=== PATIENT | male | born 1965 | race Two or more races ===

== ENCOUNTER 2016-07-14 00:57 | Inpatient (IN) | payer OTHER ==
[2016-07-14] VITALS (8 sets, daily range): BP systolic 119–149; BP diastolic 74–101
[~2016-07-14] VITALS: Ht 180.3 cm; Wt 51.7 kg
[~2016-07-14 00:57] MED LIST: AMITRIPTYLINE25 MG ORAL; ASPIRIN EC81 MG ORAL; CATAPRES0.1 MG ORAL; FUROSEMIDE20 M1 ORAL; FUROSEMIDE40 MG ORAL; LANTUS; LANTUS SOL100 UNIT/1 SUBQ; LISINOPRIL40 MG ORAL; METFORMIN HCL1000 M1 ORAL; METFORMIN HCL500 M1 ORAL; METOPROLOL TART25 MG ORAL; NEURONTIN300 MG ORAL; NKM; NOVOLIN R; NOVOLIN R100 UNIT/1 SUBQ; NOVOLOG100 UNIT/3 SUBQ; PREDNISOLO15 MG/5 M1 ORAL; TRAMADOL HCL50 MG ORAL
[2016-07-14] MEDS ORDERED: HYDROmorphone 1mg/ml Carpuject IVP ONE (01:00)
[2016-07-14] MEDS ORDERED: HUMALOG 75/255 UNIT1 SUBQ (01:01)
[2016-07-14] MEDS ORDERED: LANTUS SOL100 UNIT/1 SUBQ (01:01)
--- NOTE | 2016-07-14 01:03 | Emergency Room Report ---
History of Present Illness General Chief Complaint: Pain Source: Patient, EMS Present Illness HPI Is a 50-year-old male with a history of drug use, diabetes. He presents with chief complaint of bilateral leg pain. This is a chronic issue for him. He has diabetic neuropathy with previous infection and trans-metatarsal agitation the right foot. He presents with severe pain to the right leg. 10 out of 10. No fever or chills. No trauma. Nothing made it better. Pain medication not helping. No other complaint. Allergies: Coded Allergies: ACETAMINOPHEN (Unverified Allergy, Unknown, 07/14/16) HYDROCODONE (Unverified Allergy, Unknown, 07/14/16) Patient History Past Medical History: see triage record, old chart reviewed, DM Past Surgical History: other Pertinent Family History: none Social History: Reports: drug use - History, smoking Immunizations: UTD Reviewed Nursing Documentation: PMH: Agreed, PSxH: Agreed Nursing Documentation-PMH Past Medical History: No History, Except For Hx Cardiac Problems: Yes - CHF, HEP C Hx Hypertension: Yes Hx COPD: Yes Hx Diabetes: Yes Hx Cancer: Yes Hx Gastrointestinal Problems: No Hx Dialysis: No Hx Neurological Problems: No Hx Seizures: Yes Hx Tremors: Yes Hx Weakness: Yes Review of Systems Eye: Denies: blurred vision, eye pain ENT: Denies: ear pain, nose congestion, throat swelling Respiratory: Denies: cough, shortness of breath Cardiovascular: Denies: chest pain, palpitations Gastrointestinal: Denies: abdominal pain, diarrhea, nausea, vomiting Musculoskeletal: Reports: muscle pain, Denies: back pain, joint pain Skin: Denies: rash Neurological: Denies: headache, numbness Endocrine: Denies: increased thirst, increased urine Hematologic/Lymphatic: Denies: easy bruising All Other Systems: negative except mentioned in HPI Physical Exam Vital Signs Date Time Temp Pulse Resp B/P Pulse Ox O2 Delivery O2 Flow Rate FiO2 07/14/16 00:54 97.9 111 18 126/87 98 Room Air Vitals with tachycardia [id number] EP Interpretation: reviewed, normal General Appearance: no apparent distress, alert, cachetic, Chronically Ill Head: normocephalic, atraumatic Eyes: bilateral eye EOMI, bilateral eye other - Legally blind ENT: hearing grossly normal, normal pharynx Neck: full range of motion, supple, no meningismus Respiratory: chest non-tender, lungs clear, normal breath sounds Cardiovascular #1: regular rate, rhythm, no murmur Gastrointestinal: normal bowel sounds, non tender, no mass, no organomegaly, no bruit, non-distended Musculoskeletal: back normal, normal range of motion, other - Right elbow: Slow healing ulcer. No infection. Full range of motion. Neurologic: alert, oriented x3 Psychiatric: mood/affect normal Skin: warm/dry Medical Decision Making Diagnostic Impression: Primary Impression: Diabetic peripheral neuropathy Additional Impressions: Failure to thrive in adult Hyperglycemia due to type 1 diabetes mellitus Amphetamine abuse Diabetic knee ulcer Chronic diarrhea Proteinuria ER Course Patient presents with generalize pain secondary to diabetic neuropathy and drug abuse. He has chronic diarrhea. Unable to for care for himself. He is also blind now. Her thigh on this 80 year-old mom who comes by to take care of him. He will need usp care. Lab Results Impression labs with elevated glucose Rhythm Strip Diag. Results EP Interpretation: yes Rate: 88 Rhythm: NSR, no PVC's, no ectopy Last Vital Signs Date Time Temp Pulse Resp B/P Pulse Ox O2 Delivery O2 Flow Rate FiO2 07/14/16 00:54 97.9 111 18 126/87 98 Room Air Status: improved Disposition: ADMITTED INPATIENT Condition: Serious JILL FOSTER M.D. Jul 14, 2016 01:03
[2016-07-14] MEDS ORDERED: CATAPRES0.1 MG ORAL (01:11)
[2016-07-14] MEDS ORDERED: ASPIR 8181 MG ORAL (01:11)
[2016-07-14 01:45] LABS: BASOPHILS % (AUTO) 1.2 % (0.0-2.0); EOSINOPHILS % (AUTO) 3.5 % (0.0-3.0); LYMPHOCYTES % (AUTO) 26.8 % (20.0-45.0); MEAN CORPUSCULAR HEMOGLOBIN 29.7 PG (27.0-31.0); MEAN CORPUSCULAR VOLUME 93 FL (80-99); MEAN PLATELET VOLUME 4.8 FL (6.5-10.1); MONOCYTES % (AUTO) 4.4 % (1.0-10.0); NEUTROPHILS % (AUTO) 64.1 % (45.0-75.0); PLATELET COUNT 433 K/UL (150-450); RED BLOOD COUNT 4.35 M/UL (4.70-6.10); RED CELL DISTRIBUTION WIDTH 17.8 % (11.6-14.8); WHITE BLOOD COUNT 11.5 K/UL (4.8-10.8)
[2016-07-14 02:04] LABS: CALCIUM 9.1 mg/dL (8.6-10.2); CHLORIDE 97 mEQ/L (98-107); CREATININE 1.2 mg/dL (0.7-1.2); GLOMERULAR FILTRATION RATE > 60 mL/min (>60); POTASSIUM 4.5 mEQ/L (3.4-4.9); SODIUM 129 mEQ/L (135-145)
[2016-07-14 02:17] LABS: APPEARANCE,URINE CLEAR; KETONES,URINE NEGATIVE (NEGATIVE); LEUKOCYTE ESTERASE ,URINE 1+ (NEGATIVE); NITRITE,URINE NEGATIVE (NEGATIVE); PH,URINE 5 (4.5-8.0); PROTEIN,URINE 2+ (NEGATIVE); UROBILINOGEN,URINE NORMAL MG/DL (0.0-1.0)
[2016-07-14 02:28] LABS: BACTERIA,URINE FEW /HPF; RBC,URINE 0-2 /HPF (0 - 0); SQUAMOUS EPITHELIAL CELL,UR FEW /LPF (NONE/OCC); WBC,URINE 0-2 /HPF (0 - 0)
[2016-07-14 02:31] LABS: ANION GAP 13 (5-15); CARBON DIOXIDE 19 mEQ/L (20-30)
[2016-07-14] MEDS ORDERED: Nitroglycerin Subl 0.4mg tab (Bottle Of 25) SL PRN (06:00)
[2016-07-14] MEDS ORDERED: Miralax 17gm pkt ORAL PRN (06:00)
[2016-07-14] MEDS ORDERED: Mylanta II UD 30ml ORAL PRN (06:00)
[2016-07-14] MEDS ORDERED: DuoNeb 0.5-3(2.5)mg/3ml neb HHN PRN (06:00)
[2016-07-14] MEDS: NovoLOG Insulin Flexpen SUBQ SCH ×4 (06:30→21:50)
[2016-07-14] MEDS: HYDROmorphone 2 MG in NS 50 ML IVPB PRN ×4 (06:44→18:55)
[2016-07-14] MEDS: Aspirin EC 81mg tab ORAL SCH (08:57)
[2016-07-14] MEDS: Heparin 5000 units/ml inj SUBQ SCH ×2 (09:01→21:49)
[2016-07-14] MEDS ORDERED: Pneumococcal Vaccine 25mcg/0.5ml IM ONE (10:00)
[2016-07-14] MEDS: Ketorolac 30mg Inj IV PRN (10:18)
--- NOTE | 2016-07-14 14:39 | History and Physical ---
History of Present Illness General Date patient seen: Jul 14, 2016 Time patient seen: 12:00 Reason for Hospitalization: Pain Present Illness HPI 50-year-old male with a history of drug use, diabetes presented with chief complaint of bilateral leg pain and recurrent falls. Leg pain chronic, due to hx of diabetic neuropathy. History of trans-metatarsal amputation the right foot. He presented with severe pain to the right leg. 10 out of 10. Denies fever or chills. Denies trauma. patient lives with old mother, he is legally blind, not checking his blood sugar patient verbalizes he needs assistance with placement Allergies: Coded Allergies: ACETAMINOPHEN (Unverified Allergy, Unknown, 07/14/16) HYDROCODONE (Unverified Allergy, Unknown, 07/14/16) Medication History Scheduled Amitriptyline HCl (Elavil*), 25 MG ORAL BEDTIME, (Reported) Aspirin* (Aspir 81*), 81 MG ORAL DAILY, (Reported) Clonidine Hcl* (Catapres*), 0.1 MG ORAL BID, (Reported) Furosemide* (Lasix*), 20 MG ORAL DAILY, (Reported) Gabapentin (Neurontin), 300 MG ORAL BEDTIME, (Reported) Insulin Glargine (Lantus), 0 SUBQ BEDTIME, (Reported) Scheduled PRN Tramadol Hcl* (Ultram*), 50 MG ORAL Q6H PRN for For Pain, (Reported) Miscellaneous Medications Insulin Human Lispro (Humalog), 0 SUBQ, (Reported) Prednisolone* (Prelone*), 15 MG ORAL, (Reported) Patient History History Provided By: Patient Healthcare decision maker Resuscitation status Full Code Advanced Directive on File Past Medical/Surgical History Past Medical/Surgical History: (1) Amphetamine abuse (2) Smoker (3) S/P transmetatarsal amputation of foot (4) Recurrent falls (5) HTN (hypertension) (6) COPD (chronic obstructive pulmonary disease) (7) Blindness of both eyes (8) Hepatitis C (9) Anemia (10) DM (diabetes mellitus) (11) Diabetic peripheral neuropathy (12) Foot ulcer Review of Systems Constitutional: Reports: other - recurrent falls Eye: Reports: other - bilateral blindness ENT: Reports: no symptoms Respiratory: Reports: other - hx of COPD Cardiovascular: Reports: other - hx of HTN Gastrointestinal: Reports: no symptoms Genitourinary: Reports: no symptoms Musculoskeletal: Reports: other - s/p transmetatarsal amputation R foot Skin: Reports: see HPI Psychiatric: Reports: no symptoms Neurological: Reports: other - diabetic neuropathy , seizure Endocrine: Reports: other - diabetes Physical Exam General Appearance: no apparent distress, alert, cachetic Lines, tubes and drains: peripheral HEENT: normocephalic, atraumatic, anicteric, mucous membranes moist, supple, no JVD, other - bilateral blindness Neck: non-tender, supple Respiratory/Chest: lungs clear - with moderate air entry Cardiovascular/Chest: normal peripheral pulses, normal rate, regular rhythm, no JVD Abdomen: normal bowel sounds, non tender, soft Extremities: non-tender, no calf tenderness, normal capillary refill Skin Exam: warm/dry, other - R foot transmetatarsal amputation Neurologic: abnormal gait, alert, responsive, normal mood/affect Last 24 Hour Vital Signs Date Time Temp Pulse Resp B/P Pulse Ox O2 Delivery O2 Flow Rate FiO2 07/14/16 12:19 98.2 95 20 138/94 100 Room Air 07/14/16 11:43 97.0 07/14/16 10:48 97.0 07/14/16 08:57 139/101 07/14/16 08:36 97.0 91 20 139/101 100 Room Air 07/14/16 07:30 Room Air 21 07/14/16 07:30 98 Room Air 21 07/14/16 06:30 97.2 87 20 149/92 100 Room Air 07/14/16 05:07 97.8 78 16 128/82 100 Room Air 07/14/16 03:30 97.8 80 14 132/87 100 Room Air 07/14/16 02:28 98.4 75 16 128/85 99 Room Air 07/14/16 02:03 98.2 07/14/16 01:28 98.1 72 18 130/82 99 Room Air 07/14/16 00:54 97.9 111 18 126/87 98 Room Air Intake and Output 07/13/16 07/14/16 19:00 07:00 Intake Total 1240 ml Output Total 350 ml Balance 890 ml Intake Oral 240 ml IV Total 1000 ml Output Urine Total 350 ml # Voids 1 # Bowel Movements 1 Laboratory Tests Test 07/14/16 01:35 07/14/16 01:55 White Blood Count 11.5 K/UL (4.8-10.8) H Red Blood Count 4.35 M/UL (4.70-6.10) L Hemoglobin 12.9 G/DL (14.2-18.0) L Hematocrit 40.3 % (42.0-52.0) L Mean Corpuscular Volume 93 FL (80-99) Mean Corpuscular Hemoglobin 29.7 PG (27.0-31.0) Mean Corpuscular Hemoglobin Concent 32.0 G/DL (32.0-36.0) Red Cell Distribution Width 17.8 % (11.6-14.8) H Platelet Count 433 K/UL (150-450) Mean Platelet Volume 4.8 FL (6.5-10.1) L Neutrophils (%) (Auto) 64.1 % (45.0-75.0) Lymphocytes (%) (Auto) 26.8 % (20.0-45.0) Monocytes (%) (Auto) 4.4 % (1.0-10.0) Eosinophils (%) (Auto) 3.5 % (0.0-3.0) H Basophils (%) (Auto) 1.2 % (0.0-2.0) Sodium Level 129 mEQ/L (135-145) L Potassium Level 4.5 mEQ/L (3.4-4.9) Chloride Level 97 mEQ/L (98-107) L Carbon Dioxide Level 19 mEQ/L (20-30) L Anion Gap 13 (5-15) Blood Urea Nitrogen 24 mg/dL (7-23) H Creatinine 1.2 mg/dL (0.7-1.2) Estimat Glomerular Filtration Rate > 60 mL/min (>60) Glucose Level 293 mg/dL (74-106) H Calcium Level 9.1 mg/dL (8.6-10.2) Urine Color Pale yellow Urine Appearance Clear Urine pH 5 (4.5-8.0) Urine Specific [place] 1.015 (1.005-1.035) Urine Protein 2+ (NEGATIVE) H Urine Glucose (UA) 2+ (NEGATIVE) H Urine Ketones Negative (NEGATIVE) Urine Occult Blood Negative (NEGATIVE) Urine Nitrite Negative (NEGATIVE) Urine Bilirubin Negative (NEGATIVE) Urine Urobilinogen Normal MG/DL (0.0-1.0) Urine Leukocyte Esterase 1+ (NEGATIVE) H Urine RBC 0-2 /HPF (0 - 0) H Urine WBC 0-2 /HPF (0 - 0) Urine Squamous Epithelial Cells Few /LPF (NONE/OCC) Urine Bacteria Few /HPF (NONE) Urine Opiates Screen Negative (NEGATIVE) Urine Barbiturates Screen Negative (NEGATIVE) Phencyclidine (PCP) Screen Negative (NEGATIVE) Urine Amphetamines Screen Positive (NEGATIVE) H Urine Benzodiazepines Screen Negative (NEGATIVE) Urine Cocaine Screen Negative (NEGATIVE) Urine Marijuana (THC) Screen Negative (NEGATIVE) Height (Feet): 5 Height (Inches): 11.00 Weight (Pounds): 114 Medications Current Medications Medications (Trade) Dose Ordered Sig/Romelia Route PRN Reason Start Time Stop Time Status Last Admin Dose Admin Acetaminophen (Tylenol) 650 mg Q4H PRN ORAL fever 07/14/16 06:00 08/13/16 05:59 Al Hydroxide/Mg Hydroxide (Mylanta II) 30 ml Q6H PRN ORAL dyspepsia 07/14/16 06:00 08/13/16 05:59 Albuterol/ Ipratropium (DuoNeb 0.5-3(2.5)mg/3ml) 3 ml EVERY 4 HOURS PRN HHN Shortness of Breath 07/14/16 06:00 07/19/16 05:59 Amitriptyline HCl (Elavil) 25 mg BEDTIME ORAL 07/14/16 21:00 08/13/16 20:59 Aspirin (Ecotrin) 81 mg DAILY ORAL 07/14/16 09:00 08/13/16 08:59 07/14/16 08:57 Clonidine HCl (Catapres) 0.1 mg BID ORAL 07/14/16 09:00 08/13/16 08:59 07/14/16 08:57 Clonidine HCl 0.1 mg 0.1 mg EVERY 4 HOURS PRN ORAL sbp more than 160 07/14/16 06:00 08/13/16 05:59 Dextrose (Dextrose 50%) STAT PRN IV Hypoglycemia 07/14/16 06:00 08/13/16 05:59 Gabapentin (Neurontin) 300 mg BEDTIME ORAL 07/14/16 21:00 08/13/16 20:59 Heparin Sodium (Porcine) (Heparin 5000 units/ml) 5,000 units EVERY 12 HOURS SUBQ 07/14/16 09:00 08/13/16 08:59 07/14/16 09:01 Hydromorphone HCl/ Sodium Chloride (Dilaudid/Sodium Chloride 50ml bag) 51 ml @ 200 mls/hr EVERY 3 HOURS PRN IVPB severe pain 07/14/16 06:00 07/21/16 05:59 07/14/16 14:11 Insulin Aspart (NovoLOG) BEFORE MEALS AND HS SUBQ 07/14/16 06:30 08/13/16 06:29 07/14/16 11:54 Ketorolac Tromethamine (Toradol 30mg) 30 mg EVERY 6 HOURS PRN IV moderate pain 4-6 07/14/16 06:00 07/19/16 05:59 07/14/16 10:18 Nitroglycerin (Ntg) 0.4 mg Q5M X 3 DOSES PRN SL Prn Chest Pain 07/14/16 06:00 08/13/16 05:59 Ondansetron HCl (Zofran) 4 mg Q6H PRN IVP Nausea & Vomiting 07/14/16 06:00 08/13/16 05:59 Polyethylene Glycol (Miralax) 17 gm HSPRN PRN ORAL Constipation 07/14/16 06:00 08/13/16 05:59 Sodium Chloride (Sodium Chloride 1000ml bag) 1,000 ml @ 100 mls/hr Q10H IVLG 07/14/16 18:23 08/13/16 18:22 Temazepam (Restoril) 15 mg HSPRN PRN ORAL Insomnia 07/14/16 06:00 07/21/16 05:59 Tramadol HCl 50 mg 50 mg Q6H PRN ORAL For Pain 07/14/16 06:00 07/21/16 05:59 Assessment/Plan Assessment/Plan ASSESSMENT frequent recurrent falls DM diabetic neuropathy legally blind bilateral leg pain transmetatarsal amputation R foot smoker amphetamine use unable to care for himself PLAN OF CARE MS floor IVF BS management with SS of insulin check HgA1c endo eval Venous and Arterial Duplex BLE repeat X ray R foot ( previously question of possible osteo) podiatry eval fall precautions PT/OT O2 HHN prn seizure precaution continue ASA resume home meds SW consult for placement pain manageetmn bowel regimen DVT, GI prophylaxis urine tox screen + Amphetamines marriage and family counselor on abstinence form street drug , marriage and family counselor to stop smoking case discussed and evaluated by supervising physician Regis ([facility]),Lorena HOWELL Jul 14, 2016 14:39
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
[2016-07-14] MEDS ORDERED: Vitamin A&D Oint 2oz Tube TOPIC SCH (16:00)
[2016-07-14] MEDS ORDERED: Tubing IV Secondary IV ONE (17:26)
[2016-07-14] MEDS: traMADol 50mg tab ORAL PRN (20:13)
[2016-07-15] VITALS: BP 135/84
[2016-07-15] MEDS: HYDROmorphone 2 MG in NS 50 ML IVPB PRN ×4 (00:43→21:46)
[2016-07-15 04:00] VITALS: BP 157/100
[2016-07-15] MEDS: NovoLOG Insulin Flexpen SUBQ SCH ×4 (06:38→21:48)
[2016-07-15 07:56] LABS: MEAN CORPUSCULAR HEMOGLOBIN 29.3 PG (27.0-31.0); MEAN CORPUSCULAR HGB CONC 30.8 G/DL (32.0-36.0); MEAN CORPUSCULAR VOLUME 95 FL (80-99); MEAN PLATELET VOLUME 4.8 FL (6.5-10.1); PLATELET COUNT 342 K/UL (150-450); RED BLOOD COUNT 3.41 M/UL (4.70-6.10); RED CELL DISTRIBUTION WIDTH 18.1 % (11.6-14.8); WHITE BLOOD COUNT 20.4 K/UL (4.8-10.8)
[2016-07-15 08:00] VITALS: BP 118/88
[2016-07-15 08:24] LABS: ALANINE AMINOTRANSFERASE 36 U/L (3-41); ALBUMIN/GLOBULIN RATIO 0.7 (1.0-2.7); ANION GAP 12 (5-15); ASPARTATE AMINO TRANSFERASE 52 U/L (5-40); CALCIUM 8.8 mg/dL (8.6-10.2); CARBON DIOXIDE 21 mEQ/L (20-30); CHLORIDE 103 mEQ/L (98-107); CHOLESTEROL 95 mg/dL (< 200); CHOLESTEROL/HDL RATIO 2.2 (3.3-4.4); GLOMERULAR FILTRATION RATE > 60 mL/min (>60); HEMOLYSIS 3; LDL CHOLESTEROL (CALC.) 36 mg/dL (60-99); POTASSIUM 4.6 mEQ/L (3.4-4.9); SODIUM 136 mEQ/L (135-145); TOTAL PROTEIN 6.9 g/dL (6.6-8.7)
[2016-07-15 08:52] LABS: HEMOGLOBIN A1C 7.4 % (< 6.0)
[2016-07-15] MEDS: Aspirin EC 81mg tab ORAL SCH (09:39)
[2016-07-15] MEDS: Heparin 5000 units/ml inj SUBQ SCH ×2 (09:42→21:48)
[2016-07-15 10:13] LABS: BAND NEUTROPHILS % (MANUAL) 5 % (0-8); EOSINOPHILS % (MANUAL) 1 % (0-3); LYMPHOCYTES % (MANUAL) 16 % (20-45); NEUTROPHILS % (MANUAL) 75 % (45-75); TOTAL CELLS COUNTED 100
[2016-07-15 10:14] LABS: ANISOCYTOSIS 1+; BASOPHILS % (MANUAL) 0 % (0-2); HYPOCHROMASIA 1+; PLATELET ESTIMATE ADEQUATE; PLATELET MORPHOLOGY NORMAL
[2016-07-15 12:00] VITALS: BP 109/85
--- NOTE | 2016-07-15 13:53 | Pulmonology Progress Note ---
Assessment/Plan Assessment/Plan ASSESSMENT leukocytosis possible sepsis frequent recurrent falls DM diabetic neuropathy hyponatremia -resolved legally blind bilateral leg pain transmetatarsal amputation R foot smoker amphetamine use unable to care for himself PLAN OF CARE MS floor culture blood, urine, sputum stool C dif negative empiric abx ID consult IVF, Na up to normal likely depletional BS management with SS of insulin HgA1c -7.4 endo eval Venous and Arterial Duplex BLE repeat X ray R foot ( previously question of possible osteo) podiatry eval fall precautions PT/OT O2 HHN prn seizure precaution continue ASA resume home meds SW consult for placement pain manageetmn bowel regimen DVT, GI prophylaxis urine tox screen + Amphetamines skilled nursing facility counselor on abstinence form street drug , skilled nursing facility counselor to stop smoking case discussed and evaluated by supervising physician Subjective Allergies: Coded Allergies: ACETAMINOPHEN (Unverified Allergy, Unknown, 07/14/16) HYDROCODONE (Unverified Allergy, Unknown, 07/14/16) Subjective today with leukocytosis, afebrile no signs of respiratory distress seen and evaluated by wound care nurse ( multiple decub ulcers POA) Objective Last 24 Hour Vital Signs Date Time Temp Pulse Resp B/P Pulse Ox O2 Delivery O2 Flow Rate FiO2 07/15/16 09:39 118/88 07/15/16 08:00 97.0 105 20 118/88 100 Room Air 07/15/16 07:58 98 Room Air 21 07/15/16 07:58 Room Air 21 07/15/16 04:00 97.7 93 22 157/100 95 Room Air 07/15/16 00:00 97.7 91 18 135/84 95 Room Air 07/14/16 22:17 Room Air 07/14/16 22:17 98 Room Air 07/14/16 21:12 97.1 07/14/16 20:14 97.1 95 22 119/81 100 Room Air 07/14/16 19:25 97.3 07/14/16 18:54 129/74 07/14/16 16:00 97.3 100 22 129/74 100 Room Air Intake and Output 07/14/16 07/15/16 19:00 07:00 Intake Total 850 ml 1141 ml Output Total 400 ml 800 ml Balance 450 ml 341 ml Intake Oral 650 ml 1090 ml IV Total 200 ml 51 ml Output Urine Total 400 ml 800 ml # Voids 5 # Bowel Movements 3 Objective General Appearance: no apparent distress, alert, cachetic Lines, tubes and drains: peripheral HEENT: normocephalic, atraumatic, anicteric, mucous membranes moist, supple, no JVD, other - bilateral blindness Neck: non-tender, supple Respiratory/Chest: lungs clear - with moderate air entry Cardiovascular/Chest: normal peripheral pulses, normal rate, regular rhythm, no JVD Abdomen: normal bowel sounds, non tender, soft Extremities: non-tender, no calf tenderness, normal capillary refill Skin Exam: warm/dry, other - R foot transmetatarsal amputation, R and L elbow, R foot, st 4, multiple other skin breakdown ( see pictures and wound nurse eval) Neurologic: abnormal gait, alert, responsive, normal mood/affect Microbiology Date/Time Source Procedure Growth Status 07/14/16 10:30 Stool Clostridium difficile Toxin Assay - Final Complete Laboratory Tests 07/15/16 05:15: White Blood Count 20.4#H, Red Blood Count 3.41L, Hemoglobin 10.0L, Hematocrit 32.4L, Mean Corpuscular Volume 95, Mean Corpuscular Hemoglobin 29.3, Mean Corpuscular Hemoglobin Concent 30.8L, Red Cell Distribution Width 18.1H, Platelet Count 342, Mean Platelet Volume 4.8L, Neutrophils (%) (Auto) , Lymphocytes (%) (Auto) , Monocytes (%) (Auto) , Eosinophils (%) (Auto) , Basophils (%) (Auto) , Differential Total Cells Counted 100, Neutrophils % ( Manual) 75, Lymphocytes % (Manual) 16L, Monocytes % (Manual) 3, Eosinophils % ( Manual) 1, Basophils % (Manual) 0, Band Neutrophils 5, Platelet Estimate Adequate, Platelet Morphology Normal, Hypochromasia 1+, Anisocytosis 1+, Sodium Level 136, Potassium Level 4.6, Chloride Level 103, Carbon Dioxide Level 21, Anion Gap 12, Blood Urea Nitrogen 23, Creatinine 1.0, Estimat Glomerular Filtration Rate > 60, Glucose Level 224H, Hemoglobin A1c 7.4H, Calcium Level 8.8 , Total Bilirubin 0.2, Aspartate Amino Transf (AST/SGOT) 52H, Alanine Aminotransferase (ALT/SGPT) 36, Alkaline Phosphatase 243H, Total Protein 6.9, Albumin 2.9L, Globulin 4.0, Albumin/Globulin Ratio 0.7L, Triglycerides Level 75 , Cholesterol Level 95, LDL Cholesterol 36L, HDL Cholesterol 44, Cholesterol/ HDL Ratio 2.2L, Thyroid Stimulating Hormone (TSH) 3.660 Current Medications Medications (Trade) Dose Ordered Sig/Romelia Route PRN Reason Start Time Stop Time Status Last Admin Dose Admin Acetaminophen (Tylenol) 650 mg Q4H PRN ORAL fever 07/14/16 06:00 08/13/16 05:59 Al Hydroxide/Mg Hydroxide (Mylanta II) 30 ml Q6H PRN ORAL dyspepsia 07/14/16 06:00 08/13/16 05:59 Albuterol/ Ipratropium (DuoNeb 0.5-3(2.5)mg/3ml) 3 ml EVERY 4 HOURS PRN HHN Shortness of Breath 07/14/16 06:00 07/19/16 05:59 Amitriptyline HCl (Elavil) 25 mg BEDTIME ORAL 07/14/16 21:00 08/13/16 20:59 07/14/16 21:47 Aspirin (Ecotrin) 81 mg DAILY ORAL 07/14/16 09:00 08/13/16 08:59 07/15/16 09:39 Clonidine HCl (Catapres) 0.1 mg BID ORAL 07/14/16 09:00 08/13/16 08:59 07/15/16 09:39 Clonidine HCl 0.1 mg 0.1 mg EVERY 4 HOURS PRN ORAL sbp more than 160 07/14/16 06:00 08/13/16 05:59 Dextrose (Dextrose 50%) STAT PRN IV Hypoglycemia 07/14/16 06:00 08/13/16 05:59 Gabapentin (Neurontin) 300 mg BEDTIME ORAL 07/14/16 21:00 08/13/16 20:59 07/14/16 21:48 Haloperidol Lactate (Haldol) 5 mg Q3H PRN IM Agitation 07/14/16 18:30 08/13/16 18:29 Heparin Sodium (Porcine) (Heparin 5000 units/ml) 5,000 units EVERY 12 HOURS SUBQ 07/14/16 09:00 08/13/16 08:59 07/15/16 09:42 Hydromorphone HCl/ Sodium Chloride (Dilaudid/Sodium Chloride 50ml bag) 51 ml @ 200 mls/hr EVERY 3 HOURS PRN IVPB severe pain 07/14/16 06:00 07/21/16 05:59 07/15/16 11:42 Insulin Aspart (NovoLOG) BEFORE MEALS AND HS SUBQ 07/14/16 06:30 08/13/16 06:29 07/15/16 13:30 Ketorolac Tromethamine (Toradol 30mg) 30 mg EVERY 6 HOURS PRN IV moderate pain 4-6 07/14/16 06:00 07/19/16 05:59 07/14/16 10:18 Lorazepam (Ativan 2mg/ml 1ml) 1 mg Q4H PRN IV For Anxiety 07/14/16 18:30 07/21/16 18:29 Nitroglycerin (Ntg) 0.4 mg Q5M X 3 DOSES PRN SL Prn Chest Pain 07/14/16 06:00 08/13/16 05:59 Ondansetron HCl (Zofran) 4 mg Q6H PRN IVP Nausea & Vomiting 07/14/16 06:00 08/13/16 05:59 Polyethylene Glycol (Miralax) 17 gm HSPRN PRN ORAL Constipation 07/14/16 06:00 08/13/16 05:59 Ranitidine HCl (Zantac) 150 mg BEDTIME ORAL 07/14/16 21:00 08/13/16 20:59 07/14/16 21:48 Sodium Chloride (Sodium Chloride 1000ml bag) 1,000 ml @ 100 mls/hr Q10H IVLG 07/14/16 18:23 08/13/16 18:22 Temazepam (Restoril) 15 mg HSPRN PRN ORAL Insomnia 07/14/16 06:00 07/21/16 05:59 Tramadol HCl 50 mg 50 mg Q6H PRN ORAL For Pain 07/14/16 06:00 07/21/16 05:59 07/14/16 20:13 Vitamin A/Vitamin D (A & D Oint) 1 applic BIDPRN TOPIC 07/14/16 16:00 08/13/16 15:59 [facility]Lorena NP Jul 15, 2016 13:53
[2016-07-15 16:00] VITALS: BP 121/78
[2016-07-15] MEDS: Vancomycin 750mg/D5W 250ml IVPB SCH ×2 (17:29)
[2016-07-15 20:00] VITALS: BP 148/92
--- NOTE | 2016-07-15 21:25 | Consultation ---
Consult Note Assessment/Plan A: Leukocytosis ? sepsis Multiple decubitus ( not infected grossly ) Hx of Hep C , SP Rx in 1999 HIV neg ( as per pt ) Ch Diarrhea ? due to mal-absorption C diff High Alk Phos ro Biliary Dx Wt loss 140 lb in 12 mo, due to Ch diarrhea , also may need to Ro malignancy ( liver Cancer ) DM Diabetic neuropathy Legally blind SP transmetatarsal amputation R foot smoker amphetamine use PLAN : Cont on IV Vanco, Cefepime, add Flagyl Monitor CBC Monitor CMP Monitor Cultures ( Stool , Bl ) Stool WBC, Crytpos, Fat Hep C PCR HIV Ab US of liver AFP JAYNE FRAZIER M.D. Jul 15, 2016 21:25
[2016-07-15] MEDS: LORazepam Inj 2mg/ml 1ml IV PRN (22:09)
[2016-07-16] VITALS: BP 126/81
[2016-07-16] MEDS: Ketorolac 30mg Inj IV PRN ×3 (02:00→17:24)
--- NOTE | 2016-07-16 02:38 | Consultation ---
DATE OF CONSULTATION: INFECTIOUS DISEASE CONSULTATION CONSULTING PHYSICIAN: Saman Muir M.D. REQUESTING PHYSICIAN: [facility] REASON FOR CONSULTATION: Evaluation of the patient for chronic diarrhea, leukocytosis, and antibiotic management. HISTORY OF PRESENT ILLNESS: The patient is a 50-year-old male with multiple medical problems, who was brought to this medical center because of generalized body ache. Also, the patient has failure to thrive. According to him, he has lost over 140 pounds in one year. The patient has multiple decubitus. The patient was found to have increase of leukocytosis and Infectious Diseases consultation has been requested for further evaluation of the patient and antibiotic management. PAST MEDICAL HISTORY: 1. History of IV drug abuse in the past. 2. History of tobacco abuse. 3. Status post transmetatarsal amputation of the foot. 4. History of hypertension. 5. Chronic obstructive pulmonary disease. 6. History of blindness. 7. Hepatitis C, status post treatment in 1999. 8. History of anemia. 9. Multiple decubitus. MEDICATIONS: IV cefepime and vancomycin. ALLERGIES: Acetaminophen and hydrocodone. FAMILY HISTORY: Not contributing. REVIEW OF SYSTEMS: HEENT: As mentioned above. Pulmonary: No cough or shortness of breath. Cardiovascular: No pain or palpitations. Gastrointestinal/Abdomen: As mentioned above. Genitourinary: No dysuria. Musculoskeletal: As mentioned above. PHYSICAL EXAMINATION: VITAL SIGNS: Temperature 97.9 degrees, blood pressure 121/78, pulse 86, respiratory rate 18, and blood pressure 110/78. HEENT: Mild pale conjunctivae. NECK: No lymphadenopathy. CHEST: Coarse breathing sounds. HEART: S1 and S2. ABDOMEN: Soft and nontender. EXTREMITIES: The patient has multiple decubitus on the lower extremities. None of them is grossly infected. Also, the patient has multiple decubitus on the upper extremity and elbows. NEUROLOGIC: Awake and alert. LABORATORY DATA: White blood cell at the time of admission 11, today it is 20.4, hemoglobin 10, and platelet 342,000. UA unremarkable. BUN 23 and creatinine 1. ALT and AST are unremarkable. Alkaline phosphatase 243. Stool for C. difficile is negative. ASSESSMENT: The patient is a 50-year-old male with multiple medical problems, who was admitted to this medical center. His failure to thrive appears to be due to chronic diarrhea. The patient states his human immunodeficiency virus test has been negative in the past. The cause of the patient's chronic diarrhea is not clear, less likely to be an infectious process, however, need to rule out bacterial and also Cryptosporidium as a contributing factor. The patient may benefit from a gastrointestinal evaluation. The patient's source of leukocytosis is not clear, it is important to rule out possibility of bacteremia. The patient has multiple wounds that are predisposed to the patient to Staph bacteremia. PLAN: 1. We will continue the patient on vancomycin and cefepime. Add Flagyl. 2. White blood cells cultures and Cryptosporidium. 3. Ultrasound of the abdomen for evaluation of high alkaline phosphatase and biliary obstruction. 4. Monitor CBC and BMP. COMMENTS: GI evaluation for the patient's chronic diarrhea. Also, total protein, hepatitis C, PCR, and also HIV. Thank you, Lorena Stacy, nurse practitioner, for allowing me to participate in the care of this patient. I will follow the patient with you during this hospitalization. Saman Muir M.D. DR: DIRK JOB#: [id number] CC:
[2016-07-16] MEDS: Vancomycin 750mg/D5W 250ml IVPB SCH ×4 (03:59→17:14)
[2016-07-16 04:00] VITALS: BP 135/88
[2016-07-16 06:28] LABS: BASOPHILS % (AUTO) 0.9 % (0.0-2.0); EOSINOPHILS % (AUTO) 3.2 % (0.0-3.0); LYMPHOCYTES % (AUTO) 19.5 % (20.0-45.0); MEAN CORPUSCULAR HEMOGLOBIN 29.4 PG (27.0-31.0); MEAN CORPUSCULAR HGB CONC 30.7 G/DL (32.0-36.0); MEAN CORPUSCULAR VOLUME 96 FL (80-99); MEAN PLATELET VOLUME 5.9 FL (6.5-10.1); MONOCYTES % (AUTO) 4.5 % (1.0-10.0); NEUTROPHILS % (AUTO) 71.9 % (45.0-75.0); PLATELET COUNT 273 K/UL (150-450); RED BLOOD COUNT 3.21 M/UL (4.70-6.10); RED CELL DISTRIBUTION WIDTH 18.3 % (11.6-14.8)
[2016-07-16] MEDS: NovoLOG Insulin Flexpen SUBQ SCH ×4 (07:15→21:49)
[2016-07-16 08:00] VITALS: BP 157/93
[2016-07-16] MEDS: metFORMIN 500mg tab ORAL SCH ×2 (09:00→19:07)
[2016-07-16] MEDS: Aspirin EC 81mg tab ORAL SCH (09:00)
[2016-07-16] MEDS: Heparin 5000 units/ml inj SUBQ SCH ×2 (09:02→21:50)
--- NOTE | 2016-07-16 11:11 | Consultation ---
Consult Note Assessment/Plan A/ 1) Nonpressure ulcer right foot to subq 2) Nonpressure ulcer left foot 1st and 2nd toes - UTD 3) S/P TMA right foot P/ 1) X-rays pending 2) Will order wound care 3) Cont decub precautions 4) Will follow Thank you Lorena/Philip Roa DPM Jul 16, 2016 11:11
[2016-07-16] MEDS: GlipiZIDE 5mg tab ORAL SCH ×2 (11:30→17:24)
--- NOTE | 2016-07-16 11:42 | Diagnostic Imaging Report ---
Indication: Dyspnea Comparison: 01/23/16 A single view chest radiograph was obtained. Findings: No definite infiltrate or pulmonary vascular congestion identified. The heart is normal in size. The aorta is mildly enlarged consistent with atherosclerotic vascular disease. The bones are osteopenic. Impression: No acute disease
[2016-07-16 11:57] LABS: ANION GAP 14 (5-15); CARBON DIOXIDE 20 mEQ/L (20-30); CHLORIDE 100 mEQ/L (98-107); CREATININE 0.9 mg/dL (0.7-1.2); GLOMERULAR FILTRATION RATE > 60 mL/min (>60); HEMOLYSIS 3; POTASSIUM 4.5 mEQ/L (3.4-4.9); SODIUM 134 mEQ/L (135-145)
[2016-07-16 12:00] VITALS: BP 168/96
[2016-07-16 16:00] VITALS: BP 161/98
[2016-07-16] MEDS ORDERED: Tubing IV Secondary IV ONE (16:35)
--- NOTE | 2016-07-16 17:59 | Infectious Diseases Prog Note ---
Assessment/Plan Assessment/Plan ASSESSMENT: 50 y/o male with: Leukocytosis - improved, afebrile Multiple decubitus ( not infected grossly ) - WCx S.aureus Hx of Hep C SP Rx in 1999 - LFTs WNL Negative HIV Chronic Diarrhea ?malabsorption - negative C diff High Alk Phos ro Biliary Dx Wt loss 140 lb in 12 mo, due to Ch diarrhea , also may need to Ro malignancy ( liver Cancer ) - AFP pending DM - HbA1c 7.6% Diabetic neuropathy Legally blind SP transmetatarsal amputation R foot smoker amphetamine use MRSA, VRE colonized No ABX allergies Full Code PLAN : Cont on IV Vanco, Cefepime, Flagyl d# 2 f/u cultures, stool studies Monitor CBC, temperatures Monitor CMP Hep C PCR US of liver AFP Subjective Allergies: Coded Allergies: ACETAMINOPHEN (Unverified Allergy, Unknown, 07/14/16) HYDROCODONE (Unverified Allergy, Unknown, 07/14/16) Subjective afebrile. Objective Vital Signs Last 24 Hour Vital Signs Date Time Temp Pulse Resp B/P Pulse Ox O2 Delivery O2 Flow Rate FiO2 07/16/16 16:00 98.2 70 22 161/98 100 Room Air 07/16/16 14:01 168/96 07/16/16 12:00 95.5 70 18 168/96 99 Nasal Cannula 2.0 07/16/16 09:01 157/93 07/16/16 08:45 Room Air 21 07/16/16 08:45 98 Room Air 07/16/16 08:40 78 18 Room Air 07/16/16 08:00 96.8 75 18 157/93 100 Room Air 07/16/16 04:00 97.9 90 18 135/88 97 Room Air 07/16/16 00:00 98.2 94 16 126/81 98 Room Air 07/15/16 22:16 98.4 07/15/16 20:08 92 18 Room Air 21 07/15/16 20:07 97 Room Air 21 07/15/16 20:07 Room Air 21 07/15/16 20:00 98.4 97 18 148/92 100 Room Air Height (Feet): 5 Height (Inches): 11.00 Weight (Pounds): 114 General Appearance: no acute distress Respiratory/Chest: no respiratory distress Cardiovascular: normal rate, regular rhythm Abdomen: normal bowel sounds, soft, non tender, non distended Microbiology Date/Time Source Procedure Growth Status 07/14/16 06:00 Nasal Nares MRSA Culture - Final Staphylococcus Aureus - Mrsa Complete 07/14/16 10:30 Stool Clostridium difficile Toxin Assay - Final Complete 07/15/16 16:59 Arm Right Gram Stain Pending Resulted 07/15/16 16:59 Wound Culture - Preliminary Staphylococcus Aureus Resulted 07/14/16 06:00 Rectum VRE Culture - Final Enterococcus Faecium - Vre Complete Laboratory Tests Test 07/16/16 05:00 07/16/16 05:05 07/16/16 15:45 Stool Fat Screen Pending White Blood Count 12.0 K/UL (4.8-10.8) H Red Blood Count 3.21 M/UL (4.70-6.10) L Hemoglobin 9.4 G/DL (14.2-18.0) L Hematocrit 30.8 % (42.0-52.0) L Mean Corpuscular Volume 96 FL (80-99) Mean Corpuscular Hemoglobin 29.4 PG (27.0-31.0) Mean Corpuscular Hemoglobin Concent 30.7 G/DL (32.0-36.0) L Red Cell Distribution Width 18.3 % (11.6-14.8) H Platelet Count 273 K/UL (150-450) Mean Platelet Volume 5.9 FL (6.5-10.1) L Neutrophils (%) (Auto) 71.9 % (45.0-75.0) Lymphocytes (%) (Auto) 19.5 % (20.0-45.0) L Monocytes (%) (Auto) 4.5 % (1.0-10.0) Eosinophils (%) (Auto) 3.2 % (0.0-3.0) H Basophils (%) (Auto) 0.9 % (0.0-2.0) Sodium Level 134 mEQ/L (135-145) L Potassium Level 4.5 mEQ/L (3.4-4.9) Chloride Level 100 mEQ/L (98-107) Carbon Dioxide Level 20 mEQ/L (20-30) Anion Gap 14 (5-15) Blood Urea Nitrogen 19 mg/dL (7-23) Creatinine 0.9 mg/dL (0.7-1.2) Estimat Glomerular Filtration Rate > 60 mL/min (>60) Glucose Level 138 mg/dL (74-106) H Hemoglobin A1c 7.6 % (< 6.0) H Calcium Level 9.0 mg/dL (8.6-10.2) Alpha Fetoprotein Pending Hepatitis C Antibody Pending Hepatitis C RNA (PCR) IUs/ml Pending Hepatitis C RNA (PCR) log IUs/ml Pending HIV (1&2) Antibody Rapid Negative (NEGATIVE) Vancomycin Level Trough 6.3 ug/mL (5.0-12.0) Current Medications Medications (Trade) Dose Ordered Sig/Romelia Route PRN Reason Start Time Stop Time Status Last Admin Dose Admin Acetaminophen (Tylenol) 650 mg Q4H PRN ORAL fever 07/14/16 06:00 08/13/16 05:59 Al Hydroxide/Mg Hydroxide (Mylanta II) 30 ml Q6H PRN ORAL dyspepsia 07/14/16 06:00 08/13/16 05:59 Albuterol/ Ipratropium (DuoNeb 0.5-3(2.5)mg/3ml) 3 ml EVERY 4 HOURS PRN HHN Shortness of Breath 07/14/16 06:00 07/19/16 05:59 Amitriptyline HCl (Elavil) 25 mg BEDTIME ORAL 07/14/16 21:00 08/13/16 20:59 07/15/16 21:44 Aspirin (Ecotrin) 81 mg DAILY ORAL 07/14/16 09:00 08/13/16 08:59 07/16/16 09:00 Cefepime HCl 1 gm/ Dextrose 50 ml @ 100 mls/hr EVERY 12 HOURS IVPB 07/15/16 21:00 07/22/16 20:59 07/16/16 09:00 Clonidine HCl (Catapres) 0.1 mg BID ORAL 07/14/16 09:00 08/13/16 08:59 07/16/16 09:01 Clonidine HCl 0.1 mg 0.1 mg EVERY 4 HOURS PRN ORAL sbp more than 160 07/14/16 06:00 08/13/16 05:59 07/16/16 14:01 Dextrose (Dextrose 50%) STAT PRN IV Hypoglycemia 07/14/16 06:00 08/13/16 05:59 Gabapentin (Neurontin) 300 mg BEDTIME ORAL 07/14/16 21:00 08/13/16 20:59 07/15/16 21:44 Glipizide (Glucotrol) 5 mg BIAC ORAL 07/16/16 11:30 08/15/16 11:29 07/16/16 17:24 Haloperidol Lactate 5 mg 5 mg Q3H PRN IM Agitation 07/14/16 18:30 08/13/16 18:29 Heparin Sodium (Porcine) (Heparin 5000 units/ml) 5,000 units EVERY 12 HOURS SUBQ 07/14/16 09:00 08/13/16 08:59 07/16/16 09:02 Hydromorphone HCl/ Sodium Chloride (Dilaudid/Sodium Chloride 50ml bag) 51 ml @ 200 mls/hr EVERY 3 HOURS PRN IVPB severe pain 07/14/16 06:00 07/21/16 05:59 07/15/16 21:46 Insulin Aspart (NovoLOG) BEFORE MEALS AND HS SUBQ 07/14/16 06:30 08/13/16 06:29 07/16/16 17:18 Ketorolac Tromethamine (Toradol 30mg) 30 mg EVERY 6 HOURS PRN IV moderate pain 4-6 07/14/16 06:00 07/19/16 05:59 07/16/16 17:24 Lorazepam (Ativan 2mg/ml 1ml) 1 mg Q4H PRN IV For Anxiety 07/14/16 18:30 07/21/16 18:29 07/15/16 22:09 Metformin HCl (Glucophage) 500 mg BID ORAL 07/16/16 09:00 08/15/16 08:59 Nitroglycerin (Ntg) 0.4 mg Q5M X 3 DOSES PRN SL Prn Chest Pain 07/14/16 06:00 08/13/16 05:59 Ondansetron HCl (Zofran) 4 mg Q6H PRN IVP Nausea & Vomiting 07/14/16 06:00 08/13/16 05:59 Polyethylene Glycol (Miralax) 17 gm HSPRN PRN ORAL Constipation 07/14/16 06:00 08/13/16 05:59 Ranitidine HCl (Zantac) 150 mg BEDTIME ORAL 07/14/16 21:00 08/13/16 20:59 07/15/16 21:45 Sodium Chloride (Sodium Chloride 1000ml bag) 1,000 ml @ 75 mls/hr [id number] IVLG 07/15/16 15:00 08/14/16 14:59 07/16/16 17:23 Temazepam (Restoril) 15 mg HSPRN PRN ORAL Insomnia 07/14/16 06:00 07/21/16 05:59 Tramadol HCl (Ultram) 50 mg Q6H PRN ORAL For Pain 07/14/16 06:00 07/21/16 05:59 07/14/16 20:13 Vancomycin HCl 1 ea 1 ea DAILY PRN MISC Per rx protocol 07/15/16 14:00 08/14/16 13:59 Vancomycin HCl/ Dextrose (Vancomycin/D5W 250ml) 250 ml @ 167 mls/hr Q12H IVPB 07/15/16 16:00 07/20/16 15:59 07/16/16 17:14 Vitamin A/Vitamin D (A & D Oint) 1 applic BIDPRN TOPIC 07/14/16 16:00 08/13/16 15:59 ADA TURNER Jul 16, 2016 17:59
[2016-07-16 20:00] VITALS: BP 163/88
[2016-07-16] MEDS: traMADol 50mg tab ORAL PRN (23:24)
[2016-07-17] VITALS: BP 152/87
[2016-07-17] MEDS: HYDROmorphone 2 MG in NS 50 ML IVPB PRN ×3 (00:11→22:46)
[2016-07-17] MEDS: Ketorolac 30mg Inj IV PRN ×2 (03:59→16:26)
[2016-07-17 04:00] VITALS: BP 177/96
[2016-07-17] MEDS: NovoLOG Insulin Flexpen SUBQ SCH ×4 (06:08→22:31)
[2016-07-17] MEDS: GlipiZIDE 5mg tab ORAL SCH ×2 (06:40→16:41)
[2016-07-17 07:43] LABS: BASOPHILS % (AUTO) 1.2 % (0.0-2.0); EOSINOPHILS % (AUTO) 3.1 % (0.0-3.0); LYMPHOCYTES % (AUTO) 27.8 % (20.0-45.0); MEAN CORPUSCULAR HEMOGLOBIN 29.2 PG (27.0-31.0); MEAN CORPUSCULAR HGB CONC 30.5 G/DL (32.0-36.0); MEAN CORPUSCULAR VOLUME 96 FL (80-99); MEAN PLATELET VOLUME 4.9 FL (6.5-10.1); MONOCYTES % (AUTO) 4.6 % (1.0-10.0); NEUTROPHILS % (AUTO) 63.3 % (45.0-75.0); PLATELET COUNT 258 K/UL (150-450); RED CELL DISTRIBUTION WIDTH 17.8 % (11.6-14.8); WHITE BLOOD COUNT 8.7 K/UL (4.8-10.8)
[2016-07-17 07:54] LABS: ALANINE AMINOTRANSFERASE 53 U/L (3-41); ALBUMIN/GLOBULIN RATIO 0.6 (1.0-2.7); ANION GAP 11 (5-15); ASPARTATE AMINO TRANSFERASE 105 U/L (5-40); CALCIUM 8.7 mg/dL (8.6-10.2); CARBON DIOXIDE 24 mEQ/L (20-30); CHLORIDE 102 mEQ/L (98-107); CREATININE 0.9 mg/dL (0.7-1.2); CRP QUANT < 0.3 mg/dL (< 0.5); GLOMERULAR FILTRATION RATE > 60 mL/min (>60); HEMOLYSIS 2; MAGNESIUM 1.8 mg/dL (1.7-2.5); PHOSPHORUS 3.4 mg/dL (2.5-4.8); POTASSIUM 4.8 mEQ/L (3.4-4.9); SODIUM 137 mEQ/L (135-145); TOTAL PROTEIN 6.6 g/dL (6.6-8.7)
[2016-07-17 08:00] VITALS: BP 130/80
[2016-07-17] MEDS: metFORMIN 500mg tab ORAL SCH ×2 (08:12→18:28)
[2016-07-17] MEDS: Aspirin EC 81mg tab ORAL SCH (08:13)
[2016-07-17] MEDS: Heparin 5000 units/ml inj SUBQ SCH ×2 (08:14→22:31)
[2016-07-17 09:19] LABS: ERYTHROCYTE SEDIMENTATION RATE 84 MM/HR (0-15)
[2016-07-17 12:00] VITALS: BP 126/74
--- NOTE | 2016-07-17 14:56 | GI Initial Consult Note ---
History of Present Illness General Date patient seen: Jul 17, 2016 Time patient seen: 13:00 Reason for Hospitalization: Pain Referring physician: DORENE BATES Reason for Consultation: CHRONIC DIARRHEA Present Illness HPI Is a 50-year-old male with a history of drug use, diabetes. He presents with chief complaint of bilateral leg pain. This is a chronic issue for him. He has diabetic neuropathy with previous infection and trans-metatarsal agitation the right foot. He presents with severe pain to the right leg. 10 out of 10. No fever or chills. No trauma. Nothing made it better. Pain medication not helping. No other complaint. GI NOTE: HPI as noted above. Pt seen on floor, awake A&Ox4 NAD c/o of chronic diarrhea every time the patient has any PO intake. According to the patient, he his has a history of chronic pancreatitis and Hepatitis C. He also states he has had 140lbs + weight loss over the past year and half. He presents today with anemia, abnormal LFTs, hypoalbuminemia and chronic diarrhea. Pertinent results; cdiff negative, urine tox amphetamines positive, CXR negative, abdominal U/S pending. Unknown history of endoscopic procedures. Home Meds Reported Medications Aspirin* (ASPIR 81*) 81 Mg Tablet.dr, 81 MG ORAL DAILY, TAB 07/14/16 Clonidine Hcl* (CATAPRES*) 0.1 Mg Tablet, 0.1 MG ORAL BID, TAB 07/14/16 Insulin Glargine (LANTUS) 100 Unit/1 Ml Insuln.pen, 0 SUBQ BEDTIME, #1 EA 0 Refills 07/14/16 Insulin Human Lispro (Humalog) 100 Unit/1 Ml Vial, 0 SUBQ, #1 UNIT 0 Refills 07/14/16 Prednisolone* (PRELONE*) 15 Mg/5 Ml Solution, 15 MG ORAL, ML 05/29/16 Gabapentin (Neurontin) 300 Mg Capsule, 300 MG ORAL BEDTIME, #7 CAP 0 Refills 05/29/16 Amitriptyline HCl (ELAVIL*) 25 Mg Tablet, 25 MG ORAL BEDTIME, TAB 05/29/16 Tramadol Hcl* (ULTRAM*) 50 Mg Tablet, 50 MG ORAL Q6H Y for For Pain, #30 TAB 0 Refills 05/29/16 Furosemide* (LASIX*) 20 Mg Tablet, 20 MG ORAL DAILY, TAB 05/29/16 Med list reviewed/reconciled: Yes Allergies: Coded Allergies: ACETAMINOPHEN (Unverified Allergy, Unknown, 07/14/16) HYDROCODONE (Unverified Allergy, Unknown, 07/14/16) Patient History PMH Narrative Past Medical History: see triage record, old chart reviewed, DM Past Surgical History: other Pertinent Family History: none Social History: Reports: drug use - History, smoking Immunizations: UTD Reviewed Nursing Documentation: PMH: Agreed, PSxH: Agreed Nursing Documentation-PMH Past Medical History: No History, Except For Hx Cardiac Problems: Yes - CHF, HEP C Hx Hypertension: Yes Hx COPD: Yes Hx Diabetes: Yes Hx Cancer: Yes Hx Gastrointestinal Problems: No Hx Dialysis: No Hx Neurological Problems: No Hx Seizures: Yes Hx Tremors: Yes Hx Weakness: Yes Social History: Reports: drug use, smoking Review of Systems All Other Systems: negative except mentioned in HPI Physical Exam Vital Signs Date Time Temp Pulse Resp B/P Pulse Ox O2 Delivery O2 Flow Rate FiO2 07/14/16 00:54 97.9 111 18 126/87 98 Room Air 07/14/16 07:30 21 07/16/16 12:00 2.0 Sp02 EP Interpretation: reviewed Labs Laboratory Tests Test 07/16/16 15:45 07/17/16 05:45 Vancomycin Level Trough 6.3 ug/mL (5.0-12.0) White Blood Count 8.7 K/UL (4.8-10.8) Red Blood Count 3.20 M/UL (4.70-6.10) L Hemoglobin 9.4 G/DL (14.2-18.0) L Hematocrit 30.6 % (42.0-52.0) L Mean Corpuscular Volume 96 FL (80-99) Mean Corpuscular Hemoglobin 29.2 PG (27.0-31.0) Mean Corpuscular Hemoglobin Concent 30.5 G/DL (32.0-36.0) L Red Cell Distribution Width 17.8 % (11.6-14.8) H Platelet Count 258 K/UL (150-450) Mean Platelet Volume 4.9 FL (6.5-10.1) L Neutrophils (%) (Auto) 63.3 % (45.0-75.0) Lymphocytes (%) (Auto) 27.8 % (20.0-45.0) Monocytes (%) (Auto) 4.6 % (1.0-10.0) Eosinophils (%) (Auto) 3.1 % (0.0-3.0) H Basophils (%) (Auto) 1.2 % (0.0-2.0) Erythrocyte Sedimentation Rate 84 MM/HR (0-15) H Sodium Level 137 mEQ/L (135-145) Potassium Level 4.8 mEQ/L (3.4-4.9) Chloride Level 102 mEQ/L (98-107) Carbon Dioxide Level 24 mEQ/L (20-30) Anion Gap 11 (5-15) Blood Urea Nitrogen 21 mg/dL (7-23) Creatinine 0.9 mg/dL (0.7-1.2) Estimat Glomerular Filtration Rate > 60 mL/min (>60) Glucose Level 105 mg/dL (74-106) Calcium Level 8.7 mg/dL (8.6-10.2) Phosphorus Level 3.4 mg/dL (2.5-4.8) Magnesium Level 1.8 mg/dL (1.7-2.5) Total Bilirubin 0.2 mg/dL (0.0-1.2) Aspartate Amino Transf (AST/SGOT) 105 U/L (5-40) H Alanine Aminotransferase (ALT/SGPT) 53 U/L (3-41) H Alkaline Phosphatase 297 U/L (40-129) H C-Reactive Protein, Quantitative < 0.3 mg/dL (< 0.5) Total Protein 6.6 g/dL (6.6-8.7) Albumin 2.6 g/dL (3.5-5.2) L Globulin 4.0 g/dL Albumin/Globulin Ratio 0.6 (1.0-2.7) L General Appearance: well appearing, no apparent distress, alert, thin Head: normocephalic EENT: normal ENT inspection Neck: supple Respiratory: no respiratory distress Cardiovascular: normal rate, tachycardia Gastrointestinal: non tender, soft, abnormal bowel sounds Rectal: deferred Neurologic: normal inspection, alert, oriented x3, responsive Psychiatric: normal inspection, judgement/insight normal, memory normal Skin: normal inspection, normal color, no rash Lymphatic: normal inspection, no adenopathy Current Medications Current Medications Medications (Trade) Dose Ordered Sig/Romelia Route PRN Reason Start Time Stop Time Status Last Admin Dose Admin Al Hydroxide/Mg Hydroxide (Mylanta II) 30 ml Q6H PRN ORAL dyspepsia 07/14/16 06:00 08/13/16 05:59 Albuterol/ Ipratropium (DuoNeb 0.5-3(2.5)mg/3ml) 3 ml EVERY 4 HOURS PRN HHN Shortness of Breath 07/14/16 06:00 07/19/16 05:59 Amitriptyline HCl (Elavil) 25 mg BEDTIME ORAL 07/14/16 21:00 08/13/16 20:59 07/16/16 21:47 Aspirin (Ecotrin) 81 mg DAILY ORAL 07/14/16 09:00 08/13/16 08:59 07/17/16 08:13 Cefepime HCl/ Dextrose (Maxipime/D5W 50ml) 50 ml @ 100 mls/hr EVERY 12 HOURS IVPB 07/15/16 21:00 07/22/16 20:59 07/17/16 08:12 Clonidine HCl (Catapres) 0.1 mg BID ORAL 07/14/16 09:00 08/13/16 08:59 07/17/16 08:13 Clonidine HCl 0.1 mg 0.1 mg EVERY 4 HOURS PRN ORAL sbp more than 160 07/14/16 06:00 08/13/16 05:59 07/16/16 14:01 Dextrose (Dextrose 50%) STAT PRN IV Hypoglycemia 07/14/16 06:00 08/13/16 05:59 Gabapentin (Neurontin) 300 mg BEDTIME ORAL 07/14/16 21:00 08/13/16 20:59 07/16/16 21:47 Glipizide 5 mg 5 mg BIAC ORAL 07/16/16 11:30 08/15/16 11:29 07/17/16 06:40 Haloperidol Lactate 5 mg 5 mg Q3H PRN IM Agitation 07/14/16 18:30 08/13/16 18:29 Heparin Sodium (Porcine) (Heparin 5000 units/ml) 5,000 units EVERY 12 HOURS SUBQ 07/14/16 09:00 08/13/16 08:59 07/17/16 08:14 Hydromorphone HCl/ Sodium Chloride (Dilaudid/Sodium Chloride 50ml bag) 51 ml @ 200 mls/hr EVERY 3 HOURS PRN IVPB severe pain 07/14/16 06:00 07/21/16 05:59 07/17/16 04:59 Insulin Aspart (NovoLOG) BEFORE MEALS AND HS SUBQ 07/14/16 06:30 08/13/16 06:29 07/17/16 12:02 Ketorolac Tromethamine (Toradol 30mg) 30 mg EVERY 6 HOURS PRN IV moderate pain 4-6 07/14/16 06:00 07/19/16 05:59 07/17/16 03:59 Lorazepam (Ativan 2mg/ml 1ml) 1 mg Q4H PRN IV For Anxiety 07/14/16 18:30 07/21/16 18:29 07/15/16 22:09 Metformin HCl (Glucophage) 500 mg BID ORAL 07/16/16 09:00 08/15/16 08:59 07/17/16 08:12 Nitroglycerin (Ntg) 0.4 mg Q5M X 3 DOSES PRN SL Prn Chest Pain 07/14/16 06:00 08/13/16 05:59 Ondansetron HCl (Zofran) 4 mg Q6H PRN IVP Nausea & Vomiting 07/14/16 06:00 08/13/16 05:59 Polyethylene Glycol (Miralax) 17 gm HSPRN PRN ORAL Constipation 07/14/16 06:00 08/13/16 05:59 Ranitidine HCl (Zantac) 150 mg BEDTIME ORAL 07/14/16 21:00 08/13/16 20:59 07/16/16 21:47 Sodium Chloride (Sodium Chloride 1000ml bag) 1,000 ml @ 75 mls/hr [id number] IVLG 07/15/16 15:00 08/14/16 14:59 07/16/16 17:23 Temazepam (Restoril) 15 mg HSPRN PRN ORAL Insomnia 07/14/16 06:00 07/21/16 05:59 07/17/16 00:10 Tramadol HCl (Ultram) 50 mg Q6H PRN ORAL For Pain 07/14/16 06:00 07/21/16 05:59 07/14/16 20:13 Vancomycin HCl 1 ea 1 ea DAILY PRN MISC Per rx protocol 07/15/16 14:00 08/14/16 13:59 Vancomycin HCl/ Dextrose (Vancomycin/D5W 250ml) 250 ml @ 167 mls/hr Q12HR@0000,1200 IVPB 07/17/16 00:00 07/22/16 00:00 07/17/16 11:58 Vitamin A/Vitamin D (A & D Oint) 1 applic BIDPRN TOPIC 07/14/16 16:00 08/13/16 15:59 GI: Plan Problems: (1) Smoker (2) Hepatitis C (3) Amphetamine abuse (4) Anemia (5) Chronic diarrhea (6) C. difficile colitis (7) Diarrhea (8) Abdominal pain (9) Episode of generalized weakness Plan ordered stool studies; cx, O&P, fecal fat ordered hepatitis panel ordered pancrease fu abdominal U/S anemia work ujp OB stool uncollected cdiff negative Imodium prn low residual diet H2 fu labs Discussed with Dr. Leonardo. Thank you for referring this patient, we will follow. Bernadette Iverson N.P. Jul 17, 2016 14:56
[2016-07-17 16:00] VITALS: BP 168/102
[2016-07-17] MEDS: Pancrease Cap ORAL SCH (16:40)
--- NOTE | 2016-07-17 17:56 | Infectious Diseases Prog Note ---
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 Hx of Hep C SP Rx in 1999 - elevated LFTs, HCV PCR pending Negative HIV Chronic Diarrhea ?malabsorption - negative C diff High Alk Phos ro Biliary Dx - US pending Wt loss 140 lb in 12 mo, due to Ch diarrhea , also may need to Ro malignancy ( liver Cancer ) - AFP WNL DM - HbA1c 7.6% Diabetic neuropathy Legally blind SP transmetatarsal amputation R foot smoker amphetamine use MRSA, VRE colonized No ABX allergies Full Code PLAN : Cont on IV Vanco, Cefepime, Flagyl d# 3 / 5-7 f/u cultures, stool studies Monitor CBC, temperatures Monitor CMP Hep C PCR US of liver Subjective Allergies: Coded Allergies: ACETAMINOPHEN (Unverified Allergy, Unknown, 07/14/16) HYDROCODONE (Unverified Allergy, Unknown, 07/14/16) Subjective afebrile. leukocytosis resolved Objective Vital Signs Last 24 Hour Vital Signs Date Time Temp Pulse Resp B/P Pulse Ox O2 Delivery O2 Flow Rate FiO2 07/17/16 16:56 98.1 07/17/16 16:26 168/102 07/17/16 16:00 98.1 95 20 168/102 100 Room Air 07/17/16 12:00 97.7 78 18 126/74 96 Nasal Cannula 07/17/16 08:13 130/86 07/17/16 08:00 97.5 84 18 130/80 96 Room Air 07/17/16 07:58 85 18 Room Air 07/17/16 07:51 Room Air 07/17/16 07:50 98 Room Air 07/17/16 04:00 97.3 61 20 177/96 100 Room Air 07/17/16 00:00 98.1 67 20 152/87 100 Room Air 07/16/16 20:00 98.1 74 20 163/88 100 Room Air 07/16/16 19:30 70 20 Room Air 07/16/16 19:30 Room Air 21 07/16/16 19:30 98 Room Air 21 07/16/16 19:07 161/98 Height (Feet): 5 Height (Inches): 11.00 Weight (Pounds): 114 General Appearance: no acute distress Respiratory/Chest: no respiratory distress Cardiovascular: normal rate, regular rhythm Abdomen: normal bowel sounds, soft, non tender, non distended Microbiology Date/Time Source Procedure Growth Status 07/15/16 16:20 Blood Blood Culture - Preliminary NO GROWTH AFTER 24 HOURS Resulted 07/15/16 16:10 Blood Blood Culture - Preliminary NO GROWTH AFTER 24 HOURS Resulted 07/16/16 05:00 Stool WBC Smear - Final Complete 07/15/16 16:59 Arm Right Gram Stain - Final Resulted 07/15/16 16:59 Wound Culture - Preliminary Staphylococcus Aureus - Mrsa Diphtheroids Resulted Laboratory Tests Test 07/17/16 05:45 White Blood Count 8.7 K/UL (4.8-10.8) Red Blood Count 3.20 M/UL (4.70-6.10) L Hemoglobin 9.4 G/DL (14.2-18.0) L Hematocrit 30.6 % (42.0-52.0) L Mean Corpuscular Volume 96 FL (80-99) Mean Corpuscular Hemoglobin 29.2 PG (27.0-31.0) Mean Corpuscular Hemoglobin Concent 30.5 G/DL (32.0-36.0) L Red Cell Distribution Width 17.8 % (11.6-14.8) H Platelet Count 258 K/UL (150-450) Mean Platelet Volume 4.9 FL (6.5-10.1) L Neutrophils (%) (Auto) 63.3 % (45.0-75.0) Lymphocytes (%) (Auto) 27.8 % (20.0-45.0) Monocytes (%) (Auto) 4.6 % (1.0-10.0) Eosinophils (%) (Auto) 3.1 % (0.0-3.0) H Basophils (%) (Auto) 1.2 % (0.0-2.0) Erythrocyte Sedimentation Rate 84 MM/HR (0-15) H Sodium Level 137 mEQ/L (135-145) Potassium Level 4.8 mEQ/L (3.4-4.9) Chloride Level 102 mEQ/L (98-107) Carbon Dioxide Level 24 mEQ/L (20-30) Anion Gap 11 (5-15) Blood Urea Nitrogen 21 mg/dL (7-23) Creatinine 0.9 mg/dL (0.7-1.2) Estimat Glomerular Filtration Rate > 60 mL/min (>60) Glucose Level 105 mg/dL (74-106) Calcium Level 8.7 mg/dL (8.6-10.2) Phosphorus Level 3.4 mg/dL (2.5-4.8) Magnesium Level 1.8 mg/dL (1.7-2.5) Total Bilirubin 0.2 mg/dL (0.0-1.2) Aspartate Amino Transf (AST/SGOT) 105 U/L (5-40) H Alanine Aminotransferase (ALT/SGPT) 53 U/L (3-41) H Alkaline Phosphatase 297 U/L (40-129) H C-Reactive Protein, Quantitative < 0.3 mg/dL (< 0.5) Total Protein 6.6 g/dL (6.6-8.7) Albumin 2.6 g/dL (3.5-5.2) L Globulin 4.0 g/dL Albumin/Globulin Ratio 0.6 (1.0-2.7) L Current Medications Medications (Trade) Dose Ordered Sig/Romelia Route PRN Reason Start Time Stop Time Status Last Admin Dose Admin Al Hydroxide/Mg Hydroxide (Mylanta II) 30 ml Q6H PRN ORAL dyspepsia 07/14/16 06:00 08/13/16 05:59 Albuterol/ Ipratropium (DuoNeb 0.5-3(2.5)mg/3ml) 3 ml EVERY 4 HOURS PRN HHN Shortness of Breath 07/14/16 06:00 07/19/16 05:59 Amitriptyline HCl (Elavil) 25 mg BEDTIME ORAL 07/14/16 21:00 08/13/16 20:59 07/16/16 21:47 Amylase/Lipase/ Protease (Pancrease) 2 ea TIAC ORAL 07/17/16 16:30 08/16/16 16:29 07/17/16 16:40 Aspirin (Ecotrin) 81 mg DAILY ORAL 07/14/16 09:00 08/13/16 08:59 07/17/16 08:13 Cefepime HCl/ Dextrose (Maxipime/D5W 50ml) 50 ml @ 100 mls/hr EVERY 12 HOURS IVPB 07/15/16 21:00 07/22/16 20:59 07/17/16 08:12 Clonidine HCl (Catapres) 0.1 mg BID ORAL 07/14/16 09:00 08/13/16 08:59 07/17/16 08:13 Clonidine HCl 0.1 mg 0.1 mg EVERY 4 HOURS PRN ORAL sbp more than 160 07/14/16 06:00 08/13/16 05:59 07/17/16 16:26 Dextrose (Dextrose 50%) STAT PRN IV Hypoglycemia 07/14/16 06:00 08/13/16 05:59 Gabapentin (Neurontin) 300 mg BEDTIME ORAL 07/14/16 21:00 08/13/16 20:59 07/16/16 21:47 Glipizide 5 mg 5 mg BIAC ORAL 07/16/16 11:30 08/15/16 11:29 07/17/16 16:41 Haloperidol Lactate 5 mg 5 mg Q3H PRN IM Agitation 07/14/16 18:30 08/13/16 18:29 Heparin Sodium (Porcine) (Heparin 5000 units/ml) 5,000 units EVERY 12 HOURS SUBQ 07/14/16 09:00 08/13/16 08:59 07/17/16 08:14 Hydromorphone HCl/ Sodium Chloride (Dilaudid/Sodium Chloride 50ml bag) 51 ml @ 200 mls/hr EVERY 3 HOURS PRN IVPB severe pain 07/14/16 06:00 07/21/16 05:59 07/17/16 04:59 Insulin Aspart (NovoLOG) BEFORE MEALS AND HS SUBQ 07/14/16 06:30 08/13/16 06:29 07/17/16 16:52 Ketorolac Tromethamine (Toradol 30mg) 30 mg EVERY 6 HOURS PRN IV moderate pain 4-6 07/14/16 06:00 07/19/16 05:59 07/17/16 16:26 Loperamide HCl (Imodium) 2 mg EVERY 4 HOURS PRN ORAL Diarrhea 07/17/16 15:00 08/16/16 14:59 Lorazepam (Ativan 2mg/ml 1ml) 1 mg Q4H PRN IV For Anxiety 07/14/16 18:30 07/21/16 18:29 07/15/16 22:09 Metformin HCl (Glucophage) 500 mg BID ORAL 07/16/16 09:00 2/8/17 08:59 07/17/16 08:12 Nitroglycerin (Ntg) 0.4 mg Q5M X 3 DOSES PRN SL Prn Chest Pain 07/14/16 06:00 08/13/16 05:59 Ondansetron HCl (Zofran) 4 mg Q6H PRN IVP Nausea & Vomiting 07/14/16 06:00 08/13/16 05:59 Polyethylene Glycol (Miralax) 17 gm HSPRN PRN ORAL Constipation 07/14/16 06:00 08/13/16 05:59 Ranitidine HCl (Zantac) 150 mg BEDTIME ORAL 07/14/16 21:00 08/13/16 20:59 07/16/16 21:47 Sodium Chloride (Sodium Chloride 1000ml bag) 1,000 ml @ 75 mls/hr [id number] IVLG 07/15/16 15:00 08/14/16 14:59 07/16/16 17:23 Temazepam (Restoril) 15 mg HSPRN PRN ORAL Insomnia 07/14/16 06:00 07/21/16 05:59 07/17/16 00:10 Tramadol HCl (Ultram) 50 mg Q6H PRN ORAL For Pain 07/14/16 06:00 07/21/16 05:59 07/14/16 20:13 Vancomycin HCl 1 ea 1 ea DAILY PRN MISC Per rx protocol 07/15/16 14:00 08/14/16 13:59 Vancomycin HCl/ Dextrose (Vancomycin/D5W 250ml) 250 ml @ 167 mls/hr Q12HR@0000,1200 IVPB 07/17/16 00:00 07/22/16 00:00 07/17/16 11:58 Vitamin A/Vitamin D (A & D Oint) 1 applic BIDPRN TOPIC 07/14/16 16:00 08/13/16 15:59 ADA TURNER Jul 17, 2016 17:56
--- NOTE | 2016-07-17 18:28 | Pulmonology Progress Note ---
Assessment/Plan Problems: (1) Sepsis (2) Diarrhea (3) Episode of generalized weakness (4) DM (diabetes mellitus) (5) Hepatitis C (6) Blindness of both eyes (7) HTN (hypertension) (8) COPD (chronic obstructive pulmonary disease) (9) S/P transmetatarsal amputation of foot Assessment/Plan continue abx as per ID check wbc needs placement Subjective ROS Limited/Unobtainable: No Allergies: Coded Allergies: ACETAMINOPHEN (Unverified Allergy, Unknown, 07/14/16) HYDROCODONE (Unverified Allergy, Unknown, 07/14/16) Objective Last 24 Hour Vital Signs Date Time Temp Pulse Resp B/P Pulse Ox O2 Delivery O2 Flow Rate FiO2 07/17/16 16:56 98.1 07/17/16 16:26 168/102 07/17/16 16:00 98.1 95 20 168/102 100 Room Air 07/17/16 12:00 97.7 78 18 126/74 96 Nasal Cannula 07/17/16 08:13 130/86 07/17/16 08:00 97.5 84 18 130/80 96 Room Air 07/17/16 07:58 85 18 Room Air 21 07/17/16 07:51 Room Air 21 07/17/16 07:50 98 Room Air 21 07/17/16 04:00 97.3 61 20 177/96 100 Room Air 07/17/16 00:00 98.1 67 20 152/87 100 Room Air 07/16/16 20:00 98.1 74 20 163/88 100 Room Air 07/16/16 19:30 70 20 Room Air 21 07/16/16 19:30 Room Air 21 07/16/16 19:30 98 Room Air 21 07/16/16 19:07 161/98 Intake and Output 07/16/16 07/17/16 19:00 07:00 Intake Total 765 ml 555 ml Output Total 600 ml 650 ml Balance 165 ml -95 ml Intake Oral 240 ml 480 ml IV Total 525 ml 75 ml Output Urine Total 600 ml 650 ml # Voids 2 # Bowel Movements 3 2 General Appearance: WD/WN HEENT: normocephalic Respiratory/Chest: chest wall non-tender, lungs clear Cardiovascular: normal peripheral pulses, normal rate Abdomen: normal bowel sounds Neurologic/Psychiatric: brush cleaner II-XII grossly normal Microbiology Date/Time Source Procedure Growth Status 07/15/16 16:20 Blood Blood Culture - Preliminary NO GROWTH AFTER 24 HOURS Resulted 07/15/16 16:10 Blood Blood Culture - Preliminary NO GROWTH AFTER 24 HOURS Resulted 07/16/16 05:00 Stool WBC Smear - Final Complete 07/15/16 16:59 Arm Right Gram Stain - Final Resulted 07/15/16 16:59 Wound Culture - Preliminary Staphylococcus Aureus - Mrsa Diphtheroids Resulted Laboratory Tests 07/17/16 05:45: White Blood Count 8.7, Red Blood Count 3.20L, Hemoglobin 9.4L, Hematocrit 30.6L , Mean Corpuscular Volume 96, Mean Corpuscular Hemoglobin 29.2, Mean Corpuscular Hemoglobin Concent 30.5L, Red Cell Distribution Width 17.8H, Platelet Count 258, Mean Platelet Volume 4.9L, Neutrophils (%) (Auto) 63.3, Lymphocytes (%) (Auto) 27.8, Monocytes (%) (Auto) 4.6, Eosinophils (%) (Auto) 3.1H, Basophils (%) (Auto) 1.2, Erythrocyte Sedimentation Rate 84H, Sodium Level 137, Potassium Level 4.8, Chloride Level 102, Carbon Dioxide Level 24, Anion Gap 11, Blood Urea Nitrogen 21, Creatinine 0.9, Estimat Glomerular Filtration Rate > 60, Glucose Level 105, Calcium Level 8.7, Phosphorus Level 3.4 , Magnesium Level 1.8, Total Bilirubin 0.2, Aspartate Amino Transf (AST/SGOT) 105H, Alanine Aminotransferase (ALT/SGPT) 53H, Alkaline Phosphatase 297H, C- Reactive Protein, Quantitative < 0.3, Total Protein 6.6, Albumin 2.6L, Globulin 4.0, Albumin/Globulin Ratio 0.6L Current Medications Medications (Trade) Dose Ordered Sig/Romelia Route PRN Reason Start Time Stop Time Status Last Admin Dose Admin Al Hydroxide/Mg Hydroxide (Mylanta II) 30 ml Q6H PRN ORAL dyspepsia 07/14/16 06:00 08/13/16 05:59 Albuterol/ Ipratropium (DuoNeb 0.5-3(2.5)mg/3ml) 3 ml EVERY 4 HOURS PRN HHN Shortness of Breath 07/14/16 06:00 07/19/16 05:59 Amitriptyline HCl (Elavil) 25 mg BEDTIME ORAL 1/7/17 21:00 08/13/16 20:59 07/16/16 21:47 Amylase/Lipase/ Protease (Pancrease) 2 ea TIAC ORAL 07/17/16 16:30 08/16/16 16:29 07/17/16 16:40 Aspirin (Ecotrin) 81 mg DAILY ORAL 07/14/16 09:00 08/13/16 08:59 07/17/16 08:13 Cefepime HCl/ Dextrose (Maxipime/D5W 50ml) 50 ml @ 100 mls/hr EVERY 12 HOURS IVPB 07/15/16 21:00 07/22/16 20:59 07/17/16 08:12 Clonidine HCl (Catapres) 0.1 mg BID ORAL 07/14/16 09:00 08/13/16 08:59 07/17/16 08:13 Clonidine HCl 0.1 mg 0.1 mg EVERY 4 HOURS PRN ORAL sbp more than 160 07/14/16 06:00 08/13/16 05:59 07/17/16 16:26 Dextrose (Dextrose 50%) STAT PRN IV Hypoglycemia 07/14/16 06:00 08/13/16 05:59 Gabapentin (Neurontin) 300 mg BEDTIME ORAL 07/14/16 21:00 08/13/16 20:59 07/16/16 21:47 Glipizide 5 mg 5 mg BIAC ORAL 07/16/16 11:30 08/15/16 11:29 07/17/16 16:41 Haloperidol Lactate 5 mg 5 mg Q3H PRN IM Agitation 07/14/16 18:30 08/13/16 18:29 Heparin Sodium (Porcine) (Heparin 5000 units/ml) 5,000 units EVERY 12 HOURS SUBQ 07/14/16 09:00 08/13/16 08:59 07/17/16 08:14 Hydromorphone HCl/ Sodium Chloride (Dilaudid/Sodium Chloride 50ml bag) 51 ml @ 200 mls/hr EVERY 3 HOURS PRN IVPB severe pain 07/14/16 06:00 07/21/16 05:59 07/17/16 04:59 Insulin Aspart (NovoLOG) BEFORE MEALS AND HS SUBQ 07/14/16 06:30 08/13/16 06:29 07/17/16 16:52 Ketorolac Tromethamine (Toradol 30mg) 30 mg EVERY 6 HOURS PRN IV moderate pain 4-6 07/14/16 06:00 07/19/16 05:59 07/17/16 16:26 Loperamide HCl (Imodium) 2 mg EVERY 4 HOURS PRN ORAL Diarrhea 07/17/16 15:00 08/16/16 14:59 Lorazepam (Ativan 2mg/ml 1ml) 1 mg Q4H PRN IV For Anxiety 07/14/16 18:30 07/21/16 18:29 07/15/16 22:09 Metformin HCl (Glucophage) 500 mg BID ORAL 07/16/16 09:00 08/15/16 08:59 07/17/16 08:12 Nitroglycerin (Ntg) 0.4 mg Q5M X 3 DOSES PRN SL Prn Chest Pain 07/14/16 06:00 08/13/16 05:59 Ondansetron HCl (Zofran) 4 mg Q6H PRN IVP Nausea & Vomiting 07/14/16 06:00 08/13/16 05:59 Polyethylene Glycol (Miralax) 17 gm HSPRN PRN ORAL Constipation 07/14/16 06:00 08/13/16 05:59 Ranitidine HCl (Zantac) 150 mg BEDTIME ORAL 07/14/16 21:00 08/13/16 20:59 07/16/16 21:47 Sodium Chloride (Sodium Chloride 1000ml bag) 1,000 ml @ 75 mls/hr [id number] IVLG 07/15/16 15:00 08/14/16 14:59 07/16/16 17:23 Temazepam (Restoril) 15 mg HSPRN PRN ORAL Insomnia 07/14/16 06:00 07/21/16 05:59 07/17/16 00:10 Tramadol HCl (Ultram) 50 mg Q6H PRN ORAL For Pain 07/14/16 06:00 07/21/16 05:59 07/14/16 20:13 Vancomycin HCl 1 ea 1 ea DAILY PRN MISC Per rx protocol 07/15/16 14:00 08/14/16 13:59 Vancomycin HCl/ Dextrose (Vancomycin/D5W 250ml) 250 ml @ 167 mls/hr Q12HR@0000,1200 IVPB 07/17/16 00:00 07/22/16 00:00 07/17/16 11:58 Vitamin A/Vitamin D (A & D Oint) 1 applic BIDPRN TOPIC 07/14/16 16:00 08/13/16 15:59 DORENE GRIMM Jul 17, 2016 18:28
[2016-07-17 19:00] VITALS: BP 155/93
--- NOTE | 2016-07-17 20:58 | Consultation ---
DATE OF CONSULTATION: 07/16/2016 CONSULTATION: REQUESTING PHYSICIANS: Naila Ramirez M.D. and Lorena LaddStony Brook Southampton HospitalSlava Higuera CONSULTING PHYSICIAN: Philip Rivers D.P.M. REASON FOR CONSULTATION: Ulceration of the right foot status post transmetatarsal amputation. HISTORY OF PRESENT ILLNESS: The patient is a 50-year-old male was admitted to [facility] on 07/14/2016 for failure to thrive. The patient is lethargic and sleepy and will not respond to general questioning. History was obtained through chart review. PAST MEDICAL HISTORY: Significant for history of IV drug abuse, tobacco abuse, transmetatarsal amputation of right foot, history of hypertension, COPD, history of blindness, and history of hepatitis C. MEDICATIONS: Per MAR and include vancomycin and cefepime. ALLERGIES: He is allergic to acetaminophen and hydrocodone. SOCIAL HISTORY: Noncontributory. FAMILY HISTORY: Noncontributory . REVIEW OF SYSTEMS: Unobtainable. PHYSICAL EXAMINATION: VITAL SIGNS: Temperature is 96.8 degrees, pulse 75, respirations 18, blood pressure 157/93, and saturating 100% on room air. EXTREMITIES: Lower extremity physical exam, vascular, palpable pedal pulses noted bilaterally. Feet are equally warm. No edema or cyanosis noted. DERMATOLOGICAL: There is a full-thickness ulceration noted at the site of the right foot. There is full thickness. No bone or tendon is exposed. No signs of acute bacterial infection are noted. Periwound skin is normal. No fluctuance or malodor is noted. No drainage is noted. Dermatological exam is unremarkable. MUSCULOSKELETAL: The patient is bedbound. Partial amputation of right foot is noted. No other gross deformities were seen. LABORATORY AND DIAGNOSTIC DATA: White blood cell count is 12.0, hemoglobin and hematocrit is 9.4 and 30.8, and platelet count 273,000. Hemoglobin A1c is 5.6. Glucose 138, creatinine 0.9, and BUN 19. Toxicology screen is positive for amphetamine use. Lower extremity arterial study was performed on 07/15/2016 shows no evidence of significant arterial occlusive disease bilaterally. ASSESSMENT: 1. Non-pressure ulcer right foot subcutaneous. 2. Non-pressure ulcer of the left foot first and second toes- . 3. Status post transmetatarsal amputation of the right foot. PLAN: 1. X-rays of the feet are pending. 2. We will order wound care. Right foot, cleanse right foot ulcer with normal saline. Applied Adaptic and dry dressing. The left first and second toes with Betadine and leave open to air. Continue heel protectors. 3. Continue decubitus precautions. 4. We will follow. Thank you for the courtesy of this consultation. Philip Rivers D.P.M. DR: Anne JOB#: [id number] CC:
--- NOTE | 2016-07-17 23:22 | Diagnostic Imaging Report ---
APPROVED REPORT CPT Code: 32379 Present Symptoms Lower Extremity Pain: Bilateral BILATERAL: Imaging reveals a patent deep venous system bilaterally. There is no evidence of thrombus within the femoral, popliteal or tibial segments. The greater saphenous veins are also within normal limits. Doppler indicates normal spontaneous flow within these segments.
[2016-07-18] VITALS: BP 143/89
[2016-07-18] MEDS: HYDROmorphone 2 MG in D5W 50 ML IVPB PRN ×3 (03:04→21:43)
[2016-07-18 04:25] VITALS: BP 156/81
[2016-07-18] MEDS: LORazepam Inj 2mg/ml 1ml IV PRN (05:43)
[2016-07-18] MEDS: NovoLOG Insulin Flexpen SUBQ SCH ×4 (06:16→21:58)
[2016-07-18] MEDS: Pancrease Cap ORAL SCH ×3 (06:17→16:45)
[2016-07-18] MEDS: GlipiZIDE 5mg tab ORAL SCH ×2 (06:17→16:45)
[2016-07-18 08:00] VITALS: BP 146/88
[2016-07-18 09:11] LABS: BASOPHILS % (AUTO) 0.8 % (0.0-2.0); EOSINOPHILS % (AUTO) 3.9 % (0.0-3.0); LYMPHOCYTES % (AUTO) 28.3 % (20.0-45.0); MEAN CORPUSCULAR HEMOGLOBIN 30.3 PG (27.0-31.0); MEAN CORPUSCULAR HGB CONC 32.5 G/DL (32.0-36.0); MEAN CORPUSCULAR VOLUME 93 FL (80-99); MEAN PLATELET VOLUME 5.6 FL (6.5-10.1); MONOCYTES % (AUTO) 6.1 % (1.0-10.0); NEUTROPHILS % (AUTO) 60.8 % (45.0-75.0); PLATELET COUNT 276 K/UL (150-450); RED CELL DISTRIBUTION WIDTH 18.2 % (11.6-14.8); WHITE BLOOD COUNT 9.4 K/UL (4.8-10.8)
[2016-07-18 09:20] LABS: INR 1.1 (0.9-1.1); PROTHROMBIN TIME 10.9 SEC (9.30-11.50)
[2016-07-18 09:23] LABS: ALANINE AMINOTRANSFERASE 58 U/L (3-41); ALBUMIN/GLOBULIN RATIO 0.7 (1.0-2.7); ANION GAP 8 (5-15); ASPARTATE AMINO TRANSFERASE 90 U/L (5-40); CARBON DIOXIDE 24 mEQ/L (20-30); CHLORIDE 103 mEQ/L (98-107); CREATININE 0.7 mg/dL (0.7-1.2); GLOMERULAR FILTRATION RATE > 60 mL/min (>60); MAGNESIUM 1.6 mg/dL (1.7-2.5); PHOSPHORUS 2.3 mg/dL (2.5-4.8); POTASSIUM 4.2 mEQ/L (3.4-4.9); SODIUM 135 mEQ/L (135-145); TOTAL PROTEIN 6.4 g/dL (6.6-8.7)
[2016-07-18 09:35] LABS: FERRITIN 206 ng/mL (10-230)
[2016-07-18] MEDS: metFORMIN 500mg tab ORAL SCH ×2 (09:39→18:37)
[2016-07-18] MEDS: Aspirin EC 81mg tab ORAL SCH (09:41)
[2016-07-18] MEDS: Heparin 5000 units/ml inj SUBQ SCH ×2 (09:44→21:00)
[2016-07-18 10:35] LABS: HEMOLYSIS 6; IRON 84 ug/dL (59-158); TOTAL IRON BINDING CAPACITY 227 ug/dL (250-400)
[2016-07-18 10:39] LABS: RETICULOCYTE COUNT 1.1 % (0.0-2.0)
[2016-07-18 12:00] VITALS: BP 134/86
[2016-07-18] MEDS ORDERED: Sodium Phosphate 30 MM in NS 250 ML IVPB ONE (15:15)
[2016-07-18 16:00] VITALS: BP 102/60
--- NOTE | 2016-07-18 16:10 | GI Progress Note ---
Assessment/Plan Problems: (1) Severe malnutrition ICD Codes: E43 - Unspecified severe protein-calorie malnutrition SNOMED: 76266846 (2) Episode of generalized weakness ICD Codes: R53.1 - Weakness SNOMED: 53624476 (3) C. difficile colitis ICD Codes: A04.7 - Enterocolitis due to Clostridium difficile SNOMED: 562992031 (4) Abdominal pain ICD Codes: R10.9 - Unspecified abdominal pain SNOMED: 99720556 (5) Diarrhea ICD Codes: R19.7 - Diarrhea, unspecified SNOMED: 91304265 (6) DM (diabetes mellitus) ICD Codes: E11.9 - DM (diabetes mellitus) SNOMED: 87400279 (7) Hepatitis C ICD Codes: B19.20 - Unspecified viral hepatitis C without hepatic coma SNOMED: 76740923 (8) Blindness of both eyes ICD Codes: H54.0 - Blindness, both eyes SNOMED: 57458272, 938115522 (9) Amphetamine abuse ICD Codes: F15.10 - Other stimulant abuse, uncomplicated SNOMED: 09297373 Status: unchanged Status Narrative Discussed with Dr. Leonardo. Assessment/Plan fu stool studies; cx, O&P, fecal fat fu hepatitis panel fu abdominal U/S cont Pancrease OB stool uncollected cdiff negative Imodium prn low residual diet H2 fu labs Subjective Gastrointestinal/Abdominal: Reports: diarrhea Objective Last 24 Hour Vital Signs Date Time Temp Pulse Resp B/P Pulse Ox O2 Delivery O2 Flow Rate FiO2 07/18/16 12:00 98.3 79 19 134/86 100 Room Air 07/18/16 09:40 146/88 07/18/16 08:00 97.7 86 18 146/88 100 Room Air 07/18/16 04:25 98.5 82 20 156/81 100 Room Air 07/18/16 00:00 97.9 84 20 143/89 100 Room Air 07/17/16 20:38 80 18 Room Air 21 07/17/16 19:00 97.2 88 20 155/93 99 Room Air 07/17/16 18:28 151/84 07/17/16 16:56 98.1 07/17/16 16:26 168/102 Intake and Output 07/17/16 07/18/16 19:00 07:00 Intake Total 1394 ml 1251 ml Output Total 700 ml 550 ml Balance 694 ml 701 ml Intake Oral 360 ml 240 ml IV Total 1034 ml 1011 ml Output Urine Total 700 ml 550 ml # Voids 2 4 # Bowel Movements 9 8 Laboratory Tests Test 07/18/16 08:45 07/18/16 11:15 White Blood Count 9.4 K/UL (4.8-10.8) Red Blood Count 3.30 M/UL (4.70-6.10) L Hemoglobin 10.0 G/DL (14.2-18.0) L Hematocrit 30.8 % (42.0-52.0) L Mean Corpuscular Volume 93 FL (80-99) Mean Corpuscular Hemoglobin 30.3 PG (27.0-31.0) Mean Corpuscular Hemoglobin Concent 32.5 G/DL (32.0-36.0) Red Cell Distribution Width 18.2 % (11.6-14.8) H Platelet Count 276 K/UL (150-450) Mean Platelet Volume 5.6 FL (6.5-10.1) L Neutrophils (%) (Auto) 60.8 % (45.0-75.0) Lymphocytes (%) (Auto) 28.3 % (20.0-45.0) Monocytes (%) (Auto) 6.1 % (1.0-10.0) Eosinophils (%) (Auto) 3.9 % (0.0-3.0) H Basophils (%) (Auto) 0.8 % (0.0-2.0) Reticulocyte Count 1.1 % (0.0-2.0) Prothrombin Time 10.9 SEC (9.30-11.50) Prothromb Time International Ratio 1.1 (0.9-1.1) Activated Partial Thromboplast Time 33 SEC (23-33) Sodium Level 135 mEQ/L (135-145) Potassium Level 4.2 mEQ/L (3.4-4.9) Chloride Level 103 mEQ/L (98-107) Carbon Dioxide Level 24 mEQ/L (20-30) Anion Gap 8 (5-15) Blood Urea Nitrogen 18 mg/dL (7-23) Creatinine 0.7 mg/dL (0.7-1.2) Estimat Glomerular Filtration Rate > 60 mL/min (>60) Glucose Level 117 mg/dL (74-106) H Calcium Level 9.0 mg/dL (8.6-10.2) Phosphorus Level 2.3 mg/dL (2.5-4.8) L Magnesium Level 1.6 mg/dL (1.7-2.5) L Iron Level 84 ug/dL (59-158) Total Iron Binding Capacity 227 ug/dL (250-400) L Percent Iron Saturation 37 % (15-50) Unsaturated Iron Binding 143 ug/dL (112-346) Ferritin 206 ng/mL (10-230) Total Bilirubin < 0.2 mg/dL (0.0-1.2) Aspartate Amino Transf (AST/SGOT) 90 U/L (5-40) H Alanine Aminotransferase (ALT/SGPT) 58 U/L (3-41) H Alkaline Phosphatase 266 U/L (40-129) H Total Protein 6.4 g/dL (6.6-8.7) L Albumin 2.7 g/dL (3.5-5.2) L Globulin 3.7 g/dL Albumin/Globulin Ratio 0.7 (1.0-2.7) L Carcinoembryonic Antigen 3.8 ng/mL H Vitamin B12 Level 535 pg/mL (211-946) Folate Pending Thyroid Stimulating Hormone (TSH) 6.060 uIU/mL (0.300-4.500) Free Thyroxine 1.06 ng/dL (0.86-1.85) Hepatitis A IgM Antibody Pending Hepatitis B Surface Antigen Pending Hepatitis B Core IgM Antibody Pending Hepatitis C Antibody Pending Vancomycin Level Trough 27.9 ug/mL (5.0-12.0) H Height (Feet): 5 Height (Inches): 11.00 Weight (Pounds): 114 General Appearance: no apparent distress, alert, thin Cardiovascular: normal rate Respiratory/Chest: normal breath sounds, no respiratory distress Abdominal Exam: normal bowel sounds, non tender, soft Bernadette Iverson N.PRichard Jul 18, 2016 16:10
[2016-07-18] MEDS: Loperamide 2mg cap ORAL PRN (16:45)
--- NOTE | 2016-07-18 16:48 | Infectious Diseases Prog Note ---
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 Hx of Hep C SP Rx in 1999 - elevated LFTs, HCV PCR pending Negative HIV Chronic Diarrhea ?malabsorption - negative C diff High Alk Phos ro Biliary Dx - US pending Wt loss 140 lb in 12 mo, due to Ch diarrhea , also may need to Ro malignancy ( liver Cancer ) - AFP WNL DM - HbA1c 7.6% Diabetic neuropathy Legally blind SP transmetatarsal amputation R foot smoker amphetamine use MRSA, VRE colonized No ABX allergies Full Code PLAN : Cont on IV Vanco, Cefepime, Flagyl d# 4 / 5-7 f/u cultures, stool studies Monitor CBC, temperatures Monitor CMP Hep C PCR US of liver Subjective Allergies: Coded Allergies: ACETAMINOPHEN (Unverified Allergy, Unknown, 07/14/16) HYDROCODONE (Unverified Allergy, Unknown, 07/14/16) Subjective afebrile. leukocytosis resolved Objective Vital Signs Last 24 Hour Vital Signs Date Time Temp Pulse Resp B/P Pulse Ox O2 Delivery O2 Flow Rate FiO2 07/18/16 12:00 98.3 79 19 134/86 100 Room Air 07/18/16 09:40 146/88 07/18/16 08:00 97.7 86 18 146/88 100 Room Air 07/18/16 04:25 98.5 82 20 156/81 100 Room Air 07/18/16 00:00 97.9 84 20 143/89 100 Room Air 07/17/16 20:38 80 18 Room Air 21 07/17/16 19:00 97.2 88 20 155/93 99 Room Air 07/17/16 18:28 151/84 07/17/16 16:56 98.1 Height (Feet): 5 Height (Inches): 11.00 Weight (Pounds): 114 General Appearance: no acute distress Respiratory/Chest: no respiratory distress Cardiovascular: normal rate, regular rhythm Abdomen: normal bowel sounds, soft, non tender, non distended Microbiology Date/Time Source Procedure Growth Status 07/16/16 05:00 Stool WBC Smear - Final Complete 07/15/16 16:59 Arm Right Gram Stain - Final Resulted 07/15/16 16:59 Wound Culture - Preliminary Staphylococcus Aureus - Mrsa Diphtheroids Resulted Laboratory Tests Test 1/11/17 08:45 07/18/16 11:15 White Blood Count 9.4 K/UL (4.8-10.8) Red Blood Count 3.30 M/UL (4.70-6.10) L Hemoglobin 10.0 G/DL (14.2-18.0) L Hematocrit 30.8 % (42.0-52.0) L Mean Corpuscular Volume 93 FL (80-99) Mean Corpuscular Hemoglobin 30.3 PG (27.0-31.0) Mean Corpuscular Hemoglobin Concent 32.5 G/DL (32.0-36.0) Red Cell Distribution Width 18.2 % (11.6-14.8) H Platelet Count 276 K/UL (150-450) Mean Platelet Volume 5.6 FL (6.5-10.1) L Neutrophils (%) (Auto) 60.8 % (45.0-75.0) Lymphocytes (%) (Auto) 28.3 % (20.0-45.0) Monocytes (%) (Auto) 6.1 % (1.0-10.0) Eosinophils (%) (Auto) 3.9 % (0.0-3.0) H Basophils (%) (Auto) 0.8 % (0.0-2.0) Reticulocyte Count 1.1 % (0.0-2.0) Prothrombin Time 10.9 SEC (9.30-11.50) Prothromb Time International Ratio 1.1 (0.9-1.1) Activated Partial Thromboplast Time 33 SEC (23-33) Sodium Level 135 mEQ/L (135-145) Potassium Level 4.2 mEQ/L (3.4-4.9) Chloride Level 103 mEQ/L (98-107) Carbon Dioxide Level 24 mEQ/L (20-30) Anion Gap 8 (5-15) Blood Urea Nitrogen 18 mg/dL (7-23) Creatinine 0.7 mg/dL (0.7-1.2) Estimat Glomerular Filtration Rate > 60 mL/min (>60) Glucose Level 117 mg/dL (74-106) H Calcium Level 9.0 mg/dL (8.6-10.2) Phosphorus Level 2.3 mg/dL (2.5-4.8) L Magnesium Level 1.6 mg/dL (1.7-2.5) L Iron Level 84 ug/dL (59-158) Total Iron Binding Capacity 227 ug/dL (250-400) L Percent Iron Saturation 37 % (15-50) Unsaturated Iron Binding 143 ug/dL (112-346) Ferritin 206 ng/mL (10-230) Total Bilirubin < 0.2 mg/dL (0.0-1.2) Aspartate Amino Transf (AST/SGOT) 90 U/L (5-40) H Alanine Aminotransferase (ALT/SGPT) 58 U/L (3-41) H Alkaline Phosphatase 266 U/L (40-129) H Total Protein 6.4 g/dL (6.6-8.7) L Albumin 2.7 g/dL (3.5-5.2) L Globulin 3.7 g/dL Albumin/Globulin Ratio 0.7 (1.0-2.7) L Carcinoembryonic Antigen 3.8 ng/mL H Vitamin B12 Level 535 pg/mL (211-946) Folate Pending Thyroid Stimulating Hormone (TSH) 6.060 uIU/mL (0.300-4.500) Free Thyroxine 1.06 ng/dL (0.86-1.85) Hepatitis A IgM Antibody Pending Hepatitis B Surface Antigen Pending Hepatitis B Core IgM Antibody Pending Hepatitis C Antibody Pending Vancomycin Level Trough 27.9 ug/mL (5.0-12.0) H Current Medications Medications (Trade) Dose Ordered Sig/Romelia Route PRN Reason Start Time Stop Time Status Last Admin Dose Admin Al Hydroxide/Mg Hydroxide (Mylanta II) 30 ml Q6H PRN ORAL dyspepsia 07/14/16 06:00 08/13/16 05:59 Albuterol/ Ipratropium (DuoNeb 0.5-3(2.5)mg/3ml) 3 ml EVERY 4 HOURS PRN HHN Shortness of Breath 07/14/16 06:00 07/19/16 05:59 Amitriptyline HCl (Elavil) 25 mg BEDTIME ORAL 07/14/16 21:00 08/13/16 20:59 07/17/16 22:29 Amylase/Lipase/ Protease 2 ea 2 ea TIAC ORAL 07/17/16 16:30 08/16/16 16:29 07/18/16 16:45 Aspirin (Ecotrin) 81 mg DAILY ORAL 07/14/16 09:00 08/13/16 08:59 07/18/16 09:41 Cefepime HCl/ Dextrose (Maxipime/D5W 50ml) 50 ml @ 100 mls/hr EVERY 12 HOURS IVPB 07/15/16 21:00 07/22/16 20:59 07/18/16 09:00 Clonidine HCl (Catapres) 0.1 mg BID ORAL 07/14/16 09:00 08/13/16 08:59 07/18/16 09:40 Clonidine HCl (Catapres) 0.1 mg EVERY 4 HOURS PRN ORAL sbp more than 160 07/14/16 06:00 08/13/16 05:59 07/17/16 16:26 Dextrose (Dextrose 50%) STAT PRN IV Hypoglycemia 07/14/16 06:00 08/13/16 05:59 Gabapentin (Neurontin) 300 mg BEDTIME ORAL 07/14/16 21:00 08/13/16 20:59 07/17/16 22:29 Glipizide (Glucotrol) 5 mg BIAC ORAL 07/16/16 11:30 08/15/16 11:29 07/18/16 16:45 Haloperidol Lactate 5 mg 5 mg Q3H PRN IM Agitation 07/14/16 18:30 08/13/16 18:29 Heparin Sodium (Porcine) (Heparin 5000 units/ml) 5,000 units EVERY 12 HOURS SUBQ 07/14/16 09:00 08/13/16 08:59 07/18/16 09:44 Hydromorphone HCl 2 mg/Dextrose 51 ml @ 200 mls/hr EVERY 3 HOURS PRN IVPB severe pain 07/17/16 22:45 07/21/16 05:59 07/18/16 03:04 Insulin Aspart (NovoLOG) BEFORE MEALS AND HS SUBQ 07/14/16 06:30 08/13/16 06:29 07/18/16 06:16 Ketorolac Tromethamine (Toradol 30mg) 30 mg EVERY 6 HOURS PRN IV moderate pain 4-6 07/14/16 06:00 07/19/16 05:59 07/17/16 16:26 Loperamide HCl (Imodium) 2 mg EVERY 4 HOURS PRN ORAL Diarrhea 07/17/16 15:00 08/16/16 14:59 07/18/16 16:45 Lorazepam (Ativan 2mg/ml 1ml) 1 mg Q4H PRN IV For Anxiety 07/14/16 18:30 07/21/16 18:29 07/18/16 05:43 Metformin HCl (Glucophage) 500 mg BID ORAL 07/16/16 09:00 08/15/16 08:59 07/18/16 09:39 Nitroglycerin (Ntg) 0.4 mg Q5M X 3 DOSES PRN SL Prn Chest Pain 07/14/16 06:00 08/13/16 05:59 Ondansetron HCl (Zofran) 4 mg Q6H PRN IVP Nausea & Vomiting 07/14/16 06:00 08/13/16 05:59 Polyethylene Glycol (Miralax) 17 gm HSPRN PRN ORAL Constipation 07/14/16 06:00 08/13/16 05:59 Ranitidine HCl (Zantac) 150 mg BEDTIME ORAL 07/14/16 21:00 08/13/16 20:59 07/17/16 22:29 Sodium Chloride (Sodium Chloride 1000ml bag) 1,000 ml @ 75 mls/hr [id number] IVLG 07/15/16 15:00 08/14/16 14:59 07/17/16 18:28 Sodium Phosphate/ Sodium Chloride (NaPO4/Sodium Chloride 275ml bag) 260 ml @ 43 mls/hr ONCE ONCE IVPB 07/18/16 15:15 07/18/16 21:17 07/18/16 16:45 Temazepam (Restoril) 15 mg HSPRN PRN ORAL Insomnia 07/14/16 06:00 07/21/16 05:59 07/17/16 00:10 Tramadol HCl (Ultram) 50 mg Q6H PRN ORAL For Pain 07/14/16 06:00 07/21/16 05:59 07/14/16 20:13 Vancomycin HCl 1 ea 1 ea DAILY PRN MISC Per rx protocol 07/15/16 14:00 08/14/16 13:59 Vitamin A/Vitamin D (A & D Oint) 1 applic BIDPRN TOPIC 07/14/16 16:00 08/13/16 15:59 ADA TURNER Jul 18, 2016 16:48
[2016-07-18] MEDS ORDERED: Tubing IV Secondary IV ONE (18:21)
--- NOTE | 2016-07-18 19:06 | Pulmonology Progress Note ---
Assessment/Plan Problems: (1) Sepsis (2) Diarrhea (3) Episode of generalized weakness (4) DM (diabetes mellitus) (5) Hepatitis C (6) Blindness of both eyes (7) HTN (hypertension) (8) COPD (chronic obstructive pulmonary disease) (9) S/P transmetatarsal amputation of foot Assessment/Plan continue abx as per ID check wbc needs placement Subjective ROS Limited/Unobtainable: No Constitutional: Reports: anorexia, fatigue Respiratory: Reports: dry cough, dyspnea at rest, dyspnea on exertion, shortness of breath Musculoskeletal: Reports: pain, stiffness Allergies: Coded Allergies: ACETAMINOPHEN (Unverified Allergy, Unknown, 07/14/16) HYDROCODONE (Unverified Allergy, Unknown, 07/14/16) Objective Last 24 Hour Vital Signs Date Time Temp Pulse Resp B/P Pulse Ox O2 Delivery O2 Flow Rate FiO2 07/18/16 18:00 102/60 07/18/16 17:40 97.7 07/18/16 16:00 97.7 60 20 102/60 99 Room Air 07/18/16 12:00 98.3 79 19 134/86 100 Room Air 07/18/16 09:40 146/88 07/18/16 08:00 97.7 86 18 146/88 100 Room Air 07/18/16 07:30 72 16 Room Air 21 07/18/16 04:25 98.5 82 20 156/81 100 Room Air 07/18/16 00:00 97.9 84 20 143/89 100 Room Air 07/17/16 20:38 80 18 Room Air 21 Intake and Output 07/17/16 07/18/16 19:00 07:00 Intake Total 1394 ml 1251 ml Output Total 700 ml 550 ml Balance 694 ml 701 ml Intake Oral 360 ml 240 ml IV Total 1034 ml 1011 ml Output Urine Total 700 ml 550 ml # Voids 2 4 # Bowel Movements 9 8 General Appearance: no acute distress HEENT: normocephalic, atraumatic, PERRL Respiratory/Chest: chest wall non-tender, lungs clear, normal breath sounds Cardiovascular: normal peripheral pulses, normal rate, regular rhythm, no JVD Abdomen: normal bowel sounds, soft, non tender, no organomegaly Genitourinary: normal external genitalia Extremities: no cyanosis Skin: no rash, lesions, ulcers Neurologic/Psychiatric: student support counselor II-XII grossly normal, responsive, abnormal CN, motor weakness, sensory deficit, disoriented Microbiology Date/Time Source Procedure Growth Status 07/16/16 05:00 Stool WBC Smear - Final Complete Laboratory Tests 07/18/16 08:45: White Blood Count 9.4, Red Blood Count 3.30L, Hemoglobin 10.0L, Hematocrit 30.8L , Mean Corpuscular Volume 93, Mean Corpuscular Hemoglobin 30.3, Mean Corpuscular Hemoglobin Concent 32.5, Red Cell Distribution Width 18.2H, Platelet Count 276, Mean Platelet Volume 5.6L, Neutrophils (%) (Auto) 60.8, Lymphocytes (%) (Auto) 28.3, Monocytes (%) (Auto) 6.1, Eosinophils (%) (Auto) 3.9H, Basophils (%) (Auto) 0.8, Reticulocyte Count 1.1, Prothrombin Time 10.9, Prothromb Time International Ratio 1.1, Activated Partial Thromboplast Time 33, Sodium Level 135, Potassium Level 4.2, Chloride Level 103, Carbon Dioxide Level 24, Anion Gap 8, Blood Urea Nitrogen 18, Creatinine 0.7, Estimat Glomerular Filtration Rate > 60, Glucose Level 117H, Calcium Level 9.0, Phosphorus Level 2.3L, Magnesium Level 1.6L, Iron Level 84, Total Iron Binding Capacity 227L, Percent Iron Saturation 37, Unsaturated Iron Binding 143, Ferritin 206, Total Bilirubin < 0.2, Aspartate Amino Transf (AST/SGOT) 90H, Alanine Aminotransferase (ALT/SGPT) 58H, Alkaline Phosphatase 266H, Total Protein 6.4L, Albumin 2.7L, Globulin 3.7, Albumin/Globulin Ratio 0.7L, Carcinoembryonic Antigen 3.8H, Vitamin B12 Level 535, Folate [Pending], Thyroid Stimulating Hormone (TSH) 6.060H, Free Thyroxine 1.06, Hepatitis A IgM Antibody [Pending], Hepatitis B Surface Antigen [Pending], Hepatitis B Core IgM Antibody [Pending], Hepatitis C Antibody [Pending] 07/18/16 11:15: Vancomycin Level Trough 27.9H Current Medications Medications (Trade) Dose Ordered Sig/Romelia Route PRN Reason Start Time Stop Time Status Last Admin Dose Admin Al Hydroxide/Mg Hydroxide (Mylanta II) 30 ml Q6H PRN ORAL dyspepsia 07/14/16 06:00 08/13/16 05:59 Albuterol/ Ipratropium (DuoNeb 0.5-3(2.5)mg/3ml) 3 ml EVERY 4 HOURS PRN HHN Shortness of Breath 07/14/16 06:00 07/19/16 05:59 Amitriptyline HCl (Elavil) 25 mg BEDTIME ORAL 07/14/16 21:00 08/13/16 20:59 07/17/16 22:29 Amylase/Lipase/ Protease 2 ea 2 ea TIAC ORAL 07/17/16 16:30 08/16/16 16:29 07/18/16 16:45 Aspirin (Ecotrin) 81 mg DAILY ORAL 07/14/16 09:00 08/13/16 08:59 07/18/16 09:41 Cefepime HCl/ Dextrose (Maxipime/D5W 50ml) 50 ml @ 100 mls/hr EVERY 12 HOURS IVPB 07/15/16 21:00 07/22/16 20:59 07/18/16 09:00 Clonidine HCl (Catapres) 0.1 mg BID ORAL 07/14/16 09:00 08/13/16 08:59 07/18/16 09:40 Clonidine HCl (Catapres) 0.1 mg EVERY 4 HOURS PRN ORAL sbp more than 160 07/14/16 06:00 08/13/16 05:59 07/17/16 16:26 Dextrose (Dextrose 50%) STAT PRN IV Hypoglycemia 07/14/16 06:00 08/13/16 05:59 Gabapentin (Neurontin) 300 mg BEDTIME ORAL 07/14/16 21:00 08/13/16 20:59 07/17/16 22:29 Glipizide (Glucotrol) 5 mg BIAC ORAL 07/16/16 11:30 08/15/16 11:29 07/18/16 16:45 Haloperidol Lactate 5 mg 5 mg Q3H PRN IM Agitation 07/14/16 18:30 08/13/16 18:29 Heparin Sodium (Porcine) (Heparin 5000 units/ml) 5,000 units EVERY 12 HOURS SUBQ 07/14/16 09:00 08/13/16 08:59 07/18/16 09:44 Hydromorphone HCl 2 mg/Dextrose 51 ml @ 200 mls/hr EVERY 3 HOURS PRN IVPB severe pain 07/17/16 22:45 07/21/16 05:59 07/18/16 17:10 Insulin Aspart (NovoLOG) BEFORE MEALS AND HS SUBQ 07/14/16 06:30 08/13/16 06:29 07/18/16 16:53 Ketorolac Tromethamine (Toradol 30mg) 30 mg EVERY 6 HOURS PRN IV moderate pain 4-6 07/14/16 06:00 07/19/16 05:59 07/17/16 16:26 Loperamide HCl (Imodium) 2 mg EVERY 4 HOURS PRN ORAL Diarrhea 07/17/16 15:00 08/16/16 14:59 07/18/16 16:45 Lorazepam (Ativan 2mg/ml 1ml) 1 mg Q4H PRN IV For Anxiety 07/14/16 18:30 07/21/16 18:29 07/18/16 05:43 Metformin HCl (Glucophage) 500 mg BID ORAL 07/16/16 09:00 08/15/16 08:59 07/18/16 18:37 Nitroglycerin (Ntg) 0.4 mg Q5M X 3 DOSES PRN SL Prn Chest Pain 07/14/16 06:00 08/13/16 05:59 Ondansetron HCl (Zofran) 4 mg Q6H PRN IVP Nausea & Vomiting 07/14/16 06:00 08/13/16 05:59 Polyethylene Glycol (Miralax) 17 gm HSPRN PRN ORAL Constipation 07/14/16 06:00 08/13/16 05:59 Ranitidine HCl (Zantac) 150 mg BEDTIME ORAL 07/14/16 21:00 08/13/16 20:59 07/17/16 22:29 Sodium Chloride (Sodium Chloride 1000ml bag) 1,000 ml @ 75 mls/hr [id number] IVLG 07/15/16 15:00 08/14/16 14:59 07/17/16 18:28 Sodium Phosphate/ Sodium Chloride (NaPO4/Sodium Chloride 275ml bag) 260 ml @ 43 mls/hr ONCE ONCE IVPB 07/18/16 15:15 07/18/16 21:17 07/18/16 16:45 Temazepam (Restoril) 15 mg HSPRN PRN ORAL Insomnia 07/14/16 06:00 07/21/16 05:59 07/17/16 00:10 Tramadol HCl (Ultram) 50 mg Q6H PRN ORAL For Pain 07/14/16 06:00 07/21/16 05:59 07/14/16 20:13 Vancomycin HCl 1 ea 1 ea DAILY PRN MISC Per rx protocol 07/15/16 14:00 08/14/16 13:59 Vitamin A/Vitamin D (A & D Oint) 1 applic BIDPRN TOPIC 07/14/16 16:00 08/13/16 15:59 DORENE GRIMM Jul 18, 2016 19:06
[2016-07-18 21:00] VITALS: BP 158/99
[2016-07-19] MEDS: HYDROmorphone 2 MG in D5W 50 ML IVPB PRN ×3 (01:25→21:43)
[2016-07-19] MEDS: LORazepam Inj 2mg/ml 1ml IV PRN ×3 (01:26→11:53)
[2016-07-19 01:30] VITALS: BP 149/92
[2016-07-19 04:00] VITALS: BP 147/70
[2016-07-19] MEDS: Pancrease Cap ORAL SCH ×3 (06:16→16:28)
[2016-07-19] MEDS: GlipiZIDE 5mg tab ORAL SCH ×2 (06:17→16:28)
[2016-07-19] MEDS: NovoLOG Insulin Flexpen SUBQ SCH ×4 (06:22→20:34)
[2016-07-19 07:46] LABS: BASOPHILS % (AUTO) 1.3 % (0.0-2.0); EOSINOPHILS % (AUTO) 4.2 % (0.0-3.0); LYMPHOCYTES % (AUTO) 32.1 % (20.0-45.0); MEAN CORPUSCULAR HGB CONC 32.2 G/DL (32.0-36.0); MEAN CORPUSCULAR VOLUME 93 FL (80-99); MEAN PLATELET VOLUME 5.4 FL (6.5-10.1); MONOCYTES % (AUTO) 4.5 % (1.0-10.0); NEUTROPHILS % (AUTO) 57.8 % (45.0-75.0); PLATELET COUNT 282 K/UL (150-450); RED BLOOD COUNT 3.36 M/UL (4.70-6.10); RED CELL DISTRIBUTION WIDTH 18.1 % (11.6-14.8); WHITE BLOOD COUNT 8.7 K/UL (4.8-10.8)
[2016-07-19 07:51] VITALS: BP 155/88
[2016-07-19 08:00] LABS: ALANINE AMINOTRANSFERASE 69 U/L (3-41); ALBUMIN/GLOBULIN RATIO 0.7 (1.0-2.7); ANION GAP 12 (5-15); ASPARTATE AMINO TRANSFERASE 98 U/L (5-40); CALCIUM 8.9 mg/dL (8.6-10.2); CARBON DIOXIDE 22 mEQ/L (20-30); CHLORIDE 106 mEQ/L (98-107); CREATININE 0.7 mg/dL (0.7-1.2); GLOMERULAR FILTRATION RATE > 60 mL/min (>60); HEMOLYSIS 3; PHOSPHORUS 3.6 mg/dL (2.5-4.8); POTASSIUM 4.5 mEQ/L (3.4-4.9); SODIUM 140 mEQ/L (135-145); TOTAL PROTEIN 6.7 g/dL (6.6-8.7)
[2016-07-19] MEDS: metFORMIN 500mg tab ORAL SCH ×2 (08:04→19:41)
[2016-07-19] MEDS: Aspirin EC 81mg tab ORAL SCH (08:13)
[2016-07-19] MEDS: Loperamide 2mg cap ORAL PRN ×2 (08:15→11:40)
[2016-07-19] MEDS: Heparin 5000 units/ml inj SUBQ SCH ×2 (08:24→20:57)
[2016-07-19 11:28] VITALS: BP 146/88
--- NOTE | 2016-07-19 15:39 | GI Progress Note ---
Assessment/Plan Problems: (1) Severe malnutrition ICD Codes: E43 - Unspecified severe protein-calorie malnutrition SNOMED: 86103571 (2) Episode of generalized weakness ICD Codes: R53.1 - Weakness SNOMED: 62411950 (3) C. difficile colitis ICD Codes: A04.7 - Enterocolitis due to Clostridium difficile SNOMED: 126453517 (4) Abdominal pain ICD Codes: R10.9 - Unspecified abdominal pain SNOMED: 34451084 (5) Diarrhea ICD Codes: R19.7 - Diarrhea, unspecified SNOMED: 41684952 (6) DM (diabetes mellitus) ICD Codes: E11.9 - DM (diabetes mellitus) SNOMED: 63932948 (7) Hepatitis C ICD Codes: B19.20 - Unspecified viral hepatitis C without hepatic coma SNOMED: 48714431 (8) Blindness of both eyes ICD Codes: H54.0 - Blindness, both eyes SNOMED: 37456772, 823045840 (9) Amphetamine abuse ICD Codes: F15.10 - Other stimulant abuse, uncomplicated SNOMED: 59734886 Status: unchanged Status Narrative Discussed with Dr. Leonardo. Assessment/Plan fu stool studies; O&P, fecal fat pending stool culture >> negative hepatitis panel pending cdiff negative ordered Lomotil Imodium prn ordered KUB fu abdominal U/S cont Pancrease OB stool uncollected low residual diet H2 fu labs Subjective Gastrointestinal/Abdominal: Reports: diarrhea Objective Last 24 Hour Vital Signs Date Time Temp Pulse Resp B/P Pulse Ox O2 Delivery O2 Flow Rate FiO2 07/19/16 11:28 98.1 95 20 146/88 100 Room Air 07/19/16 08:14 155/88 07/19/16 07:51 97.9 96 20 155/88 92 Room Air 07/19/16 07:14 72 16 Room Air 07/19/16 04:00 97.2 68 20 147/70 100 Room Air 07/19/16 01:30 96.4 92 18 149/92 99 Room Air 07/18/16 21:38 68 18 Room Air 21 07/18/16 21:00 80 20 158/99 98 Room Air 07/18/16 18:00 102/60 07/18/16 17:40 97.7 07/18/16 16:00 97.7 60 20 102/60 99 Room Air Intake and Output 07/18/16 07/19/16 19:00 07:00 Intake Total 1162 ml 1315 ml Output Total 600 ml Balance 562 ml 1315 ml Intake Oral 500 ml 760 ml IV Total 662 ml 555 ml Stool Total 600 ml # Voids 3 6 # Bowel Movements 4 6 Laboratory Tests Test 07/19/16 06:05 White Blood Count 8.7 K/UL (4.8-10.8) Red Blood Count 3.36 M/UL (4.70-6.10) L Hemoglobin 10.1 G/DL (14.2-18.0) L Hematocrit 31.3 % (42.0-52.0) L Mean Corpuscular Volume 93 FL (80-99) Mean Corpuscular Hemoglobin 30.0 PG (27.0-31.0) Mean Corpuscular Hemoglobin Concent 32.2 G/DL (32.0-36.0) Red Cell Distribution Width 18.1 % (11.6-14.8) H Platelet Count 282 K/UL (150-450) Mean Platelet Volume 5.4 FL (6.5-10.1) L Neutrophils (%) (Auto) 57.8 % (45.0-75.0) Lymphocytes (%) (Auto) 32.1 % (20.0-45.0) Monocytes (%) (Auto) 4.5 % (1.0-10.0) Eosinophils (%) (Auto) 4.2 % (0.0-3.0) H Basophils (%) (Auto) 1.3 % (0.0-2.0) Sodium Level 140 mEQ/L (135-145) Potassium Level 4.5 mEQ/L (3.4-4.9) Chloride Level 106 mEQ/L (98-107) Carbon Dioxide Level 22 mEQ/L (20-30) Anion Gap 12 (5-15) Blood Urea Nitrogen 17 mg/dL (7-23) Creatinine 0.7 mg/dL (0.7-1.2) Estimat Glomerular Filtration Rate > 60 mL/min (>60) Glucose Level 90 mg/dL (74-106) Calcium Level 8.9 mg/dL (8.6-10.2) Phosphorus Level 3.6 mg/dL (2.5-4.8) Magnesium Level 2.0 mg/dL (1.7-2.5) Total Bilirubin < 0.2 mg/dL (0.0-1.2) Aspartate Amino Transf (AST/SGOT) 98 U/L (5-40) H Alanine Aminotransferase (ALT/SGPT) 69 U/L (3-41) H Alkaline Phosphatase 278 U/L (40-129) H Total Protein 6.7 g/dL (6.6-8.7) Albumin 2.8 g/dL (3.5-5.2) L Globulin 3.9 g/dL Albumin/Globulin Ratio 0.7 (1.0-2.7) L Random Vancomycin Level 17.3 ug/mL Height (Feet): 5 Height (Inches): 11.00 Weight (Pounds): 114 General Appearance: alert, thin Cardiovascular: normal rate Respiratory/Chest: normal breath sounds, no respiratory distress Abdominal Exam: non tender, soft, hyperactive bowel sounds Bernadette Iverson N.P. Jul 19, 2016 15:39
[2016-07-19] MEDS ORDERED: LOMOTIL ORAL PRN (15:45)
[2016-07-19 16:00] VITALS: BP 162/98
[2016-07-19 19:00] VITALS: BP 153/90
--- NOTE | 2016-07-19 19:17 | Pulmonology Progress Note ---
Assessment/Plan Problems: (1) Sepsis (2) Diarrhea (3) Episode of generalized weakness (4) DM (diabetes mellitus) (5) Hepatitis C (6) Blindness of both eyes (7) HTN (hypertension) (8) COPD (chronic obstructive pulmonary disease) (9) S/P transmetatarsal amputation of foot Assessment/Plan continue abx as per ID check wbc needs placement Subjective ROS Limited/Unobtainable: No Constitutional: Reports: anorexia, chills, fatigue, fever Respiratory: Reports: dyspnea at rest, dyspnea on exertion, shortness of breath , wheezing Gastrointestinal/Abdominal: Reports: bloating, diarrhea, nausea Allergies: Coded Allergies: ACETAMINOPHEN (Unverified Allergy, Unknown, 07/14/16) HYDROCODONE (Unverified Allergy, Unknown, 07/14/16) Objective Last 24 Hour Vital Signs Date Time Temp Pulse Resp B/P Pulse Ox O2 Delivery O2 Flow Rate FiO2 07/19/16 16:00 96.8 87 20 162/98 100 Room Air 07/19/16 11:28 98.1 95 20 146/88 100 Room Air 07/19/16 08:14 155/88 07/19/16 07:51 97.9 96 20 155/88 92 Room Air 07/19/16 07:14 72 16 Room Air 21 07/19/16 04:00 97.2 68 20 147/70 100 Room Air 07/19/16 01:30 96.4 92 18 149/92 99 Room Air 07/18/16 21:38 68 18 Room Air 21 07/18/16 21:00 80 20 158/99 98 Room Air Intake and Output 07/18/16 07/19/16 19:00 07:00 Intake Total 1162 ml 1315 ml Output Total 600 ml Balance 562 ml 1315 ml Intake Oral 500 ml 760 ml IV Total 662 ml 555 ml Stool Total 600 ml # Voids 3 6 # Bowel Movements 4 6 General Appearance: no acute distress HEENT: normocephalic, atraumatic, PERRL Respiratory/Chest: chest wall non-tender, decreased breath sounds, accessory muscle use Cardiovascular: normal peripheral pulses, normal rate, regular rhythm, no JVD Abdomen: hyperactive bowel sounds, distended, guarding, tender, rebound tenderness Genitourinary: normal external genitalia Extremities: no cyanosis Neurologic/Psychiatric: occupational therapist home based II-XII grossly normal, no motor/sensory deficits Laboratory Tests 07/19/16 06:05: White Blood Count 8.7, Red Blood Count 3.36L, Hemoglobin 10.1L, Hematocrit 31.3L , Mean Corpuscular Volume 93, Mean Corpuscular Hemoglobin 30.0, Mean Corpuscular Hemoglobin Concent 32.2, Red Cell Distribution Width 18.1H, Platelet Count 282, Mean Platelet Volume 5.4L, Neutrophils (%) (Auto) 57.8, Lymphocytes (%) (Auto) 32.1, Monocytes (%) (Auto) 4.5, Eosinophils (%) (Auto) 4.2H, Basophils (%) (Auto) 1.3, Sodium Level 140, Potassium Level 4.5, Chloride Level 106, Carbon Dioxide Level 22, Anion Gap 12, Blood Urea Nitrogen 17, Creatinine 0.7, Estimat Glomerular Filtration Rate > 60, Glucose Level 90, Calcium Level 8.9, Phosphorus Level 3.6, Magnesium Level 2.0, Total Bilirubin < 0.2, Aspartate Amino Transf (AST/SGOT) 98H, Alanine Aminotransferase (ALT/SGPT) 69H, Alkaline Phosphatase 278H, Total Protein 6.7, Albumin 2.8L, Globulin 3.9, Albumin/Globulin Ratio 0.7L, Random Vancomycin Level 17.3 Current Medications Medications (Trade) Dose Ordered Sig/Romelia Route PRN Reason Start Time Stop Time Status Last Admin Dose Admin Al Hydroxide/Mg Hydroxide (Mylanta II) 30 ml Q6H PRN ORAL dyspepsia 07/14/16 06:00 08/13/16 05:59 Amitriptyline HCl (Elavil) 25 mg BEDTIME ORAL 07/14/16 21:00 08/13/16 20:59 07/18/16 21:43 Amylase/Lipase/ Protease 2 ea 2 ea TIAC ORAL 07/17/16 16:30 08/16/16 16:29 07/19/16 16:28 Aspirin (Ecotrin) 81 mg DAILY ORAL 07/14/16 09:00 08/13/16 08:59 07/19/16 08:13 Cefepime HCl/ Dextrose (Maxipime/D5W 50ml) 50 ml @ 100 mls/hr EVERY 12 HOURS IVPB 07/15/16 21:00 07/22/16 20:59 07/19/16 08:04 Clonidine HCl (Catapres) 0.1 mg BID ORAL 07/14/16 09:00 08/13/16 08:59 07/19/16 08:14 Clonidine HCl (Catapres) 0.1 mg EVERY 4 HOURS PRN ORAL sbp more than 160 07/14/16 06:00 08/13/16 05:59 07/17/16 16:26 Dextrose (Dextrose 50%) STAT PRN IV Hypoglycemia 07/14/16 06:00 08/13/16 05:59 Diphenoxylate HCl/ Atropine (Lomotil) 2.5 mg Q4H PRN ORAL Diarrhea 07/19/16 15:45 07/26/16 15:44 Gabapentin (Neurontin) 300 mg BEDTIME ORAL 07/14/16 21:00 08/13/16 20:59 07/17/16 22:29 Glipizide (Glucotrol) 5 mg BIAC ORAL 07/16/16 11:30 08/15/16 11:29 07/19/16 16:28 Haloperidol Lactate 5 mg 5 mg Q3H PRN IM Agitation 07/14/16 18:30 08/13/16 18:29 Heparin Sodium (Porcine) (Heparin 5000 units/ml) 5,000 units EVERY 12 HOURS SUBQ 07/14/16 09:00 08/13/16 08:59 07/19/16 08:24 Hydromorphone HCl 2 mg/Dextrose 51 ml @ 200 mls/hr EVERY 3 HOURS PRN IVPB severe pain 07/17/16 22:45 07/21/16 05:59 07/19/16 14:42 Insulin Aspart (NovoLOG) BEFORE MEALS AND HS SUBQ 07/14/16 06:30 08/13/16 06:29 07/18/16 21:58 Loperamide HCl (Imodium) 2 mg EVERY 4 HOURS PRN ORAL Diarrhea 07/17/16 15:00 08/16/16 14:59 07/19/16 11:40 Lorazepam (Ativan 2mg/ml 1ml) 1 mg Q4H PRN IV For Anxiety 07/14/16 18:30 07/21/16 18:29 07/19/16 11:53 Metformin HCl (Glucophage) 500 mg BID ORAL 07/16/16 09:00 08/15/16 08:59 07/19/16 08:04 Nitroglycerin (Ntg) 0.4 mg Q5M X 3 DOSES PRN SL Prn Chest Pain 07/14/16 06:00 08/13/16 05:59 Ondansetron HCl (Zofran) 4 mg Q6H PRN IVP Nausea & Vomiting 07/14/16 06:00 08/13/16 05:59 Polyethylene Glycol (Miralax) 17 gm HSPRN PRN ORAL Constipation 07/14/16 06:00 08/13/16 05:59 Ranitidine HCl (Zantac) 150 mg BEDTIME ORAL 07/14/16 21:00 08/13/16 20:59 07/18/16 21:43 Sodium Chloride (Sodium Chloride 1000ml bag) 1,000 ml @ 75 mls/hr [id number] IVLG 07/15/16 15:00 08/14/16 14:59 07/19/16 01:39 Temazepam (Restoril) 15 mg HSPRN PRN ORAL Insomnia 07/14/16 06:00 07/21/16 05:59 07/17/16 00:10 Tramadol HCl (Ultram) 50 mg Q6H PRN ORAL For Pain 07/14/16 06:00 07/21/16 05:59 07/14/16 20:13 Vancomycin HCl 1 ea 1 ea DAILY PRN MISC Per rx protocol 07/15/16 14:00 08/14/16 13:59 Vancomycin HCl/ Dextrose (Vancomycin/D5W 250ml) 250 ml @ 167 mls/hr Q24H IVPB 07/19/16 21:00 07/24/16 20:59 Vitamin A/Vitamin D (A & D Oint) 1 applic BIDPRN TOPIC 07/14/16 16:00 08/13/16 15:59 DORENE GRIMM Jul 19, 2016 19:17
[2016-07-19] MEDS ORDERED: Lomotil 2.5mg tab ORAL PRN (21:15)
[2016-07-19] MEDS: Vancomycin 750mg/D5W 250ml IVPB SCH ×2 (22:28)
[2016-07-20] VITALS: BP 163/101
[2016-07-20] MEDS: LORazepam Inj 2mg/ml 1ml IV PRN (01:20)
[2016-07-20 04:00] VITALS: BP 165/103
[2016-07-20] MEDS: HYDROmorphone 2 MG in D5W 50 ML IVPB PRN ×3 (04:40→21:48)
[2016-07-20] MEDS: NovoLOG Insulin Flexpen SUBQ SCH ×4 (06:12→20:59)
[2016-07-20 06:31] LABS: BASOPHILS % (AUTO) 1.2 % (0.0-2.0); EOSINOPHILS % (AUTO) 4.5 % (0.0-3.0); LYMPHOCYTES % (AUTO) 36.1 % (20.0-45.0); MEAN CORPUSCULAR HEMOGLOBIN 29.8 PG (27.0-31.0); MEAN CORPUSCULAR VOLUME 93 FL (80-99); MEAN PLATELET VOLUME 5.6 FL (6.5-10.1); MONOCYTES % (AUTO) 4.9 % (1.0-10.0); NEUTROPHILS % (AUTO) 53.4 % (45.0-75.0); PLATELET COUNT 282 K/UL (150-450); RED BLOOD COUNT 3.43 M/UL (4.70-6.10); RED CELL DISTRIBUTION WIDTH 18.6 % (11.6-14.8)
[2016-07-20] MEDS: Pancrease Cap ORAL SCH ×3 (06:33→17:31)
[2016-07-20] MEDS: GlipiZIDE 5mg tab ORAL SCH ×2 (06:33→17:31)
[2016-07-20 06:47] LABS: ALANINE AMINOTRANSFERASE 67 U/L (3-41); ALBUMIN/GLOBULIN RATIO 0.6 (1.0-2.7); ANION GAP 8 (5-15); ASPARTATE AMINO TRANSFERASE 90 U/L (5-40); CALCIUM 8.9 mg/dL (8.6-10.2); CARBON DIOXIDE 26 mEQ/L (20-30); CHLORIDE 106 mEQ/L (98-107); CREATININE 0.7 mg/dL (0.7-1.2); GLOMERULAR FILTRATION RATE > 60 mL/min (>60); HEMOLYSIS 4; POTASSIUM 4.5 mEQ/L (3.4-4.9); SODIUM 140 mEQ/L (135-145); TOTAL PROTEIN 6.6 g/dL (6.6-8.7)
[2016-07-20 08:00] VITALS: BP 156/97
[2016-07-20 09:45] LABS: HEPATITIS C QUANT 6457580 IU/mL (.)
[2016-07-20 09:50] LABS: FOLIC ACID 13.3 ng/mL (3.1-17.5)
[2016-07-20] MEDS: metFORMIN 500mg tab ORAL SCH ×2 (11:28→17:35)
[2016-07-20] MEDS: Aspirin EC 81mg tab ORAL SCH (11:28)
[2016-07-20] MEDS: Heparin 5000 units/ml inj SUBQ SCH ×2 (11:32→20:29)
[2016-07-20 12:00] VITALS: BP 154/90
--- NOTE | 2016-07-20 13:49 | GI Progress Note ---
Assessment/Plan Problems: (1) Severe malnutrition ICD Codes: E43 - Unspecified severe protein-calorie malnutrition SNOMED: 32181373 (2) Episode of generalized weakness ICD Codes: R53.1 - Weakness SNOMED: 04823575 (3) C. difficile colitis ICD Codes: A04.7 - Enterocolitis due to Clostridium difficile SNOMED: 421002725 (4) Abdominal pain ICD Codes: R10.9 - Unspecified abdominal pain SNOMED: 52445662 (5) Diarrhea ICD Codes: R19.7 - Diarrhea, unspecified SNOMED: 89401128 (6) DM (diabetes mellitus) ICD Codes: E11.9 - DM (diabetes mellitus) SNOMED: 74590862 (7) Hepatitis C ICD Codes: B19.20 - Unspecified viral hepatitis C without hepatic coma SNOMED: 06104019 (8) Blindness of both eyes ICD Codes: H54.0 - Blindness, both eyes SNOMED: 07879171, 395955821 (9) Amphetamine abuse ICD Codes: F15.10 - Other stimulant abuse, uncomplicated SNOMED: 45735112 Status: progressing Status Narrative Discussed with Dr. Leonardo. Assessment/Plan fu stool studies >> negative O&P >> negative fecal fat pending stool culture >> negative hepatitis panel >> Hep C positive cdiff negative utox >> amphetamines positive ordered Lomotil Imodium prn fu KUB fu abdominal U/S cont Pancrease OB stool uncollected low residual diet H2 fu labs outpt Hep C tx Subjective Gastrointestinal/Abdominal: Reports: abdominal pain, diarrhea - improved Objective Last 24 Hour Vital Signs Date Time Temp Pulse Resp B/P Pulse Ox O2 Delivery O2 Flow Rate FiO2 07/20/16 12:00 97.3 86 22 154/90 100 Room Air 07/20/16 11:28 156/97 07/20/16 08:00 97.0 91 20 156/97 100 Room Air 07/20/16 05:10 97.5 07/20/16 04:00 97.5 86 20 165/103 100 Room Air 07/20/16 03:21 166/112 07/20/16 00:00 98.1 78 19 163/101 99 Room Air 07/19/16 19:41 162/98 07/19/16 19:00 97.5 80 20 153/90 100 Room Air 07/19/16 16:00 96.8 87 20 162/98 100 Room Air Intake and Output 07/19/16 07/20/16 19:00 07:00 Intake Total 1399 ml 420 ml Output Total 200 ml Balance 1199 ml 420 ml Intake Oral 500 ml 120 ml IV Total 899 ml 300 ml Output Urine Total 200 ml # Voids 4 # Bowel Movements 3 3 Laboratory Tests Test 07/20/16 05:10 White Blood Count 10.0 K/UL (4.8-10.8) Red Blood Count 3.43 M/UL (4.70-6.10) L Hemoglobin 10.2 G/DL (14.2-18.0) L Hematocrit 31.9 % (42.0-52.0) L Mean Corpuscular Volume 93 FL (80-99) Mean Corpuscular Hemoglobin 29.8 PG (27.0-31.0) Mean Corpuscular Hemoglobin Concent 32.0 G/DL (32.0-36.0) Red Cell Distribution Width 18.6 % (11.6-14.8) H Platelet Count 282 K/UL (150-450) Mean Platelet Volume 5.6 FL (6.5-10.1) L Neutrophils (%) (Auto) 53.4 % (45.0-75.0) Lymphocytes (%) (Auto) 36.1 % (20.0-45.0) Monocytes (%) (Auto) 4.9 % (1.0-10.0) Eosinophils (%) (Auto) 4.5 % (0.0-3.0) H Basophils (%) (Auto) 1.2 % (0.0-2.0) Sodium Level 140 mEQ/L (135-145) Potassium Level 4.5 mEQ/L (3.4-4.9) Chloride Level 106 mEQ/L (98-107) Carbon Dioxide Level 26 mEQ/L (20-30) Anion Gap 8 (5-15) Blood Urea Nitrogen 17 mg/dL (7-23) Creatinine 0.7 mg/dL (0.7-1.2) Estimat Glomerular Filtration Rate > 60 mL/min (>60) Glucose Level 98 mg/dL (74-106) Calcium Level 8.9 mg/dL (8.6-10.2) Total Bilirubin 0.2 mg/dL (0.0-1.2) Aspartate Amino Transf (AST/SGOT) 90 U/L (5-40) H Alanine Aminotransferase (ALT/SGPT) 67 U/L (3-41) H Alkaline Phosphatase 261 U/L (40-129) H Total Protein 6.6 g/dL (6.6-8.7) Albumin 2.6 g/dL (3.5-5.2) L Globulin 4.0 g/dL Albumin/Globulin Ratio 0.6 (1.0-2.7) L Height (Feet): 5 Height (Inches): 11.00 Weight (Pounds): 114 General Appearance: alert, thin Cardiovascular: normal rate Respiratory/Chest: normal breath sounds Abdominal Exam: normal bowel sounds, non tender, soft Bernadette Iverson N.P. Jul 20, 2016 13:49
--- NOTE | 2016-07-20 14:19 | Infectious Diseases Prog Note ---
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 Hx of Hep C SP Rx in 1999 - recurrent, elevated LFTs, HCV PCR >6million Negative HIV Chronic Diarrhea ?malabsorption - negative C diff, stool Cx, O&P High Alk Phos ro Biliary Dx - US pending Wt loss 140 lb in 12 mo, due to Ch diarrhea , also may need to Ro malignancy ( liver Cancer ) - AFP WNL DM - HbA1c 7.6% Diabetic neuropathy Legally blind SP transmetatarsal amputation R foot smoker amphetamine use MRSA, VRE colonized No ABX allergies Full Code PLAN : Cont on IV Vanco, Cefepime, Flagyl d# 6 / f/u final cultures Monitor CBC, temperatures Monitor CMP US of liver outpt HCV Rx placement Subjective Allergies: Coded Allergies: ACETAMINOPHEN (Unverified Allergy, Unknown, 07/14/16) HYDROCODONE (Unverified Allergy, Unknown, 07/14/16) Subjective afebrile. leukocytosis resolved Objective Vital Signs Last 24 Hour Vital Signs Date Time Temp Pulse Resp B/P Pulse Ox O2 Delivery O2 Flow Rate FiO2 07/20/16 12:00 97.3 86 22 154/90 100 Room Air 07/20/16 11:28 156/97 07/20/16 08:00 97.0 91 20 156/97 100 Room Air 07/20/16 05:10 97.5 07/20/16 04:00 97.5 86 20 165/103 100 Room Air 07/20/16 03:21 166/112 07/20/16 00:00 98.1 78 19 163/101 99 Room Air 07/19/16 19:41 162/98 07/19/16 19:00 97.5 80 20 153/90 100 Room Air 07/19/16 16:00 96.8 87 20 162/98 100 Room Air Height (Feet): 5 Height (Inches): 11.00 Weight (Pounds): 114 General Appearance: no acute distress, cachetic Respiratory/Chest: no respiratory distress Cardiovascular: normal rate, regular rhythm Abdomen: normal bowel sounds, soft, non tender, non distended Microbiology Date/Time Source Procedure Growth Status 07/17/16 16:57 Stool Ova and Parasites - Final Complete 07/17/16 16:57 Stool Ova and Parasite Result 1 - Final Complete 07/17/16 16:57 Stool Stool Culture - Preliminary NO SALMONELLA,SHIGELLA,OR CAMPYLOBACT... Resulted Laboratory Tests Test 07/20/16 05:10 White Blood Count 10.0 K/UL (4.8-10.8) Red Blood Count 3.43 M/UL (4.70-6.10) L Hemoglobin 10.2 G/DL (14.2-18.0) L Hematocrit 31.9 % (42.0-52.0) L Mean Corpuscular Volume 93 FL (80-99) Mean Corpuscular Hemoglobin 29.8 PG (27.0-31.0) Mean Corpuscular Hemoglobin Concent 32.0 G/DL (32.0-36.0) Red Cell Distribution Width 18.6 % (11.6-14.8) H Platelet Count 282 K/UL (150-450) Mean Platelet Volume 5.6 FL (6.5-10.1) L Neutrophils (%) (Auto) 53.4 % (45.0-75.0) Lymphocytes (%) (Auto) 36.1 % (20.0-45.0) Monocytes (%) (Auto) 4.9 % (1.0-10.0) Eosinophils (%) (Auto) 4.5 % (0.0-3.0) H Basophils (%) (Auto) 1.2 % (0.0-2.0) Sodium Level 140 mEQ/L (135-145) Potassium Level 4.5 mEQ/L (3.4-4.9) Chloride Level 106 mEQ/L (98-107) Carbon Dioxide Level 26 mEQ/L (20-30) Anion Gap 8 (5-15) Blood Urea Nitrogen 17 mg/dL (7-23) Creatinine 0.7 mg/dL (0.7-1.2) Estimat Glomerular Filtration Rate > 60 mL/min (>60) Glucose Level 98 mg/dL (74-106) Calcium Level 8.9 mg/dL (8.6-10.2) Total Bilirubin 0.2 mg/dL (0.0-1.2) Aspartate Amino Transf (AST/SGOT) 90 U/L (5-40) H Alanine Aminotransferase (ALT/SGPT) 67 U/L (3-41) H Alkaline Phosphatase 261 U/L (40-129) H Total Protein 6.6 g/dL (6.6-8.7) Albumin 2.6 g/dL (3.5-5.2) L Globulin 4.0 g/dL Albumin/Globulin Ratio 0.6 (1.0-2.7) L Current Medications Medications (Trade) Dose Ordered Sig/Romelia Route PRN Reason Start Time Stop Time Status Last Admin Dose Admin Al Hydroxide/Mg Hydroxide (Mylanta II) 30 ml Q6H PRN ORAL dyspepsia 07/14/16 06:00 08/13/16 05:59 Amitriptyline HCl (Elavil) 25 mg BEDTIME ORAL 07/14/16 21:00 08/13/16 20:59 07/19/16 20:48 Amylase/Lipase/ Protease 2 ea 2 ea TIAC ORAL 07/17/16 16:30 08/16/16 16:29 07/20/16 06:33 Aspirin (Ecotrin) 81 mg DAILY ORAL 07/14/16 09:00 08/13/16 08:59 07/20/16 11:28 Cefepime HCl/ Dextrose (Maxipime/D5W 50ml) 50 ml @ 100 mls/hr EVERY 12 HOURS IVPB 07/15/16 21:00 07/22/16 20:59 07/20/16 11:45 Clonidine HCl (Catapres) 0.1 mg BID ORAL 07/14/16 09:00 08/13/16 08:59 07/20/16 11:28 Clonidine HCl (Catapres) 0.1 mg EVERY 4 HOURS PRN ORAL sbp more than 160 07/14/16 06:00 08/13/16 05:59 07/20/16 03:21 Dextrose (Dextrose 50%) STAT PRN IV Hypoglycemia 07/14/16 06:00 08/13/16 05:59 Diphenoxylate HCl/ Atropine (Lomotil) 2.5 mg Q4H PRN ORAL Diarrhea 07/19/16 21:15 07/26/16 15:44 Gabapentin (Neurontin) 300 mg BEDTIME ORAL 07/14/16 21:00 08/13/16 20:59 07/19/16 20:46 Glipizide (Glucotrol) 5 mg BIAC ORAL 07/16/16 11:30 08/15/16 11:29 07/20/16 06:33 Haloperidol Lactate 5 mg 5 mg Q3H PRN IM Agitation 07/14/16 18:30 08/13/16 18:29 Heparin Sodium (Porcine) (Heparin 5000 units/ml) 5,000 units EVERY 12 HOURS SUBQ 07/14/16 09:00 08/13/16 08:59 07/20/16 11:32 Hydromorphone HCl 2 mg/Dextrose 51 ml @ 200 mls/hr EVERY 3 HOURS PRN IVPB severe pain 07/17/16 22:45 07/21/16 05:59 07/20/16 04:40 Insulin Aspart (NovoLOG) BEFORE MEALS AND HS SUBQ 07/14/16 06:30 08/13/16 06:29 07/18/16 21:58 Loperamide HCl (Imodium) 2 mg EVERY 4 HOURS PRN ORAL Diarrhea 07/17/16 15:00 08/16/16 14:59 07/19/16 11:40 Lorazepam (Ativan 2mg/ml 1ml) 1 mg Q4H PRN IV For Anxiety 07/14/16 18:30 07/21/16 18:29 07/20/16 01:20 Metformin HCl (Glucophage) 500 mg BID ORAL 07/16/16 09:00 08/15/16 08:59 07/20/16 11:28 Nitroglycerin (Ntg) 0.4 mg Q5M X 3 DOSES PRN SL Prn Chest Pain 07/14/16 06:00 08/13/16 05:59 Ondansetron HCl (Zofran) 4 mg Q6H PRN IVP Nausea & Vomiting 07/14/16 06:00 08/13/16 05:59 Polyethylene Glycol (Miralax) 17 gm HSPRN PRN ORAL Constipation 07/14/16 06:00 08/13/16 05:59 Ranitidine HCl (Zantac) 150 mg BEDTIME ORAL 07/14/16 21:00 08/13/16 20:59 07/19/16 20:48 Sodium Chloride (Sodium Chloride 1000ml bag) 1,000 ml @ 75 mls/hr [id number] IVLG 07/15/16 15:00 08/14/16 14:59 07/20/16 01:20 Temazepam (Restoril) 15 mg HSPRN PRN ORAL Insomnia 07/14/16 06:00 07/21/16 05:59 07/17/16 00:10 Tramadol HCl (Ultram) 50 mg Q6H PRN ORAL For Pain 07/14/16 06:00 07/21/16 05:59 07/14/16 20:13 Vancomycin HCl 1 ea 1 ea DAILY PRN MISC Per rx protocol 07/15/16 14:00 08/14/16 13:59 Vancomycin HCl/ Dextrose (Vancomycin/D5W 250ml) 250 ml @ 167 mls/hr Q24H IVPB 07/19/16 21:00 07/24/16 20:59 07/19/16 22:28 Vitamin A/Vitamin D (A & D Oint) 1 applic BIDPRN TOPIC 07/14/16 16:00 08/13/16 15:59 ADA TURNER Jul 20, 2016 14:19
[2016-07-20 16:00] VITALS: BP 149/87
--- NOTE | 2016-07-20 16:55 | Pulmonology Progress Note ---
Assessment/Plan Problems: (1) Sepsis (2) Diarrhea (3) Episode of generalized weakness (4) DM (diabetes mellitus) (5) Hepatitis C (6) Blindness of both eyes (7) HTN (hypertension) (8) COPD (chronic obstructive pulmonary disease) (9) S/P transmetatarsal amputation of foot Assessment/Plan continue abx as per ID check wbc needs placement Subjective Gastrointestinal/Abdominal: Reports: bloating, diarrhea, nausea Allergies: Coded Allergies: ACETAMINOPHEN (Unverified Allergy, Unknown, 07/14/16) HYDROCODONE (Unverified Allergy, Unknown, 07/14/16) Objective Last 24 Hour Vital Signs Date Time Temp Pulse Resp B/P Pulse Ox O2 Delivery O2 Flow Rate FiO2 07/20/16 16:00 97.9 79 20 149/87 100 Room Air 07/20/16 12:00 97.3 86 22 154/90 100 Room Air 07/20/16 11:28 156/97 07/20/16 08:00 97.0 91 20 156/97 100 Room Air 07/20/16 05:10 97.5 07/20/16 04:00 97.5 86 20 165/103 100 Room Air 07/20/16 03:21 166/112 07/20/16 00:00 98.1 78 19 163/101 99 Room Air 07/19/16 19:41 162/98 07/19/16 19:00 97.5 80 20 153/90 100 Room Air Intake and Output 07/19/16 07/20/16 19:00 07:00 Intake Total 1399 ml 420 ml Output Total 200 ml Balance 1199 ml 420 ml Intake Oral 500 ml 120 ml IV Total 899 ml 300 ml Output Urine Total 200 ml # Voids 4 # Bowel Movements 3 3 General Appearance: no acute distress HEENT: normocephalic, atraumatic, PERRL Respiratory/Chest: chest wall non-tender, decreased breath sounds, accessory muscle use, rhonchi Cardiovascular: normal peripheral pulses, normal rate, regular rhythm, no JVD Abdomen: hyperactive bowel sounds, distended, guarding, tender, rebound tenderness, mass Genitourinary: normal external genitalia Extremities: no cyanosis Skin: no rash, no lesions 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 Resulted Laboratory Tests 07/20/16 05:10: White Blood Count 10.0, Red Blood Count 3.43L, Hemoglobin 10.2L, Hematocrit 31.9L, Mean Corpuscular Volume 93, Mean Corpuscular Hemoglobin 29.8, Mean Corpuscular Hemoglobin Concent 32.0, Red Cell Distribution Width 18.6H, Platelet Count 282, Mean Platelet Volume 5.6L, Neutrophils (%) (Auto) 53.4, Lymphocytes (%) (Auto) 36.1, Monocytes (%) (Auto) 4.9, Eosinophils (%) (Auto) 4.5H, Basophils (%) (Auto) 1.2, Sodium Level 140, Potassium Level 4.5, Chloride Level 106, Carbon Dioxide Level 26, Anion Gap 8, Blood Urea Nitrogen 17, Creatinine 0.7, Estimat Glomerular Filtration Rate > 60, Glucose Level 98, Calcium Level 8.9, Total Bilirubin 0.2, Aspartate Amino Transf (AST/SGOT) 90H, Alanine Aminotransferase (ALT/SGPT) 67H, Alkaline Phosphatase 261H, Total Protein 6.6, Albumin 2.6L, Globulin 4.0, Albumin/Globulin Ratio 0.6L Current Medications Medications (Trade) Dose Ordered Sig/Romelia Route PRN Reason Start Time Stop Time Status Last Admin Dose Admin Al Hydroxide/Mg Hydroxide (Mylanta II) 30 ml Q6H PRN ORAL dyspepsia 07/14/16 06:00 08/13/16 05:59 Amitriptyline HCl (Elavil) 25 mg BEDTIME ORAL 07/14/16 21:00 08/13/16 20:59 07/19/16 20:48 Amylase/Lipase/ Protease 2 ea 2 ea TIAC ORAL 07/17/16 16:30 08/16/16 16:29 07/20/16 06:33 Aspirin (Ecotrin) 81 mg DAILY ORAL 07/14/16 09:00 08/13/16 08:59 07/20/16 11:28 Cefepime HCl/ Dextrose (Maxipime/D5W 50ml) 50 ml @ 100 mls/hr EVERY 12 HOURS IVPB 07/15/16 21:00 07/22/16 20:59 07/20/16 11:45 Clonidine HCl (Catapres) 0.1 mg BID ORAL 07/14/16 09:00 08/13/16 08:59 07/20/16 11:28 Clonidine HCl (Catapres) 0.1 mg EVERY 4 HOURS PRN ORAL sbp more than 160 07/14/16 06:00 08/13/16 05:59 07/20/16 03:21 Dextrose (Dextrose 50%) STAT PRN IV Hypoglycemia 07/14/16 06:00 08/13/16 05:59 Diphenoxylate HCl/ Atropine (Lomotil) 2.5 mg Q4H PRN ORAL Diarrhea 07/19/16 21:15 07/26/16 15:44 Gabapentin (Neurontin) 300 mg BEDTIME ORAL 07/14/16 21:00 08/13/16 20:59 07/19/16 20:46 Glipizide (Glucotrol) 5 mg BIAC ORAL 07/16/16 11:30 08/15/16 11:29 07/20/16 06:33 Haloperidol Lactate 5 mg 5 mg Q3H PRN IM Agitation 07/14/16 18:30 08/13/16 18:29 Heparin Sodium (Porcine) (Heparin 5000 units/ml) 5,000 units EVERY 12 HOURS SUBQ 07/14/16 09:00 08/13/16 08:59 07/20/16 11:32 Hydromorphone HCl 2 mg/Dextrose 51 ml @ 200 mls/hr EVERY 3 HOURS PRN IVPB severe pain 07/17/16 22:45 07/21/16 05:59 07/20/16 16:20 Insulin Aspart (NovoLOG) BEFORE MEALS AND HS SUBQ 07/14/16 06:30 08/13/16 06:29 07/18/16 21:58 Loperamide HCl (Imodium) 2 mg EVERY 4 HOURS PRN ORAL Diarrhea 07/17/16 15:00 08/16/16 14:59 07/19/16 11:40 Lorazepam (Ativan 2mg/ml 1ml) 1 mg Q4H PRN IV For Anxiety 07/14/16 18:30 07/21/16 18:29 07/20/16 01:20 Metformin HCl (Glucophage) 500 mg BID ORAL 07/16/16 09:00 08/15/16 08:59 07/20/16 11:28 Nitroglycerin (Ntg) 0.4 mg Q5M X 3 DOSES PRN SL Prn Chest Pain 07/14/16 06:00 08/13/16 05:59 Ondansetron HCl (Zofran) 4 mg Q6H PRN IVP Nausea & Vomiting 07/14/16 06:00 08/13/16 05:59 Polyethylene Glycol (Miralax) 17 gm HSPRN PRN ORAL Constipation 07/14/16 06:00 08/13/16 05:59 Ranitidine HCl (Zantac) 150 mg BEDTIME ORAL 07/14/16 21:00 08/13/16 20:59 07/19/16 20:48 Sodium Chloride (Sodium Chloride 1000ml bag) 1,000 ml @ 75 mls/hr [id number] IVLG 07/15/16 15:00 08/14/16 14:59 07/20/16 16:19 Temazepam (Restoril) 15 mg HSPRN PRN ORAL Insomnia 07/14/16 06:00 07/21/16 05:59 07/17/16 00:10 Tramadol HCl (Ultram) 50 mg Q6H PRN ORAL For Pain 07/14/16 06:00 07/21/16 05:59 07/14/16 20:13 Vancomycin HCl 1 ea 1 ea DAILY PRN MISC Per rx protocol 07/15/16 14:00 08/14/16 13:59 Vancomycin HCl/ Dextrose (Vancomycin/D5W 250ml) 250 ml @ 167 mls/hr Q24H IVPB 07/19/16 21:00 07/24/16 20:59 07/19/16 22:28 Vitamin A/Vitamin D (A & D Oint) 1 applic BIDPRN TOPIC 07/14/16 16:00 08/13/16 15:59 DORENE GRIMM Jul 20, 2016 16:55
[2016-07-20] MEDS ORDERED: traMADol 50mg tab ORAL PRN (17:04)
[2016-07-20] MEDS ORDERED: Tubing IV Secondary IV ONE (18:17)
[2016-07-20 20:00] VITALS: BP 154/79
[2016-07-20] MEDS: Vancomycin 750mg/D5W 250ml IVPB SCH ×2 (20:55)
[2016-07-21] VITALS: BP 120/64
[2016-07-21 04:00] VITALS: BP 115/75
[2016-07-21] MEDS: HYDROmorphone 2 MG in D5W 50 ML IVPB PRN (05:50)
[2016-07-21] MEDS: Pancrease Cap ORAL SCH ×3 (06:06→16:22)
[2016-07-21] MEDS: NovoLOG Insulin Flexpen SUBQ SCH ×4 (06:07→21:00)
[2016-07-21] MEDS: GlipiZIDE 5mg tab ORAL SCH ×2 (06:07→16:23)
[2016-07-21 07:24] LABS: MEAN CORPUSCULAR HEMOGLOBIN 30.7 PG (27.0-31.0); MEAN CORPUSCULAR HGB CONC 32.8 G/DL (32.0-36.0); MEAN CORPUSCULAR VOLUME 93 FL (80-99); MEAN PLATELET VOLUME 5.5 FL (6.5-10.1); PLATELET COUNT 280 K/UL (150-450); RED BLOOD COUNT 3.16 M/UL (4.70-6.10); RED CELL DISTRIBUTION WIDTH 18.2 % (11.6-14.8)
[2016-07-21 07:35] LABS: ANION GAP 13 (5-15); CALCIUM 8.5 mg/dL (8.6-10.2); CARBON DIOXIDE 23 mEQ/L (20-30); CHLORIDE 101 mEQ/L (98-107); CREATININE 0.8 mg/dL (0.7-1.2); GLOMERULAR FILTRATION RATE > 60 mL/min (>60); HEMOLYSIS 2; POTASSIUM 4.3 mEQ/L (3.4-4.9); SODIUM 137 mEQ/L (135-145)
[2016-07-21 07:44] LABS: WHITE BLOOD COUNT 26.6 K/UL (4.8-10.8)
[2016-07-21 08:00] VITALS: BP 119/73
--- NOTE | 2016-07-21 08:29 | Diagnostic Imaging Report ---
Indication: Abdominal pain Comparison: None Single view of the abdomen obtained The stomach is dilated. Bowel gas pattern is nonspecific. Degenerative changes at the lumbosacral junction are suspected. Pelvic ossifications are probably within the seminal vesicles. Impression: Distended stomach. . please correlate clinically
[2016-07-21] MEDS: metFORMIN 500mg tab ORAL SCH ×3 (09:00→19:04)
--- NOTE | 2016-07-21 09:57 | Infectious Diseases Prog Note ---
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 Continue Flagyl d# 7, may extend re-culture consider creon consider colonoscopy Monitor CBC, temperatures - CBC AM Monitor CMP US of liver outpt HCV Rx placement Subjective Allergies: Coded Allergies: ACETAMINOPHEN (Unverified Allergy, Unknown, 07/14/16) HYDROCODONE (Unverified Allergy, Unknown, 07/14/16) Subjective afebrile. recurrent leukocytosis persistent diarrhea Objective Vital Signs Last 24 Hour Vital Signs Date Time Temp Pulse Resp B/P Pulse Ox O2 Delivery O2 Flow Rate FiO2 07/21/16 08:00 98.1 106 20 119/73 98 Room Air 07/21/16 04:00 98.6 102 16 115/75 98 Room Air 07/21/16 00:00 98.6 112 16 120/64 95 Room Air 07/20/16 20:00 98.8 82 20 154/79 98 Room Air 07/20/16 17:36 149/87 07/20/16 16:00 97.9 79 20 149/87 100 Room Air 07/20/16 12:00 97.3 86 22 154/90 100 Room Air 07/20/16 11:28 156/97 Height (Feet): 5 Height (Inches): 11.00 Weight (Pounds): 114 General Appearance: no acute distress, cachetic Respiratory/Chest: no respiratory distress Cardiovascular: normal rate, regular rhythm Abdomen: normal bowel sounds, soft, non tender, non distended Laboratory Tests Test 07/21/16 05:05 White Blood Count 26.6 K/UL (4.8-10.8) #*H Red Blood Count 3.16 M/UL (4.70-6.10) L Hemoglobin 9.7 G/DL (14.2-18.0) L Hematocrit 29.5 % (42.0-52.0) L Mean Corpuscular Volume 93 FL (80-99) Mean Corpuscular Hemoglobin 30.7 PG (27.0-31.0) Mean Corpuscular Hemoglobin Concent 32.8 G/DL (32.0-36.0) Red Cell Distribution Width 18.2 % (11.6-14.8) H Platelet Count 280 K/UL (150-450) Mean Platelet Volume 5.5 FL (6.5-10.1) L Neutrophils (%) (Auto) % (45.0-75.0) Lymphocytes (%) (Auto) % (20.0-45.0) Monocytes (%) (Auto) % (1.0-10.0) Eosinophils (%) (Auto) % (0.0-3.0) Basophils (%) (Auto) % (0.0-2.0) Neutrophils % (Manual) Pending Lymphocytes % (Manual) Pending Platelet Estimate Pending Platelet Morphology Pending Sodium Level 137 mEQ/L (135-145) Potassium Level 4.3 mEQ/L (3.4-4.9) Chloride Level 101 mEQ/L (98-107) Carbon Dioxide Level 23 mEQ/L (20-30) Anion Gap 13 (5-15) Blood Urea Nitrogen 20 mg/dL (7-23) Creatinine 0.8 mg/dL (0.7-1.2) Estimat Glomerular Filtration Rate > 60 mL/min (>60) Glucose Level 83 mg/dL (74-106) Calcium Level 8.5 mg/dL (8.6-10.2) L Current Medications Medications (Trade) Dose Ordered Sig/Romelia Route PRN Reason Start Time Stop Time Status Last Admin Dose Admin Al Hydroxide/Mg Hydroxide (Mylanta II) 30 ml Q6H PRN ORAL dyspepsia 07/14/16 06:00 08/13/16 05:59 Amitriptyline HCl (Elavil) 25 mg BEDTIME ORAL 07/14/16 21:00 08/13/16 20:59 07/20/16 20:18 Amylase/Lipase/ Protease 2 ea 2 ea TIAC ORAL 07/17/16 16:30 08/16/16 16:29 07/21/16 06:06 Aspirin (Ecotrin) 81 mg DAILY ORAL 07/14/16 09:00 08/13/16 08:59 07/20/16 11:28 Cefepime HCl/ Dextrose (Maxipime/D5W 50ml) 50 ml @ 100 mls/hr EVERY 12 HOURS IVPB 07/15/16 21:00 07/22/16 20:59 07/20/16 20:18 Clonidine HCl (Catapres) 0.1 mg BID ORAL 07/14/16 09:00 08/13/16 08:59 07/20/16 17:36 Clonidine HCl (Catapres) 0.1 mg EVERY 4 HOURS PRN ORAL sbp more than 160 07/14/16 06:00 08/13/16 05:59 07/20/16 03:21 Dextrose (Dextrose 50%) STAT PRN IV Hypoglycemia 07/14/16 06:00 08/13/16 05:59 Diphenoxylate HCl/ Atropine (Lomotil) 2.5 mg Q4H PRN ORAL Diarrhea 07/19/16 21:15 07/26/16 15:44 Gabapentin (Neurontin) 300 mg BEDTIME ORAL 07/14/16 21:00 08/13/16 20:59 07/20/16 20:18 Glipizide (Glucotrol) 5 mg BIAC ORAL 07/16/16 11:30 08/15/16 11:29 07/21/16 06:07 Haloperidol Lactate 5 mg 5 mg Q3H PRN IM Agitation 07/14/16 18:30 08/13/16 18:29 Heparin Sodium (Porcine) (Heparin 5000 units/ml) 5,000 units EVERY 12 HOURS SUBQ 07/14/16 09:00 08/13/16 08:59 07/20/16 20:29 Insulin Aspart (NovoLOG) BEFORE MEALS AND HS SUBQ 07/14/16 06:30 08/13/16 06:29 07/20/16 20:59 Loperamide HCl (Imodium) 2 mg EVERY 4 HOURS PRN ORAL Diarrhea 07/17/16 15:00 08/16/16 14:59 07/19/16 11:40 Lorazepam (Ativan 2mg/ml 1ml) 1 mg Q4H PRN IV For Anxiety 07/14/16 18:30 07/21/16 18:29 07/20/16 01:20 Metformin HCl (Glucophage) 500 mg BID ORAL 07/16/16 09:00 08/15/16 08:59 07/20/16 17:35 Nitroglycerin (Ntg) 0.4 mg Q5M X 3 DOSES PRN SL Prn Chest Pain 07/14/16 06:00 08/13/16 05:59 Ondansetron HCl (Zofran) 4 mg Q6H PRN IVP Nausea & Vomiting 07/14/16 06:00 08/13/16 05:59 07/20/16 20:18 Polyethylene Glycol (Miralax) 17 gm HSPRN PRN ORAL Constipation 07/14/16 06:00 08/13/16 05:59 Ranitidine HCl (Zantac) 150 mg BEDTIME ORAL 07/14/16 21:00 08/13/16 20:59 07/20/16 20:18 Sodium Chloride (Sodium Chloride 1000ml bag) 1,000 ml @ 75 mls/hr [id number] IVLG 07/15/16 15:00 08/14/16 14:59 07/21/16 06:06 Vancomycin HCl 1 ea 1 ea DAILY PRN MISC Per rx protocol 07/15/16 14:00 08/14/16 13:59 Vancomycin HCl/ Dextrose (Vancomycin/D5W 250ml) 250 ml @ 167 mls/hr Q24H IVPB 07/19/16 21:00 07/21/16 23:59 07/20/16 20:55 Vitamin A/Vitamin D (A & D Oint) 1 applic BIDPRN TOPIC 07/14/16 16:00 08/13/16 15:59 ADA TURNER Jul 21, 2016 09:57
[2016-07-21] MEDS: Aspirin EC 81mg tab ORAL SCH (10:36)
[2016-07-21] MEDS: Heparin 5000 units/ml inj SUBQ SCH ×2 (10:38→20:27)
[2016-07-21 11:12] LABS: ANISOCYTOSIS 2+; BAND NEUTROPHILS % (MANUAL) 0 % (0-8); BASOPHILS % (MANUAL) 0 % (0-2); EOSINOPHILS % (MANUAL) 2 % (0-3); HYPOCHROMASIA 2+; LYMPHOCYTES % (MANUAL) 18 % (20-45); NEUTROPHILS % (MANUAL) 77 % (45-75); PLATELET ESTIMATE ADEQUATE; PLATELET MORPHOLOGY NORMAL; TOTAL CELLS COUNTED 100
[2016-07-21 11:41] VITALS: BP 149/93
[2016-07-21] MEDS: metroNIDAZOLE 500mg tab ORAL SCH ×2 (14:34→21:29)
[2016-07-21 16:00] VITALS: BP 132/81
--- NOTE | 2016-07-21 16:21 | Pulmonology Progress Note ---
Assessment/Plan Problems: (1) Sepsis (2) Diarrhea (3) Episode of generalized weakness (4) DM (diabetes mellitus) (5) Hepatitis C (6) Blindness of both eyes (7) HTN (hypertension) (8) COPD (chronic obstructive pulmonary disease) (9) S/P transmetatarsal amputation of foot Assessment/Plan continue abx as per ID check wbc needs placement Subjective ROS Limited/Unobtainable: No Constitutional: Reports: anorexia, fatigue Respiratory: Reports: dyspnea at rest, productive cough, shortness of breath Gastrointestinal/Abdominal: Reports: constipation, diarrhea Allergies: Coded Allergies: ACETAMINOPHEN (Unverified Allergy, Unknown, 07/14/16) HYDROCODONE (Unverified Allergy, Unknown, 07/14/16) Objective Last 24 Hour Vital Signs Date Time Temp Pulse Resp B/P Pulse Ox O2 Delivery O2 Flow Rate FiO2 07/21/16 11:41 98.1 96 18 149/93 100 Room Air 07/21/16 10:36 125/77 07/21/16 08:00 98.1 106 20 119/73 98 Room Air 07/21/16 04:00 98.6 102 16 115/75 98 Room Air 07/21/16 00:00 98.6 112 16 120/64 95 Room Air 07/20/16 20:00 98.8 82 20 154/79 98 Room Air 07/20/16 17:36 149/87 Intake and Output 07/20/16 07/21/16 19:00 07:00 Intake Total 700 ml 1392 ml Balance 700 ml 1392 ml Intake Oral 650 ml 600 ml IV Total 50 ml 792 ml # Voids 2 7 # Bowel Movements 3 4 General Appearance: no acute distress HEENT: normocephalic, atraumatic, PERRL Respiratory/Chest: chest wall non-tender, decreased breath sounds, accessory muscle use Cardiovascular: normal peripheral pulses, normal rate, regular rhythm, no JVD Abdomen: normal bowel sounds, soft, non tender, no organomegaly, non distended Genitourinary: normal external genitalia Extremities: no cyanosis Skin: rash 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, no motor/sensory deficits Laboratory Tests 07/21/16 05:05: White Blood Count 26.6#*H, Red Blood Count 3.16L, Hemoglobin 9.7L, Hematocrit 29.5L, Mean Corpuscular Volume 93, Mean Corpuscular Hemoglobin 30.7, Mean Corpuscular Hemoglobin Concent 32.8, Red Cell Distribution Width 18.2H, Platelet Count 280, Mean Platelet Volume 5.5L, Neutrophils (%) (Auto) , Lymphocytes (%) (Auto) , Monocytes (%) (Auto) , Eosinophils (%) (Auto) , Basophils (%) (Auto) , Differential Total Cells Counted 100, Neutrophils % ( Manual) 77H, Lymphocytes % (Manual) 18L, Monocytes % (Manual) 3, Eosinophils % ( Manual) 2, Basophils % (Manual) 0, Band Neutrophils 0, Platelet Estimate Adequate, Platelet Morphology Normal, Hypochromasia 2+, Anisocytosis 2+, Sodium Level 137, Potassium Level 4.3, Chloride Level 101, Carbon Dioxide Level 23, Anion Gap 13, Blood Urea Nitrogen 20, Creatinine 0.8, Estimat Glomerular Filtration Rate > 60, Glucose Level 83, Calcium Level 8.5L Current Medications Medications (Trade) Dose Ordered Sig/Romelia Route PRN Reason Start Time Stop Time Status Last Admin Dose Admin Al Hydroxide/Mg Hydroxide (Mylanta II) 30 ml Q6H PRN ORAL dyspepsia 07/14/16 06:00 08/13/16 05:59 Amitriptyline HCl (Elavil) 25 mg BEDTIME ORAL 07/14/16 21:00 08/13/16 20:59 07/20/16 20:18 Amylase/Lipase/ Protease 2 ea 2 ea TIAC ORAL 07/17/16 16:30 08/16/16 16:29 07/21/16 11:51 Aspirin (Ecotrin) 81 mg DAILY ORAL 07/14/16 09:00 08/13/16 08:59 07/21/16 10:36 Cefepime HCl/ Dextrose (Maxipime/D5W 50ml) 50 ml @ 100 mls/hr EVERY 12 HOURS IVPB 07/15/16 21:00 07/21/16 23:59 07/21/16 10:37 Clonidine HCl (Catapres) 0.1 mg BID ORAL 07/14/16 09:00 08/13/16 08:59 07/21/16 10:36 Clonidine HCl (Catapres) 0.1 mg EVERY 4 HOURS PRN ORAL sbp more than 160 07/14/16 06:00 08/13/16 05:59 1/13/17 03:21 Dextrose (Dextrose 50%) STAT PRN IV Hypoglycemia 07/14/16 06:00 08/13/16 05:59 Diphenoxylate HCl/ Atropine (Lomotil) 2.5 mg Q4H PRN ORAL Diarrhea 07/19/16 21:15 07/26/16 15:44 Gabapentin (Neurontin) 300 mg BEDTIME ORAL 07/14/16 21:00 08/13/16 20:59 07/20/16 20:18 Glipizide (Glucotrol) 5 mg BIAC ORAL 07/16/16 11:30 08/15/16 11:29 07/21/16 06:07 Haloperidol Lactate 5 mg 5 mg Q3H PRN IM Agitation 07/14/16 18:30 08/13/16 18:29 Heparin Sodium (Porcine) (Heparin 5000 units/ml) 5,000 units EVERY 12 HOURS SUBQ 07/14/16 09:00 08/13/16 08:59 07/21/16 10:38 Hydromorphone HCl/ Dextrose (Dilaudid/D5W 50ml) 56 ml @ 224 mls/hr Q3H PRN IVPB Severe Pain (Pain Scale 7-10) 07/21/16 14:45 07/28/16 14:44 Insulin Aspart (NovoLOG) BEFORE MEALS AND HS SUBQ 07/14/16 06:30 08/13/16 06:29 07/20/16 20:59 Loperamide HCl (Imodium) 2 mg EVERY 4 HOURS PRN ORAL Diarrhea 07/17/16 15:00 08/16/16 14:59 07/19/16 11:40 Lorazepam (Ativan 2mg/ml 1ml) 1 mg Q4H PRN IV For Anxiety 07/14/16 18:30 07/21/16 18:29 07/20/16 01:20 Metformin HCl (Glucophage) 500 mg BID ORAL 07/16/16 09:00 08/15/16 08:59 07/20/16 17:35 Metronidazole 500 mg 500 mg Q8HR ORAL 07/21/16 14:00 07/28/16 13:59 07/21/16 14:34 Nitroglycerin (Ntg) 0.4 mg Q5M X 3 DOSES PRN SL Prn Chest Pain 07/14/16 06:00 08/13/16 05:59 Ondansetron HCl (Zofran) 4 mg Q6H PRN IVP Nausea & Vomiting 07/14/16 06:00 08/13/16 05:59 07/20/16 20:18 Polyethylene Glycol (Miralax) 17 gm HSPRN PRN ORAL Constipation 07/14/16 06:00 08/13/16 05:59 Ranitidine HCl (Zantac) 150 mg BEDTIME ORAL 07/14/16 21:00 08/13/16 20:59 07/20/16 20:18 Sodium Chloride (Sodium Chloride 1000ml bag) 1,000 ml @ 75 mls/hr [id number] IVLG 07/15/16 15:00 08/14/16 14:59 07/21/16 06:06 Vancomycin HCl 1 ea 1 ea DAILY PRN MISC Per rx protocol 07/15/16 14:00 07/21/16 23:59 Vancomycin HCl/ Dextrose (Vancomycin/D5W 250ml) 250 ml @ 167 mls/hr Q24H IVPB 07/19/16 21:00 07/21/16 23:59 07/20/16 20:55 Vitamin A/Vitamin D (A & D Oint) 1 applic BIDPRN TOPIC 07/14/16 16:00 08/13/16 15:59 DORENE GRIMM Jul 21, 2016 16:20
--- NOTE | 2016-07-21 17:12 | General Progress Note ---
Assessment/Plan Assessment/Plan Assessment/Plan Problems: (1) Severe malnutrition ICD Codes: E43 - Unspecified severe protein-calorie malnutrition SNOMED: 83390030 (2) Episode of generalized weakness ICD Codes: R53.1 - Weakness SNOMED: 08006028 (3) C. difficile colitis ICD Codes: A04.7 - Enterocolitis due to Clostridium difficile SNOMED: 889222122 (4) Abdominal pain ICD Codes: R10.9 - Unspecified abdominal pain SNOMED: 07571095 (5) Diarrhea ICD Codes: R19.7 - Diarrhea, unspecified SNOMED: 07743093 (6) DM (diabetes mellitus) ICD Codes: E11.9 - DM (diabetes mellitus) SNOMED: 53463446 (7) Hepatitis C ICD Codes: B19.20 - Unspecified viral hepatitis C without hepatic coma SNOMED: 38769980 (8) Blindness of both eyes ICD Codes: H54.0 - Blindness, both eyes SNOMED: 72180373, 887236129 (9) Amphetamine abuse ICD Codes: F15.10 - Other stimulant abuse, uncomplicated SNOMED: 36146049 Status: progressing Assessment/Plan fu stool studies >> negative O&P >> negative fecal fat pending stool culture >> negative hepatitis panel >> Hep C positive cdiff negative utox >> amphetamines positive trial of pancrease Subjective Allergies: Coded Allergies: ACETAMINOPHEN (Unverified Allergy, Unknown, 07/14/16) HYDROCODONE (Unverified Allergy, Unknown, 07/14/16) Subjective c/o diarrhea x 2 years good po wants to be put back on pancreatic supplements Objective Last 24 Hour Vital Signs Date Time Temp Pulse Resp B/P Pulse Ox O2 Delivery O2 Flow Rate FiO2 07/21/16 16:00 97.9 85 20 132/81 99 Room Air 07/21/16 11:41 98.1 96 18 149/93 100 Room Air 07/21/16 10:36 125/77 07/21/16 08:00 98.1 106 20 119/73 98 Room Air 07/21/16 04:00 98.6 102 16 115/75 98 Room Air 07/21/16 00:00 98.6 112 16 120/64 95 Room Air 07/20/16 20:00 98.8 82 20 154/79 98 Room Air 07/20/16 17:36 149/87 Intake and Output 1/13/17 1/14/17 19:00 07:00 Intake Total 700 ml 1392 ml Balance 700 ml 1392 ml Intake Oral 650 ml 600 ml IV Total 50 ml 792 ml # Voids 2 7 # Bowel Movements 3 4 Laboratory Tests 07/21/16 05:05: White Blood Count 26.6#*H, Red Blood Count 3.16L, Hemoglobin 9.7L, Hematocrit 29.5L, Mean Corpuscular Volume 93, Mean Corpuscular Hemoglobin 30.7, Mean Corpuscular Hemoglobin Concent 32.8, Red Cell Distribution Width 18.2H, Platelet Count 280, Mean Platelet Volume 5.5L, Neutrophils (%) (Auto) , Lymphocytes (%) (Auto) , Monocytes (%) (Auto) , Eosinophils (%) (Auto) , Basophils (%) (Auto) , Differential Total Cells Counted 100, Neutrophils % ( Manual) 77H, Lymphocytes % (Manual) 18L, Monocytes % (Manual) 3, Eosinophils % ( Manual) 2, Basophils % (Manual) 0, Band Neutrophils 0, Platelet Estimate Adequate, Platelet Morphology Normal, Hypochromasia 2+, Anisocytosis 2+, Sodium Level 137, Potassium Level 4.3, Chloride Level 101, Carbon Dioxide Level 23, Anion Gap 13, Blood Urea Nitrogen 20, Creatinine 0.8, Estimat Glomerular Filtration Rate > 60, Glucose Level 83, Calcium Level 8.5L Height (Feet): 5 Height (Inches): 11.00 Weight (Pounds): 114 Objective Thin WM NCAT supple CTA RRR Soft No edema ALEXANDRU ALFONSO Jul 21, 2016 17:12
[2016-07-21] MEDS ORDERED: Pancrease Cap ORAL SCH (18:00)
[2016-07-21 19:46] VITALS: BP 144/88
[2016-07-21] MEDS: HYDROMORPHONE IVPB PRN (20:22)
[2016-07-21] MEDS: D5W IVPB PRN (20:22)
[2016-07-21] MEDS: Vancomycin 750mg/D5W 250ml IVPB SCH ×2 (22:53)
[2016-07-21 23:02] LABS: APPEARANCE,URINE CLEAR; KETONES,URINE NEGATIVE (NEGATIVE); LEUKOCYTE ESTERASE ,URINE 1+ (NEGATIVE); NITRITE,URINE NEGATIVE (NEGATIVE); PH,URINE 6 (4.5-8.0); PROTEIN,URINE 2+ (NEGATIVE); UROBILINOGEN,URINE NORMAL MG/DL (0.0-1.0)
[2016-07-21 23:13] LABS: BACTERIA,URINE OCCASIONAL /HPF; RBC,URINE 0-2 /HPF (0 - 0); WBC,URINE 0 /HPF (0 - 0)
[2016-07-22] VITALS: BP 152/98
[2016-07-22] MEDS: HYDROMORPHONE IVPB PRN ×4 (00:31→22:17)
[2016-07-22] MEDS: D5W IVPB PRN ×4 (00:31→22:17)
[2016-07-22 04:11] VITALS: BP 158/91
[2016-07-22] MEDS: metroNIDAZOLE 500mg tab ORAL SCH ×3 (06:20→22:17)
[2016-07-22] MEDS: GlipiZIDE 5mg tab ORAL SCH ×2 (06:20→16:33)
[2016-07-22] MEDS: Pancrease Cap ORAL SCH ×3 (06:20→16:33)
[2016-07-22] MEDS: NovoLOG Insulin Flexpen SUBQ SCH ×4 (06:23→20:36)
[2016-07-22 08:00] VITALS: BP 177/111
[2016-07-22] MEDS: Heparin 5000 units/ml inj SUBQ SCH ×2 (10:12→20:37)
[2016-07-22] MEDS: metFORMIN 500mg tab ORAL SCH ×2 (10:12→18:21)
[2016-07-22] MEDS: Aspirin EC 81mg tab ORAL SCH (10:12)
--- NOTE | 2016-07-22 10:47 | Infectious Diseases Prog Note ---
Assessment/Plan Assessment/Plan ASSESSMENT: 50 y/o male with: Leukocytosis - recurrent, afebrile. 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 Hx of Hep C SP Rx in 1999 - recurrent, elevated LFTs, HCV PCR >6million Negative HIV Chronic Diarrhea, probable malabsorption ( h/o chronic pancreatitis, previously improved with Creon ) - negative C diff, stool Cx, O&P High Alk Phos ro Biliary Dx - US pending Wt loss 140 lb in 12 mo, due to Ch diarrhea , also may need to Ro malignancy ( liver Cancer ) - AFP WNL DM - HbA1c 7.6% Diabetic neuropathy Legally blind SP transmetatarsal amputation R foot smoker amphetamine use MRSA, VRE colonized No ABX allergies Full Code PLAN : continue Flagyl d# 8 ( 07/21 SP IV Vanco, Cefepime d# / ) f/u new cultures consider colonoscopy Monitor CBC, temperatures - CBC AM Monitor CMP US of liver outpt HCV Rx placement Subjective Allergies: Coded Allergies: ACETAMINOPHEN (Unverified Allergy, Unknown, 07/14/16) HYDROCODONE (Unverified Allergy, Unknown, 07/14/16) Subjective afebrile. recurrent leukocytosis. no repeat CBC, Cx NGTD persistent diarrhea Objective Vital Signs Last 24 Hour Vital Signs Date Time Temp Pulse Resp B/P Pulse Ox O2 Delivery O2 Flow Rate FiO2 07/22/16 10:13 132/84 07/22/16 08:00 97.0 94 20 177/111 100 Room Air 07/22/16 04:11 97.0 77 18 158/91 97 Room Air 07/22/16 01:01 96.8 07/22/16 00:00 96.8 72 20 152/98 100 Room Air 07/21/16 19:46 97.3 73 19 144/88 99 Room Air 07/21/16 19:08 132/81 07/21/16 16:00 97.9 85 20 132/81 99 Room Air 07/21/16 11:41 98.1 96 18 149/93 100 Room Air Height (Feet): 5 Height (Inches): 11.00 Weight (Pounds): 114 General Appearance: no acute distress, cachetic Respiratory/Chest: no respiratory distress Cardiovascular: normal rate, regular rhythm Abdomen: normal bowel sounds, soft, non tender, non distended Microbiology Date/Time Source Procedure Growth Status 07/21/16 20:30 Urine,Clean Catch Urine Culture - Preliminary NO GROWTH Resulted Laboratory Tests Test 07/21/16 20:30 Urine Color Pale yellow Urine Appearance Clear Urine pH 6 (4.5-8.0) Urine Specific [place] 1.010 (1.005-1.035) Urine Protein 2+ (NEGATIVE) H Urine Glucose (UA) Negative (NEGATIVE) Urine Ketones Negative (NEGATIVE) Urine Occult Blood Negative (NEGATIVE) Urine Nitrite Negative (NEGATIVE) Urine Bilirubin Negative (NEGATIVE) Urine Urobilinogen Normal MG/DL (0.0-1.0) Urine Leukocyte Esterase 1+ (NEGATIVE) H Urine RBC 0-2 /HPF (0 - 0) H Urine WBC 0 /HPF (0 - 0) Urine Squamous Epithelial Cells None /LPF (NONE/OCC) Urine Bacteria Occasional /HPF (NONE) Current Medications Medications (Trade) Dose Ordered Sig/Romelia Route PRN Reason Start Time Stop Time Status Last Admin Dose Admin Al Hydroxide/Mg Hydroxide (Mylanta II) 30 ml Q6H PRN ORAL dyspepsia 07/14/16 06:00 08/13/16 05:59 Amitriptyline HCl (Elavil) 25 mg BEDTIME ORAL 07/14/16 21:00 08/13/16 20:59 07/21/16 20:22 Amylase/Lipase/ Protease (Pancrease) 2 ea TIAC ORAL 07/17/16 16:30 08/16/16 16:29 07/22/16 06:20 Aspirin (Ecotrin) 81 mg DAILY ORAL 07/14/16 09:00 08/13/16 08:59 07/22/16 10:12 Clonidine HCl (Catapres) 0.1 mg BID ORAL 07/14/16 09:00 08/13/16 08:59 07/22/16 10:13 Clonidine HCl (Catapres) 0.1 mg EVERY 4 HOURS PRN ORAL sbp more than 160 07/14/16 06:00 08/13/16 05:59 07/20/16 03:21 Dextrose (Dextrose 50%) STAT PRN IV Hypoglycemia 07/14/16 06:00 08/13/16 05:59 Diphenoxylate HCl/ Atropine (Lomotil) 2.5 mg Q4H PRN ORAL Diarrhea 07/19/16 21:15 07/26/16 15:44 Gabapentin (Neurontin) 300 mg BEDTIME ORAL 07/14/16 21:00 08/13/16 20:59 07/21/16 20:22 Glipizide (Glucotrol) 5 mg BIAC ORAL 07/16/16 11:30 08/15/16 11:29 07/22/16 06:20 Haloperidol Lactate 5 mg 5 mg Q3H PRN IM Agitation 07/14/16 18:30 08/13/16 18:29 Heparin Sodium (Porcine) (Heparin 5000 units/ml) 5,000 units EVERY 12 HOURS SUBQ 07/14/16 09:00 08/13/16 08:59 07/22/16 10:12 Hydromorphone HCl/ Dextrose (Dilaudid/D5W 50ml) 56 ml @ 224 mls/hr Q3H PRN IVPB Severe Pain (Pain Scale 7-10) 07/21/16 14:45 07/28/16 14:44 07/22/16 04:56 Insulin Aspart (NovoLOG) BEFORE MEALS AND HS SUBQ 07/14/16 06:30 08/13/16 06:29 07/20/16 20:59 Loperamide HCl (Imodium) 2 mg EVERY 4 HOURS PRN ORAL Diarrhea 07/17/16 15:00 08/16/16 14:59 07/19/16 11:40 Metformin HCl (Glucophage) 500 mg BID ORAL 07/16/16 09:00 08/15/16 08:59 07/22/16 10:12 Metronidazole 500 mg 500 mg Q8HR ORAL 07/21/16 14:00 07/28/16 13:59 07/22/16 06:20 Nitroglycerin (Ntg) 0.4 mg Q5M X 3 DOSES PRN SL Prn Chest Pain 07/14/16 06:00 08/13/16 05:59 Ondansetron HCl (Zofran) 4 mg Q6H PRN IVP Nausea & Vomiting 07/14/16 06:00 08/13/16 05:59 07/20/16 20:18 Polyethylene Glycol (Miralax) 17 gm HSPRN PRN ORAL Constipation 07/14/16 06:00 08/13/16 05:59 Ranitidine HCl (Zantac) 150 mg BEDTIME ORAL 07/14/16 21:00 08/13/16 20:59 07/21/16 20:22 Sodium Chloride (Sodium Chloride 1000ml bag) 1,000 ml @ 75 mls/hr [id number] IVLG 07/15/16 15:00 08/14/16 14:59 07/21/16 19:04 Vitamin A/Vitamin D (A & D Oint) 1 applic BIDPRN TOPIC 07/14/16 16:00 08/13/16 15:59 ADA TURNER Jul 22, 2016 10:47
--- NOTE | 2016-07-22 11:03 | General Progress Note ---
Assessment/Plan Assessment/Plan Assessment/Plan Problems: (1) Severe malnutrition ICD Codes: E43 - Unspecified severe protein-calorie malnutrition SNOMED: 52874922 (2) Episode of generalized weakness ICD Codes: R53.1 - Weakness SNOMED: 81250135 (3) C. difficile colitis ICD Codes: A04.7 - Enterocolitis due to Clostridium difficile SNOMED: 300127078 (4) Abdominal pain ICD Codes: R10.9 - Unspecified abdominal pain SNOMED: 95854602 (5) Diarrhea ICD Codes: R19.7 - Diarrhea, unspecified SNOMED: 31956366 (6) DM (diabetes mellitus) ICD Codes: E11.9 - DM (diabetes mellitus) SNOMED: 48684679 (7) Hepatitis C ICD Codes: B19.20 - Unspecified viral hepatitis C without hepatic coma SNOMED: 86819020 (8) Blindness of both eyes ICD Codes: H54.0 - Blindness, both eyes SNOMED: 19233084, 978029952 (9) Amphetamine abuse ICD Codes: F15.10 - Other stimulant abuse, uncomplicated SNOMED: 12798753 Status: progressing Assessment/Plan fu stool studies >> negative O&P >> negative fecal fat pending stool culture >> negative hepatitis panel >> Hep C positive cdiff negative utox >> amphetamines positive trial of pancrease WBC evaluation per ID Subjective Allergies: Coded Allergies: ACETAMINOPHEN (Unverified Allergy, Unknown, 07/14/16) HYDROCODONE (Unverified Allergy, Unknown, 07/14/16) Subjective feels ok no events overnight on pancreatic supplements WBC elevated Objective Last 24 Hour Vital Signs Date Time Temp Pulse Resp B/P Pulse Ox O2 Delivery O2 Flow Rate FiO2 07/22/16 10:13 132/84 07/22/16 08:00 97.0 94 20 177/111 100 Room Air 07/22/16 04:11 97.0 77 18 158/91 97 Room Air 07/22/16 01:01 96.8 07/22/16 00:00 96.8 72 20 152/98 100 Room Air 07/21/16 19:46 97.3 73 19 144/88 99 Room Air 07/21/16 19:08 132/81 07/21/16 16:00 97.9 85 20 132/81 99 Room Air 07/21/16 11:41 98.1 96 18 149/93 100 Room Air Intake and Output 07/21/16 07/22/16 19:00 07:00 Intake Total 1455 ml 921 ml Output Total 900 ml 1200 ml Balance 555 ml -279 ml Intake Oral 480 ml 640 ml IV Total 975 ml 281 ml Output Urine Total 900 ml 1200 ml # Voids 2 # Bowel Movements 3 1 Laboratory Tests 07/21/16 20:30: Urine Color Pale yellow, Urine Appearance Clear, Urine pH 6, Urine Specific [place] 1.010, Urine Protein 2+H, Urine Glucose (UA) Negative, Urine Ketones Negative, Urine Occult Blood Negative, Urine Nitrite Negative, Urine Bilirubin Negative, Urine Urobilinogen Normal, Urine Leukocyte Esterase 1+H, Urine RBC 0- 2H, Urine WBC 0, Urine Squamous Epithelial Cells None, Urine Bacteria Occasional Height (Feet): 5 Height (Inches): 11.00 Weight (Pounds): 114 Objective Thin WM NCAT supple CTA RRR Soft No edema ALEXANDRU ALFONSO Jul 22, 2016 11:03
[2016-07-22 12:00] VITALS: BP 145/76
[2016-07-22 16:00] VITALS: BP 149/95
--- NOTE | 2016-07-22 19:14 | Pulmonology Progress Note ---
Assessment/Plan Problems: (1) Sepsis (2) Diarrhea (3) Episode of generalized weakness (4) DM (diabetes mellitus) (5) Hepatitis C (6) Blindness of both eyes (7) HTN (hypertension) (8) COPD (chronic obstructive pulmonary disease) (9) S/P transmetatarsal amputation of foot Assessment/Plan continue abx as per ID check wbc needs placement Subjective ROS Limited/Unobtainable: No Respiratory: Reports: dyspnea at rest, productive cough, shortness of breath, sputum Gastrointestinal/Abdominal: Reports: bloating, diarrhea, nausea Allergies: Coded Allergies: ACETAMINOPHEN (Unverified Allergy, Unknown, 07/14/16) HYDROCODONE (Unverified Allergy, Unknown, 07/14/16) Objective Last 24 Hour Vital Signs Date Time Temp Pulse Resp B/P Pulse Ox O2 Delivery O2 Flow Rate FiO2 07/22/16 18:21 145/76 07/22/16 16:00 97.9 84 20 149/95 100 Room Air 07/22/16 12:00 98.4 106 20 145/76 100 Room Air 07/22/16 10:13 132/84 07/22/16 08:00 97.0 94 20 177/111 100 Room Air 07/22/16 04:11 97.0 77 18 158/91 97 Room Air 07/22/16 01:01 96.8 07/22/16 00:00 96.8 72 20 152/98 100 Room Air 07/21/16 19:46 97.3 73 19 144/88 99 Room Air Intake and Output 07/21/16 07/22/16 19:00 07:00 Intake Total 1455 ml 921 ml Output Total 900 ml 1200 ml Balance 555 ml -279 ml Intake Oral 480 ml 640 ml IV Total 975 ml 281 ml Output Urine Total 900 ml 1200 ml # Voids 2 # Bowel Movements 3 1 General Appearance: no acute distress HEENT: normocephalic, atraumatic, PERRL Respiratory/Chest: chest wall non-tender, decreased breath sounds, accessory muscle use Cardiovascular: normal peripheral pulses, normal rate, regular rhythm, no JVD Abdomen: normal bowel sounds, soft, non tender, no organomegaly, non distended Genitourinary: normal external genitalia Extremities: no cyanosis 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, no motor/sensory deficits Microbiology Date/Time Source Procedure Growth Status 07/21/16 20:30 Urine,Clean Catch Urine Culture - Preliminary NO GROWTH Resulted Laboratory Tests 07/21/16 20:30: Urine Color Pale yellow, Urine Appearance Clear, Urine pH 6, Urine Specific [place] 1.010, Urine Protein 2+H, Urine Glucose (UA) Negative, Urine Ketones Negative, Urine Occult Blood Negative, Urine Nitrite Negative, Urine Bilirubin Negative, Urine Urobilinogen Normal, Urine Leukocyte Esterase 1+H, Urine RBC 0- 2H, Urine WBC 0, Urine Squamous Epithelial Cells None, Urine Bacteria Occasional Current Medications Medications (Trade) Dose Ordered Sig/Romelia Route PRN Reason Start Time Stop Time Status Last Admin Dose Admin Al Hydroxide/Mg Hydroxide (Mylanta II) 30 ml Q6H PRN ORAL dyspepsia 07/14/16 06:00 08/13/16 05:59 Amitriptyline HCl (Elavil) 25 mg BEDTIME ORAL 07/14/16 21:00 08/13/16 20:59 07/21/16 20:22 Amylase/Lipase/ Protease (Pancrease) 2 ea TIAC ORAL 07/17/16 16:30 08/16/16 16:29 07/22/16 16:33 Aspirin (Ecotrin) 81 mg DAILY ORAL 07/14/16 09:00 08/13/16 08:59 07/22/16 10:12 Clonidine HCl (Catapres) 0.1 mg BID ORAL 07/14/16 09:00 08/13/16 08:59 07/22/16 18:21 Clonidine HCl (Catapres) 0.1 mg EVERY 4 HOURS PRN ORAL sbp more than 160 07/14/16 06:00 08/13/16 05:59 07/20/16 03:21 Dextrose (Dextrose 50%) STAT PRN IV Hypoglycemia 07/14/16 06:00 08/13/16 05:59 Diphenoxylate HCl/ Atropine (Lomotil) 2.5 mg Q4H PRN ORAL Diarrhea 07/19/16 21:15 07/26/16 15:44 Gabapentin (Neurontin) 300 mg BEDTIME ORAL 07/14/16 21:00 08/13/16 20:59 07/21/16 20:22 Glipizide (Glucotrol) 5 mg BIAC ORAL 07/16/16 11:30 08/15/16 11:29 07/22/16 16:33 Haloperidol Lactate 5 mg 5 mg Q3H PRN IM Agitation 07/14/16 18:30 08/13/16 18:29 Heparin Sodium (Porcine) (Heparin 5000 units/ml) 5,000 units EVERY 12 HOURS SUBQ 07/14/16 09:00 08/13/16 08:59 07/22/16 10:12 Hydromorphone HCl/ Dextrose (Dilaudid/D5W 50ml) 56 ml @ 224 mls/hr Q3H PRN IVPB Severe Pain (Pain Scale 7-10) 07/21/16 14:45 07/28/16 14:44 07/22/16 16:34 Insulin Aspart (NovoLOG) BEFORE MEALS AND HS SUBQ 07/14/16 06:30 08/13/16 06:29 07/22/16 12:15 Loperamide HCl (Imodium) 2 mg EVERY 4 HOURS PRN ORAL Diarrhea 07/17/16 15:00 08/16/16 14:59 07/19/16 11:40 Metformin HCl (Glucophage) 500 mg BID ORAL 07/16/16 09:00 08/15/16 08:59 07/22/16 18:21 Metronidazole 500 mg 500 mg Q8HR ORAL 07/21/16 14:00 07/28/16 13:59 07/22/16 14:46 Nitroglycerin (Ntg) 0.4 mg Q5M X 3 DOSES PRN SL Prn Chest Pain 07/14/16 06:00 08/13/16 05:59 Ondansetron HCl (Zofran) 4 mg Q6H PRN IVP Nausea & Vomiting 07/14/16 06:00 08/13/16 05:59 07/20/16 20:18 Polyethylene Glycol (Miralax) 17 gm HSPRN PRN ORAL Constipation 07/14/16 06:00 08/13/16 05:59 Ranitidine HCl (Zantac) 150 mg BEDTIME ORAL 07/14/16 21:00 08/13/16 20:59 07/21/16 20:22 Sodium Chloride (Sodium Chloride 1000ml bag) 1,000 ml @ 75 mls/hr [id number] IVLG 07/15/16 15:00 08/14/16 14:59 07/22/16 14:58 Vitamin A/Vitamin D (A & D Oint) 1 applic BIDPRN TOPIC 07/14/16 16:00 08/13/16 15:59 DORENE GRIMM Jul 22, 2016 19:14
[2016-07-23] VITALS: BP 142/81
[2016-07-23] MEDS: D5W IVPB PRN ×4 (02:12→20:48)
[2016-07-23] MEDS: HYDROMORPHONE IVPB PRN ×4 (02:12→20:48)
[2016-07-23] MEDS: metroNIDAZOLE 500mg tab ORAL SCH ×3 (06:00→22:19)
[2016-07-23] MEDS: NovoLOG Insulin Flexpen SUBQ SCH ×4 (06:30→20:18)
[2016-07-23] MEDS: Pancrease Cap ORAL SCH ×3 (06:30→16:13)
[2016-07-23] MEDS: GlipiZIDE 5mg tab ORAL SCH ×2 (06:30→16:14)
[2016-07-23 08:00] VITALS: BP 158/93
[2016-07-23] MEDS: metFORMIN 500mg tab ORAL SCH ×2 (09:22→17:43)
[2016-07-23] MEDS: Heparin 5000 units/ml inj SUBQ SCH ×2 (09:22→20:18)
[2016-07-23] MEDS: Aspirin EC 81mg tab ORAL SCH (09:23)
--- NOTE | 2016-07-23 10:38 | GI Progress Note ---
Assessment/Plan Problems: (1) Severe malnutrition ICD Codes: E43 - Unspecified severe protein-calorie malnutrition SNOMED: 76710184 (2) Episode of generalized weakness ICD Codes: R53.1 - Weakness SNOMED: 20415169 (3) C. difficile colitis ICD Codes: A04.7 - Enterocolitis due to Clostridium difficile SNOMED: 782872832 (4) Abdominal pain ICD Codes: R10.9 - Unspecified abdominal pain SNOMED: 92848861 (5) Diarrhea ICD Codes: R19.7 - Diarrhea, unspecified SNOMED: 88496534 (6) DM (diabetes mellitus) ICD Codes: E11.9 - DM (diabetes mellitus) SNOMED: 41739001 (7) Hepatitis C ICD Codes: B19.20 - Unspecified viral hepatitis C without hepatic coma SNOMED: 84273698 (8) Blindness of both eyes ICD Codes: H54.0 - Blindness, both eyes SNOMED: 44166237, 395747156 (9) Amphetamine abuse ICD Codes: F15.10 - Other stimulant abuse, uncomplicated SNOMED: 40019387 Status: progressing Status Narrative Discussed with Dr. Leonardo. Assessment/Plan fu stool studies >> negative O&P >> negative fecal fat pending stool culture >> negative hepatitis panel >> Hep C positive cdiff negative utox >> amphetamines positive cont Lomotil Imodium prn ordered simethicone fu KUB fu abdominal U/S cont Pancrease OB stool uncollected low residual diet H2 fu labs outpt Hep C tx Subjective Subjective gas pain Objective Last 24 Hour Vital Signs Date Time Temp Pulse Resp B/P Pulse Ox O2 Delivery O2 Flow Rate FiO2 07/23/16 09:23 158/93 07/23/16 08:00 97.5 82 20 158/93 100 Room Air 07/23/16 02:51 97.5 07/23/16 00:00 97.5 81 22 142/81 99 Room Air 07/22/16 18:21 145/76 07/22/16 16:00 97.9 84 20 149/95 100 Room Air 07/22/16 12:00 98.4 106 20 145/76 100 Room Air Intake and Output 07/22/16 07/23/16 19:00 07:00 Intake Total 1334 ml 1105 ml Output Total 600 ml Balance 1334 ml 505 ml Intake Oral 360 ml 150 ml IV Total 974 ml 955 ml Output Urine Total 600 ml # Voids 3 # Bowel Movements 2 21 Height (Feet): 5 Height (Inches): 11.00 Weight (Pounds): 114 General Appearance: no apparent distress, alert Cardiovascular: normal rate Respiratory/Chest: normal breath sounds Abdominal Exam: normal bowel sounds, non tender, soft Bernadette Iverson N.P. Jul 23, 2016 10:38
[2016-07-23] MEDS ORDERED: Simethicone 80mg tab ORAL PRN (11:00)
[2016-07-23 12:00] VITALS: BP 152/94
--- NOTE | 2016-07-23 16:09 | Wound Care Consultation ---
Wound Assessment Wound Assessment #1: Wound Present on Admission: Yes New Wound: No Status Change of Wound: No Wound Location Body Site Modif: left Wound Location Body Site: elbow Wound Type: pressure ulcer Angelique Test: Does not Angelique Pressure Ulcer Stage: IV/unstageable Wound Thickness: Full Thickness Wound Length: 2.5 Wound Width: 2.5 Wound Depth: 0.2 Percent of Wound Clint/Red: 100 Wound Drainage Description: Serosanguineous Wound Drainage Amount: Scant Wound Drainage Odor: None/Absent Tissue Surrounding Wound: Erythemic Wound General Appearance: Reddened Wound Assessment #2: Wound Number: #2 Wound Present on Admission: Yes New Wound: No Status Change of Wound: No Wound Location Body Site Modif: right Wound Location Body Site: elbow Wound Type: pressure ulcer Angelique Test: Does not Angelique Pressure Ulcer Stage: IV/unstageable Wound Thickness: Full Thickness Wound Length: 4.0 Wound Width: 3.0 Wound Depth: 0.2 Percent of Wound Clint/Red: 100 Wound Drainage Amount: None Wound Drainage Odor: None/Absent Tissue Surrounding Wound: Erythemic Wound General Appearance: Reddened Wound Assessment #3: Wound Number: #3 Wound Present on Admission: Yes New Wound: No Status Change of Wound: No Wound Location Body Site Modif: right Wound Location Body Site: foot Wound Type: pressure ulcer Angelique Test: Does not Angelique Pressure Ulcer Stage: IV/unstageable Wound Thickness: Full Thickness Wound Length: 3.0 Wound Width: 2.0 Wound Depth: 0.2 Percent of Wound Clint/Red: 100 Wound Drainage Amount: None Wound Drainage Odor: None/Absent Tissue Surrounding Wound: scar tissue appearing to site, dry. Wound General Appearance: Clean/Dry Wound Assessment #4: Wound Number: #4 Wound Present on Admission: Yes New Wound: No Status Change of Wound: No Wound Location Body Site Modif: left Wound Location Body Site: toe - 1st Wound Type: other - open wound-etiology unknown Angelique Test: Does not Angelique Wound Thickness: Full Thickness Wound Length: 3.0 Wound Width: 2.0 Wound Depth: utd Percent of Wound Black/Brown: 100 - dry scab Wound Drainage Odor: None/Absent Tissue Surrounding Wound: Intact Wound General Appearance: Clean/Dry Wound Assessment #5: Wound Number: #5 Wound Present on Admission: Yes New Wound: No Status Change of Wound: No Wound Location Body Site Modif: left Wound Location Body Site: toe - 2nd Wound Type: other - open wound-etiology Angelique Test: Does not Angelique Wound Thickness: Full Thickness Wound Length: 2.0 Wound Width: 2.0 Wound Depth: utd Percent of Wound Black/Brown: 100 - scab Wound Drainage Amount: None Wound Drainage Odor: None/Absent Tissue Surrounding Wound: Intact Wound General Appearance: Clean/Dry Wound Assessment #6: Wound Number: #6 Wound Present on Admission: Yes New Wound: No Status Change of Wound: No Wound Location Body Site Modif: left, plantar Wound Location Body Site: metatarsal head - 1st Wound Type: other - callus Angelique Test: Does not Angelique Wound Thickness: Full Thickness Wound Length: 2.0 Wound Width: 2.0 Wound Depth: utd Percent of Wound Bed Yellow/Wh: 100 - intact callus Wound Drainage Amount: None Wound Drainage Odor: None/Absent Tissue Surrounding Wound: Intact Wound Assessment #7: Wound Number: #7 Wound Present on Admission: Yes New Wound: No Status Change of Wound: No Wound Location Body Site Modif: left, plantar Wound Location Body Site: metatarsal head - 5th Wound Type: other - callus Angelique Test: Does not Angelique Wound Thickness: Full Thickness Wound Length: 3.0 Wound Width: 3.0 Wound Depth: utd Wound Drainage Amount: None Wound Drainage Odor: None/Absent Tissue Surrounding Wound: Intact Wound General Appearance: Clean/Dry - callus intact. Wound Assessment #8: Wound Number: #8 Wound Present on Admission: Yes New Wound: No Status Change of Wound: No Wound Location Body Site: perineal area Wound Type: chemical burn - with erosion Angelique Test: Does not Angelique Wound Thickness: Full Thickness Percent of Wound Clint/Red: 100 Wound Drainage Amount: None Wound Drainage Odor: None/Absent Tissue Surrounding Wound: Macerated - noted good progress Wound General Appearance: Reddened, Open to air Wound Assessment #9: Wound Number: #9 Wound Present on Admission: Yes New Wound: No Status Change of Wound: No Wound Location Body Site Modif: left Wound Location Body Site: trochanter Wound Type: pressure ulcer Angelique Test: Does not Angelique Pressure Ulcer Stage: IV/unstageable Wound Thickness: Full Thickness Wound Length: 2.5 Wound Width: 2.5 Wound Depth: 0.2 Percent of Wound Clint/Red: 50 Percent of Wound Bed Yellow/Wh: 50 Wound Drainage Description: Serosanguineous Wound Drainage Amount: Scant Wound Drainage Odor: None/Absent Tissue Surrounding Wound: Intact Wound General Appearance: Reddened Wound Assessment #10: Wound Number: #10 Wound Present on Admission: Yes New Wound: No Status Change of Wound: No Wound Location Body Site Modif: left, upper, anterior Wound Location Body Site: leg - Scattered Wound Type: other - open wounds etiology unknown. Angelique Test: Does not Angelique Wound Thickness: Full Thickness Wound Length: 5.0 Wound Width: 5.0 Wound Depth: 0.2 Percent of Wound Clint/Red: 50 Percent of Wound Bed Yellow/Wh: 50 Wound Drainage Amount: None Wound Drainage Odor: None/Absent Tissue Surrounding Wound: Intact Wound General Appearance: Reddened Wound Assessment #11: Wound Number: #11 Wound Present on Admission: Yes New Wound: No Status Change of Wound: No Wound Location Body Site Modif: left, posterior Wound Location Body Site: scapula Wound Type: pressure ulcer Angelique Test: Does not Angelique Pressure Ulcer Stage: IV/unstageable Wound Thickness: Full Thickness Wound Length: 2.0 Wound Width: 2.0 Wound Depth: 0.1 Percent of Wound Clint/Red: 80 Percent of Wound Bed Yellow/Wh: 20 Wound Drainage Amount: None Wound Drainage Odor: None/Absent Tissue Surrounding Wound: Erythemic Wound General Appearance: Reddened Wound Assessment #12: Wound Number: #12 Wound Present on Admission: Yes New Wound: No Status Change of Wound: No Wound Location Body Site Modif: upper, posterior Wound Location Body Site: back Wound Type: other - scabs with self inflicted scratches. Angelique Test: Does not Angelique Wound Thickness: Full Thickness Percent of Wound Clint/Red: 50 Percent of Wound Black/Brown: 50 Wound Drainage Amount: None Wound Drainage Odor: None/Absent Tissue Surrounding Wound: Erythemic Wound General Appearance: Reddened Wound Assessment #13: Wound Number: #13 Wound Present on Admission: Yes New Wound: No Status Change of Wound: No Wound Location Body Site Modif: upper, anterior Wound Location Body Site: chest Wound Type: scab - with self inflicted scratching site. Angelique Test: Does not Angelique Wound Thickness: Full Thickness Wound Length: 1.0 Wound Width: 1.0 Wound Depth: utd Percent of Wound Black/Brown: 100 - scab Wound Drainage Amount: None Wound Drainage Odor: None/Absent Tissue Surrounding Wound: Erythemic Wound General Appearance: Reddened Wound Assessment #14: Wound Number: #14 Wound Present on Admission: Yes New Wound: No Status Change of Wound: No Wound Location Body Site Modif: right Wound Location Body Site: ischial tuberosity Wound Type: pressure ulcer Angelique Test: Does not Angelique Pressure Ulcer Stage: III Wound Thickness: Full Thickness Wound Length: 0.5 Wound Width: 0.5 Wound Depth: 0.2 Percent of Wound Clint/Red: 100 Wound Drainage Amount: None Wound Drainage Odor: None/Absent Tissue Surrounding Wound: Erythemic Wound General Appearance: Reddened Wound Assessment #15: Wound Number: #15 Wound Present on Admission: Yes New Wound: No Status Change of Wound: No Wound Location Body Site Modif: right Wound Location Body Site: trochanter Wound Type: pressure ulcer Angelique Test: Does not Angelique Pressure Ulcer Stage: IV/unstageable Wound Thickness: Full Thickness Wound Length: 2.0 Wound Width: 2.0 Wound Depth: 0.3 Percent of Wound Clint/Red: 80 Percent of Wound Bed Yellow/Wh: 20 Wound Drainage Amount: None Wound Drainage Odor: None/Absent Tissue Surrounding Wound: Erythemic Wound General Appearance: Reddened Wound Assessment #16: Wound Number: #16 Wound Present on Admission: Yes New Wound: No Status Change of Wound: No Wound Location Body Site Modif: left Wound Location Body Site: ischial tuberosity Wound Type: pressure ulcer Angelique Test: Does not Angelique Pressure Ulcer Stage: deep tissue injury - suspected Wound Thickness: Full Thickness Wound Length: 1.0 Wound Width: 1.0 Wound Depth: utd Percent of Wound Purple/Maroon: 100 Wound Drainage Amount: None Wound Drainage Odor: None/Absent Tissue Surrounding Wound: Intact Wound Assessment #17: Wound Number: #17 Wound Present on Admission: Yes New Wound: No Status Change of Wound: No Wound Location Body Site Modif: mid Wound Location Body Site: sacral Wound Type: pressure ulcer Angelique Test: Does not Angelique Pressure Ulcer Stage: IV/unstageable Wound Thickness: Full Thickness Wound Length: 1.0 Wound Width: 1.0 Wound Depth: 0.2 Percent of Wound Clint/Red: 50 Percent of Wound Bed Yellow/Wh: 50 Wound Drainage Amount: None Wound Drainage Odor: None/Absent Tissue Surrounding Wound: Intact Wound General Appearance: Reddened Wound Assessment #18: Wound Number: #18 Wound Present on Admission: Yes New Wound: No Status Change of Wound: No Wound Location Body Site: coccyx Wound Type: pressure ulcer Angelique Test: Does not Angelique Pressure Ulcer Stage: III Wound Thickness: Full Thickness Wound Length: 1.5 Wound Width: 1.5 Wound Depth: 0.2 Percent of Wound Clint/Red: 100 - scattered. Wound Drainage Amount: None Wound Drainage Odor: None/Absent Tissue Surrounding Wound: Macerated Wound General Appearance: Reddened Wound Assessment #19: Wound Number: #19 Wound Present on Admission: Yes New Wound: No Status Change of Wound: No Wound Location Body Site Modif: right, anterior Wound Location Body Site: knee Wound Type: other - open wound etiology unknown. Angelique Test: Does not Angelique Wound Thickness: Full Thickness Wound Length: 3.5 Wound Width: 3.5 Wound Depth: 0.2 Percent of Wound Clint/Red: 100 Wound Drainage Description: Serosanguineous Wound Drainage Amount: Moderate Wound Drainage Odor: None/Absent Tissue Surrounding Wound: Macerated Wound General Appearance: Reddened Wound Assessment #20: Wound Number: #20 Wound Present on Admission: Yes New Wound: No Status Change of Wound: No Wound Location Body Site Modif: right, lateral Wound Location Body Site: malleolus/ankle Angelique Test: Does not Angelique Pressure Ulcer Stage: IV/unstageable Wound Thickness: Full Thickness Wound Length: 1.0 Wound Width: 1.0 Wound Depth: utd Percent of Wound Black/Brown: 100 - scab Wound Drainage Amount: None Wound Drainage Odor: None/Absent Tissue Surrounding Wound: Intact Wound Assessment #21: Wound Number: #21 Wound Present on Admission: Yes New Wound: No Status Change of Wound: No Wound Location Body Site Modif: left, anterior Wound Location Body Site: knee Wound Type: other - open wound etiology unknown. Angelique Test: Does not Angelique Wound Thickness: Full Thickness Wound Length: 3.5 Wound Width: 3.5 Wound Depth: 0.2 Percent of Wound Clint/Red: 100 Wound Drainage Amount: Moderate Wound Drainage Odor: None/Absent Tissue Surrounding Wound: Macerated Wound General Appearance: Reddened Wound Comment body reassessment completed, noted good progress to all admitted wound sites. noted treatment effective, noted patient scratching , reminded patient not to touch affected areas. right and left arm scabs,right and left lower leg scabs,right below the knee scab right and left hand scabs noted with good progress. no further deterioration noted. KATHY ORTEGA Jul 23, 2016 16:09
[2016-07-23 16:10] VITALS: BP 141/95
--- NOTE | 2016-07-23 16:19 | Pulmonology Progress Note ---
Assessment/Plan Problems: (1) Sepsis (2) Diarrhea (3) Episode of generalized weakness (4) DM (diabetes mellitus) (5) Hepatitis C (6) Blindness of both eyes (7) HTN (hypertension) (8) COPD (chronic obstructive pulmonary disease) (9) S/P transmetatarsal amputation of foot Assessment/Plan continue abx as per ID check wbc needs placement Subjective ROS Limited/Unobtainable: No Gastrointestinal/Abdominal: Reports: bloating, diarrhea, nausea Neurologic: Reports: confusion, weakness Allergies: Coded Allergies: ACETAMINOPHEN (Unverified Allergy, Unknown, 07/14/16) HYDROCODONE (Unverified Allergy, Unknown, 07/14/16) Objective Last 24 Hour Vital Signs Date Time Temp Pulse Resp B/P Pulse Ox O2 Delivery O2 Flow Rate FiO2 07/23/16 16:10 97.5 100 20 141/95 98 Room Air 07/23/16 12:12 97.5 07/23/16 12:00 97.9 87 20 152/94 100 Room Air 07/23/16 09:23 158/93 07/23/16 08:00 97.5 82 20 158/93 100 Room Air 07/23/16 00:00 97.5 81 22 142/81 99 Room Air 07/22/16 18:21 145/76 Intake and Output 07/22/16 07/23/16 19:00 07:00 Intake Total 1334 ml 1105 ml Output Total 600 ml Balance 1334 ml 505 ml Intake Oral 360 ml 150 ml IV Total 974 ml 955 ml Output Urine Total 600 ml # Voids 3 # Bowel Movements 2 21 General Appearance: no acute distress HEENT: normocephalic, atraumatic, PERRL Respiratory/Chest: chest wall non-tender, decreased breath sounds, accessory muscle use Cardiovascular: normal peripheral pulses, normal rate, regular rhythm, no JVD Abdomen: normal bowel sounds, soft, non tender, no organomegaly Genitourinary: normal external genitalia Extremities: no cyanosis Skin: rash, lesions 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, no motor/sensory deficits Microbiology Date/Time Source Procedure Growth Status 07/21/16 18:05 Blood Blood Culture - Preliminary NO GROWTH AFTER 24 HOURS Resulted 07/21/16 17:50 Blood Blood Culture - Preliminary NO GROWTH AFTER 24 HOURS Resulted 07/21/16 20:30 Urine,Clean Catch Urine Culture - Preliminary NO GROWTH AFTER 24 HOURS Resulted Current Medications Medications (Trade) Dose Ordered Sig/Romelia Route PRN Reason Start Time Stop Time Status Last Admin Dose Admin Al Hydroxide/Mg Hydroxide (Mylanta II) 30 ml Q6H PRN ORAL dyspepsia 07/14/16 06:00 08/13/16 05:59 Amitriptyline HCl (Elavil) 25 mg BEDTIME ORAL 07/14/16 21:00 08/13/16 20:59 07/22/16 20:30 Amylase/Lipase/ Protease (Pancrease) 2 ea TIAC ORAL 07/17/16 16:30 08/16/16 16:29 07/23/16 16:13 Aspirin (Ecotrin) 81 mg DAILY ORAL 07/14/16 09:00 08/13/16 08:59 07/23/16 09:23 Clonidine HCl (Catapres) 0.1 mg BID ORAL 07/14/16 09:00 08/13/16 08:59 07/23/16 09:23 Clonidine HCl (Catapres) 0.1 mg EVERY 4 HOURS PRN ORAL sbp more than 160 07/14/16 06:00 08/13/16 05:59 07/20/16 03:21 Dextrose (Dextrose 50%) STAT PRN IV Hypoglycemia 07/14/16 06:00 08/13/16 05:59 Diphenoxylate HCl/ Atropine (Lomotil) 2.5 mg Q4H PRN ORAL Diarrhea 07/19/16 21:15 07/26/16 15:44 Gabapentin (Neurontin) 300 mg BEDTIME ORAL 07/14/16 21:00 08/13/16 20:59 07/22/16 20:30 Glipizide (Glucotrol) 5 mg BIAC ORAL 07/16/16 11:30 08/15/16 11:29 07/23/16 16:14 Haloperidol Lactate 5 mg 5 mg Q3H PRN IM Agitation 07/14/16 18:30 08/13/16 18:29 Heparin Sodium (Porcine) (Heparin 5000 units/ml) 5,000 units EVERY 12 HOURS SUBQ 07/14/16 09:00 08/13/16 08:59 07/23/16 09:22 Hydromorphone HCl/ Dextrose (Dilaudid/D5W 50ml) 56 ml @ 224 mls/hr Q3H PRN IVPB Severe Pain (Pain Scale 7-10) 07/21/16 14:45 07/28/16 14:44 07/23/16 15:01 Insulin Aspart (NovoLOG) BEFORE MEALS AND HS SUBQ 07/14/16 06:30 08/13/16 06:29 07/23/16 16:16 Loperamide HCl (Imodium) 2 mg EVERY 4 HOURS PRN ORAL Diarrhea 07/17/16 15:00 08/16/16 14:59 07/19/16 11:40 Metformin HCl (Glucophage) 500 mg BID ORAL 07/16/16 09:00 08/15/16 08:59 07/23/16 09:22 Metronidazole 500 mg 500 mg Q8HR ORAL 07/21/16 14:00 07/28/16 13:59 07/23/16 13:20 Nitroglycerin (Ntg) 0.4 mg Q5M X 3 DOSES PRN SL Prn Chest Pain 07/14/16 06:00 08/13/16 05:59 Ondansetron HCl (Zofran) 4 mg Q6H PRN IVP Nausea & Vomiting 07/14/16 06:00 08/13/16 05:59 07/20/16 20:18 Polyethylene Glycol (Miralax) 17 gm HSPRN PRN ORAL Constipation 07/14/16 06:00 08/13/16 05:59 Ranitidine HCl (Zantac) 150 mg BEDTIME ORAL 07/14/16 21:00 08/13/16 20:59 07/22/16 20:30 Simethicone (Mylicon) 80 mg Q6H PRN ORAL GAS PAIN 07/23/16 11:00 08/22/16 10:59 07/23/16 11:43 Sodium Chloride (Sodium Chloride 1000ml bag) 1,000 ml @ 75 mls/hr [id number] IVLG 07/15/16 15:00 08/14/16 14:59 07/23/16 10:03 Vitamin A/Vitamin D (A & D Oint) 1 applic BIDPRN TOPIC 07/14/16 16:00 08/13/16 15:59 DORENE GRIMM Jul 23, 2016 16:19
--- NOTE | 2016-07-23 17:37 | Infectious Diseases Prog Note ---
Assessment/Plan Assessment/Plan ASSESSMENT: 50 y/o male with: Leukocytosis - recurrent, afebrile. 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 Hx of Hep C SP Rx in 1999 - recurrent, elevated LFTs, HCV PCR >6million Negative HIV Chronic Diarrhea, probable malabsorption ( h/o chronic pancreatitis, previously improved with Creon ) - negative C diff, stool Cx, O&P High Alk Phos ro Biliary Dx - US pending Wt loss 140 lb in 12 mo, due to Ch diarrhea , also may need to Ro malignancy ( liver Cancer ) - AFP WNL DM - HbA1c 7.6% Diabetic neuropathy Legally blind SP transmetatarsal amputation R foot smoker amphetamine use MRSA, VRE colonized No ABX allergies Full Code PLAN : continue Flagyl d# 9 ( 07/21 SP IV Vanco, Cefepime d# ) f/u new cultures consider colonoscopy Monitor CBC, temperatures - CBC AM Monitor CMP US of liver outpt HCV Rx placement Subjective Allergies: Coded Allergies: ACETAMINOPHEN (Unverified Allergy, Unknown, 07/14/16) HYDROCODONE (Unverified Allergy, Unknown, 07/14/16) Subjective afebrile. recurrent leukocytosis. no repeat CBC, Cx NGTD persistent diarrhea Objective Vital Signs Last 24 Hour Vital Signs Date Time Temp Pulse Resp B/P Pulse Ox O2 Delivery O2 Flow Rate FiO2 07/23/16 16:10 97.5 100 20 141/95 98 Room Air 07/23/16 12:12 97.5 07/23/16 12:00 97.9 87 20 152/94 100 Room Air 07/23/16 09:23 158/93 07/23/16 08:00 97.5 82 20 158/93 100 Room Air 07/23/16 00:00 97.5 81 22 142/81 99 Room Air 07/22/16 18:21 145/76 Height (Feet): 5 Height (Inches): 11.00 Weight (Pounds): 114 General Appearance: no acute distress Respiratory/Chest: no respiratory distress Cardiovascular: normal rate, regular rhythm Abdomen: normal bowel sounds, soft, non tender, non distended Microbiology Date/Time Source Procedure Growth Status 07/21/16 18:05 Blood Blood Culture - Preliminary NO GROWTH AFTER 24 HOURS Resulted 07/21/16 17:50 Blood Blood Culture - Preliminary NO GROWTH AFTER 24 HOURS Resulted 07/21/16 20:30 Urine,Clean Catch Urine Culture - Preliminary NO GROWTH AFTER 24 HOURS Resulted Current Medications Medications (Trade) Dose Ordered Sig/Romelia Route PRN Reason Start Time Stop Time Status Last Admin Dose Admin Al Hydroxide/Mg Hydroxide (Mylanta II) 30 ml Q6H PRN ORAL dyspepsia 07/14/16 06:00 08/13/16 05:59 Amitriptyline HCl (Elavil) 25 mg BEDTIME ORAL 07/14/16 21:00 08/13/16 20:59 07/22/16 20:30 Amylase/Lipase/ Protease (Pancrease) 2 ea TIAC ORAL 07/17/16 16:30 08/16/16 16:29 07/23/16 16:13 Aspirin (Ecotrin) 81 mg DAILY ORAL 07/14/16 09:00 08/13/16 08:59 07/23/16 09:23 Clonidine HCl (Catapres) 0.1 mg BID ORAL 07/14/16 09:00 08/13/16 08:59 07/23/16 09:23 Clonidine HCl (Catapres) 0.1 mg EVERY 4 HOURS PRN ORAL sbp more than 160 07/14/16 06:00 08/13/16 05:59 07/20/16 03:21 Dextrose (Dextrose 50%) STAT PRN IV Hypoglycemia 07/14/16 06:00 08/13/16 05:59 Diphenoxylate HCl/ Atropine (Lomotil) 2.5 mg Q4H PRN ORAL Diarrhea 07/19/16 21:15 07/26/16 15:44 Gabapentin (Neurontin) 300 mg BEDTIME ORAL 07/14/16 21:00 08/13/16 20:59 07/22/16 20:30 Glipizide (Glucotrol) 5 mg BIAC ORAL 07/16/16 11:30 08/15/16 11:29 07/23/16 16:14 Haloperidol Lactate 5 mg 5 mg Q3H PRN IM Agitation 07/14/16 18:30 08/13/16 18:29 Heparin Sodium (Porcine) (Heparin 5000 units/ml) 5,000 units EVERY 12 HOURS SUBQ 07/14/16 09:00 08/13/16 08:59 07/23/16 09:22 Hydromorphone HCl/ Dextrose (Dilaudid/D5W 50ml) 56 ml @ 224 mls/hr Q3H PRN IVPB Severe Pain (Pain Scale 7-10) 07/21/16 14:45 07/28/16 14:44 07/23/16 15:01 Insulin Aspart (NovoLOG) BEFORE MEALS AND HS SUBQ 07/14/16 06:30 08/13/16 06:29 07/23/16 16:16 Loperamide HCl (Imodium) 2 mg EVERY 4 HOURS PRN ORAL Diarrhea 07/17/16 15:00 08/16/16 14:59 07/19/16 11:40 Metformin HCl (Glucophage) 500 mg BID ORAL 07/16/16 09:00 08/15/16 08:59 07/23/16 09:22 Metronidazole 500 mg 500 mg Q8HR ORAL 07/21/16 14:00 07/28/16 13:59 07/23/16 13:20 Nitroglycerin (Ntg) 0.4 mg Q5M X 3 DOSES PRN SL Prn Chest Pain 07/14/16 06:00 08/13/16 05:59 Ondansetron HCl (Zofran) 4 mg Q6H PRN IVP Nausea & Vomiting 07/14/16 06:00 08/13/16 05:59 07/20/16 20:18 Polyethylene Glycol (Miralax) 17 gm HSPRN PRN ORAL Constipation 07/14/16 06:00 08/13/16 05:59 Ranitidine HCl (Zantac) 150 mg BEDTIME ORAL 07/14/16 21:00 08/13/16 20:59 07/22/16 20:30 Simethicone (Mylicon) 80 mg Q6H PRN ORAL GAS PAIN 07/23/16 11:00 08/22/16 10:59 07/23/16 11:43 Sodium Chloride (Sodium Chloride 1000ml bag) 1,000 ml @ 75 mls/hr [id number] IVLG 07/15/16 15:00 08/14/16 14:59 07/23/16 10:03 Vitamin A/Vitamin D (A & D Oint) 1 applic BIDPRN TOPIC 07/14/16 16:00 08/13/16 15:59 ADA TURNER Jul 23, 2016 17:37
[2016-07-23 20:11] VITALS: BP 138/88
[2016-07-24] VITALS: BP 127/92
[2016-07-24] MEDS: D5W IVPB PRN ×6 (01:58→23:57)
[2016-07-24] MEDS: HYDROMORPHONE IVPB PRN ×6 (01:58→23:57)
[2016-07-24 04:00] VITALS: BP 153/90
[2016-07-24] MEDS: metroNIDAZOLE 500mg tab ORAL SCH (05:53)
[2016-07-24] MEDS: GlipiZIDE 5mg tab ORAL SCH ×3 (05:53→17:14)
[2016-07-24] MEDS: NovoLOG Insulin Flexpen SUBQ SCH ×4 (05:53→20:57)
[2016-07-24] MEDS: Pancrease Cap ORAL SCH ×3 (05:53→17:15)
[2016-07-24 07:24] LABS: BASOPHILS % (AUTO) 1.3 % (0.0-2.0); LYMPHOCYTES % (AUTO) 32.7 % (20.0-45.0); MEAN CORPUSCULAR HEMOGLOBIN 30.1 PG (27.0-31.0); MEAN CORPUSCULAR HGB CONC 32.3 G/DL (32.0-36.0); MEAN CORPUSCULAR VOLUME 93 FL (80-99); MEAN PLATELET VOLUME 5.9 FL (6.5-10.1); MONOCYTES % (AUTO) 9.8 % (1.0-10.0); NEUTROPHILS % (AUTO) 49.1 % (45.0-75.0); PLATELET COUNT 292 K/UL (150-450); RED BLOOD COUNT 3.33 M/UL (4.70-6.10); RED CELL DISTRIBUTION WIDTH 18.3 % (11.6-14.8); WHITE BLOOD COUNT 8.5 K/UL (4.8-10.8)
[2016-07-24 07:37] LABS: ALANINE AMINOTRANSFERASE 87 U/L (3-41); ALBUMIN/GLOBULIN RATIO 0.6 (1.0-2.7); ANION GAP 9 (5-15); ASPARTATE AMINO TRANSFERASE 133 U/L (5-40); CALCIUM 8.8 mg/dL (8.6-10.2); CARBON DIOXIDE 28 mEQ/L (20-30); CHLORIDE 99 mEQ/L (98-107); CREATININE 0.9 mg/dL (0.7-1.2); GLOMERULAR FILTRATION RATE > 60 mL/min (>60); HEMOLYSIS 4; POTASSIUM 4.8 mEQ/L (3.4-4.9); SODIUM 136 mEQ/L (135-145); TOTAL PROTEIN 7.1 g/dL (6.6-8.7)
[2016-07-24 08:17] VITALS: BP 135/91
[2016-07-24] MEDS: metFORMIN 500mg tab ORAL SCH ×2 (08:45→17:16)
[2016-07-24] MEDS: Aspirin EC 81mg tab ORAL SCH (08:45)
[2016-07-24] MEDS: Heparin 5000 units/ml inj SUBQ SCH ×2 (08:50→20:57)
--- NOTE | 2016-07-24 10:31 | GI Progress Note ---
Assessment/Plan Problems: (1) Severe malnutrition ICD Codes: E43 - Unspecified severe protein-calorie malnutrition SNOMED: 99525670 (2) Episode of generalized weakness ICD Codes: R53.1 - Weakness SNOMED: 45873989 (3) C. difficile colitis ICD Codes: A04.7 - Enterocolitis due to Clostridium difficile SNOMED: 936578366 (4) Abdominal pain ICD Codes: R10.9 - Unspecified abdominal pain SNOMED: 16507562 (5) Diarrhea ICD Codes: R19.7 - Diarrhea, unspecified SNOMED: 22926961 (6) DM (diabetes mellitus) ICD Codes: E11.9 - DM (diabetes mellitus) SNOMED: 27326591 (7) Hepatitis C ICD Codes: B19.20 - Unspecified viral hepatitis C without hepatic coma SNOMED: 39258992 (8) Blindness of both eyes ICD Codes: H54.0 - Blindness, both eyes SNOMED: 35665695, 742535169 (9) Amphetamine abuse ICD Codes: F15.10 - Other stimulant abuse, uncomplicated SNOMED: 54221764 Status: stable, progressing Status Narrative Discussed with Dr. Leonardo. Assessment/Plan fu stool studies >> negative O&P >> negative fecal fat pending stool culture >> negative hepatitis panel >> Hep C positive cdiff negative utox >> amphetamines positive cleared for DC per GI standpoint cont Lomotil Imodium prn ordered simethicone KUB, Distended stomach. fu abdominal U/S cont Pancrease OB stool uncollected low residual diet H2 fu labs outpt Hep C tx Subjective Gastrointestinal/Abdominal: Reports: no symptoms Subjective feels better Objective Last 24 Hour Vital Signs Date Time Temp Pulse Resp B/P Pulse Ox O2 Delivery O2 Flow Rate FiO2 07/24/16 08:46 135/91 07/24/16 08:17 98.2 79 18 135/91 95 Room Air 07/24/16 04:00 97.3 71 18 153/90 100 Room Air 07/24/16 00:00 97.3 92 18 127/92 100 Room Air 07/23/16 20:11 98.2 94 20 138/88 99 Room Air 07/23/16 17:43 141/95 07/23/16 16:10 97.5 100 20 141/95 98 Room Air 07/23/16 12:12 97.5 1/16/17 12:00 97.9 87 20 152/94 100 Room Air Intake and Output 07/23/16 07/24/16 19:00 07:00 Intake Total 1655 ml 1278.5 ml Output Total 1300 ml 1800 ml Balance 355 ml -521.5 ml Intake Oral 700 ml 450 ml IV Total 955 ml 828.5 ml Output Urine Total 1300 ml 1800 ml # Voids 2 # Bowel Movements 5 4 Laboratory Tests Test 07/24/16 06:15 White Blood Count 8.5 K/UL (4.8-10.8) Red Blood Count 3.33 M/UL (4.70-6.10) L Hemoglobin 10.0 G/DL (14.2-18.0) L Hematocrit 31.0 % (42.0-52.0) L Mean Corpuscular Volume 93 FL (80-99) Mean Corpuscular Hemoglobin 30.1 PG (27.0-31.0) Mean Corpuscular Hemoglobin Concent 32.3 G/DL (32.0-36.0) Red Cell Distribution Width 18.3 % (11.6-14.8) H Platelet Count 292 K/UL (150-450) Mean Platelet Volume 5.9 FL (6.5-10.1) L Neutrophils (%) (Auto) 49.1 % (45.0-75.0) Lymphocytes (%) (Auto) 32.7 % (20.0-45.0) Monocytes (%) (Auto) 9.8 % (1.0-10.0) Eosinophils (%) (Auto) 7.0 % (0.0-3.0) H Basophils (%) (Auto) 1.3 % (0.0-2.0) Sodium Level 136 mEQ/L (135-145) Potassium Level 4.8 mEQ/L (3.4-4.9) Chloride Level 99 mEQ/L (98-107) Carbon Dioxide Level 28 mEQ/L (20-30) Anion Gap 9 (5-15) Blood Urea Nitrogen 24 mg/dL (7-23) H Creatinine 0.9 mg/dL (0.7-1.2) Estimat Glomerular Filtration Rate > 60 mL/min (>60) Glucose Level 86 mg/dL (74-106) Calcium Level 8.8 mg/dL (8.6-10.2) Total Bilirubin 0.2 mg/dL (0.0-1.2) Aspartate Amino Transf (AST/SGOT) 133 U/L (5-40) H Alanine Aminotransferase (ALT/SGPT) 87 U/L (3-41) H Alkaline Phosphatase 245 U/L (40-129) H Total Protein 7.1 g/dL (6.6-8.7) Albumin 2.9 g/dL (3.5-5.2) L Globulin 4.2 g/dL Albumin/Globulin Ratio 0.6 (1.0-2.7) L Height (Feet): 5 Height (Inches): 11.00 Weight (Pounds): 114 General Appearance: no apparent distress, alert, thin Cardiovascular: normal rate Abdominal Exam: normal bowel sounds, non tender, soft Bernadette Iverson N.Ana Jul 24, 2016 10:31
[2016-07-24 11:59] VITALS: BP 148/94
--- NOTE | 2016-07-24 12:00 | Diagnostic Imaging Report ---
Indication: Pain Comparison: None Findings: 3 views of the right foot were obtained. Transmetatarsal amputation noted. There is slight irregularity of the amputated site of the first and second metatarsals, relatively nonspecific finding. The bones are diffusely osteopenic. Impression: No plain film evidence for osteomyelitis definitively demonstrated. Slight irregularity at the amputated margin of the first and second metatarsals nonspecific. Consider MR for further evaluation as warranted clinically.
--- NOTE | 2016-07-24 14:58 | Diagnostic Imaging Report ---
Indications: Elevated hepatic and renal function tests Technique: Transabdominal real-time grayscale and duplex Doppler imaging of the upper abdomen and retroperitoneum was performed. Findings: Comparison: CT abdomen pelvis 05/17/16. Liver normal size and surface contour, parenchymal echogenicity. No focal lesions. Gallbladder not identified. Bile ducts normal caliber. Common bile duct 6 mm. Pancreas unremarkable. Spleen unremarkable. Right kidney with collecting system dilation, otherwise unremarkable. Left kidney contains a 14 mm circumscribed anechoic focus in upper pole cortex, demonstrates mild collecting system dilation, otherwise unremarkable. Occipital and mid abdominal aorta, intrahepatic portion of inferior vena cava patent, normal caliber. Distal bowel aorta obscured by bowel gas. Duplex Doppler imaging demonstrates antegrade flow in splenic, portal, hepatic veins. No ascites. Urinary bladder distention incidentally noted IMPRESSION: Nonvisualization of gallbladder compatible with previous cholecystectomy, shown on previous CT scan Mild bilateral renal collecting system fullness may be secondary to urinary bladder outflow obstruction. Consider Boone catheter placement.. Left renal cortical cyst
--- NOTE | 2016-07-24 15:39 | Infectious Diseases Prog Note ---
Assessment/Plan Assessment/Plan ASSESSMENT: 50 y/o male with: Leukocytosis - recurrent, again resolved, afebrile. 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 Hx of Hep C SP Rx in 1999 - recurrent, elevated LFTs, HCV PCR >6million Negative HIV Chronic Diarrhea, probable malabsorption ( h/o chronic pancreatitis, previously improved with Creon ) - negative C diff, stool Cx, O&P High Alk Phos - US: Nonvisualization of gallbladder compatible with previous cholecystectomy, Wt loss 140 lb in 12 mo, due to Ch diarrhea , also may need to Ro malignancy ( liver Cancer ) - AFP WNL DM - HbA1c 7.6% Diabetic neuropathy Legally blind SP transmetatarsal amputation R foot smoker amphetamine use MRSA, VRE colonized No ABX allergies Full Code PLAN : limit Flagyl after today d# , monitor pt off of ABX ( 07/21 SP IV Vanco, Cefepime d# ) f/u final cultures consider colonoscopy Monitor CBC, temperatures Monitor CMP outpt HCV Rx placement Subjective Allergies: Coded Allergies: ACETAMINOPHEN (Unverified Allergy, Unknown, 07/14/16) HYDROCODONE (Unverified Allergy, Unknown, 07/14/16) Subjective afebrile. recurrent leukocytosis resolved, repeat Cx NGTD persistent diarrhea Objective Vital Signs Last 24 Hour Vital Signs Date Time Temp Pulse Resp B/P Pulse Ox O2 Delivery O2 Flow Rate FiO2 07/24/16 11:59 98.0 82 18 148/94 95 Room Air 07/24/16 11:06 98.2 07/24/16 08:46 135/91 07/24/16 08:17 98.2 79 18 135/91 95 Room Air 07/24/16 04:00 97.3 71 18 153/90 100 Room Air 07/24/16 00:00 97.3 92 18 127/92 100 Room Air 07/23/16 20:11 98.2 94 20 138/88 99 Room Air 07/23/16 17:43 141/95 07/23/16 16:10 97.5 100 20 141/95 98 Room Air Height (Feet): 5 Height (Inches): 11.00 Weight (Pounds): 114 General Appearance: no acute distress Respiratory/Chest: no respiratory distress Cardiovascular: normal rate, regular rhythm Abdomen: normal bowel sounds, soft, non tender, non distended Microbiology Date/Time Source Procedure Growth Status 07/21/16 18:05 Blood Blood Culture - Preliminary NO GROWTH AFTER 48 HOURS Resulted 07/21/16 17:50 Blood Blood Culture - Preliminary NO GROWTH AFTER 48 HOURS Resulted 07/21/16 20:30 Urine,Clean Catch Urine Culture - Final NO GROWTH AFTER 48 HOURS Complete Laboratory Tests Test 07/24/16 06:15 White Blood Count 8.5 K/UL (4.8-10.8) Red Blood Count 3.33 M/UL (4.70-6.10) L Hemoglobin 10.0 G/DL (14.2-18.0) L Hematocrit 31.0 % (42.0-52.0) L Mean Corpuscular Volume 93 FL (80-99) Mean Corpuscular Hemoglobin 30.1 PG (27.0-31.0) Mean Corpuscular Hemoglobin Concent 32.3 G/DL (32.0-36.0) Red Cell Distribution Width 18.3 % (11.6-14.8) H Platelet Count 292 K/UL (150-450) Mean Platelet Volume 5.9 FL (6.5-10.1) L Neutrophils (%) (Auto) 49.1 % (45.0-75.0) Lymphocytes (%) (Auto) 32.7 % (20.0-45.0) Monocytes (%) (Auto) 9.8 % (1.0-10.0) Eosinophils (%) (Auto) 7.0 % (0.0-3.0) H Basophils (%) (Auto) 1.3 % (0.0-2.0) Sodium Level 136 mEQ/L (135-145) Potassium Level 4.8 mEQ/L (3.4-4.9) Chloride Level 99 mEQ/L (98-107) Carbon Dioxide Level 28 mEQ/L (20-30) Anion Gap 9 (5-15) Blood Urea Nitrogen 24 mg/dL (7-23) H Creatinine 0.9 mg/dL (0.7-1.2) Estimat Glomerular Filtration Rate > 60 mL/min (>60) Glucose Level 86 mg/dL (74-106) Calcium Level 8.8 mg/dL (8.6-10.2) Total Bilirubin 0.2 mg/dL (0.0-1.2) Aspartate Amino Transf (AST/SGOT) 133 U/L (5-40) H Alanine Aminotransferase (ALT/SGPT) 87 U/L (3-41) H Alkaline Phosphatase 245 U/L (40-129) H Total Protein 7.1 g/dL (6.6-8.7) Albumin 2.9 g/dL (3.5-5.2) L Globulin 4.2 g/dL Albumin/Globulin Ratio 0.6 (1.0-2.7) L Current Medications Medications (Trade) Dose Ordered Sig/Romelia Route PRN Reason Start Time Stop Time Status Last Admin Dose Admin Al Hydroxide/Mg Hydroxide (Mylanta II) 30 ml Q6H PRN ORAL dyspepsia 07/14/16 06:00 08/13/16 05:59 Amitriptyline HCl (Elavil) 25 mg BEDTIME ORAL 07/14/16 21:00 08/13/16 20:59 07/23/16 20:13 Amylase/Lipase/ Protease (Pancrease) 2 ea TIAC ORAL 07/17/16 16:30 08/16/16 16:29 07/24/16 11:50 Aspirin (Ecotrin) 81 mg DAILY ORAL 07/14/16 09:00 08/13/16 08:59 07/24/16 08:45 Clonidine HCl (Catapres) 0.1 mg BID ORAL 07/14/16 09:00 08/13/16 08:59 07/24/16 08:46 Clonidine HCl (Catapres) 0.1 mg EVERY 4 HOURS PRN ORAL sbp more than 160 07/14/16 06:00 08/13/16 05:59 07/20/16 03:21 Dextrose (Dextrose 50%) STAT PRN IV Hypoglycemia 07/14/16 06:00 08/13/16 05:59 Diphenoxylate HCl/ Atropine 2.5 mg 2.5 mg Q4H PRN ORAL Diarrhea 07/19/16 21:15 07/26/16 15:44 Gabapentin (Neurontin) 300 mg BEDTIME ORAL 07/14/16 21:00 08/13/16 20:59 07/23/16 20:47 Glipizide (Glucotrol) 5 mg BIAC ORAL 07/16/16 11:30 08/15/16 11:29 07/23/16 16:14 Haloperidol Lactate 5 mg 5 mg Q3H PRN IM Agitation 07/14/16 18:30 08/13/16 18:29 Heparin Sodium (Porcine) (Heparin 5000 units/ml) 5,000 units EVERY 12 HOURS SUBQ 07/14/16 09:00 08/13/16 08:59 07/24/16 08:50 Hydromorphone HCl/ Dextrose (Dilaudid/D5W 50ml) 56 ml @ 224 mls/hr Q3H PRN IVPB Severe Pain (Pain Scale 7-10) 07/21/16 14:45 07/28/16 14:44 07/24/16 10:36 Insulin Aspart (NovoLOG) BEFORE MEALS AND HS SUBQ 07/14/16 06:30 08/13/16 06:29 07/23/16 16:16 Loperamide HCl (Imodium) 2 mg EVERY 4 HOURS PRN ORAL Diarrhea 07/17/16 15:00 08/16/16 14:59 07/19/16 11:40 Metformin HCl (Glucophage) 500 mg BID ORAL 07/16/16 09:00 08/15/16 08:59 07/24/16 08:45 Metronidazole (Flagyl) 500 mg Q12HR ORAL 07/24/16 21:00 07/31/16 20:59 Nitroglycerin (Ntg) 0.4 mg Q5M X 3 DOSES PRN SL Prn Chest Pain 07/14/16 06:00 08/13/16 05:59 Ondansetron HCl (Zofran) 4 mg Q6H PRN IVP Nausea & Vomiting 07/14/16 06:00 08/13/16 05:59 07/20/16 20:18 Polyethylene Glycol (Miralax) 17 gm HSPRN PRN ORAL Constipation 07/14/16 06:00 08/13/16 05:59 Ranitidine HCl (Zantac) 150 mg BEDTIME ORAL 07/14/16 21:00 08/13/16 20:59 07/23/16 20:13 Simethicone (Mylicon) 80 mg Q6H PRN ORAL GAS PAIN 07/23/16 11:00 08/22/16 10:59 07/23/16 11:43 Sodium Chloride (Sodium Chloride 1000ml bag) 1,000 ml @ 75 mls/hr [id number] IVLG 07/15/16 15:00 08/14/16 14:59 07/24/16 01:57 Vitamin A/Vitamin D (A & D Oint) 1 applic BIDPRN TOPIC 07/14/16 16:00 08/13/16 15:59 ADA TURNER Jul 24, 2016 15:39
[2016-07-24 17:06] VITALS: BP 149/85
--- NOTE | 2016-07-24 17:10 | Pulmonology Progress Note ---
Assessment/Plan Problems: (1) Sepsis (2) Diarrhea (3) Episode of generalized weakness (4) DM (diabetes mellitus) (5) Hepatitis C (6) Blindness of both eyes (7) HTN (hypertension) (8) COPD (chronic obstructive pulmonary disease) (9) S/P transmetatarsal amputation of foot Assessment/Plan continue abx as per ID check wbc needs placement Subjective Constitutional: Reports: anorexia, fatigue Gastrointestinal/Abdominal: Reports: bloating, diarrhea, nausea Neurologic: Reports: weakness Allergies: Coded Allergies: ACETAMINOPHEN (Unverified Allergy, Unknown, 07/14/16) HYDROCODONE (Unverified Allergy, Unknown, 07/14/16) Objective Last 24 Hour Vital Signs Date Time Temp Pulse Resp B/P Pulse Ox O2 Delivery O2 Flow Rate FiO2 07/24/16 17:06 98.6 89 21 149/85 100 Room Air 07/24/16 11:59 98.0 82 18 148/94 95 Room Air 07/24/16 11:06 98.2 07/24/16 08:46 135/91 07/24/16 08:17 98.2 79 18 135/91 95 Room Air 07/24/16 04:00 97.3 71 18 153/90 100 Room Air 07/24/16 00:00 97.3 92 18 127/92 100 Room Air 07/23/16 20:11 98.2 94 20 138/88 99 Room Air 07/23/16 17:43 141/95 Intake and Output 07/23/16 07/24/16 19:00 07:00 Intake Total 1655 ml 1278.5 ml Output Total 1300 ml 1800 ml Balance 355 ml -521.5 ml Intake Oral 700 ml 450 ml IV Total 955 ml 828.5 ml Output Urine Total 1300 ml 1800 ml # Voids 2 # Bowel Movements 5 4 General Appearance: no acute distress HEENT: normocephalic, atraumatic Respiratory/Chest: chest wall non-tender, decreased breath sounds, accessory muscle use, crackles/rales Cardiovascular: normal peripheral pulses, normal rate, regular rhythm, no JVD Abdomen: normal bowel sounds, soft, non tender, no organomegaly Genitourinary: normal external genitalia Extremities: no cyanosis Skin: no rash, lesions 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, no motor/sensory deficits Microbiology Date/Time Source Procedure Growth Status 07/21/16 18:05 Blood Blood Culture - Preliminary NO GROWTH AFTER 48 HOURS Resulted 07/21/16 17:50 Blood Blood Culture - Preliminary NO GROWTH AFTER 48 HOURS Resulted 07/21/16 20:30 Urine,Clean Catch Urine Culture - Final NO GROWTH AFTER 48 HOURS Complete Laboratory Tests 07/24/16 06:15: White Blood Count 8.5, Red Blood Count 3.33L, Hemoglobin 10.0L, Hematocrit 31.0L , Mean Corpuscular Volume 93, Mean Corpuscular Hemoglobin 30.1, Mean Corpuscular Hemoglobin Concent 32.3, Red Cell Distribution Width 18.3H, Platelet Count 292, Mean Platelet Volume 5.9L, Neutrophils (%) (Auto) 49.1, Lymphocytes (%) (Auto) 32.7, Monocytes (%) (Auto) 9.8, Eosinophils (%) (Auto) 7.0H, Basophils (%) (Auto) 1.3, Sodium Level 136, Potassium Level 4.8, Chloride Level 99, Carbon Dioxide Level 28, Anion Gap 9, Blood Urea Nitrogen 24H, Creatinine 0.9, Estimat Glomerular Filtration Rate > 60, Glucose Level 86, Calcium Level 8.8, Total Bilirubin 0.2, Aspartate Amino Transf (AST/SGOT) 133H, Alanine Aminotransferase (ALT/SGPT) 87H, Alkaline Phosphatase 245H, Total Protein 7.1, Albumin 2.9L, Globulin 4.2, Albumin/Globulin Ratio 0.6L Current Medications Medications (Trade) Dose Ordered Sig/Romelia Route PRN Reason Start Time Stop Time Status Last Admin Dose Admin Al Hydroxide/Mg Hydroxide (Mylanta II) 30 ml Q6H PRN ORAL dyspepsia 07/14/16 06:00 08/13/16 05:59 Amitriptyline HCl (Elavil) 25 mg BEDTIME ORAL 07/14/16 21:00 08/13/16 20:59 07/23/16 20:13 Amylase/Lipase/ Protease (Pancrease) 2 ea TIAC ORAL 07/17/16 16:30 08/16/16 16:29 07/24/16 11:50 Aspirin (Ecotrin) 81 mg DAILY ORAL 07/14/16 09:00 08/13/16 08:59 07/24/16 08:45 Clonidine HCl (Catapres) 0.1 mg BID ORAL 07/14/16 09:00 08/13/16 08:59 07/24/16 08:46 Clonidine HCl (Catapres) 0.1 mg EVERY 4 HOURS PRN ORAL sbp more than 160 07/14/16 06:00 08/13/16 05:59 07/20/16 03:21 Dextrose (Dextrose 50%) STAT PRN IV Hypoglycemia 07/14/16 06:00 08/13/16 05:59 Diphenoxylate HCl/ Atropine 2.5 mg 2.5 mg Q4H PRN ORAL Diarrhea 07/19/16 21:15 07/26/16 15:44 Gabapentin (Neurontin) 300 mg BEDTIME ORAL 07/14/16 21:00 08/13/16 20:59 07/23/16 20:47 Glipizide (Glucotrol) 5 mg BIAC ORAL 07/16/16 11:30 08/15/16 11:29 07/23/16 16:14 Haloperidol Lactate 5 mg 5 mg Q3H PRN IM Agitation 07/14/16 18:30 08/13/16 18:29 Heparin Sodium (Porcine) (Heparin 5000 units/ml) 5,000 units EVERY 12 HOURS SUBQ 07/14/16 09:00 08/13/16 08:59 07/24/16 08:50 Hydromorphone HCl/ Dextrose (Dilaudid/D5W 50ml) 56 ml @ 224 mls/hr Q3H PRN IVPB Severe Pain (Pain Scale 7-10) 07/21/16 14:45 07/28/16 14:44 07/24/16 10:36 Insulin Aspart (NovoLOG) BEFORE MEALS AND HS SUBQ 07/14/16 06:30 08/13/16 06:29 07/23/16 16:16 Loperamide HCl (Imodium) 2 mg EVERY 4 HOURS PRN ORAL Diarrhea 07/17/16 15:00 08/16/16 14:59 07/19/16 11:40 Metformin HCl (Glucophage) 500 mg BID ORAL 07/16/16 09:00 08/15/16 08:59 07/24/16 08:45 Metronidazole (Flagyl) 500 mg Q12HR ORAL 07/24/16 21:00 07/24/16 23:59 Nitroglycerin (Ntg) 0.4 mg Q5M X 3 DOSES PRN SL Prn Chest Pain 07/14/16 06:00 08/13/16 05:59 Ondansetron HCl (Zofran) 4 mg Q6H PRN IVP Nausea & Vomiting 07/14/16 06:00 08/13/16 05:59 07/20/16 20:18 Polyethylene Glycol (Miralax) 17 gm HSPRN PRN ORAL Constipation 07/14/16 06:00 08/13/16 05:59 Ranitidine HCl (Zantac) 150 mg BEDTIME ORAL 07/14/16 21:00 08/13/16 20:59 07/23/16 20:13 Simethicone (Mylicon) 80 mg Q6H PRN ORAL GAS PAIN 07/23/16 11:00 08/22/16 10:59 07/23/16 11:43 Sodium Chloride (Sodium Chloride 1000ml bag) 1,000 ml @ 75 mls/hr [id number] IVLG 07/15/16 15:00 08/14/16 14:59 07/24/16 01:57 Vitamin A/Vitamin D (A & D Oint) 1 applic BIDPRN TOPIC 07/14/16 16:00 08/13/16 15:59 DORENE GRIMM Jul 24, 2016 17:10
[2016-07-24 20:03] VITALS: BP 142/95
[2016-07-24] MEDS: Loperamide 2mg cap ORAL PRN (20:49)
[2016-07-24] MEDS ORDERED: metroNIDAZOLE 500mg tab ORAL SCH (21:00)
[2016-07-25] VITALS: BP 133/83
[2016-07-25] MEDS: D5W IVPB PRN ×3 (03:50→15:02)
[2016-07-25] MEDS: HYDROMORPHONE IVPB PRN ×3 (03:50→15:02)
[2016-07-25 04:00] VITALS: BP 128/82
[2016-07-25] MEDS: GlipiZIDE 5mg tab ORAL SCH (05:48)
[2016-07-25] MEDS: NovoLOG Insulin Flexpen SUBQ SCH ×4 (05:49→21:00)
[2016-07-25] MEDS: Pancrease Cap ORAL SCH ×3 (05:49→18:34)
[2016-07-25 06:33] LABS: BASOPHILS % (AUTO) 1.9 % (0.0-2.0); EOSINOPHILS % (AUTO) 5.6 % (0.0-3.0); LYMPHOCYTES % (AUTO) 25.4 % (20.0-45.0); MEAN CORPUSCULAR HEMOGLOBIN 30.2 PG (27.0-31.0); MEAN CORPUSCULAR HGB CONC 32.1 G/DL (32.0-36.0); MEAN CORPUSCULAR VOLUME 94 FL (80-99); MEAN PLATELET VOLUME 5.6 FL (6.5-10.1); MONOCYTES % (AUTO) 7.3 % (1.0-10.0); NEUTROPHILS % (AUTO) 59.9 % (45.0-75.0); PLATELET COUNT 291 K/UL (150-450); RED BLOOD COUNT 3.23 M/UL (4.70-6.10); RED CELL DISTRIBUTION WIDTH 18.7 % (11.6-14.8); WHITE BLOOD COUNT 8.4 K/UL (4.8-10.8)
--- NOTE | 2016-07-25 07:16 | General Progress Note ---
Assessment/Plan Problem List: (1) Hyperglycemia (2) COPD (chronic obstructive pulmonary disease) ICD Codes: J44.9 - Chronic obstructive pulmonary disease, unspecified SNOMED: 21554340 (3) HTN (hypertension) ICD Codes: I10 - Essential (primary) hypertension SNOMED: 45273030 (4) Hepatitis C ICD Codes: B19.20 - Unspecified viral hepatitis C without hepatic coma SNOMED: 31631817 (5) Sepsis ICD Codes: A41.9 - Sepsis, unspecified organism SNOMED: 27807738 Assessment/Plan DC glipizide - will increase his risk of hypoglycemia continue metformin + SSI Subjective Allergies: Coded Allergies: ACETAMINOPHEN (Unverified Allergy, Unknown, 07/14/16) HYDROCODONE (Unverified Allergy, Unknown, 07/14/16) All Systems: reviewed and negative except above Subjective events noted - interval notes reviewed Objective Last 24 Hour Vital Signs Date Time Temp Pulse Resp B/P Pulse Ox O2 Delivery O2 Flow Rate FiO2 07/25/16 04:00 97.7 96 20 128/82 100 Room Air 07/25/16 00:00 97.3 79 18 133/83 100 Room Air 07/24/16 20:03 98.2 98 22 142/95 96 Room Air 07/24/16 17:15 149/85 07/24/16 17:06 98.6 89 21 149/85 100 Room Air 07/24/16 11:59 98.0 82 18 148/94 95 Room Air 07/24/16 11:06 98.2 07/24/16 08:46 135/91 07/24/16 08:17 98.2 79 18 135/91 95 Room Air Intake and Output 07/24/16 07/25/16 19:00 07:00 Intake Total 1011 ml 1653 ml Output Total 600 ml 400 ml Balance 411 ml 1253 ml Intake Oral 730 ml 840 ml IV Total 281 ml 813 ml Output Urine Total 600 ml 400 ml # Voids 1 6 # Bowel Movements 2 6 Laboratory Tests 07/25/16 04:50: White Blood Count 8.4, Red Blood Count 3.23L, Hemoglobin 9.7L, Hematocrit 30.4L , Mean Corpuscular Volume 94, Mean Corpuscular Hemoglobin 30.2, Mean Corpuscular Hemoglobin Concent 32.1, Red Cell Distribution Width 18.7H, Platelet Count 291, Mean Platelet Volume 5.6L, Neutrophils (%) (Auto) 59.9, Lymphocytes (%) (Auto) 25.4, Monocytes (%) (Auto) 7.3, Eosinophils (%) (Auto) 5.6H, Basophils (%) (Auto) 1.9, Sodium Level [Pending], Potassium Level [Pending ], Chloride Level [Pending], Carbon Dioxide Level [Pending], Blood Urea Nitrogen [Pending], Creatinine [Pending], Estimat Glomerular Filtration Rate [ Pending], Glucose Level [Pending], Calcium Level [Pending] Height (Feet): 5 Height (Inches): 11.00 Weight (Pounds): 114 General Appearance: no apparent distress Neck: normal alignment Cardiovascular: normal rate Respiratory/Chest: lungs clear Abdomen: normal bowel sounds Pelvis: normal external exam Objective Current Medications Medications (Trade) Dose Ordered Sig/Romelia Route PRN Reason Start Time Stop Time Status Last Admin Dose Admin Al Hydroxide/Mg Hydroxide (Mylanta II) 30 ml Q6H PRN ORAL dyspepsia 07/14/16 06:00 08/13/16 05:59 Amitriptyline HCl (Elavil) 25 mg BEDTIME ORAL 07/14/16 21:00 08/13/16 20:59 07/23/16 20:13 Amylase/Lipase/ Protease (Pancrease) 2 ea TIAC ORAL 07/17/16 16:30 08/16/16 16:29 07/25/16 05:49 Aspirin (Ecotrin) 81 mg DAILY ORAL 07/14/16 09:00 08/13/16 08:59 07/24/16 08:45 Clonidine HCl (Catapres) 0.1 mg BID ORAL 07/14/16 09:00 08/13/16 08:59 07/24/16 17:15 Clonidine HCl (Catapres) 0.1 mg EVERY 4 HOURS PRN ORAL sbp more than 160 07/14/16 06:00 08/13/16 05:59 07/20/16 03:21 Dextrose (Dextrose 50%) STAT PRN IV Hypoglycemia 07/14/16 06:00 08/13/16 05:59 Diphenoxylate HCl/ Atropine 2.5 mg 2.5 mg Q4H PRN ORAL Diarrhea 07/19/16 21:15 07/26/16 15:44 Gabapentin (Neurontin) 300 mg BEDTIME ORAL 07/14/16 21:00 08/13/16 20:59 07/24/16 20:49 Glipizide (Glucotrol) 5 mg BIAC ORAL 07/16/16 11:30 08/15/16 11:29 07/25/16 05:48 Haloperidol Lactate 5 mg 5 mg Q3H PRN IM Agitation 07/14/16 18:30 08/13/16 18:29 Heparin Sodium (Porcine) (Heparin 5000 units/ml) 5,000 units EVERY 12 HOURS SUBQ 07/14/16 09:00 08/13/16 08:59 07/24/16 20:57 Hydromorphone HCl/ Dextrose (Dilaudid/D5W 50ml) 56 ml @ 224 mls/hr Q3H PRN IVPB Severe Pain (Pain Scale 7-10) 07/21/16 14:45 07/28/16 14:44 07/25/16 03:50 Insulin Aspart (NovoLOG) BEFORE MEALS AND HS SUBQ 07/14/16 06:30 08/13/16 06:29 07/24/16 20:57 Loperamide HCl (Imodium) 2 mg EVERY 4 HOURS PRN ORAL Diarrhea 07/17/16 15:00 08/16/16 14:59 07/24/16 20:49 Metformin HCl (Glucophage) 500 mg BID ORAL 07/16/16 09:00 08/15/16 08:59 07/24/16 08:45 Nitroglycerin (Ntg) 0.4 mg Q5M X 3 DOSES PRN SL Prn Chest Pain 07/14/16 06:00 08/13/16 05:59 Ondansetron HCl (Zofran) 4 mg Q6H PRN IVP Nausea & Vomiting 07/14/16 06:00 08/13/16 05:59 07/20/16 20:18 Polyethylene Glycol (Miralax) 17 gm HSPRN PRN ORAL Constipation 07/14/16 06:00 08/13/16 05:59 Ranitidine HCl (Zantac) 150 mg BEDTIME ORAL 07/14/16 21:00 08/13/16 20:59 07/23/16 20:13 Simethicone (Mylicon) 80 mg Q6H PRN ORAL GAS PAIN 07/23/16 11:00 08/22/16 10:59 07/23/16 11:43 Sodium Chloride (Sodium Chloride 1000ml bag) 1,000 ml @ 75 mls/hr [id number] IVLG 07/15/16 15:00 08/14/16 14:59 07/24/16 20:49 Vitamin A/Vitamin D (A & D Oint) 1 applic BIDPRN TOPIC 07/14/16 16:00 08/13/16 15:59 Item Value Date Time Bedside Blood Glucose 88 mg/dl 07/25/16 0627 Bedside Blood Glucose 179 mg/dl H 07/24/16 2057 Bedside Blood Glucose 99 mg/dl 07/24/16 1630 Bedside Blood Glucose 86 mg/dl 07/24/16 1141 Bedside Blood Glucose 66 mg/dl L 07/24/16 0659 [employer] Jul 25, 2016 07:16
[2016-07-25 07:28] LABS: ANION GAP 16 (5-15); CALCIUM 8.6 mg/dL (8.6-10.2); CARBON DIOXIDE 21 mEQ/L (20-30); CHLORIDE 101 mEQ/L (98-107); CREATININE 0.8 mg/dL (0.7-1.2); GLOMERULAR FILTRATION RATE > 60 mL/min (>60); HEMOLYSIS 97; POTASSIUM 5.6 mEQ/L (3.4-4.9); SODIUM 138 mEQ/L (135-145)
[2016-07-25 08:00] VITALS: BP 146/90
[2016-07-25] MEDS: metFORMIN 500mg tab ORAL SCH ×2 (09:03→18:34)
[2016-07-25] MEDS: Aspirin EC 81mg tab ORAL SCH (09:03)
[2016-07-25] MEDS: Heparin 5000 units/ml inj SUBQ SCH ×2 (09:08→23:20)
[2016-07-25] MEDS: Loperamide 2mg cap ORAL PRN (09:14)
[2016-07-25] MEDS ORDERED: Sodium Polystyrene Sulfonate 15gm Powder ORAL ONE (10:45)
--- NOTE | 2016-07-25 10:50 | GI Progress Note ---
Assessment/Plan Problems: (1) Severe malnutrition ICD Codes: E43 - Unspecified severe protein-calorie malnutrition SNOMED: 63822827 (2) Episode of generalized weakness ICD Codes: R53.1 - Weakness SNOMED: 79874995 (3) C. difficile colitis ICD Codes: A04.7 - Enterocolitis due to Clostridium difficile SNOMED: 915314285 (4) Abdominal pain ICD Codes: R10.9 - Unspecified abdominal pain SNOMED: 28434140 (5) Diarrhea ICD Codes: R19.7 - Diarrhea, unspecified SNOMED: 43935687 (6) DM (diabetes mellitus) ICD Codes: E11.9 - DM (diabetes mellitus) SNOMED: 05099158 (7) Hepatitis C ICD Codes: B19.20 - Unspecified viral hepatitis C without hepatic coma SNOMED: 25688462 (8) Blindness of both eyes ICD Codes: H54.0 - Blindness, both eyes SNOMED: 87632698, 730075854 (9) Amphetamine abuse ICD Codes: F15.10 - Other stimulant abuse, uncomplicated SNOMED: 20878278 Status: stable Status Narrative Discussed with Dr. Leonardo. Assessment/Plan stool studies >> negative O&P >> negative fecal fat pending stool culture >> negative hepatitis panel >> Hep C positive cdiff negative utox >> amphetamines positive cleared for DC per GI standpoint cont Lomotil Imodium prn ordered simethicone KUB, Distended stomach >> resolved fu abdominal U/S cont Pancrease OB stool uncollected low residual diet H2 fu labs outpt Hep C tx Subjective Gastrointestinal/Abdominal: Reports: diarrhea - improved Subjective feels better wants to smoke Objective Last 24 Hour Vital Signs Date Time Temp Pulse Resp B/P Pulse Ox O2 Delivery O2 Flow Rate FiO2 07/25/16 09:44 97.9 07/25/16 09:04 146/90 07/25/16 08:00 97.9 80 20 146/90 100 Room Air 07/25/16 04:00 97.7 96 20 128/82 100 Room Air 07/25/16 00:00 97.3 79 18 133/83 100 Room Air 07/24/16 20:03 98.2 98 22 142/95 96 Room Air 07/24/16 17:15 149/85 07/24/16 17:06 98.6 89 21 149/85 100 Room Air 07/24/16 11:59 98.0 82 18 148/94 95 Room Air Intake and Output 07/24/16 07/25/16 19:00 07:00 Intake Total 1011 ml 1653 ml Output Total 600 ml 400 ml Balance 411 ml 1253 ml Intake Oral 730 ml 840 ml IV Total 281 ml 813 ml Output Urine Total 600 ml 400 ml # Voids 1 6 # Bowel Movements 2 6 Laboratory Tests Test 07/25/16 04:50 White Blood Count 8.4 K/UL (4.8-10.8) Red Blood Count 3.23 M/UL (4.70-6.10) L Hemoglobin 9.7 G/DL (14.2-18.0) L Hematocrit 30.4 % (42.0-52.0) L Mean Corpuscular Volume 94 FL (80-99) Mean Corpuscular Hemoglobin 30.2 PG (27.0-31.0) Mean Corpuscular Hemoglobin Concent 32.1 G/DL (32.0-36.0) Red Cell Distribution Width 18.7 % (11.6-14.8) H Platelet Count 291 K/UL (150-450) Mean Platelet Volume 5.6 FL (6.5-10.1) L Neutrophils (%) (Auto) 59.9 % (45.0-75.0) Lymphocytes (%) (Auto) 25.4 % (20.0-45.0) Monocytes (%) (Auto) 7.3 % (1.0-10.0) Eosinophils (%) (Auto) 5.6 % (0.0-3.0) H Basophils (%) (Auto) 1.9 % (0.0-2.0) Sodium Level 138 mEQ/L (135-145) Potassium Level 5.6 mEQ/L (3.4-4.9) H Chloride Level 101 mEQ/L (98-107) Carbon Dioxide Level 21 mEQ/L (20-30) Anion Gap 16 (5-15) H Blood Urea Nitrogen 24 mg/dL (7-23) H Creatinine 0.8 mg/dL (0.7-1.2) Estimat Glomerular Filtration Rate > 60 mL/min (>60) Glucose Level 96 mg/dL (74-106) Calcium Level 8.6 mg/dL (8.6-10.2) Height (Feet): 5 Height (Inches): 11.00 Weight (Pounds): 114 General Appearance: no apparent distress, alert Cardiovascular: normal rate Respiratory/Chest: no respiratory distress Abdominal Exam: normal bowel sounds, non tender, soft Bernadette Iverson N.P. Jul 25, 2016 10:50
[2016-07-25 11:46] VITALS: BP 156/91
[2016-07-25 16:00] VITALS: BP 135/90
--- NOTE | 2016-07-25 17:44 | Infectious Diseases Prog Note ---
Assessment/Plan Assessment/Plan ASSESSMENT: 50 y/o male with: Leukocytosis - recurrent, again resolved, afebrile. 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 Hx of Hep C SP Rx in 1999 - recurrent, elevated LFTs, HCV PCR >6million Negative HIV Chronic Diarrhea, probable malabsorption ( h/o chronic pancreatitis, previously improved with Creon ) - negative C diff, stool Cx, O&P High Alk Phos - US: Nonvisualization of gallbladder compatible with previous cholecystectomy, Wt loss 140 lb in 12 mo, due to Ch diarrhea , also may need to Ro malignancy ( liver Cancer ) - AFP WNL DM - HbA1c 7.6% Diabetic neuropathy Legally blind SP transmetatarsal amputation R foot smoker amphetamine use MRSA, VRE colonized No ABX allergies Full Code PLAN : monitor pt off of ABX ( 07/24 SP Flagyl d# ) ( 07/21 SP IV Vanco, Cefepime d# ) f/u final cultures consider colonoscopy Monitor CBC, temperatures Monitor CMP outpt HCV Rx placement Subjective Allergies: Coded Allergies: ACETAMINOPHEN (Unverified Allergy, Unknown, 07/14/16) HYDROCODONE (Unverified Allergy, Unknown, 07/14/16) Subjective afebrile. recurrent leukocytosis resolved, repeat Cx NGTD agitated Objective Vital Signs Last 24 Hour Vital Signs Date Time Temp Pulse Resp B/P Pulse Ox O2 Delivery O2 Flow Rate FiO2 07/25/16 16:00 97.0 91 20 135/90 100 Room Air 07/25/16 15:32 97.2 07/25/16 11:46 97.2 82 18 156/91 100 Room Air 07/25/16 09:04 146/90 07/25/16 08:00 97.9 80 20 146/90 100 Room Air 07/25/16 04:00 97.7 96 20 128/82 100 Room Air 07/25/16 00:00 97.3 79 18 133/83 100 Room Air 07/24/16 20:03 98.2 98 22 142/95 96 Room Air Height (Feet): 5 Height (Inches): 11.00 Weight (Pounds): 114 General Appearance: no acute distress Respiratory/Chest: no respiratory distress Cardiovascular: normal rate, regular rhythm Abdomen: normal bowel sounds, soft, non tender, non distended Laboratory Tests Test 07/25/16 04:50 White Blood Count 8.4 K/UL (4.8-10.8) Red Blood Count 3.23 M/UL (4.70-6.10) L Hemoglobin 9.7 G/DL (14.2-18.0) L Hematocrit 30.4 % (42.0-52.0) L Mean Corpuscular Volume 94 FL (80-99) Mean Corpuscular Hemoglobin 30.2 PG (27.0-31.0) Mean Corpuscular Hemoglobin Concent 32.1 G/DL (32.0-36.0) Red Cell Distribution Width 18.7 % (11.6-14.8) H Platelet Count 291 K/UL (150-450) Mean Platelet Volume 5.6 FL (6.5-10.1) L Neutrophils (%) (Auto) 59.9 % (45.0-75.0) Lymphocytes (%) (Auto) 25.4 % (20.0-45.0) Monocytes (%) (Auto) 7.3 % (1.0-10.0) Eosinophils (%) (Auto) 5.6 % (0.0-3.0) H Basophils (%) (Auto) 1.9 % (0.0-2.0) Sodium Level 138 mEQ/L (135-145) Potassium Level 5.6 mEQ/L (3.4-4.9) H Chloride Level 101 mEQ/L (98-107) Carbon Dioxide Level 21 mEQ/L (20-30) Anion Gap 16 (5-15) H Blood Urea Nitrogen 24 mg/dL (7-23) H Creatinine 0.8 mg/dL (0.7-1.2) Estimat Glomerular Filtration Rate > 60 mL/min (>60) Glucose Level 96 mg/dL (74-106) Calcium Level 8.6 mg/dL (8.6-10.2) Current Medications Medications (Trade) Dose Ordered Sig/Romelia Route PRN Reason Start Time Stop Time Status Last Admin Dose Admin Al Hydroxide/Mg Hydroxide (Mylanta II) 30 ml Q6H PRN ORAL dyspepsia 07/14/16 06:00 08/13/16 05:59 Amitriptyline HCl (Elavil) 25 mg BEDTIME ORAL 07/14/16 21:00 08/13/16 20:59 07/23/16 20:13 Amylase/Lipase/ Protease (Pancrease) 2 ea TIAC ORAL 07/17/16 16:30 08/16/16 16:29 07/25/16 11:11 Aspirin (Ecotrin) 81 mg DAILY ORAL 07/14/16 09:00 08/13/16 08:59 07/25/16 09:03 Clonidine HCl (Catapres) 0.1 mg BID ORAL 07/14/16 09:00 08/13/16 08:59 07/25/16 09:04 Clonidine HCl (Catapres) 0.1 mg EVERY 4 HOURS PRN ORAL sbp more than 160 07/14/16 06:00 08/13/16 05:59 07/20/16 03:21 Dextrose (Dextrose 50%) STAT PRN IV Hypoglycemia 07/14/16 06:00 08/13/16 05:59 Diphenoxylate HCl/ Atropine (Lomotil) 2.5 mg Q4H PRN ORAL Diarrhea 07/19/16 21:15 07/26/16 15:44 Gabapentin (Neurontin) 300 mg BEDTIME ORAL 07/14/16 21:00 08/13/16 20:59 07/24/16 20:49 Haloperidol Lactate 5 mg 5 mg Q3H PRN IM Agitation 07/14/16 18:30 08/13/16 18:29 Heparin Sodium (Porcine) (Heparin 5000 units/ml) 5,000 units EVERY 12 HOURS SUBQ 07/14/16 09:00 08/13/16 08:59 07/25/16 09:08 Insulin Aspart (NovoLOG) BEFORE MEALS AND HS SUBQ 07/14/16 06:30 08/13/16 06:29 07/25/16 11:21 Loperamide HCl (Imodium) 2 mg EVERY 4 HOURS PRN ORAL Diarrhea 07/17/16 15:00 08/16/16 14:59 07/25/16 09:14 Metformin HCl (Glucophage) 500 mg BID ORAL 07/16/16 09:00 08/15/16 08:59 07/25/16 09:03 Nitroglycerin (Ntg) 0.4 mg Q5M X 3 DOSES PRN SL Prn Chest Pain 07/14/16 06:00 08/13/16 05:59 Ondansetron HCl (Zofran) 4 mg Q6H PRN IVP Nausea & Vomiting 07/14/16 06:00 08/13/16 05:59 07/20/16 20:18 Polyethylene Glycol (Miralax) 17 gm HSPRN PRN ORAL Constipation 07/14/16 06:00 08/13/16 05:59 Ranitidine HCl (Zantac) 150 mg BEDTIME ORAL 07/14/16 21:00 08/13/16 20:59 07/23/16 20:13 Simethicone (Mylicon) 80 mg Q6H PRN ORAL GAS PAIN 07/23/16 11:00 08/22/16 10:59 07/23/16 11:43 Sodium Chloride (Sodium Chloride 1000ml bag) 1,000 ml @ 75 mls/hr [id number] IVLG 07/15/16 15:00 08/14/16 14:59 07/24/16 20:49 Vitamin A/Vitamin D (A & D Oint) 1 applic BIDPRN TOPIC 07/14/16 16:00 08/13/16 15:59 ADA TURNER Jul 25, 2016 17:44
--- NOTE | 2016-07-25 17:59 | Pulmonology Progress Note ---
Assessment/Plan Problems: (1) Sepsis (2) Diarrhea (3) Episode of generalized weakness (4) DM (diabetes mellitus) (5) Hepatitis C (6) Blindness of both eyes (7) HTN (hypertension) (8) COPD (chronic obstructive pulmonary disease) (9) S/P transmetatarsal amputation of foot Assessment/Plan continue abx as per ID check wbc needs placement Subjective Gastrointestinal/Abdominal: Reports: bloating, diarrhea, nausea Allergies: Coded Allergies: ACETAMINOPHEN (Unverified Allergy, Unknown, 07/14/16) HYDROCODONE (Unverified Allergy, Unknown, 07/14/16) Objective Last 24 Hour Vital Signs Date Time Temp Pulse Resp B/P Pulse Ox O2 Delivery O2 Flow Rate FiO2 07/25/16 16:00 97.0 91 20 135/90 100 Room Air 07/25/16 15:32 97.2 07/25/16 11:46 97.2 82 18 156/91 100 Room Air 07/25/16 09:04 146/90 07/25/16 08:00 97.9 80 20 146/90 100 Room Air 07/25/16 04:00 97.7 96 20 128/82 100 Room Air 07/25/16 00:00 97.3 79 18 133/83 100 Room Air 07/24/16 20:03 98.2 98 22 142/95 96 Room Air Intake and Output 07/24/16 07/25/16 19:00 07:00 Intake Total 1011 ml 1653 ml Output Total 600 ml 400 ml Balance 411 ml 1253 ml Intake Oral 730 ml 840 ml IV Total 281 ml 813 ml Output Urine Total 600 ml 400 ml # Voids 1 6 # Bowel Movements 2 6 General Appearance: no acute distress HEENT: normocephalic, atraumatic, PERRL Respiratory/Chest: chest wall non-tender, decreased breath sounds, accessory muscle use Cardiovascular: normal peripheral pulses, normal rate, regular rhythm, no gallop/murmur, no JVD Abdomen: hyperactive bowel sounds, distended, guarding, tender, rebound tenderness Genitourinary: normal external genitalia Extremities: no cyanosis, no clubbing Skin: no lesions 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, no motor/sensory deficits Laboratory Tests 07/25/16 04:50: White Blood Count 8.4, Red Blood Count 3.23L, Hemoglobin 9.7L, Hematocrit 30.4L , Mean Corpuscular Volume 94, Mean Corpuscular Hemoglobin 30.2, Mean Corpuscular Hemoglobin Concent 32.1, Red Cell Distribution Width 18.7H, Platelet Count 291, Mean Platelet Volume 5.6L, Neutrophils (%) (Auto) 59.9, Lymphocytes (%) (Auto) 25.4, Monocytes (%) (Auto) 7.3, Eosinophils (%) (Auto) 5.6H, Basophils (%) (Auto) 1.9, Sodium Level 138, Potassium Level 5.6H, Chloride Level 101, Carbon Dioxide Level 21, Anion Gap 16H, Blood Urea Nitrogen 24H, Creatinine 0.8, Estimat Glomerular Filtration Rate > 60, Glucose Level 96, Calcium Level 8.6 Current Medications Medications (Trade) Dose Ordered Sig/Romelia Route PRN Reason Start Time Stop Time Status Last Admin Dose Admin Al Hydroxide/Mg Hydroxide (Mylanta II) 30 ml Q6H PRN ORAL dyspepsia 07/14/16 06:00 08/13/16 05:59 Amitriptyline HCl (Elavil) 25 mg BEDTIME ORAL 07/14/16 21:00 08/13/16 20:59 07/23/16 20:13 Amylase/Lipase/ Protease (Pancrease) 2 ea TIAC ORAL 07/17/16 16:30 08/16/16 16:29 07/25/16 11:11 Aspirin (Ecotrin) 81 mg DAILY ORAL 07/14/16 09:00 08/13/16 08:59 07/25/16 09:03 Clonidine HCl (Catapres) 0.1 mg BID ORAL 07/14/16 09:00 08/13/16 08:59 07/25/16 09:04 Clonidine HCl (Catapres) 0.1 mg EVERY 4 HOURS PRN ORAL sbp more than 160 07/14/16 06:00 08/13/16 05:59 07/20/16 03:21 Dextrose (Dextrose 50%) STAT PRN IV Hypoglycemia 07/14/16 06:00 08/13/16 05:59 Diphenoxylate HCl/ Atropine (Lomotil) 2.5 mg Q4H PRN ORAL Diarrhea 07/19/16 21:15 07/26/16 15:44 Gabapentin (Neurontin) 300 mg BEDTIME ORAL 07/14/16 21:00 08/13/16 20:59 07/24/16 20:49 Haloperidol Lactate 5 mg 5 mg Q3H PRN IM Agitation 07/14/16 18:30 08/13/16 18:29 Heparin Sodium (Porcine) (Heparin 5000 units/ml) 5,000 units EVERY 12 HOURS SUBQ 07/14/16 09:00 08/13/16 08:59 07/25/16 09:08 Hydromorphone HCl (Dilaudid) 2 mg Q3H PRN IVP Severe Pain (Pain Scale 7-10) 07/25/16 17:45 08/01/16 17:44 Insulin Aspart (NovoLOG) BEFORE MEALS AND HS SUBQ 07/14/16 06:30 08/13/16 06:29 07/25/16 11:21 Loperamide HCl (Imodium) 2 mg EVERY 4 HOURS PRN ORAL Diarrhea 07/17/16 15:00 08/16/16 14:59 07/25/16 09:14 Lorazepam (Ativan 2mg/ml 1ml) 1 mg EVERY 2 HOURS PRN IV For Anxiety 07/25/16 18:00 08/01/16 17:59 UNV Metformin HCl (Glucophage) 500 mg BID ORAL 07/16/16 09:00 08/15/16 08:59 07/25/16 09:03 Nitroglycerin (Ntg) 0.4 mg Q5M X 3 DOSES PRN SL Prn Chest Pain 07/14/16 06:00 08/13/16 05:59 Ondansetron HCl (Zofran) 4 mg Q6H PRN IVP Nausea & Vomiting 07/14/16 06:00 08/13/16 05:59 07/20/16 20:18 Polyethylene Glycol (Miralax) 17 gm HSPRN PRN ORAL Constipation 07/14/16 06:00 08/13/16 05:59 Ranitidine HCl (Zantac) 150 mg BEDTIME ORAL 07/14/16 21:00 08/13/16 20:59 07/23/16 20:13 Simethicone (Mylicon) 80 mg Q6H PRN ORAL GAS PAIN 07/23/16 11:00 08/22/16 10:59 07/23/16 11:43 Sodium Chloride (Sodium Chloride 1000ml bag) 1,000 ml @ 75 mls/hr [id number] IVLG 07/15/16 15:00 08/14/16 14:59 07/24/16 20:49 Vitamin A/Vitamin D (A & D Oint) 1 applic BIDPRN TOPIC 07/14/16 16:00 08/13/16 15:59 DORENE GRIMM Jul 25, 2016 17:59
[2016-07-25] MEDS: LORazepam Inj 2mg/ml 1ml IV PRN ×2 (18:35→23:58)
[2016-07-26] VITALS: BP 147/90
[2016-07-26 04:00] VITALS: BP 155/89
[2016-07-26] MEDS: LORazepam Inj 2mg/ml 1ml IV PRN ×2 (04:09→17:50)
[2016-07-26] MEDS: Pancrease Cap ORAL SCH ×3 (06:30→16:30)
[2016-07-26] MEDS: NovoLOG Insulin Flexpen SUBQ SCH ×4 (06:30→21:00)
[2016-07-26] MEDS: Heparin 5000 units/ml inj SUBQ SCH ×2 (09:00→21:00)
[2016-07-26] MEDS: metFORMIN 500mg tab ORAL SCH ×2 (09:00→18:00)
[2016-07-26] MEDS: Aspirin EC 81mg tab ORAL SCH (09:00)
[2016-07-26] MEDS ORDERED: Sodium Polystyrene Sulfonate 15gm Powder ORAL ONE (10:00)
--- NOTE | 2016-07-26 10:46 | GI Progress Note ---
Assessment/Plan Problems: (1) Severe malnutrition ICD Codes: E43 - Unspecified severe protein-calorie malnutrition SNOMED: 99569706 (2) Episode of generalized weakness ICD Codes: R53.1 - Weakness SNOMED: 72172121 (3) C. difficile colitis ICD Codes: A04.7 - Enterocolitis due to Clostridium difficile SNOMED: 080838528 (4) Abdominal pain ICD Codes: R10.9 - Unspecified abdominal pain SNOMED: 79259140 (5) Diarrhea ICD Codes: R19.7 - Diarrhea, unspecified SNOMED: 86578029 (6) DM (diabetes mellitus) ICD Codes: E11.9 - DM (diabetes mellitus) SNOMED: 53326036 (7) Hepatitis C ICD Codes: B19.20 - Unspecified viral hepatitis C without hepatic coma SNOMED: 60006622 (8) Blindness of both eyes ICD Codes: H54.0 - Blindness, both eyes SNOMED: 79525245, 716279124 (9) Amphetamine abuse ICD Codes: F15.10 - Other stimulant abuse, uncomplicated SNOMED: 82014258 Status: stable, unchanged Status Narrative Discussed with Dr. Leonardo. Assessment/Plan stool studies >> negative O&P >> negative fecal fat pending stool culture >> negative hepatitis panel >> Hep C positive cdiff negative utox >> amphetamines positive cleared for DC per GI standpoint cont Lomotil Imodium prn ordered simethicone KUB, Distended stomach >> resolved fu abdominal U/S cont Pancrease OB stool uncollected low residual diet H2 fu labs outpt Hep C tx Subjective Gastrointestinal/Abdominal: Reports: diarrhea - improved Subjective agitated, wants to go home wants to smoke refusing care Objective Last 24 Hour Vital Signs Date Time Temp Pulse Resp B/P Pulse Ox O2 Delivery O2 Flow Rate FiO2 07/26/16 04:00 97.4 92 20 155/89 100 Room Air 07/26/16 00:00 97.2 92 20 147/90 100 Room Air 07/25/16 19:05 97.0 07/25/16 18:35 135/90 07/25/16 16:00 97.0 91 20 135/90 100 Room Air 07/25/16 15:32 97.2 07/25/16 11:46 97.2 82 18 156/91 100 Room Air Intake and Output 07/25/16 07/26/16 19:00 07:00 Intake Total 1000 ml 1310 ml Balance 1000 ml 1310 ml Intake Oral 700 ml 800 ml IV Total 300 ml 510 ml # Voids 2 3 # Bowel Movements 7 4 Height (Feet): 5 Height (Inches): 11.00 Weight (Pounds): 114 General Appearance: no apparent distress, alert Cardiovascular: normal rate Respiratory/Chest: lungs clear, normal breath sounds, no respiratory distress Abdominal Exam: normal bowel sounds, non tender, soft Bernadette Iverson N.P. Jul 26, 2016 10:46
--- NOTE | 2016-07-26 16:05 | Infectious Diseases Prog Note ---
Assessment/Plan Assessment/Plan ASSESSMENT: 50 y/o male with: Leukocytosis - recurrent, again resolved, afebrile. 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 Hx of Hep C SP Rx in 1999 - recurrent, elevated LFTs, HCV PCR >6million Negative HIV Chronic Diarrhea, probable malabsorption ( h/o chronic pancreatitis, previously improved with Creon ) - negative: C diff, stool Cx, O&P High Alk Phos - US: Nonvisualization of gallbladder compatible with previous cholecystectomy, Wt loss 140 lb in 12 mo, due to Ch diarrhea , also may need to Ro malignancy ( liver Cancer ) - AFP WNL DM - HbA1c 7.6% Diabetic neuropathy Legally blind SP transmetatarsal amputation R foot smoker amphetamine use MRSA, VRE colonized No ABX allergies Full Code PLAN : ok to DC off of ABX from ID standpoint ( 07/24 SP Flagyl d# ) ( 07/21 SP IV Vanco, Cefepime d# ) f/u final cultures consider colonoscopy Monitor CBC, temperatures Monitor CMP outpt HCV Rx placement Subjective Allergies: Coded Allergies: ACETAMINOPHEN (Unverified Allergy, Unknown, 07/14/16) HYDROCODONE (Unverified Allergy, Unknown, 07/14/16) Subjective afebrile. recurrent leukocytosis resolved, repeat Cx NGTD calmer today Objective Vital Signs Last 24 Hour Vital Signs Date Time Temp Pulse Resp B/P Pulse Ox O2 Delivery O2 Flow Rate FiO2 07/26/16 04:00 97.4 92 20 155/89 100 Room Air 07/26/16 00:00 97.2 92 20 147/90 100 Room Air 07/25/16 19:05 97.0 07/25/16 18:35 135/90 Height (Feet): 5 Height (Inches): 11.00 Weight (Pounds): 114 General Appearance: no acute distress, cachetic Respiratory/Chest: no respiratory distress Cardiovascular: normal rate, regular rhythm Abdomen: normal bowel sounds, soft, non tender, non distended Current Medications Medications (Trade) Dose Ordered Sig/Romelia Route PRN Reason Start Time Stop Time Status Last Admin Dose Admin Al Hydroxide/Mg Hydroxide (Mylanta II) 30 ml Q6H PRN ORAL dyspepsia 07/14/16 06:00 08/13/16 05:59 Amitriptyline HCl (Elavil) 25 mg BEDTIME ORAL 07/14/16 21:00 08/13/16 20:59 07/25/16 23:12 Amylase/Lipase/ Protease (Pancrease) 2 ea TIAC ORAL 07/17/16 16:30 08/16/16 16:29 07/25/16 18:34 Aspirin (Ecotrin) 81 mg DAILY ORAL 07/14/16 09:00 08/13/16 08:59 07/25/16 09:03 Clonidine HCl (Catapres) 0.1 mg BID ORAL 07/14/16 09:00 08/13/16 08:59 07/25/16 18:35 Clonidine HCl (Catapres) 0.1 mg EVERY 4 HOURS PRN ORAL sbp more than 160 07/14/16 06:00 08/13/16 05:59 07/20/16 03:21 Dextrose (Dextrose 50%) STAT PRN IV Hypoglycemia 07/14/16 06:00 08/13/16 05:59 Gabapentin (Neurontin) 300 mg BEDTIME ORAL 07/14/16 21:00 08/13/16 20:59 07/25/16 23:12 Haloperidol Lactate 5 mg 5 mg Q3H PRN IM Agitation 07/14/16 18:30 08/13/16 18:29 Heparin Sodium (Porcine) (Heparin 5000 units/ml) 5,000 units EVERY 12 HOURS SUBQ 07/14/16 09:00 08/13/16 08:59 07/25/16 23:20 Hydromorphone HCl (Dilaudid) 2 mg Q3H PRN IVP Severe Pain (Pain Scale 7-10) 07/25/16 17:45 08/01/16 17:44 07/25/16 23:13 Insulin Aspart (NovoLOG) BEFORE MEALS AND HS SUBQ 07/14/16 06:30 08/13/16 06:29 07/25/16 18:42 Loperamide HCl (Imodium) 2 mg EVERY 4 HOURS PRN ORAL Diarrhea 07/17/16 15:00 08/16/16 14:59 07/25/16 09:14 Lorazepam (Ativan 2mg/ml 1ml) 1 mg EVERY 2 HOURS PRN IV For Anxiety 07/25/16 18:00 08/01/16 17:59 07/26/16 04:09 Metformin HCl (Glucophage) 500 mg BID ORAL 07/16/16 09:00 08/15/16 08:59 07/25/16 18:34 Nitroglycerin (Ntg) 0.4 mg Q5M X 3 DOSES PRN SL Prn Chest Pain 07/14/16 06:00 08/13/16 05:59 Ondansetron HCl (Zofran) 4 mg Q6H PRN IVP Nausea & Vomiting 07/14/16 06:00 08/13/16 05:59 07/20/16 20:18 Polyethylene Glycol (Miralax) 17 gm HSPRN PRN ORAL Constipation 07/14/16 06:00 08/13/16 05:59 Ranitidine HCl (Zantac) 150 mg BEDTIME ORAL 07/14/16 21:00 08/13/16 20:59 07/25/16 23:12 Simethicone (Mylicon) 80 mg Q6H PRN ORAL GAS PAIN 07/23/16 11:00 08/22/16 10:59 07/23/16 11:43 Sodium Chloride (Sodium Chloride 1000ml bag) 1,000 ml @ 75 mls/hr [id number] IVLG 07/15/16 15:00 08/14/16 14:59 07/25/16 23:12 Vitamin A/Vitamin D (A & D Oint) 1 applic BIDPRN TOPIC 07/14/16 16:00 08/13/16 15:59 ADA TURNER Jul 26, 2016 16:05
[2016-07-26] MEDS: Haloperidol 5mg/ml Inj IM PRN ×2 (17:50→21:09)
--- NOTE | 2016-07-26 18:08 | Pulmonology Progress Note ---
Assessment/Plan Problems: (1) Sepsis (2) Diarrhea (3) Episode of generalized weakness (4) DM (diabetes mellitus) (5) Hepatitis C (6) Blindness of both eyes (7) HTN (hypertension) (8) COPD (chronic obstructive pulmonary disease) (9) S/P transmetatarsal amputation of foot Assessment/Plan continue abx as per ID check wbc needs placement all labs and notes reviewed no new orders titrate foo2 to sat of o2% Subjective ROS Limited/Unobtainable: No Allergies: Coded Allergies: ACETAMINOPHEN (Unverified Allergy, Unknown, 07/14/16) HYDROCODONE (Unverified Allergy, Unknown, 07/14/16) All Systems: reviewed and negative except above Objective Last 24 Hour Vital Signs Date Time Temp Pulse Resp B/P Pulse Ox O2 Delivery O2 Flow Rate FiO2 07/26/16 04:00 97.4 92 20 155/89 100 Room Air 07/26/16 00:00 97.2 92 20 147/90 100 Room Air 07/25/16 19:05 97.0 07/25/16 18:35 135/90 Intake and Output 07/25/16 07/26/16 19:00 07:00 Intake Total 1000 ml 1385 ml Balance 1000 ml 1385 ml Intake Oral 700 ml 800 ml IV Total 300 ml 585 ml # Voids 2 3 # Bowel Movements 7 4 General Appearance: WD/WN HEENT: atraumatic Respiratory/Chest: chest wall non-tender Cardiovascular: normal peripheral pulses, normal rate Abdomen: normal bowel sounds Extremities: no cyanosis Skin: no lesions 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 Current Medications Medications (Trade) Dose Ordered Sig/Romelia Route PRN Reason Start Time Stop Time Status Last Admin Dose Admin Al Hydroxide/Mg Hydroxide (Mylanta II) 30 ml Q6H PRN ORAL dyspepsia 07/14/16 06:00 08/13/16 05:59 Amitriptyline HCl (Elavil) 25 mg BEDTIME ORAL 07/14/16 21:00 08/13/16 20:59 07/25/16 23:12 Amylase/Lipase/ Protease (Pancrease) 2 ea TIAC ORAL 07/17/16 16:30 08/16/16 16:29 07/25/16 18:34 Aspirin (Ecotrin) 81 mg DAILY ORAL 07/14/16 09:00 08/13/16 08:59 07/25/16 09:03 Clonidine HCl (Catapres) 0.1 mg BID ORAL 07/14/16 09:00 08/13/16 08:59 07/25/16 18:35 Clonidine HCl (Catapres) 0.1 mg EVERY 4 HOURS PRN ORAL sbp more than 160 07/14/16 06:00 08/13/16 05:59 07/20/16 03:21 Dextrose (Dextrose 50%) STAT PRN IV Hypoglycemia 07/14/16 06:00 08/13/16 05:59 Gabapentin (Neurontin) 300 mg BEDTIME ORAL 07/14/16 21:00 08/13/16 20:59 07/25/16 23:12 Haloperidol Lactate 5 mg 5 mg Q3H PRN IM Agitation 07/14/16 18:30 08/13/16 18:29 07/26/16 17:50 Heparin Sodium (Porcine) (Heparin 5000 units/ml) 5,000 units EVERY 12 HOURS SUBQ 07/14/16 09:00 08/13/16 08:59 07/25/16 23:20 Hydromorphone HCl (Dilaudid) 2 mg Q3H PRN IVP Severe Pain (Pain Scale 7-10) 07/25/16 17:45 08/01/16 17:44 07/25/16 23:13 Insulin Aspart (NovoLOG) BEFORE MEALS AND HS SUBQ 07/14/16 06:30 08/13/16 06:29 07/25/16 18:42 Loperamide HCl (Imodium) 2 mg EVERY 4 HOURS PRN ORAL Diarrhea 07/17/16 15:00 08/16/16 14:59 07/25/16 09:14 Lorazepam (Ativan 2mg/ml 1ml) 1 mg EVERY 2 HOURS PRN IV For Anxiety 07/25/16 18:00 08/01/16 17:59 07/26/16 17:50 Metformin HCl (Glucophage) 500 mg BID ORAL 07/16/16 09:00 08/15/16 08:59 07/25/16 18:34 Nitroglycerin (Ntg) 0.4 mg Q5M X 3 DOSES PRN SL Prn Chest Pain 07/14/16 06:00 08/13/16 05:59 Ondansetron HCl (Zofran) 4 mg Q6H PRN IVP Nausea & Vomiting 07/14/16 06:00 08/13/16 05:59 07/20/16 20:18 Polyethylene Glycol (Miralax) 17 gm HSPRN PRN ORAL Constipation 07/14/16 06:00 08/13/16 05:59 Ranitidine HCl (Zantac) 150 mg BEDTIME ORAL 07/14/16 21:00 08/13/16 20:59 07/25/16 23:12 Simethicone (Mylicon) 80 mg Q6H PRN ORAL GAS PAIN 07/23/16 11:00 08/22/16 10:59 07/23/16 11:43 Sodium Chloride (Sodium Chloride 1000ml bag) 1,000 ml @ 75 mls/hr [id number] IVLG 07/15/16 15:00 08/14/16 14:59 07/25/16 23:12 Vitamin A/Vitamin D (A & D Oint) 1 applic BIDPRN TOPIC 07/14/16 16:00 08/13/16 15:59 DORENE GRIMM Jul 26, 2016 18:08
[2016-07-26] MEDS ORDERED: LORazepam Inj 2mg/ml 1ml IM PRN (18:15)
[2016-07-26 20:00] VITALS: BP 143/89
[2016-07-27] VITALS: BP 152/90
[2016-07-27 04:00] VITALS: BP 140/88
[2016-07-27] MEDS: NovoLOG Insulin Flexpen SUBQ SCH ×2 (06:30→11:30)
[2016-07-27] MEDS: Pancrease Cap ORAL SCH ×2 (06:30→11:30)
[2016-07-27] MEDS: metFORMIN 500mg tab ORAL SCH (09:00)
[2016-07-27] MEDS: Heparin 5000 units/ml inj SUBQ SCH (09:00)
[2016-07-27] MEDS: Aspirin EC 81mg tab ORAL SCH (09:00)
--- NOTE | 2016-07-27 11:41 | GI Progress Note ---
Assessment/Plan Problems: (1) Severe malnutrition ICD Codes: E43 - Unspecified severe protein-calorie malnutrition SNOMED: 83209592 (2) Episode of generalized weakness ICD Codes: R53.1 - Weakness SNOMED: 81057638 (3) C. difficile colitis ICD Codes: A04.7 - Enterocolitis due to Clostridium difficile SNOMED: 768252631 (4) Abdominal pain ICD Codes: R10.9 - Unspecified abdominal pain SNOMED: 07437144 (5) Diarrhea ICD Codes: R19.7 - Diarrhea, unspecified SNOMED: 38552078 (6) DM (diabetes mellitus) ICD Codes: E11.9 - DM (diabetes mellitus) SNOMED: 20294784 (7) Hepatitis C ICD Codes: B19.20 - Unspecified viral hepatitis C without hepatic coma SNOMED: 97900436 (8) Blindness of both eyes ICD Codes: H54.0 - Blindness, both eyes SNOMED: 49501900, 371101637 (9) Amphetamine abuse ICD Codes: F15.10 - Other stimulant abuse, uncomplicated SNOMED: 23309763 Status: stable, progressing Status Narrative Discussed with Dr. Leonardo. Assessment/Plan stool studies >> negative O&P >> negative fecal fat pending stool culture >> negative hepatitis panel >> Hep C positive cdiff negative utox >> amphetamines positive cleared for DC per GI standpoint cont Lomotil Imodium prn ordered simethicone KUB, Distended stomach >> resolved fu abdominal U/S cont Pancrease OB stool uncollected low residual diet H2 fu labs outpt Hep C tx Subjective Gastrointestinal/Abdominal: Reports: diarrhea - improved, no symptoms Subjective denies diarrhea wants to be discharged AMA wants to smoke refusing care Objective Last 24 Hour Vital Signs Date Time Temp Pulse Resp B/P Pulse Ox O2 Delivery O2 Flow Rate FiO2 07/27/16 04:00 98.0 87 20 140/88 100 Room Air 07/27/16 00:00 98.2 90 20 152/90 100 Room Air 07/26/16 20:00 98.7 89 22 143/89 100 Room Air Intake and Output 07/26/16 07/27/16 19:00 07:00 Intake Total 735 ml 318 ml Output Total 500 ml 1101 ml Balance 235 ml -783 ml Intake Oral 360 ml 318 ml IV Total 375 ml Output Urine Total 500 ml 1100 ml Stool Total 1 ml # Voids 5 1 # Bowel Movements 3 1 Height (Feet): 5 Height (Inches): 11.00 Weight (Pounds): 114 General Appearance: no apparent distress, alert, thin Cardiovascular: normal rate Respiratory/Chest: normal breath sounds, no respiratory distress Abdominal Exam: normal bowel sounds, non tender, soft Bernadette Iverson N.P. Jul 27, 2016 11:41
--- NOTE | 2016-07-27 13:40 | Pulmonology Progress Note ---
Assessment/Plan Assessment/Plan ASSESSMENT sepsis chronic diarrhea frequent recurrent falls DM diabetic neuropathy COPD Hepatitis C with elevated LFT HTN hyponatremia -resolved legally blind transmetatarsal amputation R foot weight loss smoker amphetamine use unable to care for himself PLAN OF CARE MS floor stool C dif negative blood and urine cx negative off abx as per ID, observe off abx ID follows IVF, Na up to normal likely depletional BS management with SS of insulin HgA1c -7.4 BP management with Clonidine and optimize as needed Venous and Arterial Duplex BLE repeat X ray R foot ( previously question of possible osteo) podiatry eval fall precautions PT/OT Imodium and Simethicone prn diarrhea chronic likely 2 to malabsorption, hx of chronic pancreatitis on Pancrease, GI follows stool cx, stool for O&P, stool C dif all negative fecal fat pending significant weight loss, likely 2 to malabsorption AFP WNL, CEA with small elevation, possibly due to smoking academic counselor to stop smoking on Nicotine patch workup as outpt along with hep C Rx O2 HHN prn continue ASA SW consult for placement pain manageetmn bowel regimen DVT, GI prophylaxis pain management urine tox screen + Amphetamines hepatitis panel + hep C academic counselor on abstinence form street drug , needs placement outpt Rx for hep C case discussed and evaluated by supervising physician Subjective Allergies: Coded Allergies: ACETAMINOPHEN (Unverified Allergy, Unknown, 07/14/16) HYDROCODONE (Unverified Allergy, Unknown, 07/14/16) All Systems: reviewed and negative except above Subjective leukocytosis resolved , afebrile no signs of respiratory distress deneis SOB, chest pain, dizziness Objective Last 24 Hour Vital Signs Date Time Temp Pulse Resp B/P Pulse Ox O2 Delivery O2 Flow Rate FiO2 07/27/16 04:00 98.0 87 20 140/88 100 Room Air 07/27/16 00:00 98.2 90 20 152/90 100 Room Air 07/26/16 20:00 98.7 89 22 143/89 100 Room Air Intake and Output 07/26/16 07/27/16 19:00 07:00 Intake Total 735 ml 318 ml Output Total 500 ml 1101 ml Balance 235 ml -783 ml Intake Oral 360 ml 318 ml IV Total 375 ml Output Urine Total 500 ml 1100 ml Stool Total 1 ml # Voids 5 1 # Bowel Movements 3 1 Objective General Appearance: no apparent distress, alert, cachetic Lines, tubes and drains: peripheral HEENT: normocephalic, atraumatic, anicteric, mucous membranes moist, supple, no JVD, other - bilateral blindness Neck: non-tender, supple Respiratory/Chest: lungs yousuf with moderate air entry Cardiovascular/Chest: normal peripheral pulses, normal rate, regular rhythm, no JVD Abdomen: normal bowel sounds, non tender, soft Extremities: non-tender, no calf tenderness, normal capillary refill Skin Exam: warm/dry, other - R foot transmetatarsal amputation, R and L elbow, R foot, st 4, multiple other skin breakdown ( see pictures and wound nurse eval) Neurologic: abnormal gait, alert, responsive, normal mood/affect Current Medications Medications (Trade) Dose Ordered Sig/Romelia Route PRN Reason Start Time Stop Time Status Last Admin Dose Admin Al Hydroxide/Mg Hydroxide (Mylanta II) 30 ml Q6H PRN ORAL dyspepsia 07/14/16 06:00 08/13/16 05:59 Amitriptyline HCl (Elavil) 25 mg BEDTIME ORAL 07/14/16 21:00 08/13/16 20:59 07/25/16 23:12 Amylase/Lipase/ Protease (Pancrease) 2 ea TIAC ORAL 07/17/16 16:30 08/16/16 16:29 07/25/16 18:34 Aspirin (Ecotrin) 81 mg DAILY ORAL 07/14/16 09:00 08/13/16 08:59 07/25/16 09:03 Clonidine HCl (Catapres) 0.1 mg BID ORAL 07/14/16 09:00 08/13/16 08:59 07/25/16 18:35 Clonidine HCl (Catapres) 0.1 mg EVERY 4 HOURS PRN ORAL sbp more than 160 07/14/16 06:00 08/13/16 05:59 07/20/16 03:21 Dextrose (Dextrose 50%) STAT PRN IV Hypoglycemia 07/14/16 06:00 08/13/16 05:59 Gabapentin (Neurontin) 300 mg BEDTIME ORAL 07/14/16 21:00 08/13/16 20:59 07/25/16 23:12 Haloperidol Lactate 5 mg 5 mg Q3H PRN IM Agitation 07/14/16 18:30 08/13/16 18:29 07/26/16 21:09 Heparin Sodium (Porcine) (Heparin 5000 units/ml) 5,000 units EVERY 12 HOURS SUBQ 07/14/16 09:00 08/13/16 08:59 07/25/16 23:20 Hydromorphone HCl (Dilaudid) 2 mg Q3H PRN IVP Severe Pain (Pain Scale 7-10) 07/25/16 17:45 08/01/16 17:44 07/25/16 23:13 Hydromorphone HCl (Dilaudid) 2 mg Q3H PRN SUBQ Moderate Pain (Pain Scale 4-6) 07/27/16 12:15 08/03/16 12:14 Insulin Aspart (NovoLOG) BEFORE MEALS AND HS SUBQ 07/14/16 06:30 08/13/16 06:29 07/25/16 18:42 Loperamide HCl (Imodium) 2 mg EVERY 4 HOURS PRN ORAL Diarrhea 07/17/16 15:00 08/16/16 14:59 07/25/16 09:14 Lorazepam (Ativan 2mg/ml 1ml) 1 mg EVERY 2 HOURS PRN IM For Anxiety 07/26/16 18:15 08/02/16 18:14 07/26/16 21:10 Metformin HCl (Glucophage) 500 mg BID ORAL 07/16/16 09:00 08/15/16 08:59 07/25/16 18:34 Nicotine (Nicoderm) 1 patch Q24H TDERMAL 07/27/16 09:00 08/26/16 08:59 Nitroglycerin (Ntg) 0.4 mg Q5M X 3 DOSES PRN SL Prn Chest Pain 07/14/16 06:00 08/13/16 05:59 Ondansetron HCl (Zofran) 4 mg Q6H PRN IVP Nausea & Vomiting 07/14/16 06:00 08/13/16 05:59 07/20/16 20:18 Polyethylene Glycol (Miralax) 17 gm HSPRN PRN ORAL Constipation 07/14/16 06:00 08/13/16 05:59 Ranitidine HCl (Zantac) 150 mg BEDTIME ORAL 07/14/16 21:00 08/13/16 20:59 07/25/16 23:12 Simethicone (Mylicon) 80 mg Q6H PRN ORAL GAS PAIN 07/23/16 11:00 08/22/16 10:59 07/23/16 11:43 Sodium Chloride (Sodium Chloride 1000ml bag) 1,000 ml @ 75 mls/hr [id number] IVLG 07/15/16 15:00 08/14/16 14:59 07/25/16 23:12 Vitamin A/Vitamin D (A & D Oint) 1 applic BIDPRN TOPIC 07/14/16 16:00 08/13/16 15:59 Regis (Bkade)Lorena NP Jul 27, 2016 13:40
[2016-07-27] MEDS ORDERED: Tubing IV Secondary IV ONE (13:44)
[2016-07-27] MEDS ORDERED: DuoNeb 0.5-3(2.5)mg/3ml neb HHN PRN (13:45)
--- NOTE | 2016-07-30 12:49 | Discharge Summary ---
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
--- NOTE | 2016-07-31 04:47 | Discharge Summary 2 SIG ---
DATE OF ADMISSION: 07/14/2016 DATE OF SIGNING AGAINST MEDICAL ADVICE: 07/27/2016 REASON FOR ADMISSION: 50-year-old male , with history of drug abuse, diabetes presented with a chief complaint of bilateral leg pain and recurrent falls. Leg pain appeared to be chronic due to the history of diabetic neuropathy. The patient also with a history of transmetatarsal amputation of the right foot. He presented with severe pain on the right leg 10/10 on a scale 1 to 10. Denied fever, chills, trauma, and injury. The patient lives with his old mother. He is unable to care for himself. He is not able to check his blood sugar being bilaterally blind. The patient verbalized a need for assistance with placement. The patient also reported chronic diarrhea for six months. Workup in the emergency room revealed mild leukocytosis, stable electrolytes, and elevated LFT. The patient was admitted for further management to Med/Surg floor. ADMITTING DIAGNOSES: 1. Diabetic neuropathy. 2. Frequent recurrent falls. 3. Bilateral leg pain. 4. Hyperglycemia secondary to diabetes mellitus type 1. 5. Bilateral blindness. 6. Smoker. 7. Amphetamine abuse. 8. Failure to thrive. 9. Unable to care of himself. 10. Transmetatarsal amputation of the right foot. HOSPITAL COURSE: The patient was admitted to Med/Surg floor. The patient was started on IV fluids. Blood sugar was managed with sliding scale of insulin. Endocrinology consult was requested. Commodity Lead took the patient off glipizide. Continue metformin and sliding scale of insulin as needed. Hemoglobin A1c is 7.6. Hyperglycemia likely due to noncompliance with antiglycemic regimen, reinforced compliance. In addition, counseled and reinforced compliance with diabetic diet. Venous and Arterial duplex of bilateral extremities were done. Venous duplex of bilateral lower extremities was negative for acute DVT. Arterial duplex of bilateral lower extremities was negative. X-ray of the right foot was negative for osteomyelitis. Casting Trucker had seen the patient due to the non-pressure ulcers on the right and left feet and recommended wound care for ulcers. GI consult was requested due to the chronic diarrhea. Stool C. diff was negative. All other stool studies such as stool culture, stool for ova and parasites were all negative. WBC smear +1. The patient initially was on antibiotic as per ID ,who followed the patient as well. However, blood and urine culture negative. Stool C. difficile negative. ID recommended to keep the patient off antibiotics and observe. No leukocytosis. No fever. The patient was initially on IV fluids. Hyponatremia resolved, likely depletional. Fall precautions maintained. The patient was working with physical and occupational therapist. Imodium and simethicone were started. Diarrhea likely due to malabsorption. The patient with a history of chronic pancreatitis. He was started on Pancreas and low-residue diet Diarrhea improved. Alpha-fetoprotein was checked due to the concern of possible malignancy ( patient reported rapid weight loss) , which was within normal limits. CEA with small elevation, but likely secondary to smoking. Hemoglobin and hematocrit stable. KUB initially with distended stomach, resolved. The patient has a history of hepatitis C, status post treatment in 1999, however, there noted elevated transaminase with normal bilirubin.Hepatitis panel revealed positive hepatitis C with a high hepatitis C antibody over 6 million. The patient needs outpatient treatment for hepatitis C. The patient was counseled on smoking cessation. The patient was placed on nicotine patch. The patient was counseled on abstinence from the street drugs. Supplemental oxygen and pulmonary toilet provided as needed. housekeeping laundry worker was working on placement for this patient. Pain management provided. DVT and GI prophylaxis provided. The patient decided to sign against medical advice and go with his friend to his house. The patient was explained the risks and consequences of signing AMA. The patient was picked up by his friend who has a car , the patient was assisted to the car. DISCHARGE DIAGNOSIS: sepsis chronic diarrhea, likely 2 to malabsorption frequent recurrent falls DM diabetic neuropathy COPD hepatitis C with elevated LFT hyponatremia, likely depletional bilateral blindness history of transmetatarsal amputation Right foot active smoker amphetamine abuse Unable to care for himself Naila Ramirez M.D. I have been assigned to dictate discharge summary on this account and I was not involved in the patient's management. Lorena Stacy (Vanchtein) N.P. DR: KATERIN JOB#: [id number] CC: GAVIOTA
--- NOTE | 2016-08-02 15:32 | Diagnostic Imaging Report ---
APPROVED REPORT CPT Code: 01570 Symptoms Claudication : Bilaterally Non-healing Ulcer : Bilaterally Risk Factors Diabetes BILATERAL: Common femoral artery waveform analysis is within normal limits at rest. Color flow duplex sonography reveals patency of the superficial femoral, popliteal, and tibial arteries, there is no evidence of stenosis or occlusion within these segments. Doppler tibial artery waveform analysis is within normal limits, bilaterally. There is no evidence of significant arterial occlusive disease, bilaterally.
== END 2016-07-27 13:45 | disposition left against medical advice (07) | DRG 720 ==
LOC: EDBD 00:57 → EMR 01:19 → 4W 04:05 → EDBEDREQ 04:58 → EMR 05:15
DX: A41.9 Sepsis, unspecified organism (principal); E43 Unspecified severe protein-calorie malnutrition; L89.024 Pressure ulcer of left elbow, stage 4; L89.014 Pressure ulcer of right elbow, stage 4; L89.154 Pressure ulcer of sacral region, stage 4; A04.7 Enterocolitis due to Clostridium difficile; L89.894 Pressure ulcer of other site, stage 4; L89.224 Pressure ulcer of left hip, stage 4; L89.214 Pressure ulcer of right hip, stage 4; L89.124 Pressure ulcer of left upper back, stage 4; L89.514 Pressure ulcer of right ankle, stage 4; L89.313 Pressure ulcer of right buttock, stage 3; E10.40 Type 1 diabetes mellitus with diabetic neuropathy, unspecified; L89.329 Pressure ulcer of left buttock, unspecified stage; L89.153 Pressure ulcer of sacral region, stage 3; E10.65 Type 1 diabetes mellitus with hyperglycemia; E87.1 Hypo-osmolality and hyponatremia; K86.1 Other chronic pancreatitis; L97.519 Non-pressure chronic ulcer of other part of right foot with unspecified severity; F17.200 Nicotine dependence, unspecified, uncomplicated; L97.529 Non-pressure chronic ulcer of other part of left foot with unspecified severity; Z68.1 Body mass index [BMI] 19.9 or less, adult; Z91.81 History of falling; H54.8 Legal blindness, as defined in USA; F15.10 Other stimulant abuse, uncomplicated; Z89.431 Acquired absence of right foot; R62.7 Adult failure to thrive; B19.20 Unspecified viral hepatitis C without hepatic coma; Z88.6 Allergy status to analgesic agent; I10 Essential (primary) hypertension; R10.9 Unspecified abdominal pain; R53.1 Weakness; K52.9 Noninfective gastroenteritis and colitis, unspecified; Z22.322 Carrier or suspected carrier of Methicillin resistant Staphylococcus aureus
CPT/HCPCS: 36415; 71010; 74000; 76700; 80048; 80053; 80061; 80202; 80300; 81001; 82105; 82378; 82607; 82705; 82728; 82746; 82962; 83036; 83540; 83550; 83605; 83735; 84100; 84439; 84443; 85007; 85025; 85044; 85610; 85651; 85730; 86140; 86703; 86705; 86709; 86803; 87040; 87045; 87070; 87081; 87086; 87181; 87205; 87340; 87493; 87522; 90732; 93925; 93970; 94664; 94760; J1815; J2405

== ENCOUNTER 2016-12-28 15:48 | Inpatient (IN) | payer OTHER ==
[~2016-12-28] VITALS: Ht 180.3 cm; Wt 87.1 kg
[2016-12-28] VITALS (7 sets, daily range): BP systolic 94–118; BP diastolic 41–72
[~2016-12-28 15:48] MED LIST changes: +ASPIR 8181 MG ORAL; +HUMALOG 75/255 UNIT1 SUBQ
[2016-12-28] MEDS ORDERED: metroNIDAZOLE 500mg 100 ML IV STA (15:55)
[2016-12-28] MEDS ORDERED: Cefepime HCl 1 GM in NS 55 ML IV STA (15:55)
--- NOTE | 2016-12-28 15:55 | Emergency Room Report ---
History of Present Illness General Source: Family Member, EMS Present Illness HPI Patient presents with altered mental status and hypotension. His blood pressure 70 in the field and paramedics started infusing saline in the IV that was established in the field. The patient previously was in hospice care. He has end-stage liver disease or pancreatic cancer. His significant other's saying that he's been receiving high doses of morphine and has not been eating or responding for 2 days. She claims that she never signed hospice papers in chief believes that he wants everything done to save his life. No other history available except old chart: From discharge July sepsis chronic diarrhea, likely 2 to malabsorption frequent recurrent falls DM diabetic neuropathy COPD hepatitis C with elevated LFT hyponatremia, likely depletional bilateral blindness history of transmetatarsal amputation Right foot active smoker amphetamine abuse Unable to care for himsel Allergies: Coded Allergies: ACETAMINOPHEN (Unverified Allergy, Unknown, 07/14/16) HYDROCODONE (Unverified Allergy, Unknown, 07/14/16) PHENELZINE (Unverified Allergy, Unknown, 12/18/16) Patient History Past Medical History: see triage record Social History: Reports: alcohol use, drug use, smoking Social History Narrative SNF (prior Hospice) Reviewed Nursing Documentation: PMH: Agreed, PSxH: Agreed Nursing Documentation-PMH Hx Cardiac Problems: Yes Hx Hypertension: Yes Hx COPD: Yes Hx Diabetes: Yes - retinopathy, neuropathy Hx Cancer: No Hx Gastrointestinal Problems: Yes Hx Dialysis: No Hx Neurological Problems: Yes Hx Seizures: Yes Hx Tremors: Yes Hx Weakness: Yes Review of Systems All Other Systems: limited Physical Exam Vital Signs Date Time Temp Pulse Resp B/P Pulse Ox O2 Delivery O2 Flow Rate FiO2 12/28/16 15:50 98.2 100 20 74/41 100 Simple Mask 8.0 Resp rate actually = 8 - hypopneic Sp02 EP Interpretation: reviewed, normal General Appearance: no apparent distress, Chronically Ill, Stupor Head: normocephalic Eyes: bilateral eye other - cataracts bilaterally ENT: moist mucus membranes Neck: supple Respiratory: lungs clear, normal breath sounds Cardiovascular #1: regular rate, rhythm Cardiovascular #2: 2+ radial (R) Gastrointestinal: normal inspection, non tender, no mass, non-distended, abnormal bowel sounds - decreased Musculoskeletal: back normal, other - atrophy Neurologic: other Psychiatric: other - stupor Skin: other - sallo Procedures Critical Care Time Critical Care Time Total Critical Care Time: 90 min bedside evaluation and treatment excludes procedures (EKG). Reason for critical care: Stupor, hypotension, respiratory failure, determination of code status, narcan drip,repeated evaluations and repeat boluses of narcan, sepsis, treatment of hyperkalemia/metabolic acidosis and renal failure Possible complications: hypotension, hypertension, MS, shock, arrhythmias, metabolic acidosis, end organ damage, respiratory failure. Interventions: narcan, antibiotics, re-evaluations, fluids/sepsis treatment, calcium, Kayexelate, bicarb Course: Pt with worsened lethargy over several days with decreased PO intake. Initially hospice. Hypopneic - evaluated for possible intubation. Narcan and narcan drip with improvement. Pt treated for sepsis. Patient treated for hyperkalemia. Attempt to remove narcan and observed. Pt return of resp failure. Restart of narcan. Admit to ICU. Discussion with critical care MD. Consultations: nursing staff, EMS, family, RT, critical care MD, lab Performed by: Dr. Banegas Tolerated: well condition = critical Medical Decision Making Diagnostic Impression: Primary Impression: Opiate overdose Qualified Codes: T40.601A - Poisoning by unspecified narcotics, accidental ( unintentional), initial encounter Additional Impressions: Hyperkalemia Renal failure Qualified Codes: N17.9 - Acute kidney failure, unspecified Metabolic acidosis Sepsis Qualified Codes: A41.9 - Sepsis, unspecified organism ER Course Patient with hypotension from SNF presumed to be Hospice care brought by paramedics. DDx: sepsis, dehydration, medication excess, bleed, hepatic encephalopathy amongst others. Immediate move to consider intubation. Discussion with family = full code. Evaluation with labs, CT head, EKG, CXR. Initial treatment for sepsis - though judicious hydration as h/o renal insufficiency. Resp rate = 6-8. See critical care note. After narcan, patient resp rate improved and gradually more awake. Discussed with Dr. Davison as he wanted patient transferred. Treatment for hyperkalemia (6,2) and renal failure. Tolerate PO meds. Ammonia normal. Initial labs cancelled by lab though I asked to run. Second labs after treatment initiated. Improved. Will observe off narcan 1 hour and see if stable to go to [facility]. Patient with lethargy and resp rate 8-10 again. Failed withdrawal of narcan. Re-ordering. Improved after second bolus. Admit ICU Dr. Ramirez. Laboratory Tests Test 12/28/16 16:03 12/28/16 16:25 12/28/16 17:35 White Blood Count 20.8 K/UL (4.8-10.8) H Red Blood Count 2.58 M/UL (4.70-6.10) L Hemoglobin 8.2 G/DL (14.2-18.0) L Hematocrit 25.8 % (42.0-52.0) L Mean Corpuscular Volume 100 FL (80-99) H Mean Corpuscular Hemoglobin 31.8 PG (27.0-31.0) H Mean Corpuscular Hemoglobin Concent 31.9 G/DL (32.0-36.0) L Red Cell Distribution Width 16.8 % (11.6-14.8) H Platelet Count 186 K/UL (150-450) Mean Platelet Volume 6.6 FL (6.5-10.1) Neutrophils (%) (Auto) % (45.0-75.0) Lymphocytes (%) (Auto) % (20.0-45.0) Monocytes (%) (Auto) % (1.0-10.0) Eosinophils (%) (Auto) % (0.0-3.0) Basophils (%) (Auto) % (0.0-2.0) Differential Total Cells Counted 100 Neutrophils % (Manual) 83 % (45-75) H Lymphocytes % (Manual) 10 % (20-45) L Monocytes % (Manual) 6 % (1-10) Eosinophils % (Manual) 0 % (0-3) Basophils % (Manual) 1 % (0-2) Band Neutrophils 0 % (0-8) Platelet Estimate Adequate Platelet Morphology Normal Hypochromasia 2+ Anisocytosis 1+ Prothrombin Time 15.2 SEC (9.30-11.50) H Prothrombin Time INR 1.4 (0.9-1.1) H PTT 50 SEC (23-33) H Lactic Acid Level 0.80 mmol/L (0.66-2.22) Urine Color Brown Urine Appearance Cloudy Urine pH 5 (4.5-8.0) Urine Specific Loraine 1.025 (1.005-1.035) Urine Protein 3+ (NEGATIVE) H Urine Glucose (UA) Negative (NEGATIVE) Urine Ketones 1+ (NEGATIVE) H Urine Occult Blood 5+ (NEGATIVE) H Urine Nitrite Negative (NEGATIVE) Urine Bilirubin 1+ (NEGATIVE) H Urine Ictotest Negative Urine Urobilinogen 1 MG/DL (0.0-1.0) H Urine Leukocyte Esterase 2+ (NEGATIVE) H Urine RBC 20-30 /HPF (0 - 0) H Urine WBC 2-4 /HPF (0 - 0) Urine Squamous Epithelial Cells Many /LPF (NONE/OCC) H Urine Amorphous Sediment Many /LPF (NONE) H Urine Bacteria Few /HPF (NONE) Urine Opiates Screen Positive (NEGATIVE) H Urine Barbiturates Screen Negative (NEGATIVE) Phencyclidine (PCP) Screen Negative (NEGATIVE) Urine Amphetamines Screen Negative (NEGATIVE) Urine Benzodiazepines Screen Negative (NEGATIVE) Urine Cocaine Screen Negative (NEGATIVE) Urine Marijuana (THC) Screen Negative (NEGATIVE) Sodium Level 130 mEQ/L (135-145) L Potassium Level 5.3 mEQ/L (3.4-4.9) H Chloride Level 102 mEQ/L (98-107) Carbon Dioxide Level 11 mEQ/L (20-30) L Anion Gap 17 (5-15) H Blood Urea Nitrogen 37 mg/dL (7-23) H Creatinine 2.4 mg/dL (0.7-1.2) H Estimate Glomerular Filtration Rate 28.9 mL/min (>60) Glucose Level 77 mg/dL (74-106) Calcium Level 7.7 mg/dL (8.6-10.2) L Total Bilirubin 1.7 mg/dL (0.0-1.2) H Direct Bilirubin 1.3 mg/dL (0.1-0.3) H Aspartate Amino Transferase (AST) 41 U/L (5-40) H Alanine Aminotransferase (ALT) 10 U/L (3-41) Alkaline Phosphatase 124 U/L (40-129) Ammonia 28 umol/L (16-60) Total Creatine Kinase 87 U/L (38-174) Troponin I < 0.30 ng/mL (<=0.30) Pro-B-Type Natriuretic Peptide 04290 pg/mL (0-125) H Total Protein 6.9 g/dL (6.6-8.7) Albumin 1.5 g/dL (3.5-5.2) L Globulin 5.4 g/dL Albumin/Globulin Ratio 0.2 (1.0-2.7) L Lipase 20 U/L (< 60) EKG Diagnostic Results Rate: normal Rhythm: NSR ST Segments: no acute changes Rhythm Strip Diag. Results EP Interpretation: yes Rhythm: NSR, no PVC's, no ectopy Chest X-Ray Diagnostic Results Chest X-Ray Ordered: Yes # of Views/Limited/Complete: 1 View EP Interpretation: Yes Interpretation: no consolidation, no effusion, no pneumothorax Indication: Other Impression: Other Interpreting ER Provider: abi Last Vital Signs Date Time Temp Pulse Resp B/P Pulse Ox O2 Delivery O2 Flow Rate FiO2 12/29/16 01:04 92 17 109/66 100 Room Air 12/29/16 00:15 97.9 12/28/16 18:07 4.0 Status: improved Disposition: ADMITTED INPATIENT Condition: Critical Vivek Banegas M.D. Dec 28, 2016 15:55
[2016-12-28] MEDS ORDERED: NS 1000ml 1,700 ML IVLG ONE (16:00)
[2016-12-28] MEDS ORDERED: Vancomycin 1 GM in NS 275 ML IV ONE (16:00)
[2016-12-28] MEDS ORDERED: Naloxone 1mg/ml 2ml IVP ONE ×2 (16:00→22:45)
[2016-12-28] MEDS ORDERED: Naloxone 1mg/ml 2ml ONE ×4 (16:11→23:32)
[2016-12-28] MEDS ORDERED: Naloxone 2 MG in D5W 500ml 498 ML IV SCH ×2 (16:30→22:45)
[2016-12-28 16:33] LABS: MEAN CORPUSCULAR HEMOGLOBIN 31.8 PG (27.0-31.0); MEAN CORPUSCULAR HGB CONC 31.9 G/DL (32.0-36.0); MEAN CORPUSCULAR VOLUME 100 FL (80-99); MEAN PLATELET VOLUME 6.6 FL (6.5-10.1); PLATELET COUNT 186 K/UL (150-450); RED BLOOD COUNT 2.58 M/UL (4.70-6.10); RED CELL DISTRIBUTION WIDTH 16.8 % (11.6-14.8); WHITE BLOOD COUNT 20.8 K/UL (4.8-10.8)
[2016-12-28 16:44] LABS: INR 1.4 (0.9-1.1); PROTHROMBIN TIME 15.2 SEC (9.30-11.50)
[2016-12-28 16:51] LABS: KETONES,URINE 1+ (NEGATIVE); LEUKOCYTE ESTERASE ,URINE 2+ (NEGATIVE); NITRITE,URINE NEGATIVE (NEGATIVE); PH,URINE 5 (4.5-8.0); PROTEIN,URINE 3+ (NEGATIVE); UROBILINOGEN,URINE 1 MG/DL (0.0-1.0)
[2016-12-28 16:57] LABS: ANISOCYTOSIS 1+; BAND NEUTROPHILS % (MANUAL) 0 % (0-8); BASOPHILS % (MANUAL) 1 % (0-2); EOSINOPHILS % (MANUAL) 0 % (0-3); HYPOCHROMASIA 2+; LYMPHOCYTES % (MANUAL) 10 % (20-45); NEUTROPHILS % (MANUAL) 83 % (45-75); PLATELET ESTIMATE ADEQUATE; PLATELET MORPHOLOGY NORMAL; TOTAL CELLS COUNTED 100
[2016-12-28] MEDS ORDERED: Sodium Polystyrene Sulfonate 15gm Powder RECTAL STA (16:59)
[2016-12-28] MEDS ORDERED: Calcium Gluconate 1gm/10ml vial IVP ONE (17:00)
[2016-12-28] MEDS ORDERED: Naloxone 2 MG in D5W 500ml 498 ML IV ONE (17:00)
[2016-12-28] MEDS: Sodium Bicarbonate 50ml Carp IV ONE ×2 (17:00→17:28)
[2016-12-28] MEDS ORDERED: Albuterol ud Inhalation HHN ONE (17:00)
[2016-12-28 17:04] LABS: APPEARANCE,URINE CLOUDY
[2016-12-28 17:05] LABS: AMORPHOUS SEDIMENT,UR MANY /LPF; BACTERIA,URINE FEW /HPF; ICTOTEST NEGATIVE; RBC,URINE 20-30 /HPF (0 - 0); SQUAMOUS EPITHELIAL CELL,UR MANY /LPF (NONE/OCC)
[2016-12-28] MEDS ORDERED: Vancomycin 1gm inj IVPB ONE (17:25)
[2016-12-28] MEDS ORDERED: Sodium Polystyrene Sulfonate Enema RECTAL ONE (17:30)
--- NOTE | 2016-12-28 17:38 | Diagnostic Imaging Report ---
Indications: Altered mental status Technique: Spiral acquisitions obtained through the brain. Angled axial and coronal 5 x 5 mm slices were reconstructed. Total dose length product 07/12/01 mGycm. CTDI vol(s) mGy. Dose reduction achieved using automated exposure control Comparison: None Findings: No acute hemorrhage or edema. No mass effect or midline shift. There are bilateral deep white matter lacunar infarcts anteriorly. There is periventricular the white matter ischemic change. There is mild prominence to the ventricles and extra axial CSF spaces, somewhat advanced for age. Impression: Chronic and age-related changes, somewhat advanced for age. Negative for acute intracranial bleed or mass effect The CT scanner at [facility] is accredited by the [employer] and the scans are performed using protocols designed to limit radiation exposure to as low as reasonably achievable to attain images of sufficient resolution adequate for diagnostic evaluation.
[2016-12-28 17:59] LABS: TROPONIN I < 0.30 ng/mL (<=0.30)
[2016-12-28 18:00] LABS: ALANINE AMINOTRANSFERASE 10 U/L (3-41); ALBUMIN/GLOBULIN RATIO 0.2 (1.0-2.7); ANION GAP 17 (5-15); ASPARTATE AMINO TRANSFERASE 41 U/L (5-40); CALCIUM 7.7 mg/dL (8.6-10.2); CARBON DIOXIDE 11 mEQ/L (20-30); CHLORIDE 102 mEQ/L (98-107); CREATININE 2.4 mg/dL (0.7-1.2); GLOMERULAR FILTRATION RATE 28.9 mL/min (>60); HEMOLYSIS 4; LIPASE 20 U/L (< 60); POTASSIUM 5.3 mEQ/L (3.4-4.9); SODIUM 130 mEQ/L (135-145); TOTAL PROTEIN 6.9 g/dL (6.6-8.7)
[2016-12-28] MEDS ORDERED: Sodium Bicarbonate 50ml Carp IV ONE (18:15)
[2016-12-28 18:20] LABS: BILIRUBIN,DIRECT 1.3 mg/dL (0.1-0.3)
[2016-12-28] MEDS ORDERED: Sodium Polystyrene Sulfonate 15gm Powder ORAL ONE (18:45)
[2016-12-28] MEDS ORDERED: Miralax 17gm pkt ORAL PRN (19:00)
[2016-12-28] MEDS ORDERED: DuoNeb 0.5-3(2.5)mg/3ml neb HHN PRN (19:00)
[2016-12-28] MEDS ORDERED: LORazepam Inj 2mg/ml 1ml IV PRN (19:00)
[2016-12-28] MEDS ORDERED: Cefepime 1gm vial ONE (19:32)
[2016-12-28] MEDS: Heparin 5000 units/ml inj SUBQ SCH (21:00)
[2016-12-28] MEDS: NALOXONE IV SCH (22:00)
[2016-12-28] MEDS: D5W IV SCH (22:00)
[2016-12-28] MEDS ORDERED: Cefepime 1gm in D5W 55ml IVPB ONE (22:00)
--- NOTE | 2016-12-28 22:58 | History and Physical ---
History of Present Illness General Date patient seen: Dec 28, 2016 Reason for Hospitalization: Dyspnea/Respdistress Present Illness HPI 51 year old male with hx of end stage liver disease, pancreatic cancer, under hospice care at the long term brought in by paramedics with altered mental status and hypotension. His blood pressure 70 in the field and paramedics started infusing saline in the IV that was established in the field. Patients mother stated that he's been receiving high doses of morphine and has not been eating or responding for 2 days. She claims that she never signed hospice papers in chief believes that he wants everything done to save his life. He was started on Narcan drip and transferred to ICU. Allergies: Coded Allergies: ACETAMINOPHEN (Unverified Allergy, Unknown, 07/14/16) HYDROCODONE (Unverified Allergy, Unknown, 07/14/16) PHENELZINE (Unverified Allergy, Unknown, 12/18/16) Medication History Scheduled Amitriptyline HCl (Elavil*), 25 MG ORAL BEDTIME, (Reported) Aspirin* (Aspir 81*), 81 MG ORAL DAILY, (Reported) Clonidine Hcl* (Catapres*), 0.1 MG ORAL BID, (Reported) Furosemide* (Lasix*), 20 MG ORAL DAILY, (Reported) Gabapentin (Neurontin), 300 MG ORAL BEDTIME, (Reported) Insulin Glargine (Lantus), 0 SUBQ BEDTIME, (Reported) Scheduled PRN Tramadol Hcl* (Ultram*), 50 MG ORAL Q6H PRN for For Pain, (Reported) Miscellaneous Medications Insulin Human Lispro (Humalog), 0 SUBQ, (Reported) Prednisolone* (Prelone*), 15 MG ORAL, (Reported) Patient History Healthcare decision maker Resuscitation status Advanced Directive on File Past Medical/Surgical History Past Medical/Surgical History: (1) Pancreatic cancer (2) Amphetamine abuse (3) Severe malnutrition (4) Hepatitis C (5) COPD (chronic obstructive pulmonary disease) Review of Systems All Other Systems: negative except mentioned in HPI Physical Exam General Appearance: cachetic Lines, tubes and drains: peripheral HEENT: normocephalic, atraumatic Neck: non-tender, normal alignment Respiratory/Chest: chest wall non-tender, lungs clear Cardiovascular/Chest: normal peripheral pulses, normal rate Abdomen: normal bowel sounds, non tender Genitourinary/Rectal: normal genital exam Extremities: normal range of motion Skin Exam: normal pigmentation Last 24 Hour Vital Signs Date Time Temp Pulse Resp B/P Pulse Ox O2 Delivery O2 Flow Rate FiO2 12/28/16 20:54 97.6 88 18 108/72 100 Room Air 12/28/16 19:24 98.2 92 22 117/77 97 Room Air 12/28/16 18:55 92 22 94/71 97 Room Air 12/28/16 18:07 92 16 118/71 97 Nasal Cannula 4.0 12/28/16 17:40 86 16 100 Nasal Cannula 4.0 12/28/16 16:20 89 28 100/41 100 Simple Mask 8.0 12/28/16 16:18 100 28 Simple Mask 8.0 12/28/16 15:50 98.2 100 20 74/41 100 Simple Mask 8.0 Laboratory Tests Test 12/28/16 16:03 12/28/16 16:25 12/28/16 17:35 White Blood Count 20.8 K/UL (4.8-10.8) H Red Blood Count 2.58 M/UL (4.70-6.10) L Hemoglobin 8.2 G/DL (14.2-18.0) L Hematocrit 25.8 % (42.0-52.0) L Mean Corpuscular Volume 100 FL (80-99) H Mean Corpuscular Hemoglobin 31.8 PG (27.0-31.0) H Mean Corpuscular Hemoglobin Concent 31.9 G/DL (32.0-36.0) L Red Cell Distribution Width 16.8 % (11.6-14.8) H Platelet Count 186 K/UL (150-450) Mean Platelet Volume 6.6 FL (6.5-10.1) Neutrophils (%) (Auto) % (45.0-75.0) Lymphocytes (%) (Auto) % (20.0-45.0) Monocytes (%) (Auto) % (1.0-10.0) Eosinophils (%) (Auto) % (0.0-3.0) Basophils (%) (Auto) % (0.0-2.0) Differential Total Cells Counted 100 Neutrophils % (Manual) 83 % (45-75) H Lymphocytes % (Manual) 10 % (20-45) L Monocytes % (Manual) 6 % (1-10) Eosinophils % (Manual) 0 % (0-3) Basophils % (Manual) 1 % (0-2) Band Neutrophils 0 % (0-8) Platelet Estimate Adequate Platelet Morphology Normal Hypochromasia 2+ Anisocytosis 1+ Prothrombin Time 15.2 SEC (9.30-11.50) H Prothromb Time International Ratio 1.4 (0.9-1.1) H Activated Partial Thromboplast Time 50 SEC (23-33) H Lactic Acid Level 0.80 mmol/L (0.66-2.22) Urine Color Brown Urine Appearance Cloudy Urine pH 5 (4.5-8.0) Urine Specific [place] 1.025 (1.005-1.035) Urine Protein 3+ (NEGATIVE) H Urine Glucose (UA) Negative (NEGATIVE) Urine Ketones 1+ (NEGATIVE) H Urine Occult Blood 5+ (NEGATIVE) H Urine Nitrite Negative (NEGATIVE) Urine Bilirubin 1+ (NEGATIVE) H Urine Ictotest Negative Urine Urobilinogen 1 MG/DL (0.0-1.0) H Urine Leukocyte Esterase 2+ (NEGATIVE) H Urine RBC 20-30 /HPF (0 - 0) H Urine WBC 2-4 /HPF (0 - 0) Urine Squamous Epithelial Cells Many /LPF (NONE/OCC) H Urine Amorphous Sediment Many /LPF (NONE) H Urine Bacteria Few /HPF (NONE) Urine Opiates Screen Positive (NEGATIVE) H Urine Barbiturates Screen Negative (NEGATIVE) Phencyclidine (PCP) Screen Negative (NEGATIVE) Urine Amphetamines Screen Negative (NEGATIVE) Urine Benzodiazepines Screen Negative (NEGATIVE) Urine Cocaine Screen Negative (NEGATIVE) Urine Marijuana (THC) Screen Negative (NEGATIVE) Sodium Level 130 mEQ/L (135-145) L Potassium Level 5.3 mEQ/L (3.4-4.9) H Chloride Level 102 mEQ/L (98-107) Carbon Dioxide Level 11 mEQ/L (20-30) L Anion Gap 17 (5-15) H Blood Urea Nitrogen 37 mg/dL (7-23) H Creatinine 2.4 mg/dL (0.7-1.2) H Estimat Glomerular Filtration Rate 28.9 mL/min (>60) Glucose Level 77 mg/dL (74-106) Calcium Level 7.7 mg/dL (8.6-10.2) L Total Bilirubin 1.7 mg/dL (0.0-1.2) H Direct Bilirubin 1.3 mg/dL (0.1-0.3) H Aspartate Amino Transf (AST/SGOT) 41 U/L (5-40) H Alanine Aminotransferase (ALT/SGPT) 10 U/L (3-41) Alkaline Phosphatase 124 U/L (40-129) Ammonia 28 umol/L (16-60) Total Creatine Kinase 87 U/L (38-174) Troponin I < 0.30 ng/mL (<=0.30) Pro-B-Type Natriuretic Peptide 11354 pg/mL (0-125) H Total Protein 6.9 g/dL (6.6-8.7) Albumin 1.5 g/dL (3.5-5.2) L Globulin 5.4 g/dL Albumin/Globulin Ratio 0.2 (1.0-2.7) L Lipase 20 U/L (< 60) Height (Feet): 5 Height (Inches): 7.00 Weight (Pounds): 125 Medications Current Medications Medications (Trade) Dose Ordered Sig/Romelia Route PRN Reason Start Time Stop Time Status Last Admin Dose Admin Acetaminophen (Tylenol) 650 mg Q4H PRN ORAL FEVER 12/28/16 19:00 01/27/17 18:59 Albuterol/ Ipratropium 3 ml 3 ml Q4H PRN HHN Shortness of Breath 12/28/16 19:00 01/02/17 18:59 Amitriptyline HCl (Elavil) 25 mg BEDTIME ORAL 12/28/16 21:00 01/27/17 20:59 Cefepime HCl 2 gm/ Dextrose 110 ml @ 220 mls/hr Q24H IV 12/29/16 20:00 01/05/17 19:59 Dextrose STAT PRN IV Hypoglycemia 12/28/16 19:00 01/27/17 18:59 Gabapentin 300 mg 300 mg BEDTIME ORAL 12/28/16 21:00 01/27/17 20:59 Heparin Sodium (Porcine) (Heparin 5000 units/ml) 5,000 units EVERY 12 HOURS SUBQ 12/28/16 21:00 01/27/17 20:59 Lorazepam (Ativan 2mg/ml 1ml) 2 mg Q2H PRN IV For Anxiety 12/28/16 19:00 01/04/17 18:59 Morphine Sulfate (Morphine Sulfate) 4 mg EVERY 4 HOURS PRN IVP Severe Pain (Pain Scale 7-10) 12/28/16 19:00 01/04/17 18:59 UNV Naloxone HCl 2 mg/ Dextrose 500 ml @ 167.5 mls/ hr Q24H IV 12/28/16 22:00 01/27/17 21:59 Naloxone HCl/ Dextrose (Narcan/D5W 500ml) 500 ml @ 0 mls/hr Q24H IV 12/28/16 22:45 01/27/17 22:44 Ondansetron HCl (Zofran) 4 mg Q6H PRN IVP Nausea & Vomiting 12/28/16 19:00 01/27/17 18:59 Polyethylene Glycol (Miralax) 17 gm DAILYPRN PRN ORAL Constipation 12/28/16 19:00 01/27/17 18:59 Sodium Chloride (0.45% NS 1000ml) 1,000 ml @ 50 mls/hr Q20H IV 12/28/16 21:00 01/27/17 20:59 Vancomycin HCl/ Dextrose (Vancomycin/D5W) 275 ml @ 183.3 mls/ hr Q24H IVPB 12/29/16 18:00 01/03/17 17:59 Assessment/Plan Problem List: (1) Acute encephalopathy ICD Codes: G93.40 - Encephalopathy, unspecified SNOMED: 7214701 (2) Pancreatic cancer ICD Codes: C25.9 - Malignant neoplasm of pancreas, unspecified SNOMED: 299117417 (3) Severe malnutrition ICD Codes: E43 - Unspecified severe protein-calorie malnutrition SNOMED: 55365694 (4) Renal failure ICD Codes: N19 - Unspecified kidney failure SNOMED: 04622969 Qualifiers: Qualified Codes: N17.9 - Acute kidney failure, unspecified (5) Conflicted attitude towards care ICD Codes: Z91.19 - Patient's noncompliance with other medical treatment and regimen SNOMED: 015821947 (6) Hepatitis C ICD Codes: B19.20 - Unspecified viral hepatitis C without hepatic coma SNOMED: 15069872 (7) Amphetamine abuse ICD Codes: F15.10 - Other stimulant abuse, uncomplicated SNOMED: 79097798 Assessment/Plan IV fluids IV antibiotics check electrolytes check cultures social service consult. DORENE GRIMM Dec 28, 2016 22:58
[2016-12-29] VITALS (24 sets, daily range): BP systolic 81–133; BP diastolic 45–77
[2016-12-29] MEDS: NALOXONE IV SCH ×5 (06:42→21:57)
[2016-12-29] MEDS: D5W IV SCH ×5 (06:42→21:57)
[2016-12-29 06:55] LABS: INR 1.7 (0.9-1.1); PROTHROMBIN TIME 17.7 SEC (9.30-11.50)
--- NOTE | 2016-12-29 06:59 | Diagnostic Imaging Report ---
Indications: Abnormal renal function tests Technique: Transabdominal real-time grayscale and duplex Doppler imaging of the kidneys, retroperitoneum, and urinary bladder was performed Findings: Comparison: Abdominal ultrasound 07/16/2016 Right kidney measures 12.8 cm in length. Normal contour, echotexture, cortical thickness. No stones, other focal lesions, hydronephrosis, or obvious perinephric abnormalities. Left kidney measures 14.2 cm in length. Normal contour, echotexture, cortical thickness. All millimeters circumscribed anechoic focus again noted in upper pole cortex. Collecting system and proximal ureter now moderately dilated. No stones, other focal lesions, or obvious perinephric abnormalities. The intrahepatic portion of inferior vena cava is patent and normal caliber. The urinary bladder is collapsed. IMPRESSION: Development of moderate left hydronephrosis, suspect obstruction. Recommend CT urography. Stable left renal cortical cysts Sonographically unremarkable right kidney
[2016-12-29 07:12] LABS: LACTATE DEHYDROGENASE 461 U/L (135-230)
--- NOTE | 2016-12-29 07:30 | Diagnostic Imaging Report ---
Indications: Shortness of breath Technique: Portable AP chest Findings: Comparison: 07/16/2016 Inspiratory effort has decreased. Size of cardiac silhouette has apparently mildly increased. Mild pulmonary vascular redistribution, bilateral interstitial prominence, bibasal pleural effusions have developed. IMPRESSION: Development of mild congestive change with bilateral pleural effusions
[2016-12-29 07:44] LABS: MEAN CORPUSCULAR HEMOGLOBIN 31.2 PG (27.0-31.0); MEAN CORPUSCULAR HGB CONC 31.5 G/DL (32.0-36.0); MEAN CORPUSCULAR VOLUME 99 FL (80-99); MEAN PLATELET VOLUME 6.2 FL (6.5-10.1); PLATELET COUNT 199 K/UL (150-450); RED BLOOD COUNT 2.38 M/UL (4.70-6.10); RED CELL DISTRIBUTION WIDTH 16.6 % (11.6-14.8); WHITE BLOOD COUNT 19.7 K/UL (4.8-10.8)
[2016-12-29 07:53] LABS: HEMOLYSIS 2; IRON 55 ug/dL (59-158); TOTAL IRON BINDING CAPACITY 136 ug/dL (250-400)
[2016-12-29] MEDS: Heparin 5000 units/ml inj SUBQ SCH ×2 (08:28→21:08)
[2016-12-29 09:43] LABS: ERYTHROCYTE SEDIMENTATION RATE 120 MM/HR (0-15); PATH BLOOD SMEAR/OMC SENT TO PATHOLOGIST
--- NOTE | 2016-12-29 10:30 | Consultation ---
Consult Note Consult Note asked to eval for renal failure Patient presents with altered mental status and hypotension. His blood pressure 70 in the field and paramedics started infusing saline in the IV that was established in the field. The patient previously was in hospice care. He has end-stage liver disease or pancreatic cancer. His significant other's saying that he's been receiving high doses of morphine and has not been eating or responding for 2 days. She claims that she never signed hospice papers in chief believes that he wants everything done to save his life. PH: sepsis chronic diarrhea, likely 2 to malabsorption frequent recurrent falls DM diabetic neuropathy COPD hepatitis C with elevated LFT hyponatremia, likely depletional bilateral blindness history of transmetatarsal amputation Right foot active smoker amphetamine abuse Unable to care for himsel Allergies: Coded Allergies: ACETAMINOPHEN (Unverified Allergy, Unknown, 07/14/16) HYDROCODONE (Unverified Allergy, Unknown, 07/14/16) PHENELZINE (Unverified Allergy, Unknown, 12/18/16) SNF (prior Hospice) Hx Cardiac Problems: Yes Hx Hypertension: Yes Hx COPD: Yes Hx Diabetes: Yes - retinopathy, neuropathy Hx Gastrointestinal Problems: Yes Hx Neurological Problems: Yes Hx Seizures: Yes Hx Tremors: Yes Hx Weakness: Yes Physical Exam Vital Signs Date Time Temp Pulse Resp B/P Pulse Ox O2 Delivery O2 Flow Rate FiO2 12/28/16 15:50 98.2 100 20 74/41 100 Simple Mask 8.0 Resp rate actually = 8 - hypopneic Sp02 EP Interpretation: reviewed, normal General Appearance: no apparent distress, Chronically Ill, Stupor Head: normocephalic Eyes: bilateral eye other - cataracts bilaterally ENT: moist mucus membranes Neck: supple Respiratory: lungs clear, normal breath sounds Cardiovascular #1: regular rate, rhythm Cardiovascular #2: 2+ radial (R) Gastrointestinal: normal inspection, non tender, no mass, non-distended, abnormal bowel sounds - decreased Musculoskeletal: back normal, other - atrophy Neurologic: other Psychiatric: other - stupor Skin: other - sallo Assessment/Plan Primary Impression: Opiate overdose Acute renal failure due to low BP Hyperkalemia Metabolic acidosis Sepsis Severe Anemia Plan: Hydrate- ? Transfuse? Urine studies Avoid nephrotoxics Per orders RAYMON SERNA Dec 29, 2016 10:30
[2016-12-29 10:46] LABS: CALCIUM 7.5 mg/dL (8.6-10.2); CREATININE 2.7 mg/dL (0.7-1.2); GLOMERULAR FILTRATION RATE 25.2 mL/min (>60); PHOSPHORUS 7.4 mg/dL (2.5-4.8); POTASSIUM 4.9 mEQ/L (3.4-4.9)
[2016-12-29] MEDS: D5NS 1,000 ML IV SCH (11:03)
[2016-12-29 11:39] LABS: ANISOCYTOSIS 1+; BAND NEUTROPHILS % (MANUAL) 0 % (0-8); BASOPHILS % (MANUAL) 1 % (0-2); EOSINOPHILS % (MANUAL) 1 % (0-3); HYPOCHROMASIA 3+; LYMPHOCYTES % (MANUAL) 3 % (20-45); NEUTROPHILS % (MANUAL) 90 % (45-75); PLATELET ESTIMATE ADEQUATE; PLATELET MORPHOLOGY NORMAL; TOTAL CELLS COUNTED 100
--- NOTE | 2016-12-29 11:57 | Pulmonolgy Critical Care Note ---
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 - Objective Last 24 Hour Vital Signs Date Time Temp Pulse Resp B/P Pulse Ox O2 Delivery O2 Flow Rate FiO2 12/29/16 11:00 88 17 92/55 99 Room Air 12/29/16 10:00 88 17 85/50 100 Room Air 12/29/16 09:00 89 17 93/57 99 Room Air 12/29/16 08:00 98.0 88 18 96/59 100 Room Air 12/29/16 08:00 89 12/29/16 07:00 90 20 94/54 100 Room Air 12/29/16 06:00 87 14 81/45 99 Room Air 12/29/16 05:00 87 14 92/50 99 Room Air 12/29/16 04:00 87 12/29/16 04:00 98.8 87 16 89/48 98 Room Air 12/29/16 03:00 90 18 94/53 100 Room Air 12/29/16 02:00 92 21 91/52 100 Room Air 12/29/16 01:04 92 17 109/66 100 Room Air 12/29/16 00:15 90 12/29/16 00:15 97.9 90 18 133/74 100 Room Air 12/28/16 23:00 97.8 87 18 100/58 100 Room Air 12/28/16 22:15 98.0 85 13 95/57 100 Room Air 12/28/16 21:30 84 15 103/61 100 Room Air 12/28/16 20:54 97.6 88 18 108/72 100 Room Air 12/28/16 19:24 98.2 92 22 117/77 97 Room Air 12/28/16 18:55 92 22 94/71 97 Room Air 12/28/16 18:07 92 16 118/71 97 Nasal Cannula 4.0 6/23/17 17:40 86 16 100 Nasal Cannula 4.0 12/28/16 16:20 89 28 100/41 100 Simple Mask 8.0 12/28/16 16:18 100 28 Simple Mask 8.0 12/28/16 15:50 98.2 100 20 74/41 100 Simple Mask 8.0 Status: awake Condition: critical HEENT: atraumatic Neck: full ROM Heart: HR/BP stable Abdomen: soft, non-tender Extremities: no C/C/E Critical Care - Subjective ROS Limited/Unobtainable: Yes ICU Day: 2 Intubation Day: 2 Condition: critical EKG Rhythm: Sinus Rhythm Sputum Amount: None Drips: Narcan drip I&O: Intake and Output 12/28/16 12/29/16 19:00 07:00 Intake Total 1700 ml 752.5 ml Output Total 75 ml Balance 1700 ml 677.5 ml Intake Oral 0 ml 0 ml IV Total 1700 ml 752.5 ml Output Urine Total 75 ml # Bowel Movements 2 CXR: EDILBERTO Labs: Laboratory Tests Test 12/28/16 16:03 12/28/16 16:25 12/28/16 17:35 12/29/16 04:11 White Blood Count 20.8 K/UL (4.8-10.8) H 19.7 K/UL (4.8-10.8) H Red Blood Count 2.58 M/UL (4.70-6.10) L 2.38 M/UL (4.70-6.10) L Hemoglobin 8.2 G/DL (14.2-18.0) L 7.4 G/DL (14.2-18.0) L Hematocrit 25.8 % (42.0-52.0) L 23.5 % (42.0-52.0) L Mean Corpuscular Volume 100 FL (80-99) H 99 FL (80-99) Mean Corpuscular Hemoglobin 31.8 PG (27.0-31.0) H 31.2 PG (27.0-31.0) H Mean Corpuscular Hemoglobin Concent 31.9 G/DL (32.0-36.0) L 31.5 G/DL (32.0-36.0) L Red Cell Distribution Width 16.8 % (11.6-14.8) H 16.6 % (11.6-14.8) H Platelet Count 186 K/UL (150-450) 199 K/UL (150-450) Mean Platelet Volume 6.6 FL (6.5-10.1) 6.2 FL (6.5-10.1) L Neutrophils (%) (Auto) % (45.0-75.0) % (45.0-75.0) Lymphocytes (%) (Auto) % (20.0-45.0) % (20.0-45.0) Monocytes (%) (Auto) % (1.0-10.0) % (1.0-10.0) Eosinophils (%) (Auto) % (0.0-3.0) % (0.0-3.0) Basophils (%) (Auto) % (0.0-2.0) % (0.0-2.0) Differential Total Cells Counted 100 100 Neutrophils % (Manual) 83 % (45-75) H 90 % (45-75) H Lymphocytes % (Manual) 10 % (20-45) L 3 % (20-45) L Monocytes % (Manual) 6 % (1-10) 5 % (1-10) Eosinophils % (Manual) 0 % (0-3) 1 % (0-3) Basophils % (Manual) 1 % (0-2) 1 % (0-2) Band Neutrophils 0 % (0-8) 0 % (0-8) Platelet Estimate Adequate Adequate Platelet Morphology Normal Normal Hypochromasia 2+ 3+ Anisocytosis 1+ 1+ Prothrombin Time 15.2 SEC (9.30-11.50) H 17.7 SEC (9.30-11.50) H Prothromb Time International Ratio 1.4 (0.9-1.1) H 1.7 (0.9-1.1) H Activated Partial Thromboplast Time 50 SEC (23-33) H 54 SEC (23-33) H Lactic Acid Level 0.80 mmol/L (0.66-2.22) Urine Color Brown Urine Appearance Cloudy Urine pH 5 (4.5-8.0) Urine Specific [employer] 1.025 (1.005-1.035) Urine Protein 3+ (NEGATIVE) H Urine Glucose (UA) Negative (NEGATIVE) Urine Ketones 1+ (NEGATIVE) H Urine Occult Blood 5+ (NEGATIVE) H Urine Nitrite Negative (NEGATIVE) Urine Bilirubin 1+ (NEGATIVE) H Urine Ictotest Negative Urine Urobilinogen 1 MG/DL (0.0-1.0) H Urine Leukocyte Esterase 2+ (NEGATIVE) H Urine RBC 20-30 /HPF (0 - 0) H Urine WBC 2-4 /HPF (0 - 0) Urine Squamous Epithelial Cells Many /LPF (NONE/OCC) H Urine Amorphous Sediment Many /LPF (NONE) H Urine Bacteria Few /HPF (NONE) Urine Opiates Screen Positive (NEGATIVE) H Urine Barbiturates Screen Negative (NEGATIVE) Phencyclidine (PCP) Screen Negative (NEGATIVE) Urine Amphetamines Screen Negative (NEGATIVE) Urine Benzodiazepines Screen Negative (NEGATIVE) Urine Cocaine Screen Negative (NEGATIVE) Urine Marijuana (THC) Screen Negative (NEGATIVE) Sodium Level 130 mEQ/L (135-145) L 131 mEQ/L (135-145) L Potassium Level 5.3 mEQ/L (3.4-4.9) H 4.9 mEQ/L (3.4-4.9) Chloride Level 102 mEQ/L (98-107) 101 mEQ/L (98-107) Carbon Dioxide Level 11 mEQ/L (20-30) L 10 mEQ/L (20-30) L Anion Gap 17 (5-15) H 20 (5-15) H Blood Urea Nitrogen 37 mg/dL (7-23) H 42 mg/dL (7-23) H Creatinine 2.4 mg/dL (0.7-1.2) H 2.7 mg/dL (0.7-1.2) H Estimat Glomerular Filtration Rate 28.9 mL/min (>60) 25.2 mL/min (>60) Glucose Level 77 mg/dL (74-106) 166 mg/dL (74-106) H Calcium Level 7.7 mg/dL (8.6-10.2) L 7.5 mg/dL (8.6-10.2) L Total Bilirubin 1.7 mg/dL (0.0-1.2) H Direct Bilirubin 1.3 mg/dL (0.1-0.3) H Aspartate Amino Transf (AST/SGOT) 41 U/L (5-40) H Alanine Aminotransferase (ALT/SGPT) 10 U/L (3-41) Alkaline Phosphatase 124 U/L (40-129) Ammonia 28 umol/L (16-60) Total Creatine Kinase 87 U/L (38-174) Troponin I < 0.30 ng/mL (<=0.30) Pro-B-Type Natriuretic Peptide 12505 pg/mL (0-125) H Total Protein 6.9 g/dL (6.6-8.7) Albumin 1.5 g/dL (3.5-5.2) L 1.5 g/dL (3.5-5.2) L Globulin 5.4 g/dL Albumin/Globulin Ratio 0.2 (1.0-2.7) L Lipase 20 U/L (< 60) Erythrocyte Sedimentation Rate 120 MM/HR (0-15) H Reticulocyte Count Pending Phosphorus Level 7.4 mg/dL (2.5-4.8) H Iron Level 55 ug/dL (59-158) L Total Iron Binding Capacity 136 ug/dL (250-400) L Percent Iron Saturation 40 % (15-50) Unsaturated Iron Binding 81 ug/dL (112-346) L Lactate Dehydrogenase 461 U/L (135-230) H Carcinoembryonic Antigen 3.3 ng/mL H Vitamin B12 Level Pending Folate Pending Test 12/29/16 10:45 Sodium Level Pending Potassium Level Pending Chloride Level Pending Carbon Dioxide Level Pending Blood Urea Nitrogen Pending Creatinine Pending Estimat Glomerular Filtration Rate Pending Glucose Level Pending Calcium Level Pending Phosphorus Level Pending Albumin Pending DORENE GRIMM Dec 29, 2016 11:57
[2016-12-29 12:04] LABS: CALCIUM 7.2 mg/dL (8.6-10.2); GLOMERULAR FILTRATION RATE 22.4 mL/min (>60); PHOSPHORUS 7.1 mg/dL (2.5-4.8); POTASSIUM 4.8 mEQ/L (3.4-4.9)
[2016-12-29 13:36] LABS: RETICULOCYTE COUNT 2.7 % (0.0-2.0)
[2016-12-29] MEDS ORDERED: Morphine Sulfate 4mg/ml Inj IVP PRN (14:00)
[2016-12-29] MEDS ORDERED: Vancomycin 1 GM in D5W 275 ML IVPB SCH (18:00)
[2016-12-29] MEDS ORDERED: Cefepime HCl 2 GM in D5W 110 ML IV SCH (20:00)
[2016-12-29] MEDS: Pantoprazole Inj IVP SCH (21:06)
--- NOTE | 2016-12-29 22:54 | Consultation ---
Consult Note Assessment/Plan ID Dic # [id number] ASSESSMENT: 50 y/o male with: Leukocytosis - ( Acute stress vs sepsis ) Sp hypoTN ( opioid over dose ) Multiple decubitus ( not infected grossly ) Hx of Hep C SP Rx in 1999 - recurrent, elevated LFTs, HCV PCR >6million Negative HIV cholecystectomy DM Diabetic neuropathy Legally blind SP transmetatarsal amputation R foot smoker amphetamine use MRSA, VRE colonized No ABX allergies Full Code PLAN : cont on IV Vanco and Cefepime d # 1 f/u final cultures Monitor CBC, temperatures Monitor CMP Monitor Cx ( Bl, Ur ) JAYNE Shen M.D. Dec 29, 2016 22:54
[2016-12-30] VITALS (21 sets, daily range): BP systolic 97–132; BP diastolic 57–84
[2016-12-30] MEDS: NALOXONE IV SCH ×3 (00:58→07:07)
[2016-12-30] MEDS: D5W IV SCH ×3 (00:58→07:07)
[2016-12-30] MEDS: D5NS 1,000 ML IV SCH (00:59)
--- NOTE | 2016-12-30 02:00 | Consultation ---
DATE OF CONSULTATION: 12/29/2016 INFECTIOUS DISEASES CONSULTATION CONSULTING PHYSICIAN: Saman Muir M.D. REFERRING PHYSICIAN: Naila Ramirez M.D. REASON FOR CONSULTATION: Evaluation of the patient for possible sepsis, antibiotic management. HISTORY OF PRESENT ILLNESS: The patient is a 51-year-old male with multiple medical problems as listed below who was admitted to this medical center due to altered level of consciousness and hypotension with systolic blood pressure of 70. The patient was found to be having narcotic overdose. Currently, the patient has been admitted in the ICU. Infectious Disease consultation has been requested for evaluation of the patient for possible sepsis. PAST MEDICAL HISTORY: 1. Multiple decubitus, noninfected. 2. Right knee wound with no purulent drainage. 3. History of hepatitis C. 4. History of elevated alkaline phosphatase. 5. History of cholecystectomy. 6. Diabetes. 7. Diabetic neuropathy. 8. Legally blind. 9. History of transmetatarsal amputation of the right foot. 10. Ex-smoker . 11. History of abuse. ALLERGIES: No allergies to antibiotics. FAMILY HISTORY: Unavailable. REVIEW OF SYSTEMS: Limited. Much of the information is as mentioned above. MEDICATIONS: IV cefepime and vancomycin. PHYSICAL EXAMINATION: VITAL SIGNS: Temperature 98.4, blood pressure 110/70, pulse 86, and respiratory rate 18. HEENT: Mild pale conjunctivae. No icterus. NECK: No lymphadenopathy. CHEST: Coarse breathing sounds. HEART: S1 and S2. ABDOMEN: Soft. EXTREMITIES: No cyanosis at this time. The patient has multiple decubitus. NEUROLOGIC: Awake and lethargic. LABORATORY DATA: White blood cells 20.8, hemoglobin 8.2, and platelets 186,000. UA, 20 to 30 red blood cells and 2 to 4 white blood cells. BUN was 44 and creatinine 3. ALT, AST, and alkaline phosphatase are unremarkable. Total bilirubin 1.7. Urine culture in the past has grown Klebsiella. ASSESSMENT: The patient is a 51-year-old male with multiple medical problems as described above who was admitted to this medical center due to hypotension that has improved. The patient's altered level of consciousness appears to be due to drug overdose of opiates. However, the patient has leukocytosis. This may be due to stress, however, underlying sepsis is a consideration. PLAN: 1. We will continue the patient on IV vancomycin and cefepime. 2. Monitor cultures (blood, urine). 3. Monitor CBC. 4. Monitor BMP. 5. Monitor right knee drainage. At the time of exam, there was no purulent drainage that needs to be cultures. 6. Based on the patient's clinical course, we will give further recommendation. Thank you, Dr. Ramirez, for allowing me to participate in the care of this patient. I will follow the patient with you during this hospitalization. Saman Muir M.D. DR: CHAPO JOB#: [id number] CC:
--- NOTE | 2016-12-30 07:43 | Infectious Diseases Prog Note ---
Assessment/Plan Assessment/Plan ASSESSMENT: 50 y/o male with: Leukocytosis, afebrile - ( Acute stress vs sepsis ). Repeat pending, Cx NGTD Sp hypoTN ( opioid over dose ) Multiple decubitus ( not infected grossly ) Hx of Hep C SP Rx in 1999 - recurrent, elevated LFTs, HCV PCR >6million Negative HIV Pancreatic CA ESLD coagulopathy Oliguric ARF Mod left hydronephrosis DM Diabetic neuropathy Legally blind SP transmetatarsal amputation R foot smoker amphetamine use MRSA, VRE colonized No ABX allergies Full Code PLAN : cont empiric IV Vanco and Cefepime d # 2 pending cultures f/u cultures Monitor CBC, temperatures Monitor CMP Subjective Allergies: Coded Allergies: ACETAMINOPHEN (Unverified Allergy, Unknown, 07/14/16) HYDROCODONE (Unverified Allergy, Unknown, 07/14/16) PHENELZINE (Unverified Allergy, Unknown, 12/18/16) Subjective remains afebrile lethargic, but arousable. still on narcan Objective Vital Signs Last 24 Hour Vital Signs Date Time Temp Pulse Resp B/P Pulse Ox O2 Delivery O2 Flow Rate FiO2 12/30/16 07:00 94 18 132/82 99 Room Air 12/30/16 06:00 94 20 130/83 100 Room Air 12/30/16 05:00 97 21 127/84 100 Room Air 12/30/16 04:00 97.8 91 19 110/65 99 Room Air 12/30/16 04:00 91 12/30/16 03:00 93 19 104/64 98 Room Air 12/30/16 02:00 97 16 120/77 100 Room Air 12/30/16 01:00 92 16 114/75 100 Room Air 12/30/16 00:00 90 12/30/16 00:00 98.7 90 17 118/75 100 Room Air 12/29/16 23:00 89 17 115/76 100 Room Air 12/29/16 22:00 94 15 98/60 100 Room Air 12/29/16 21:00 90 18 111/77 100 Room Air 12/29/16 20:00 90 12/29/16 20:00 98.4 90 16 110/70 100 Room Air 12/29/16 19:00 88 18 105/67 100 Room Air 12/29/16 18:00 88 16 92/56 95 Room Air 12/29/16 17:00 90 18 99/62 99 Room Air 12/29/16 16:00 97.9 92 17 98/61 99 Room Air 12/29/16 16:00 91 12/29/16 15:00 90 16 94/57 99 Room Air 12/29/16 14:00 90 16 97/58 99 Room Air 12/29/16 13:00 89 17 98/63 99 Room Air 12/29/16 12:00 88 12/29/16 12:00 97.8 89 18 99/59 99 Room Air 12/29/16 11:00 88 17 92/55 99 Room Air 12/29/16 10:00 88 17 85/50 100 Room Air 12/29/16 09:00 89 17 93/57 99 Room Air 12/29/16 08:00 98.0 88 18 96/59 100 Room Air 12/29/16 08:00 89 Height (Feet): 5 Height (Inches): 11.00 Weight (Pounds): 175 General Appearance: no acute distress Respiratory/Chest: no respiratory distress Cardiovascular: normal rate, regular rhythm Abdomen: normal bowel sounds, soft, non tender, non distended Microbiology Date/Time Source Procedure Growth Status 12/28/16 14:20 Blood Blood Culture - Preliminary NO GROWTH AFTER 24 HOURS Resulted 12/28/16 14:05 Blood Blood Culture - Preliminary NO GROWTH AFTER 24 HOURS Resulted Laboratory Tests Test 12/29/16 10:45 12/29/16 11:15 12/29/16 13:30 12/30/16 05:10 Sodium Level 128 mEQ/L (135-145) L Pending Potassium Level 4.8 mEQ/L (3.4-4.9) Pending Chloride Level 99 mEQ/L (98-107) Pending Carbon Dioxide Level 12 mEQ/L (20-30) L Pending Anion Gap 17 (5-15) H Blood Urea Nitrogen 44 mg/dL (7-23) H Pending Creatinine 3.0 mg/dL (0.7-1.2) H Pending Estimat Glomerular Filtration Rate 22.4 mL/min (>60) Pending Glucose Level 184 mg/dL (74-106) H Pending Calcium Level 7.2 mg/dL (8.6-10.2) L Pending Phosphorus Level 7.1 mg/dL (2.5-4.8) H Pending Albumin 1.5 g/dL (3.5-5.2) L Pending 5'-Nucleotidase Pending Urine Random Sodium 55 mmol/L White Blood Count Pending Red Blood Count Pending Hemoglobin Pending Hematocrit Pending Mean Corpuscular Volume Pending Mean Corpuscular Hemoglobin Pending Mean Corpuscular Hemoglobin Concent Pending Red Cell Distribution Width Pending Platelet Count Pending Mean Platelet Volume Pending Neutrophils (%) (Auto) Pending Lymphocytes (%) (Auto) Pending Monocytes (%) (Auto) Pending Eosinophils (%) (Auto) Pending Basophils (%) (Auto) Pending Uric Acid Pending Magnesium Level Pending Total Bilirubin Pending Gamma Glutamyl Transpeptidase Pending Aspartate Amino Transf (AST/SGOT) Pending Alanine Aminotransferase (ALT/SGPT) Pending Alkaline Phosphatase Pending Total Creatine Kinase Pending C-Reactive Protein, Quantitative Pending Pro-B-Type Natriuretic Peptide Pending Total Protein Pending Globulin Pending Triglycerides Level Pending Cholesterol Level Pending LDL Cholesterol Pending HDL Cholesterol Pending Cholesterol/HDL Ratio Pending Thyroid Stimulating Hormone (TSH) Pending Current Medications Medications (Trade) Dose Ordered Sig/Romelia Route PRN Reason Start Time Stop Time Status Last Admin Dose Admin Acetaminophen (Tylenol) 650 mg Q4H PRN ORAL FEVER 12/28/16 19:00 01/27/17 18:59 Albuterol/ Ipratropium 3 ml 3 ml Q4H PRN HHN Shortness of Breath 12/28/16 19:00 01/02/17 18:59 Cefepime HCl 2 gm/ Dextrose 110 ml @ 220 mls/hr Q24H IV 12/29/16 20:00 01/05/17 19:59 12/29/16 21:06 Dextrose STAT PRN IV Hypoglycemia 12/28/16 19:00 01/27/17 18:59 Dextrose/Sodium Chloride (D5ns) 1,000 ml @ 75 mls/hr [id number] IV 12/29/16 11:00 01/28/17 10:59 12/30/16 00:59 Gabapentin (Neurontin) 300 mg BEDTIME ORAL 12/28/16 21:00 01/27/17 20:59 Heparin Sodium (Porcine) (Heparin 5000 units/ml) 5,000 units EVERY 12 HOURS SUBQ 12/28/16 21:00 01/27/17 20:59 12/29/16 21:08 Lorazepam (Ativan 2mg/ml 1ml) 2 mg Q2H PRN IV For Anxiety 12/28/16 19:00 01/04/17 18:59 12/30/16 02:19 Morphine Sulfate (Morphine Sulfate) 4 mg EVERY 4 HOURS PRN IVP Severe Pain (Pain Scale 7-10) 12/29/16 14:00 01/05/17 13:59 Naloxone HCl 2 mg/ Dextrose 500 ml @ 167.5 mls/ hr Q24H IV 12/28/16 22:00 01/27/17 21:59 12/30/16 07:07 Ondansetron HCl (Zofran) 4 mg Q6H PRN IVP Nausea & Vomiting 12/28/16 19:00 01/27/17 18:59 Pantoprazole (Protonix) 40 mg EVERY 12 HOURS IVP 12/29/16 21:00 01/28/17 20:59 12/29/16 21:06 Polyethylene Glycol (Miralax) 17 gm DAILYPRN PRN ORAL Constipation 12/28/16 19:00 01/27/17 18:59 Vancomycin HCl (Vanco rx to dose) 1 ea DAILY PRN MISC PER RX PROTOCOL 12/29/16 19:30 01/28/17 19:29 Vancomycin HCl/ Dextrose (Vancomycin/D5W) 275 ml @ 183.3 mls/ hr Q24H IVPB 12/29/16 18:00 01/03/17 17:59 12/29/16 17:13 ADA TURNER Dec 30, 2016 07:43
[2016-12-30 07:47] LABS: MEAN CORPUSCULAR HEMOGLOBIN 31.3 PG (27.0-31.0); MEAN CORPUSCULAR HGB CONC 31.6 G/DL (32.0-36.0); MEAN CORPUSCULAR VOLUME 99 FL (80-99); MEAN PLATELET VOLUME 5.9 FL (6.5-10.1); PLATELET COUNT 262 K/UL (150-450); RED BLOOD COUNT 2.44 M/UL (4.70-6.10); RED CELL DISTRIBUTION WIDTH 17.3 % (11.6-14.8); WHITE BLOOD COUNT 14.7 K/UL (4.8-10.8)
[2016-12-30 08:19] LABS: ALANINE AMINOTRANSFERASE 12 U/L (3-41); ALBUMIN/GLOBULIN RATIO 0.2 (1.0-2.7); ANION GAP 18 (5-15); ASPARTATE AMINO TRANSFERASE 42 U/L (5-40); CALCIUM 6.9 mg/dL (8.6-10.2); CARBON DIOXIDE 10 mEQ/L (20-30); CHLORIDE 96 mEQ/L (98-107); CHOLESTEROL 99 mg/dL (< 200); CREATININE 3.6 mg/dL (0.7-1.2); GLOMERULAR FILTRATION RATE 18.1 mL/min (>60); HEMOLYSIS 2; LDL CHOLESTEROL (CALC.) 62 mg/dL (60-99); MAGNESIUM 1.8 mg/dL (1.7-2.5); PHOSPHORUS 6.7 mg/dL (2.5-4.8); POTASSIUM 4.5 mEQ/L (3.4-4.9); SODIUM 124 mEQ/L (135-145); TOTAL PROTEIN 6.1 g/dL (6.6-8.7); URIC ACID 9.2 mg/dL (3.0-7.5)
[2016-12-30] MEDS: Heparin 5000 units/ml inj SUBQ SCH ×2 (08:45→21:12)
[2016-12-30 08:47] LABS: BILIRUBIN,DIRECT 0.9 mg/dL (0.1-0.3)
--- NOTE | 2016-12-30 09:17 | Neurology Progress Note ---
Interim History Interim History ROS Limited/Unobtainable: Yes Objective Physical Exam Last Vital Signs Date Time Temp Pulse Resp B/P Pulse Ox O2 Delivery O2 Flow Rate FiO2 12/30/16 09:00 97 22 124/81 100 Room Air 12/30/16 08:00 97.7 12/28/16 18:07 4.0 Laboratory Tests Test 12/29/16 10:45 12/29/16 11:15 12/29/16 13:30 12/30/16 05:10 Sodium Level 128 mEQ/L (135-145) L 124 mEQ/L (135-145) L Potassium Level 4.8 mEQ/L (3.4-4.9) 4.5 mEQ/L (3.4-4.9) Chloride Level 99 mEQ/L (98-107) 96 mEQ/L (98-107) L Carbon Dioxide Level 12 mEQ/L (20-30) L 10 mEQ/L (20-30) L Anion Gap 17 (5-15) H 18 (5-15) H Blood Urea Nitrogen 44 mg/dL (7-23) H 45 mg/dL (7-23) H Creatinine 3.0 mg/dL (0.7-1.2) H 3.6 mg/dL (0.7-1.2) H Estimat Glomerular Filtration Rate 22.4 mL/min (>60) 18.1 mL/min (>60) Glucose Level 184 mg/dL (74-106) H 285 mg/dL (74-106) #H Calcium Level 7.2 mg/dL (8.6-10.2) L 6.9 mg/dL (8.6-10.2) L Phosphorus Level 7.1 mg/dL (2.5-4.8) H 6.7 mg/dL (2.5-4.8) H Albumin 1.5 g/dL (3.5-5.2) L 1.4 g/dL (3.5-5.2) L 5'-Nucleotidase Pending Urine Random Sodium 55 mmol/L White Blood Count 14.7 K/UL (4.8-10.8) H Red Blood Count 2.44 M/UL (4.70-6.10) L Hemoglobin 7.6 G/DL (14.2-18.0) L Hematocrit 24.1 % (42.0-52.0) L Mean Corpuscular Volume 99 FL (80-99) Mean Corpuscular Hemoglobin 31.3 PG (27.0-31.0) H Mean Corpuscular Hemoglobin Concent 31.6 G/DL (32.0-36.0) L Red Cell Distribution Width 17.3 % (11.6-14.8) H Platelet Count 262 K/UL (150-450) Mean Platelet Volume 5.9 FL (6.5-10.1) L Neutrophils (%) (Auto) % (45.0-75.0) Lymphocytes (%) (Auto) % (20.0-45.0) Monocytes (%) (Auto) % (1.0-10.0) Eosinophils (%) (Auto) % (0.0-3.0) Basophils (%) (Auto) % (0.0-2.0) Neutrophils % (Manual) Pending Lymphocytes % (Manual) Pending Platelet Estimate Pending Platelet Morphology Pending Uric Acid 9.2 mg/dL (3.0-7.5) H Magnesium Level 1.8 mg/dL (1.7-2.5) Total Bilirubin 1.4 mg/dL (0.0-1.2) H Direct Bilirubin 0.9 mg/dL (0.1-0.3) H Gamma Glutamyl Transpeptidase 52 U/L (8-61) Aspartate Amino Transf (AST/SGOT) 42 U/L (5-40) H Alanine Aminotransferase (ALT/SGPT) 12 U/L (3-41) Alkaline Phosphatase 143 U/L (40-129) H Total Creatine Kinase 23 U/L (38-174) L C-Reactive Protein, Quantitative 2.0 mg/dL (< 0.5) H Pro-B-Type Natriuretic Peptide 61529 pg/mL (0-125) H Total Protein 6.1 g/dL (6.6-8.7) L Globulin 4.7 g/dL Albumin/Globulin Ratio 0.2 (1.0-2.7) L Triglycerides Level 164 mg/dL (< 150) H Cholesterol Level 99 mg/dL (< 200) LDL Cholesterol 62 mg/dL (60-99) HDL Cholesterol < 4 mg/dL (> 60) Cholesterol/HDL Ratio 24.0 (3.3-4.4) H Thyroid Stimulating Hormone (TSH) 9.570 uIU/mL (0.300-4.500) Impression/Recommendations Recommendations #[id number] ANNA AYALA Dec 30, 2016 09:17
[2016-12-30] MEDS ORDERED: 1/2 NS 1000ml IV ONE (09:40)
[2016-12-30 09:43] LABS: ANISOCYTOSIS 1+; BAND NEUTROPHILS % (MANUAL) 0 % (0-8); BASOPHILS % (MANUAL) 0 % (0-2); EOSINOPHILS % (MANUAL) 0 % (0-3); HYPOCHROMASIA 1+; LYMPHOCYTES % (MANUAL) 6 % (20-45); NEUTROPHILS % (MANUAL) 85 % (45-75); PLATELET ESTIMATE ADEQUATE; PLATELET MORPHOLOGY NORMAL; TOTAL CELLS COUNTED 100
[2016-12-30] MEDS ORDERED: Tubing IV Secondary IV ONE (10:05)
[2016-12-30] MEDS ORDERED: D5NS 1000ml IV ONE (10:05)
[2016-12-30] MEDS ORDERED: Morphine Sulfate 2mg/ml Inj IVP PRN ×2 (11:30→23:30)
--- NOTE | 2016-12-30 11:37 | General Progress Note ---
Assessment/Plan Status: unchanged, deteriorating Status Narrative Cr rising Assessment/Plan Primary Impression: Opiate overdose Acute renal failure multifactorial : Liver Ds , Antibiotics , Low BP.... Hyperkalemia Metabolic acidosis Sepsis Severe Anemia Low Na , Cirrhosis and Renal failure Plan: ABG Hydrate- 50 cc hour 2 D Echo Kidney RANJIT Stop Vanco- check level ? Transfuse? Urine studies Avoid nephrotoxics Per orders Subjective ROS Limited/Unobtainable: No Constitutional: Reports: malaise, weakness Allergies: Coded Allergies: ACETAMINOPHEN (Unverified Allergy, Unknown, 07/14/16) HYDROCODONE (Unverified Allergy, Unknown, 07/14/16) PHENELZINE (Unverified Allergy, Unknown, 12/18/16) Objective Last 24 Hour Vital Signs Date Time Temp Pulse Resp B/P Pulse Ox O2 Delivery O2 Flow Rate FiO2 12/30/16 10:00 95 16 97/63 99 Room Air 12/30/16 09:00 97 22 124/81 100 Room Air 12/30/16 08:00 95 12/30/16 08:00 97.7 93 20 131/82 100 Room Air 12/30/16 07:00 94 18 132/82 99 Room Air 12/30/16 06:00 94 20 130/83 100 Room Air 12/30/16 05:00 97 21 127/84 100 Room Air 12/30/16 04:00 97.8 91 19 110/65 99 Room Air 12/30/16 04:00 91 12/30/16 03:00 93 19 104/64 98 Room Air 12/30/16 02:00 97 16 120/77 100 Room Air 12/30/16 01:00 92 16 114/75 100 Room Air 12/30/16 00:00 90 12/30/16 00:00 98.7 90 17 118/75 100 Room Air 12/29/16 23:00 89 17 115/76 100 Room Air 12/29/16 22:00 94 15 98/60 100 Room Air 12/29/16 21:00 90 18 111/77 100 Room Air 12/29/16 20:00 90 12/29/16 20:00 98.4 90 16 110/70 100 Room Air 12/29/16 19:00 88 18 105/67 100 Room Air 12/29/16 18:00 88 16 92/56 95 Room Air 12/29/16 17:00 90 18 99/62 99 Room Air 12/29/16 16:00 97.9 92 17 98/61 99 Room Air 12/29/16 16:00 91 12/29/16 15:00 90 16 94/57 99 Room Air 12/29/16 14:00 90 16 97/58 99 Room Air 12/29/16 13:00 89 17 98/63 99 Room Air 12/29/16 12:00 88 12/29/16 12:00 97.8 89 18 99/59 99 Room Air Intake and Output 12/29/16 12/30/16 19:00 07:00 Intake Total 2145.0 ml 2740.3 ml Output Total 25 ml 25 ml Balance 2120.0 ml 2715.3 ml Intake Oral 0 ml 0 ml IV Total 2145.0 ml 2740.3 ml Output Urine Total 25 ml 25 ml Laboratory Tests 12/29/16 13:30: Urine Random Sodium 55 12/30/16 05:10: White Blood Count 14.7H, Red Blood Count 2.44L, Hemoglobin 7.6L, Hematocrit 24.1L, Mean Corpuscular Volume 99, Mean Corpuscular Hemoglobin 31.3H, Mean Corpuscular Hemoglobin Concent 31.6L, Red Cell Distribution Width 17.3H, Platelet Count 262, Mean Platelet Volume 5.9L, Neutrophils (%) (Auto) , Lymphocytes (%) (Auto) , Monocytes (%) (Auto) , Eosinophils (%) (Auto) , Basophils (%) (Auto) , Differential Total Cells Counted 100, Neutrophils % ( Manual) 85H, Lymphocytes % (Manual) 6L, Monocytes % (Manual) 9, Eosinophils % ( Manual) 0, Basophils % (Manual) 0, Band Neutrophils 0, Platelet Estimate Adequate, Platelet Morphology Normal, Hypochromasia 1+, Anisocytosis 1+, Sodium Level 124L, Potassium Level 4.5, Chloride Level 96L, Carbon Dioxide Level 10L, Anion Gap 18H, Blood Urea Nitrogen 45H, Creatinine 3.6H, Estimat Glomerular Filtration Rate 18.1, Glucose Level 285#H, Uric Acid 9.2H, Calcium Level 6.9L, Phosphorus Level 6.7H, Magnesium Level 1.8, Total Bilirubin 1.4H, Direct Bilirubin 0.9H, Gamma Glutamyl Transpeptidase 52, Aspartate Amino Transf (AST/ SGOT) 42H, Alanine Aminotransferase (ALT/SGPT) 12, Alkaline Phosphatase 143H, Total Creatine Kinase 23L, C-Reactive Protein, Quantitative 2.0H, Pro-B-Type Natriuretic Peptide 80232L, Total Protein 6.1L, Albumin 1.4L, Globulin 4.7, Albumin/Globulin Ratio 0.2L, Triglycerides Level 164H, Cholesterol Level 99, LDL Cholesterol 62, HDL Cholesterol < 4, Cholesterol/HDL Ratio 24.0H, Thyroid Stimulating Hormone (TSH) 9.570H 12/30/16 09:00: Urine Eosinophils None seen Height (Feet): 5 Height (Inches): 11.00 Weight (Pounds): 175 General Appearance: no apparent distress Cardiovascular: tachycardia Respiratory/Chest: decreased breath sounds Abdomen: distended Edema: 2+ Arm (L), 2+ Arm (R), 2+ Leg (L), 2+ Leg (R), 2+ Pedal (L), 2+ Pedal ( R), 2+ Generalized Neurologic: other RAYMON SERNA Dec 30, 2016 11:37
--- NOTE | 2016-12-30 11:45 | Consultation ---
DATE OF CONSULTATION: 12/29/2016 NEUROLOGICAL CONSULTATION REQUESTING PHYSICIAN: Naila Ramirez M.D. HISTORY OF PRESENT ILLNESS: This is a 51-year-old severely ill man, seen in neurological consultation to evaluate persistent changes in mental status. The patient unable to provide any history. This was compiled from medical records noted the patient who was recently placed on hospice care with a diagnosis of end-stage liver disease, displayed desire to be to continue his medical care. Meanwhile, he was given pain management with the high doses of morphine, last couple of days becoming increasingly obtunded, not eating. He was brought to the emergency room with hypertension, systolic blood pressure 70. Intravenous fluids were infused. On arrival to the hospital, his blood pressure was 74/41. Afebrile. The patient was diagnosed with opiate overdose, started on Narcan drip. Over time, he become more responsive. His vital signs stabilized. Due to evidence of obtundation, neuro consult was requested. His diagnostic studies included CAT scan of the brain, which revealed no evidence of acute abnormalities. No mass lesion. Chest x-ray revealed mild congestive changes and bilateral pleural effusions. Laboratory work on admission included a CBC study with WBC 20.8, hemoglobin 8.2, hematocrit 25.8, sedimentation rate of 120, and reticulocyte count of 2.7. Coagulation panel with INR 1.4 and PT 15.2. Urine study with 2+ leukocyte esterase and 1+ ketones. Chemistry panel with sodium 130, BUN of 37, and creatinine 2.4. Total bilirubin is 1.7 and direct 1.3. BNP of 11,316. CEA 3.3. TSH 9.570. PAST MEDICAL HISTORY: The patient has extensive medical history this include diabetes and diabetic neuropathy. He is legally blind. He is status post transmetatarsal amputation, right foot. He has a history of nicotine dependency, history of hepatitis, hypertension, renal failure, chronic obstructive pulmonary disease, pancreatic cancer, and hepatitis C. MEDICATIONS: Treatment prior to admission included Neurontin, lorazepam, morphine, Zofran, pantoprazole, vancomycin, and albuterol. Pain management included tramadol. ALLERGIES: Acetaminophen, hydrocodone, and . FAMILY HISTORY: Noncontributory. SOCIAL HISTORY: Recently placed on hospice, but this appears to be now reversed. REVIEW OF SYMPTOMS: Unable to obtain due to the patient's status. PHYSICAL EXAMINATION: GENERAL: This is a well-developed, but ill-appearing man, not in acute distress, but at times restless. VITAL SIGNS: His vital signs are stable. Blood pressure 131/82 and temperature 97.7 degrees, currently on a Narcan drip. HEENT: Normocephalic. There is no evidence of injuries. He keeps eyes tightly closed. NECK: Rigid in all directions. MUSCULOSKELETAL: Right foot amputated. There is puffiness of distal aspect of both feet. Decubitus, noninfected. Peripheral pulses unable to obtain in both lower extremities. MENTAL STATUS: The patient is obtunded on vigorous stimulation, non-grown state. He is not feeling well, but he would not specify. He does not follow command. CRANIAL NERVE II: Unable to test. The patient was maintaining eyes are very closed. He legally blind. CRANIAL NERVE V: Normal corneal responses. CRANIAL NERVE VII: No gross asymmetry. CRANIAL NERVE VIII: Normal hearing. CRANIAL NERVE IX THROUGH XII: Tongue is in midline, but unable to test his gag. The patient was noncompliant. MOTOR EXAMINATION: Diffuse rigidity both upper extremities, but on stimulation with defending with both arms symmetrically. Diffuse rigidity both lower extremities. The patient moans and groans when examined. Deep tendon reflexes depressed bilaterally. Plantar response is mute. IMPRESSION: 1. This is a 51-year-old man with a history of opiate overdose not reversed with Narcan, presenting with residual obtundation . 2. Toxic metabolic encephalopathy. 3. Renal failure. 4. Sepsis. 5. Metabolic acidosis. 6. Chronic obstructive pulmonary disease. 7. Hepatitis C. 8. End-stage liver disease. 9. History of pancreatic CA. DISCUSSION: The patient continue to have obtundation, most likely multifactorial related to underlying significant metabolic derangement and overdose of morphine. The patient will be taken off Narcan. Continue with symptomatic supportive care. Intravenous fluids and antibiotics. CT of the brain, negative, no evidence of brain metastasis or brain abscess noted. Thank you for allowing me to see this interesting patient in neurological consultation. Abdulaziz Kilgore M.D. DR: BROCK JOB#: [id number] CC:
[2016-12-30 11:47] LABS: ABG ALLEN TEST POSITIVE
[2016-12-30] MEDS: Pantoprazole Inj IVP SCH (12:41)
[2016-12-30] MEDS ORDERED: Cefepime 1gm/D5W 55ml IVPB SCH ×2 (20:00)
[2016-12-30] MEDS ORDERED: Cefepime HCl 1 GM in D5W 55 ML IVPB SCH (20:00)
[2016-12-30] MEDS ORDERED: LORazepam Inj 2mg/ml 1ml IV PRN (21:00)
[2016-12-30] MEDS ORDERED: DuoNeb 0.5-3(2.5)mg/3ml neb HHN PRN (23:00)
[2016-12-31] VITALS (36 sets, daily range): BP systolic 69–167; BP diastolic 35–102
[2016-12-31 06:23] LABS: MEAN CORPUSCULAR HGB CONC 31.8 G/DL (32.0-36.0); MEAN CORPUSCULAR VOLUME 101 FL (80-99); MEAN PLATELET VOLUME 6.3 FL (6.5-10.1); PLATELET COUNT 211 K/UL (150-450); RED BLOOD COUNT 2.43 M/UL (4.70-6.10); RED CELL DISTRIBUTION WIDTH 17.7 % (11.6-14.8); WHITE BLOOD COUNT 17.5 K/UL (4.8-10.8)
[2016-12-31 06:27] LABS: ALBUMIN/GLOBULIN RATIO 0.2 (1.0-2.7); CALCIUM 7.2 mg/dL (8.6-10.2); MAGNESIUM 1.6 mg/dL (1.7-2.5); POTASSIUM 4.4 mEQ/L (3.4-4.9); TOTAL PROTEIN 5.7 g/dL (6.6-8.7)
[2016-12-31 08:00] LABS: URIC ACID 9.5 mg/dL (3.0-7.5)
[2016-12-31 08:21] LABS: BILIRUBIN,DIRECT 0.8 mg/dL (0.1-0.3)
[2016-12-31 08:34] LABS: ANISOCYTOSIS 1+; BAND NEUTROPHILS % (MANUAL) 0 % (0-8); BASOPHILS % (MANUAL) 0 % (0-2); EOSINOPHILS % (MANUAL) 1 % (0-3); HYPOCHROMASIA 1+; LYMPHOCYTES % (MANUAL) 12 % (20-45); MACROCYTES 1+; NEUTROPHILS % (MANUAL) 81 % (45-75); PLATELET ESTIMATE ADEQUATE; PLATELET MORPHOLOGY NORMAL; TOTAL CELLS COUNTED 100
[2016-12-31] MEDS: Heparin 5000 units/ml inj SUBQ SCH ×2 (08:39→20:46)
--- NOTE | 2016-12-31 11:15 | General Progress Note ---
Assessment/Plan Status: unchanged, deteriorating Status Narrative Cr rising- more acidotic Assessment/Plan Primary Impression: Opiate overdose Acute renal failure multifactorial : Liver Ds , Antibiotics , Low BP.... Hyperkalemia Metabolic acidosis Sepsis Severe Anemia Low Na , Cirrhosis and Renal failure Plan: HD today - to have Jared cath Hydrate- 50 cc hour 2 D Echo Kidney RANJIT Stop Vanco- check level ? Transfuse? Urine studies Avoid nephrotoxics Per orders discussed with RN Subjective ROS Limited/Unobtainable: No Constitutional: Reports: malaise Allergies: Coded Allergies: ACETAMINOPHEN (Unverified Allergy, Unknown, 07/14/16) HYDROCODONE (Unverified Allergy, Unknown, 07/14/16) PHENELZINE (Unverified Allergy, Unknown, 12/18/16) Objective Last 24 Hour Vital Signs Date Time Temp Pulse Resp B/P Pulse Ox O2 Delivery O2 Flow Rate FiO2 12/31/16 08:00 98.0 81 20 90/56 99 Room Air 12/31/16 08:00 81 12/31/16 07:01 87 18 Room Air 12/31/16 04:00 96.9 87 17 99 Mechanical Ventilator 12/31/16 00:00 97.9 90 18 100/50 99 Room Air 12/31/16 00:00 88 12/30/16 20:00 90 12/30/16 20:00 97.6 88 18 101/57 99 Room Air 12/30/16 19:00 90 18 99/67 100 Room Air 12/30/16 18:00 90 16 97/64 100 Room Air 12/30/16 17:00 89 15 98/63 100 Room Air 12/30/16 16:00 97.7 89 15 98/64 100 Room Air 12/30/16 16:00 91 12/30/16 15:00 89 26 100/71 99 Room Air 12/30/16 14:00 89 17 99/73 99 Room Air 12/30/16 13:00 91 17 104/72 99 Room Air 12/30/16 12:00 97.6 89 14 104/65 100 Room Air 12/30/16 12:00 90 Intake and Output 12/30/16 12/31/16 19:00 07:00 Intake Total 792.5 ml 580 ml Output Total 25 ml 60 ml Balance 767.5 ml 520 ml Intake Oral 0 ml 0 ml IV Total 792.5 ml 580 ml Output Urine Total 25 ml 60 ml Laboratory Tests 12/30/16 11:27: Arterial Blood pH 7.210*L, Arterial Blood Partial Pressure CO2 25.0L, Arterial Blood Partial Pressure O2 92.0, Arterial Blood HCO3 10.3L, Arterial Blood Oxygen Saturation 96.0, Arterial Blood Base Excess -16.0, Abdoulaye Test Positive 12/30/16 12:40: Hemoglobin A1c 7.9H, Random Vancomycin Level 17.5 12/31/16 04:00: Urine Eosinophils None seen, Stool Occult Blood [Pending] 12/31/16 04:05: White Blood Count 17.5H, Red Blood Count 2.43L, Hemoglobin 7.8L, Hematocrit 24.5L, Mean Corpuscular Volume 101H, Mean Corpuscular Hemoglobin 32.0H, Mean Corpuscular Hemoglobin Concent 31.8L, Red Cell Distribution Width 17.7H, Platelet Count 211, Mean Platelet Volume 6.3L, Neutrophils (%) (Auto) , Lymphocytes (%) (Auto) , Monocytes (%) (Auto) , Eosinophils (%) (Auto) , Basophils (%) (Auto) , Differential Total Cells Counted 100, Neutrophils % ( Manual) 81H, Lymphocytes % (Manual) 12L, Monocytes % (Manual) 6, Eosinophils % ( Manual) 1, Basophils % (Manual) 0, Band Neutrophils 0, Platelet Estimate Adequate, Platelet Morphology Normal, Hypochromasia 1+, Anisocytosis 1+, Macrocytosis 1+, Sodium Level 126L, Potassium Level 4.4, Chloride Level 97L, Carbon Dioxide Level 9*L, Anion Gap 20H, Blood Urea Nitrogen 49H, Creatinine 4.0H, Estimat Glomerular Filtration Rate 16.0, Glucose Level 73#L, Plasma/Serum Osmolality [Pending], Uric Acid 9.5H, Calcium Level 7.2L, Phosphorus Level 7.0H , Magnesium Level 1.6L, Total Bilirubin 1.3H, Direct Bilirubin 0.8H, Aspartate Amino Transf (AST/SGOT) 35, Alanine Aminotransferase (ALT/SGPT) 10, Alkaline Phosphatase 128, Total Protein 5.7L, Albumin 1.2L, Globulin 4.5, Albumin/ Globulin Ratio 0.2L 12/31/16 10:20: Prothrombin Time 21.0H, Prothromb Time International Ratio 2.0H, Activated Partial Thromboplast Time 72H Height (Feet): 5 Height (Inches): 11.00 Weight (Pounds): 217 General Appearance: no apparent distress Objective no change in PE RAYMON SERNA Dec 31, 2016 11:15
[2016-12-31] MEDS ORDERED: Phytonadione 10 mg/mL 1ml amp SUBQ ONE (11:30)
--- NOTE | 2016-12-31 12:01 | Pulmonology Progress Note ---
Assessment/Plan Problems: (1) Acute encephalopathy (2) Pancreatic cancer (3) Severe malnutrition (4) Renal failure (5) Conflicted attitude towards care (6) Hepatitis C (7) Amphetamine abuse Assessment/Plan d/w pts mother, who is totally unrealistic about prognosis and plan of care. will need ethic committee recommendations Subjective ROS Limited/Unobtainable: Yes Constitutional: Reports: no symptoms HEENT: Repors: no symptoms Allergies: Coded Allergies: ACETAMINOPHEN (Unverified Allergy, Unknown, 07/14/16) HYDROCODONE (Unverified Allergy, Unknown, 07/14/16) PHENELZINE (Unverified Allergy, Unknown, 12/18/16) Objective Last 24 Hour Vital Signs Date Time Temp Pulse Resp B/P Pulse Ox O2 Delivery O2 Flow Rate FiO2 12/31/16 08:00 98.0 81 20 90/56 99 Room Air 12/31/16 08:00 81 12/31/16 07:01 87 18 Room Air 12/31/16 04:00 96.9 87 17 99 Mechanical Ventilator 12/31/16 00:00 97.9 90 18 100/50 99 Room Air 12/31/16 00:00 88 12/30/16 20:00 90 12/30/16 20:00 97.6 88 18 101/57 99 Room Air 12/30/16 19:00 90 18 99/67 100 Room Air 12/30/16 18:00 90 16 97/64 100 Room Air 12/30/16 17:00 89 15 98/63 100 Room Air 12/30/16 16:00 97.7 89 15 98/64 100 Room Air 12/30/16 16:00 91 12/30/16 15:00 89 26 100/71 99 Room Air 12/30/16 14:00 89 17 99/73 99 Room Air 12/30/16 13:00 91 17 104/72 99 Room Air 12/30/16 12:00 97.6 89 14 104/65 100 Room Air 12/30/16 12:00 90 Intake and Output 12/30/16 12/31/16 19:00 07:00 Intake Total 792.5 ml 630 ml Output Total 25 ml 60 ml Balance 767.5 ml 570 ml Intake Oral 0 ml 0 ml IV Total 792.5 ml 630 ml Output Urine Total 25 ml 60 ml General Appearance: cachetic HEENT: normocephalic, atraumatic Respiratory/Chest: chest wall non-tender, lungs clear Cardiovascular: normal peripheral pulses, normal rate Abdomen: normal bowel sounds, soft, non tender Genitourinary: normal external genitalia Extremities: no clubbing Skin: no lesions Microbiology Date/Time Source Procedure Growth Status 12/28/16 14:20 Blood Blood Culture - Preliminary NO GROWTH AFTER 48 HOURS Resulted 12/28/16 14:05 Blood Blood Culture - Preliminary NO GROWTH AFTER 48 HOURS Resulted 12/29/16 00:30 Sacral Wound Gram Stain - Final Resulted 12/29/16 00:30 Sacral Wound Wound Culture Pending Resulted Laboratory Tests 12/30/16 12:40: Hemoglobin A1c 7.9H, Random Vancomycin Level 17.5 12/31/16 04:00: Urine Eosinophils None seen, Stool Occult Blood [Pending] 12/31/16 04:05: White Blood Count 17.5H, Red Blood Count 2.43L, Hemoglobin 7.8L, Hematocrit 24.5L, Mean Corpuscular Volume 101H, Mean Corpuscular Hemoglobin 32.0H, Mean Corpuscular Hemoglobin Concent 31.8L, Red Cell Distribution Width 17.7H, Platelet Count 211, Mean Platelet Volume 6.3L, Neutrophils (%) (Auto) , Lymphocytes (%) (Auto) , Monocytes (%) (Auto) , Eosinophils (%) (Auto) , Basophils (%) (Auto) , Differential Total Cells Counted 100, Neutrophils % ( Manual) 81H, Lymphocytes % (Manual) 12L, Monocytes % (Manual) 6, Eosinophils % ( Manual) 1, Basophils % (Manual) 0, Band Neutrophils 0, Platelet Estimate Adequate, Platelet Morphology Normal, Hypochromasia 1+, Anisocytosis 1+, Macrocytosis 1+, Sodium Level 126L, Potassium Level 4.4, Chloride Level 97L, Carbon Dioxide Level 9*L, Anion Gap 20H, Blood Urea Nitrogen 49H, Creatinine 4.0H, Estimat Glomerular Filtration Rate 16.0, Glucose Level 73#L, Plasma/Serum Osmolality [Pending], Uric Acid 9.5H, Calcium Level 7.2L, Phosphorus Level 7.0H , Magnesium Level 1.6L, Total Bilirubin 1.3H, Direct Bilirubin 0.8H, Aspartate Amino Transf (AST/SGOT) 35, Alanine Aminotransferase (ALT/SGPT) 10, Alkaline Phosphatase 128, Total Protein 5.7L, Albumin 1.2L, Globulin 4.5, Albumin/ Globulin Ratio 0.2L 12/31/16 10:20: Prothrombin Time 21.0H, Prothromb Time International Ratio 2.0H, Activated Partial Thromboplast Time 72H, Cortisol [Pending] Current Medications Medications (Trade) Dose Ordered Sig/Romelia Route PRN Reason Start Time Stop Time Status Last Admin Dose Admin Acetaminophen (Tylenol) 650 mg Q4H PRN ORAL FEVER 12/30/16 23:00 01/29/17 22:59 Albuterol/ Ipratropium (DuoNeb 0.5-3(2.5)mg/3ml) 3 ml Q4H PRN HHN Shortness of Breath 12/30/16 23:00 01/04/17 22:59 Cefepime HCl 1 gm/ Dextrose 55 ml @ 110 mls/hr Q24H IVPB 12/30/16 20:00 01/06/17 19:59 12/30/16 21:07 Dextrose (Dextrose 50%) STAT PRN IV Hypoglycemia 12/31/16 19:00 01/30/17 18:59 Heparin Sodium (Porcine) (Heparin 5000 units/ml) 5,000 units EVERY 12 HOURS SUBQ 12/30/16 21:00 01/29/17 20:59 12/31/16 08:39 Lorazepam (Ativan 2mg/ml 1ml) 2 mg Q2H PRN IV For Anxiety 12/30/16 21:00 01/06/17 20:59 Morphine Sulfate (Morphine Sulfate) 2 mg Q4H PRN IVP Severe Pain (Pain Scale 7-10) 12/30/16 23:30 01/06/17 23:29 Ondansetron HCl (Zofran) 4 mg Q6H PRN IVP Nausea & Vomiting 12/31/16 01:00 01/30/17 00:59 Polyethylene Glycol (Miralax) 17 gm DAILYPRN PRN ORAL Constipation 12/31/16 19:00 01/30/17 18:59 Sodium Chloride (Sodium Chloride 1000ml bag) 1,000 ml @ 50 mls/hr Q20H IV 12/30/16 19:45 01/29/17 19:44 12/30/16 21:18 DORENE GRIMM 26, 2017 12:01
--- NOTE | 2016-12-31 13:40 | Pre-Procedure Note/Attestation ---
Pre-Procedure Note/Attestation Complete Prior to Procedure Procedure Narrative: Temporary dialysis catheter Indications for Procedure Pre-Operative Diagnosis: renal failure Attestation I attest that I discussed the nature of the procedure; its benefits; risks and complications; and alternatives (and the risks and benefits of such alternatives ), prior to the procedure, with the patient (or the patient's legal uniforms sales representative). I attest that, if there was a reasonable possibility of needing a blood transfusion, the patient (or the patient's legal uniforms sales representative) was given the [facility] standardized written summary, pursuant to the Yoshi Raymundo Blood Safety Act ([place] Health and Safety Code # 1645, as amended). I attest that I re-evaluated the patient just prior to the surgery and that there has been no change in the patient's H&P, except as documented below: Discussed with sister Veronique at [address] DANITA CASEY M.D. Dec 31, 2016 13:40
[2016-12-31] MEDS ORDERED: Lidocaine 1% Plain 30 ml INJ ONE ×2 (14:05→14:45)
[2016-12-31] MEDS ORDERED: Heparin 2000 units/Ns 1000ml 1,000 ML ONE (14:05)
[2016-12-31] MEDS ORDERED: Heparin Sod 1000 units/ml 10ml ONE (14:05)
--- NOTE | 2016-12-31 14:32 | Brief Operative Note ---
Immediate Post Operative Note Operative Note Chief Complaint: renal failure Pre-op Diagnosis: renal failure Procedure: R IJV marin catheter Post-op Diagnosis: same as pre-op Surgeon: Prashanth CASEY Anesthesia: local Specimen: none Complications: none Condition: stable Fluids: none Implant(s) used?: Yes - 3-lumen DANITA Stokes M.D. Dec 31, 2016 14:32
[2016-12-31] MEDS ORDERED: Heparin Sod 1000 units/ml 10ml INJ ONE (14:45)
[2016-12-31] MEDS ORDERED: Heparin 2000 units/Ns 1000ml INJ ONE (14:45)
[2016-12-31] MEDS ORDERED: Miralax 17gm pkt ORAL PRN ×2 (17:00→19:00)
[2016-12-31] MEDS ORDERED: Morphine Sulfate 2mg/ml Inj IVP PRN (17:00)
[2016-12-31] MEDS ORDERED: LORazepam Inj 2mg/ml 1ml IV PRN (17:00)
--- NOTE | 2016-12-31 17:38 | Diagnostic Imaging Report ---
Indication: Acute renal failure Technique: Informed consent obtained prior to commencement of the procedure. Procedural timeout performed Ultrasound confirms patent compressible right internal jugular vein. Total sterile technique, including sterile probe cover and sterile gel, sterile gloves, hand hygiene, hat, mask, sterile gown, large sterile drape, and preparation with 2% chlorhexidine utilized.Local anesthesia with 1% lidocaine. Under real-time ultrasound guidance, puncture right internal jugular vein using 18-gauge needle, passage 0.035 guidewire, over which was passed serial dilators and then a 19 cm 12 Kinyarwanda triple-lumen temporary dialysis catheter, under fluoroscopic supervision. Completion stored digital radiograph obtained, demonstrating catheter tip position at high right atrium The patient tolerated the procedure well, without immediate complication. Fluoroscopy time 0.2 minutes Dose Area Product 10 dGycm2 Impression: Successful placement of right jugular temporary dialysis catheter, as described.
[2016-12-31] MEDS ORDERED: DuoNeb 0.5-3(2.5)mg/3ml neb HHN PRN (19:00)
[2016-12-31] MEDS ORDERED: Naloxone 0.4mg/ml Inj IVP PRN (19:15)
--- NOTE | 2016-12-31 19:24 | Cardiology Report ---
APPROVED REPORT EXAM: Two-dimensional and M-mode echocardiogram with Doppler and color Doppler. INDICATION Congestive Heart Failure M-Mode DIMENSIONS IVSd0.7 (0.7-1.1cm)Left Atrium (MM)3.7 (1.6-4.0cm) LVDd4.7 (3.5-5.6cm)Aortic Root3.1 (2.0-3.7cm) PWd0.7 (0.7-1.1cm)Aortic Cusp Exc.2.1 (1.5-2.0cm) LVDs3.0 (2.5-4.0cm) PWs1.1 cm Normal left ventricular chamber size, systolic function and wall motion. Left ventricular ejection fraction estimated to be 55-60%. No evidence of left ventricular hypertrophy. No evidence of pericardial fat or effusion. All other cardiac chamber sizes are within normal limits. Focal aortic valve sclerosis with adequate cusp excursion Thickened mitral valve leaflets with normal excursion. Mitral annulus and aortic root calcification. Pulmonic valve is well visualized. Normal tricuspid valve structure. IVC is normal in size with physiological collapse. A color flow and spectral Doppler study was performed and revealed: No aortic regurgitation. No mitral regurgitation. Left ventricular diastolic dysfunction grade 1. Mild tricuspid regurgitation. Tricuspid systolic velocities suggests peak right ventricular systolic pressure of 28 mmHg
[2016-12-31] MEDS ORDERED: Cefepime HCl 1 GM in D5W 55 ML IVPB SCH (20:00)
--- NOTE | 2016-12-31 20:19 | Cardiology Report ---
APPROVED REPORT EKG Measurement Heart [id number] Sinus rhythm with 1st degree AV block Otherwise normal ECG
--- NOTE | 2016-12-31 20:51 | Infectious Diseases Prog Note ---
Assessment/Plan Assessment/Plan ASSESSMENT: 50 y/o male with: Leukocytosis - persistent, afebrile, Cx NGTD ( CA contributing ) Sp hypoTN ( opioid over dose ) Multiple decubitus ( not infected grossly ) Hx of Hep C SP Rx in 1999 - recurrent, elevated LFTs, HCV PCR >6million Negative HIV Pancreatic CA ESLD coagulopathy Oliguric ARF SP right IJ marin, initiation of HD 12/31 Mod left hydronephrosis DM Diabetic neuropathy Legally blind SP transmetatarsal amputation R foot smoker amphetamine use MRSA, VRE colonized No ABX allergies Full Code PLAN : cont empiric IV Vanco and Cefepime d # 3 pending cultures. May de-escalate soon f/u cultures Monitor CBC, temperatures Monitor CMP HD per renal poor overall prognosis, family not accepting. Ethics eval pending Subjective Allergies: Coded Allergies: ACETAMINOPHEN (Unverified Allergy, Unknown, 07/14/16) HYDROCODONE (Unverified Allergy, Unknown, 07/14/16) PHENELZINE (Unverified Allergy, Unknown, 12/18/16) Subjective remains afebrile lethargic, but arousable. SP right IJ marin, plan HD ethics to see Objective Vital Signs Last 24 Hour Vital Signs Date Time Temp Pulse Resp B/P Pulse Ox O2 Delivery O2 Flow Rate FiO2 12/31/16 19:00 79 12 113/73 100 Room Air 12/31/16 19:00 113/73 12/31/16 18:45 74 12 108/70 100 Room Air 12/31/16 18:30 75 12 96/68 100 Room Air 12/31/16 18:00 96/58 12/31/16 18:00 74 11 96/58 100 Room Air 12/31/16 17:45 75 12 111/69 100 Room Air 12/31/16 17:30 73 11 146/102 100 Room Air 12/31/16 17:15 75 10 157/91 99 Room Air 12/31/16 17:00 73 11 167/92 99 Room Air 12/31/16 16:55 73/44 12/31/16 16:45 73 10 114/75 99 Room Air 12/31/16 16:30 79 18 72/35 99 Room Air 12/31/16 16:15 97.6 77 17 69/45 99 Room Air 12/31/16 16:00 79 12/31/16 15:35 79 18 72/35 99 12/31/16 15:30 97.5 78 17 69/45 99 Room Air 12/31/16 14:31 82 14 76/46 100 Room Air 12/31/16 14:25 80 16 70/50 100 Room Air 12/31/16 14:01 82 24 12/31/16 12:00 84 12/31/16 08:00 98.0 81 20 90/56 99 Room Air 12/31/16 08:00 81 12/31/16 07:01 87 18 Room Air 12/31/16 04:00 96.9 87 17 99 Mechanical Ventilator 12/31/16 00:00 97.9 90 18 100/50 99 Room Air 12/31/16 00:00 88 Height (Feet): 5 Height (Inches): 11.00 Weight (Pounds): 217 General Appearance: other - lethargic Respiratory/Chest: decreased breath sounds Cardiovascular: normal rate, regular rhythm Abdomen: normal bowel sounds, soft, non tender, non distended Microbiology Date/Time Source Procedure Growth Status 12/29/16 00:30 Sacral Wound Gram Stain - Final Resulted 12/29/16 00:30 Sacral Wound Wound Culture Pending Resulted Laboratory Tests Test 12/31/16 04:00 12/31/16 04:05 12/31/16 10:20 Urine Eosinophils None seen Stool Occult Blood Pending White Blood Count 17.5 K/UL (4.8-10.8) H Red Blood Count 2.43 M/UL (4.70-6.10) L Hemoglobin 7.8 G/DL (14.2-18.0) L Hematocrit 24.5 % (42.0-52.0) L Mean Corpuscular Volume 101 FL (80-99) H Mean Corpuscular Hemoglobin 32.0 PG (27.0-31.0) H Mean Corpuscular Hemoglobin Concent 31.8 G/DL (32.0-36.0) L Red Cell Distribution Width 17.7 % (11.6-14.8) H Platelet Count 211 K/UL (150-450) Mean Platelet Volume 6.3 FL (6.5-10.1) L Neutrophils (%) (Auto) % (45.0-75.0) Lymphocytes (%) (Auto) % (20.0-45.0) Monocytes (%) (Auto) % (1.0-10.0) Eosinophils (%) (Auto) % (0.0-3.0) Basophils (%) (Auto) % (0.0-2.0) Differential Total Cells Counted 100 Neutrophils % (Manual) 81 % (45-75) H Lymphocytes % (Manual) 12 % (20-45) L Monocytes % (Manual) 6 % (1-10) Eosinophils % (Manual) 1 % (0-3) Basophils % (Manual) 0 % (0-2) Band Neutrophils 0 % (0-8) Platelet Estimate Adequate Platelet Morphology Normal Hypochromasia 1+ Anisocytosis 1+ Macrocytosis 1+ Sodium Level 126 mEQ/L (135-145) L Potassium Level 4.4 mEQ/L (3.4-4.9) Chloride Level 97 mEQ/L (98-107) L Carbon Dioxide Level 9 mEQ/L (20-30) *L Anion Gap 20 (5-15) H Blood Urea Nitrogen 49 mg/dL (7-23) H Creatinine 4.0 mg/dL (0.7-1.2) H Estimat Glomerular Filtration Rate 16.0 mL/min (>60) Glucose Level 73 mg/dL (74-106) #L Plasma/Serum Osmolality Pending Uric Acid 9.5 mg/dL (3.0-7.5) H Calcium Level 7.2 mg/dL (8.6-10.2) L Phosphorus Level 7.0 mg/dL (2.5-4.8) H Magnesium Level 1.6 mg/dL (1.7-2.5) L Total Bilirubin 1.3 mg/dL (0.0-1.2) H Direct Bilirubin 0.8 mg/dL (0.1-0.3) H Aspartate Amino Transf (AST/SGOT) 35 U/L (5-40) Alanine Aminotransferase (ALT/SGPT) 10 U/L (3-41) Alkaline Phosphatase 128 U/L (40-129) Total Protein 5.7 g/dL (6.6-8.7) L Albumin 1.2 g/dL (3.5-5.2) L Globulin 4.5 g/dL Albumin/Globulin Ratio 0.2 (1.0-2.7) L Prothrombin Time 21.0 SEC (9.30-11.50) H Prothromb Time International Ratio 2.0 (0.9-1.1) H Activated Partial Thromboplast Time 72 SEC (23-33) H Cortisol Pending Current Medications Medications (Trade) Dose Ordered Sig/Romelia Route PRN Reason Start Time Stop Time Status Last Admin Dose Admin Acetaminophen (Tylenol) 650 mg Q4H PRN ORAL FEVER 12/31/16 17:00 01/30/17 16:59 UNV Albuterol/ Ipratropium (DuoNeb 0.5-3(2.5)mg/3ml) 3 ml Q4H PRN HHN Shortness of Breath 12/31/16 19:00 01/05/17 18:59 Cefepime HCl 1 gm/ Dextrose 55 ml @ 110 mls/hr Q24H IVPB 12/31/16 20:00 01/07/17 19:59 12/31/16 20:00 Dextrose (Dextrose 50%) STAT PRN IV Hypoglycemia 12/31/16 17:00 01/30/17 16:59 Heparin Sodium (Porcine) (Heparin 5000 units/ml) 5,000 units EVERY 12 HOURS SUBQ 12/31/16 21:00 01/30/17 20:59 Lorazepam (Ativan 2mg/ml 1ml) 2 mg Q2H PRN IV For Anxiety 12/31/16 17:00 01/07/17 16:59 Morphine Sulfate (Morphine Sulfate) 2 mg Q4H PRN IVP Severe Pain (Pain Scale 7-10) 12/31/16 17:00 01/07/17 16:59 Naloxone HCl (Narcan) 0.4 mg Q1MIN PRN IVP RR<10 OR LABORED BREATHING 12/31/16 19:15 01/30/17 19:14 Norepinephrine Bitartrate 4 mg/ Dextrose 250 ml @ 0 mls/hr Q24H IV 12/31/16 17:00 12/31/16 16:55 Ondansetron HCl (Zofran) 4 mg Q6H PRN IVP Nausea & Vomiting 12/31/16 17:00 01/30/17 16:59 Polyethylene Glycol (Miralax) 17 gm DAILYPRN PRN ORAL Constipation 12/31/16 17:00 01/30/17 16:59 Sodium Chloride (Sodium Chloride 1000ml bag) 1,000 ml @ 50 mls/hr Q20H IV 12/31/16 17:00 01/30/17 16:59 12/31/16 16:56 ADA TURNER Dec 31, 2016 20:51
[2017-01-01] VITALS (48 sets, daily range): BP systolic 63–121; BP diastolic 37–72
--- NOTE | 2017-01-01 01:45 | Wound Care Consultation ---
Wound Assessment Wound Assessment #1: Wound Present on Admission: Yes New Wound: No Status Change of Wound: No Wound Location Body Site Modif: right Wound Location Body Site: knee Wound Type: pressure ulcer Angelique Test: Does not Angelique Pressure Ulcer Stage: III Wound Thickness: Full Thickness Wound Length: 4.0 Wound Width: 3.5 Wound Depth: 0.2 Percent of Wound [place]/Red: 100 Wound Drainage Description: Serosanguineous Wound Drainage Amount: Moderate Wound Drainage Odor: None/Absent Tissue Surrounding Wound: Intact Wound General Appearance: Reddened, Draining Wound Assessment #2: Wound Number: #2 Wound Present on Admission: Yes New Wound: No Status Change of Wound: No Wound Location Body Site Modif: left, medial, dorsal Wound Location Body Site: foot Wound Type: pressure ulcer Angelique Test: Does not Angelique Pressure Ulcer Stage: III Wound Thickness: Full Thickness Wound Length: 2.5 Wound Width: 2.5 Wound Depth: 0.3 Percent of Wound [place]/Red: 80 Percent of Wound Bed Yellow/Wh: 20 Wound Drainage Description: Serosanguineous Wound Drainage Amount: Moderate Wound Drainage Odor: None/Absent Tissue Surrounding Wound: Intact Wound General Appearance: Reddened, Draining Wound Assessment #3: Wound Number: #3 Wound Present on Admission: Yes New Wound: No Status Change of Wound: No Wound Location Body Site Modif: left, medial Wound Location Body Site: foot Wound Type: pressure ulcer Angelique Test: Does not Angelique Pressure Ulcer Stage: III Wound Thickness: Full Thickness Wound Length: 2.5 Wound Width: 3.5 Wound Depth: 0.2 Percent of Wound [place]/Red: 60 Percent of Wound Bed Yellow/Wh: 40 Wound Drainage Description: Serosanguineous Wound Drainage Amount: Moderate Wound Drainage Odor: None/Absent Tissue Surrounding Wound: Intact Wound General Appearance: Reddened, Draining Wound Assessment #4: Wound Number: #4 Wound Present on Admission: Yes New Wound: No Status Change of Wound: No Wound Location Body Site Modif: left Wound Location Body Site: knee Wound Type: pressure ulcer Angelique Test: Does not Angelique Pressure Ulcer Stage: III Wound Thickness: Full Thickness Wound Length: 2.5 Wound Width: 3.5 Wound Depth: 0.2 Percent of Wound [place]/Red: 100 Wound Drainage Description: Serosanguineous Wound Drainage Amount: Moderate Wound Drainage Odor: None/Absent Tissue Surrounding Wound: Intact Wound General Appearance: Reddened, Draining Wound Assessment #5: Wound Number: #5 Wound Present on Admission: Yes New Wound: No Status Change of Wound: No Wound Location Body Site Modif: left, anterior Wound Location Body Site: toe - big Wound Type: pressure ulcer Angelique Test: Does not Angelique Pressure Ulcer Stage: III Wound Thickness: Full Thickness Wound Length: 2.5 Wound Width: 2.5 Wound Depth: 0.2 Percent of Wound [place]/Red: 100 Wound Drainage Description: Serosanguineous Wound Drainage Amount: Moderate Wound Drainage Odor: None/Absent Tissue Surrounding Wound: Intact Wound General Appearance: Reddened, Draining Wound Assessment #6: Wound Number: #6 Wound Present on Admission: Yes New Wound: No Status Change of Wound: No Wound Location Body Site Modif: left Wound Location Body Site: heel Wound Type: pressure ulcer Angelique Test: Does not Angelique Pressure Ulcer Stage: deep tissue injury Wound Thickness: Full Thickness Wound Length: 4.0 Wound Width: 4.5 Wound Depth: utd Percent of Wound Black/Brown: 100 Wound Drainage Amount: None Wound Drainage Odor: None/Absent Tissue Surrounding Wound: Intact Wound General Appearance: Blackened Wound Assessment #7: Wound Number: #7 Wound Present on Admission: Yes New Wound: No Status Change of Wound: No Wound Location Body Site: perineal area Wound Type: chemical burn Angelique Test: Does not Angelique Percent of Wound [place]/Red: 100 Wound Drainage Amount: None Wound Drainage Odor: None/Absent Tissue Surrounding Wound: Erythemic Wound General Appearance: Reddened, Open to air Wound Assessment #8: Wound Number: #8 Wound Present on Admission: Yes New Wound: No Status Change of Wound: No Wound Location Body Site Modif: right, lower, anterior Wound Location Body Site: leg Wound Type: pressure ulcer Angelique Test: Does not Angelique Pressure Ulcer Stage: IV/unstageable Wound Thickness: Full Thickness Wound Length: 3.5 Wound Width: 2.5 Wound Depth: utd Percent of Wound Bed Yellow/Wh: 100 Wound Drainage Description: Serosanguineous Wound Drainage Amount: Moderate Wound Drainage Odor: None/Absent Tissue Surrounding Wound: Macerated Wound General Appearance: Draining, Necrotic Wound Assessment #9: Wound Number: #9 Wound Present on Admission: Yes New Wound: No Status Change of Wound: No Wound Location Body Site Modif: right Wound Location Body Site: heel Wound Type: pressure ulcer Angelique Test: Does not Angelique Pressure Ulcer Stage: deep tissue injury Wound Thickness: Full Thickness Wound Length: 2.0 Wound Width: 1.5 Wound Depth: utd Percent of Wound Purple/Maroon: 100 Wound Drainage Amount: None Wound Drainage Odor: None/Absent Tissue Surrounding Wound: Intact Wound General Appearance: Reddened - dark purple Wound Assessment #10: Wound Number: #10 Wound Present on Admission: Yes New Wound: No Status Change of Wound: No Wound Location Body Site Modif: mid Wound Location Body Site: other - sacrococcygeal Wound Type: pressure ulcer Angelique Test: Does not Angelique Pressure Ulcer Stage: IV/unstageable Wound Thickness: Full Thickness Wound Length: 7.5 Wound Width: 4.5 Wound Depth: utd Percent of Wound [place]/Red: 70 Percent of Wound Bed Yellow/Wh: 20 Percent of Wound Black/Brown: 10 Wound Drainage Description: Serosanguineous Wound Drainage Amount: Moderate Wound Drainage Odor: None/Absent Tissue Surrounding Wound: Macerated Wound General Appearance: Reddened, Blackened, Draining Wound Comment #1 Right Knee stage III pressure ulcer #2 Left knee stage III pressure ulcer #3 Left medial dorsal foot stage III pressure ulcer #4 Left medial foot stage III pressure ulcer #5 Left anterior big toe stage III pressure ulcer #6 Left heel DTI pressure ulcer #7 Right heel DTI pressure ulcer #8 Perineal area chemical burn #9 Right anterior lower leg unstageable pressure #10 Sacrococcygeal unstageable pressure ulcer Recommendation -Right Knee stage III pressure ulcer,Left knee stage III pressure ulcer and Left anterior big toe stage III pressure ulcer Cleanse with saline, pat dry, apply Adaptic to wound bed, cover with bordered gauze daily and PRN soiled/dislodged -Left medial dorsal foot stage III pressure ulcer, Left medial foot stage III pressure ulcer, Right anterior lower leg unstageable pressure and Sacrococcygeal unstageable pressure ulcer Cleanse with saline, pat dry, apply Therahoney gel to wound bed, apply Triad to periwound area, cover with 4x4 secure with bordered gauze daily and PRN soiled/ dislodged -Local wound care per protocol for DTI on left and right heels -Heel protector on both heels -Offload both heels -Keep clean and dry -Optimize nutrition -Low air loss mattress -Assess and f/u accordingly for any changes SHUBHAM TORRES RN Jan 01, 2017 01:45
[2017-01-01 05:34] LABS: ALBUMIN/GLOBULIN RATIO 0.2 (1.0-2.7); CALCIUM 7.2 mg/dL (8.6-10.2); CREATININE 4.7 mg/dL (0.7-1.2); GLOMERULAR FILTRATION RATE 13.3 mL/min (>60); MAGNESIUM 1.8 mg/dL (1.7-2.5); PHOSPHORUS 8.4 mg/dL (2.5-4.8); POTASSIUM 4.6 mEQ/L (3.4-4.9); TOTAL PROTEIN 5.8 g/dL (6.6-8.7)
[2017-01-01 05:53] LABS: MEAN CORPUSCULAR HEMOGLOBIN 31.4 PG (27.0-31.0); MEAN CORPUSCULAR HGB CONC 31.7 G/DL (32.0-36.0); MEAN CORPUSCULAR VOLUME 99 FL (80-99); MEAN PLATELET VOLUME 6.3 FL (6.5-10.1); PLATELET COUNT 217 K/UL (150-450); RED BLOOD COUNT 2.58 M/UL (4.70-6.10); WHITE BLOOD COUNT 18.4 K/UL (4.8-10.8)
[2017-01-01 06:14] LABS: BILIRUBIN,DIRECT 0.6 mg/dL (0.1-0.3)
[2017-01-01] MEDS: Heparin 5000 units/ml inj SUBQ SCH (08:49)
--- NOTE | 2017-01-01 09:17 | General Progress Note ---
Assessment/Plan Status: deteriorating Assessment/Plan Primary Impression: Opiate overdose Acute renal failure multifactorial : Liver Ds , Antibiotics , Low BP.... Hyperkalemia Metabolic acidosis Sepsis Severe Anemia Low Na , Cirrhosis and Renal failure Plan: HD today temitope favor comfort care due to underlying conditions IV 5 0 cc hour 2 D Echo Kidney RANJIT Stop Vanco- check level ? Transfuse? Urine studies Avoid nephrotoxics Per orders discussed with RN Poor prognosis Subjective ROS Limited/Unobtainable: Yes Allergies: Coded Allergies: ACETAMINOPHEN (Unverified Allergy, Unknown, 07/14/16) HYDROCODONE (Unverified Allergy, Unknown, 07/14/16) PHENELZINE (Unverified Allergy, Unknown, 12/18/16) Objective Last 24 Hour Vital Signs Date Time Temp Pulse Resp B/P Pulse Ox O2 Delivery O2 Flow Rate FiO2 01/01/17 08:00 73 01/01/17 07:12 79 12 Room Air 21 01/01/17 07:00 79 11 118/67 100 Room Air 01/01/17 06:45 78 11 120/69 100 Room Air 01/01/17 06:30 78 11 107/68 100 Room Air 01/01/17 06:15 77 11 109/70 100 Room Air 01/01/17 06:00 77 11 81/51 100 Room Air 01/01/17 05:45 76 11 89/52 100 Room Air 01/01/17 05:30 80 11 94/61 100 Room Air 01/01/17 05:00 81 12 93/54 100 Room Air 01/01/17 04:30 76 12 91/49 100 Room Air 01/01/17 04:00 98.6 78 11 92/59 100 Room Air 01/01/17 04:00 78 01/01/17 03:30 77 12 89/53 100 Room Air 01/01/17 03:15 76 12 98/52 100 Room Air 01/01/17 03:00 77 12 92/55 100 Room Air 01/01/17 02:45 76 11 102/60 100 Room Air 01/01/17 02:30 76 10 103/55 100 Room Air 01/01/17 02:15 76 10 96/54 100 Room Air 01/01/17 02:00 77 10 96/52 100 Room Air 01/01/17 01:30 77 10 101/56 100 Room Air 01/01/17 01:15 77 10 88/52 99 Room Air 01/01/17 01:00 78 11 85/53 99 Room Air 01/01/17 00:45 79 11 95/54 100 Room Air 01/01/17 00:30 80 12 96/53 100 Room Air 01/01/17 00:00 78 01/01/17 00:00 98.4 78 12 113/67 100 Room Air 12/31/16 23:45 78 12 112/66 100 Room Air 12/31/16 23:30 76 12 117/70 100 Room Air 12/31/16 23:15 77 12 101/63 100 Room Air 12/31/16 23:00 77 12 107/58 100 Room Air 12/31/16 23:00 102/58 12/31/16 22:30 77 12 105/58 100 Room Air 12/31/16 22:15 76 11 110/71 100 Room Air 12/31/16 22:00 77 12 115/65 100 Room Air 12/31/16 22:00 115/65 12/31/16 21:45 76 12 131/71 100 Room Air 12/31/16 21:30 73 12 139/85 100 Room Air 12/31/16 21:15 73 12 134/84 100 Room Air 12/31/16 21:00 75 12 111/67 100 Room Air 12/31/16 21:00 139/85 12/31/16 20:45 76 12 111/67 100 Room Air 12/31/16 20:30 77 12 90/51 100 Room Air 12/31/16 20:15 78 10 92/50 100 Room Air 12/31/16 20:00 78 12/31/16 20:00 97.9 78 14 97/52 100 Room Air 12/31/16 20:00 97/52 12/31/16 19:45 76 10 99/58 100 Room Air 12/31/16 19:30 74 11 111/69 100 Room Air 12/31/16 19:30 75 20 Room Air 21 12/31/16 19:15 77 12 113/73 100 Room Air 12/31/16 19:00 79 12 113/73 100 Room Air 12/31/16 19:00 113/73 12/31/16 18:45 74 12 108/70 100 Room Air 12/31/16 18:30 75 12 96/68 100 Room Air 12/31/16 18:00 96/58 12/31/16 18:00 74 11 96/58 100 Room Air 12/31/16 17:45 75 12 111/69 100 Room Air 12/31/16 17:30 73 11 146/102 100 Room Air 12/31/16 17:15 75 10 157/91 99 Room Air 12/31/16 17:00 73 11 167/92 99 Room Air 12/31/16 16:55 73/44 12/31/16 16:45 73 10 114/75 99 Room Air 12/31/16 16:30 79 18 72/35 99 Room Air 12/31/16 16:15 97.6 77 17 69/45 99 Room Air 12/31/16 16:00 79 12/31/16 15:35 79 18 72/35 99 12/31/16 15:30 97.5 78 17 69/45 99 Room Air 12/31/16 14:31 82 14 76/46 100 Room Air 12/31/16 14:25 80 16 70/50 100 Room Air 12/31/16 14:01 82 24 12/31/16 12:00 84 Intake and Output 12/31/16 01/01/17 19:00 07:00 Intake Total 307.50 ml 678.75 ml Output Total 85 ml 70 ml Balance 222.50 ml 608.75 ml IV Total 307.50 ml 678.75 ml Output Urine Total 85 ml 70 ml Laboratory Tests 12/31/16 10:20: Prothrombin Time 21.0H, Prothromb Time International Ratio 2.0H, Activated Partial Thromboplast Time 72H, Cortisol [Pending] 01/01/17 04:30: Sodium Level 123L, Potassium Level 4.6, Chloride Level 96L, Carbon Dioxide Level 8*L, Anion Gap 19H, Blood Urea Nitrogen 53H, Creatinine 4.7H, Estimat Glomerular Filtration Rate 13.3, Glucose Level 64L, Uric Acid 10.0H, Calcium Level 7.2L, Phosphorus Level 8.4H, Magnesium Level 1.8, Total Bilirubin 1.2, Direct Bilirubin 0.6H, Aspartate Amino Transf (AST/SGOT) 44H, Alanine Aminotransferase (ALT/SGPT) 10, Alkaline Phosphatase 117, Pro-B-Type Natriuretic Peptide 9464H, Total Protein 5.8L, Albumin 1.3L, Globulin 4.5, Albumin/Globulin Ratio 0.2L 01/01/17 05:00: Urine Eosinophils None seen 01/01/17 05:35: White Blood Count 18.4H, Red Blood Count 2.58L, Hemoglobin 8.1L, Hematocrit 25.5L, Mean Corpuscular Volume 99, Mean Corpuscular Hemoglobin 31.4H, Mean Corpuscular Hemoglobin Concent 31.7L, Red Cell Distribution Width 18.0H, Platelet Count 217, Mean Platelet Volume 6.3L, Neutrophils (%) (Auto) , Lymphocytes (%) (Auto) , Monocytes (%) (Auto) , Eosinophils (%) (Auto) , Basophils (%) (Auto) , Neutrophils % (Manual) [Pending], Lymphocytes % (Manual) [Pending], Platelet Estimate [Pending], Platelet Morphology [Pending] Height (Feet): 5 Height (Inches): 11.00 Weight (Pounds): 192 General Appearance: no apparent distress Cardiovascular: tachycardia Respiratory/Chest: decreased breath sounds Abdomen: distended Objective no other change in PE RAYMON SERNA Jan 01, 2017 09:17
[2017-01-01] MEDS ORDERED: Aspirin EC 325mg tab ORAL PRN (10:00)
--- NOTE | 2017-01-01 10:01 | Pulmonolgy Critical Care Note ---
Critical Care - Asmt/Plan Problems: (1) futile care (2) Conflicted attitude towards care (3) Septic shock (4) ATN (acute tubular necrosis) (5) Acute encephalopathy (6) Severe malnutrition (7) Pancreatic cancer (8) COPD (chronic obstructive pulmonary disease) (9) Hepatitis C (10) Amphetamine abuse Respiratory: monitor respiratory rate, adjust FIO2, CXR Cardiac: continue pressors Renal: F/U I&O, keep IV fluid Infectious Disease: check cultures Gastrointestinal: hold feedings Endocrine: monitor blood sugar Hematologic: monitor H/H, transfuse if hgb<8.5 Neurologic: keep patient comfortable Disposition: keep in ICU Notes Reviewed: renal, ID Discussed with: nurses, 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, 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 - Objective Last 24 Hour Vital Signs Date Time Temp Pulse Resp B/P Pulse Ox O2 Delivery O2 Flow Rate FiO2 01/01/17 08:00 73 01/01/17 07:12 79 12 Room Air 21 01/01/17 07:00 79 11 118/67 100 Room Air 01/01/17 06:45 78 11 120/69 100 Room Air 01/01/17 06:30 78 11 107/68 100 Room Air 01/01/17 06:15 77 11 109/70 100 Room Air 01/01/17 06:00 77 11 81/51 100 Room Air 01/01/17 05:45 76 11 89/52 100 Room Air 01/01/17 05:30 80 11 94/61 100 Room Air 01/01/17 05:00 81 12 93/54 100 Room Air 01/01/17 04:30 76 12 91/49 100 Room Air 01/01/17 04:00 98.6 78 11 92/59 100 Room Air 01/01/17 04:00 78 01/01/17 03:30 77 12 89/53 100 Room Air 01/01/17 03:15 76 12 98/52 100 Room Air 01/01/17 03:00 77 12 92/55 100 Room Air 01/01/17 02:45 76 11 102/60 100 Room Air 01/01/17 02:30 76 10 103/55 100 Room Air 01/01/17 02:15 76 10 96/54 100 Room Air 01/01/17 02:00 77 10 96/52 100 Room Air 01/01/17 01:30 77 10 101/56 100 Room Air 01/01/17 01:15 77 10 88/52 99 Room Air 01/01/17 01:00 78 11 85/53 99 Room Air 01/01/17 00:45 79 11 95/54 100 Room Air 01/01/17 00:30 80 12 96/53 100 Room Air 01/01/17 00:00 78 01/01/17 00:00 98.4 78 12 113/67 100 Room Air 12/31/16 23:45 78 12 112/66 100 Room Air 12/31/16 23:30 76 12 117/70 100 Room Air 12/31/16 23:15 77 12 101/63 100 Room Air 12/31/16 23:00 77 12 107/58 100 Room Air 12/31/16 23:00 102/58 12/31/16 22:30 77 12 105/58 100 Room Air 12/31/16 22:15 76 11 110/71 100 Room Air 12/31/16 22:00 77 12 115/65 100 Room Air 12/31/16 22:00 115/65 12/31/16 21:45 76 12 131/71 100 Room Air 12/31/16 21:30 73 12 139/85 100 Room Air 12/31/16 21:15 73 12 134/84 100 Room Air 12/31/16 21:00 75 12 111/67 100 Room Air 12/31/16 21:00 139/85 12/31/16 20:45 76 12 111/67 100 Room Air 12/31/16 20:30 77 12 90/51 100 Room Air 12/31/16 20:15 78 10 92/50 100 Room Air 12/31/16 20:00 78 12/31/16 20:00 97.9 78 14 97/52 100 Room Air 12/31/16 20:00 97/52 12/31/16 19:45 76 10 99/58 100 Room Air 12/31/16 19:30 74 11 111/69 100 Room Air 12/31/16 19:30 75 20 Room Air 21 12/31/16 19:15 77 12 113/73 100 Room Air 12/31/16 19:00 79 12 113/73 100 Room Air 12/31/16 19:00 113/73 12/31/16 18:45 74 12 108/70 100 Room Air 12/31/16 18:30 75 12 96/68 100 Room Air 12/31/16 18:00 96/58 12/31/16 18:00 74 11 96/58 100 Room Air 12/31/16 17:45 75 12 111/69 100 Room Air 12/31/16 17:30 73 11 146/102 100 Room Air 12/31/16 17:15 75 10 157/91 99 Room Air 12/31/16 17:00 73 11 167/92 99 Room Air 12/31/16 16:55 73/44 12/31/16 16:45 73 10 114/75 99 Room Air 12/31/16 16:30 79 18 72/35 99 Room Air 12/31/16 16:15 97.6 77 17 69/45 99 Room Air 12/31/16 16:00 79 12/31/16 15:35 79 18 72/35 99 12/31/16 15:30 97.5 78 17 69/45 99 Room Air 12/31/16 14:31 82 14 76/46 100 Room Air 12/31/16 14:25 80 16 70/50 100 Room Air 12/31/16 14:01 82 24 12/31/16 12:00 84 Status: somnolent Condition: critical HEENT: atraumatic Neck: full ROM Lungs: clear Heart: HR/BP unstable Abdomen: soft Extremities: no C/C/E Critical Care - Subjective ROS Limited/Unobtainable: Yes ICU Day: 2 Interval Events: transferred to ICU b./o hypotension Condition: critical FI02: 21 Sputum Amount: None Drips: levophed I&O: Intake and Output 12/31/16 01/01/17 19:00 07:00 Intake Total 307.50 ml 678.75 ml Output Total 85 ml 70 ml Balance 222.50 ml 608.75 ml IV Total 307.50 ml 678.75 ml Output Urine Total 85 ml 70 ml CXR: no change Labs: Laboratory Tests Test 12/31/16 10:20 01/01/17 04:30 01/01/17 05:00 01/01/17 05:35 Prothrombin Time 21.0 SEC (9.30-11.50) H Prothromb Time International Ratio 2.0 (0.9-1.1) H Activated Partial Thromboplast Time 72 SEC (23-33) H Cortisol Pending Sodium Level 123 mEQ/L (135-145) L Potassium Level 4.6 mEQ/L (3.4-4.9) Chloride Level 96 mEQ/L (98-107) L Carbon Dioxide Level 8 mEQ/L (20-30) *L Anion Gap 19 (5-15) H Blood Urea Nitrogen 53 mg/dL (7-23) H Creatinine 4.7 mg/dL (0.7-1.2) H Estimat Glomerular Filtration Rate 13.3 mL/min (>60) Glucose Level 64 mg/dL (74-106) L Uric Acid 10.0 mg/dL (3.0-7.5) H Calcium Level 7.2 mg/dL (8.6-10.2) L Phosphorus Level 8.4 mg/dL (2.5-4.8) H Magnesium Level 1.8 mg/dL (1.7-2.5) Total Bilirubin 1.2 mg/dL (0.0-1.2) Direct Bilirubin 0.6 mg/dL (0.1-0.3) H Aspartate Amino Transf (AST/SGOT) 44 U/L (5-40) H Alanine Aminotransferase (ALT/SGPT) 10 U/L (3-41) Alkaline Phosphatase 117 U/L (40-129) Pro-B-Type Natriuretic Peptide 9464 pg/mL (0-125) H Total Protein 5.8 g/dL (6.6-8.7) L Albumin 1.3 g/dL (3.5-5.2) L Globulin 4.5 g/dL Albumin/Globulin Ratio 0.2 (1.0-2.7) L Urine Eosinophils None seen White Blood Count 18.4 K/UL (4.8-10.8) H Red Blood Count 2.58 M/UL (4.70-6.10) L Hemoglobin 8.1 G/DL (14.2-18.0) L Hematocrit 25.5 % (42.0-52.0) L Mean Corpuscular Volume 99 FL (80-99) Mean Corpuscular Hemoglobin 31.4 PG (27.0-31.0) H Mean Corpuscular Hemoglobin Concent 31.7 G/DL (32.0-36.0) L Red Cell Distribution Width 18.0 % (11.6-14.8) H Platelet Count 217 K/UL (150-450) Mean Platelet Volume 6.3 FL (6.5-10.1) L Neutrophils (%) (Auto) % (45.0-75.0) Lymphocytes (%) (Auto) % (20.0-45.0) Monocytes (%) (Auto) % (1.0-10.0) Eosinophils (%) (Auto) % (0.0-3.0) Basophils (%) (Auto) % (0.0-2.0) Neutrophils % (Manual) Pending Lymphocytes % (Manual) Pending Platelet Estimate Pending Platelet Morphology Pending DORENE GRIMM Jan 01, 2017 10:01
[2017-01-01 10:17] LABS: BAND NEUTROPHILS % (MANUAL) 2 % (0-8); BASOPHILS % (MANUAL) 1 % (0-2); EOSINOPHILS % (MANUAL) 1 % (0-3); LYMPHOCYTES % (MANUAL) 15 % (20-45); NEUTROPHILS % (MANUAL) 74 % (45-75); TOTAL CELLS COUNTED 100
[2017-01-01 10:20] LABS: PLATELET ESTIMATE ADEQUATE; PLATELET MORPHOLOGY NORMAL
[2017-01-01 10:21] LABS: ANISOCYTOSIS 1+; HYPOCHROMASIA 1+; MACROCYTES 1+
[2017-01-01] MEDS: Morphine Sulfate 4mg/ml Inj IVP PRN ×7 (14:35→23:21)
--- NOTE | 2017-01-01 14:42 | Diagnostic Imaging Report ---
APPROVED REPORT CPT Code: 28529 Present Symptoms Lower Extremity Pain: Bilateral Comments: Hx CHF. BILATERAL: Imaging reveals a patent deep venous system bilaterally. There is no evidence of thrombus within the femoral, popliteal or tibial segments. The greater saphenous veins are also within normal limits. Doppler indicates normal spontaneous flow within these segments.
[2017-01-01] MEDS ORDERED: Tubing IV Secondary IV ONE (15:29)
[2017-01-01] MEDS ORDERED: NS Irrig 1000ml ONE (15:29)
--- NOTE | 2017-01-01 16:46 | GI Initial Consult Note ---
History of Present Illness General Date patient seen: Jan 01, 2017 Time patient seen: 15:00 Reason for Hospitalization: Dyspnea/Respdistress Referring physician: DORENE BATES Reason for Consultation: ANEMIA Present Illness HPI Patient presents with altered mental status and hypotension. His blood pressure 70 in the field and paramedics started infusing saline in the IV that was established in the field. The patient previously was in hospice care. He has end-stage liver disease or pancreatic cancer. His significant other's saying that he's been receiving high doses of morphine and has not been eating or responding for 2 days. She claims that she never signed hospice papers in chief believes that he wants everything done to save his life. No other history available except old chart: From discharge July sepsis chronic diarrhea, likely 2 to malabsorption frequent recurrent falls DM diabetic neuropathy COPD hepatitis C with elevated LFT hyponatremia, likely depletional bilateral blindness history of transmetatarsal amputation Right foot active smoker amphetamine abuse Unable to care for himself GI Consult. HPI as noted above. GI consulted for anemia, chronic diarrhea, Hep C. ROS limited, pt seen in ICU with AMS. Pt was seen early this year by us in July in which we managed his chronic diarrhea and abdominal distention. Presents today with leukocytosis, anemia and hypoalbuminemia. No history of endoscopic procedure. Home Meds Reported Medications Aspirin* (ASPIR 81*) 81 Mg Tablet.dr, 81 MG ORAL DAILY, TAB 07/14/16 Clonidine Hcl* (CATAPRES*) 0.1 Mg Tablet, 0.1 MG ORAL BID, TAB 07/14/16 Insulin Glargine (LANTUS) 100 Unit/1 Ml Insuln.pen, 0 SUBQ BEDTIME, #1 EA 0 Refills 07/14/16 Insulin Human Lispro (Humalog) 100 Unit/1 Ml Vial, 0 SUBQ, #1 UNIT 0 Refills 07/14/16 Prednisolone* (PRELONE*) 15 Mg/5 Ml Solution, 15 MG ORAL, ML 05/29/16 Gabapentin (Neurontin) 300 Mg Capsule, 300 MG ORAL BEDTIME, #7 CAP 0 Refills 05/29/16 Amitriptyline HCl (ELAVIL*) 25 Mg Tablet, 25 MG ORAL BEDTIME, TAB 05/29/16 Tramadol Hcl* (ULTRAM*) 50 Mg Tablet, 50 MG ORAL Q6H Y for For Pain, #30 TAB 0 Refills 05/29/16 Furosemide* (LASIX*) 20 Mg Tablet, 20 MG ORAL DAILY, TAB 05/29/16 Med list reviewed/reconciled: Yes Allergies: Coded Allergies: ACETAMINOPHEN (Unverified Allergy, Unknown, 07/14/16) HYDROCODONE (Unverified Allergy, Unknown, 07/14/16) PHENELZINE (Unverified Allergy, Unknown, 12/18/16) Patient History Limited by: medical condition History Provided By: Medical Record PMH Narrative Past Medical History: see triage record Social History: Reports: alcohol use, drug use, smoking Social History Narrative SNF (prior Hospice) Reviewed Nursing Documentation: PMH: Agreed, PSxH: Agreed Nursing Documentation-PMH Hx Cardiac Problems: Yes Hx Hypertension: Yes Hx COPD: Yes Hx Diabetes: Yes - retinopathy, neuropathy Hx Cancer: No Hx Gastrointestinal Problems: Yes Hx Dialysis: No Hx Neurological Problems: Yes Hx Seizures: Yes Hx Tremors: Yes Hx Weakness: Yes Social History: Reports: alcohol use Review of Systems All Other Systems: limited Physical Exam Vital Signs Date Time Temp Pulse Resp B/P Pulse Ox O2 Delivery O2 Flow Rate FiO2 12/28/16 15:50 98.2 100 20 74/41 100 Simple Mask 8.0 12/31/16 19:30 21 Sp02 EP Interpretation: reviewed Labs Laboratory Tests Test 01/01/17 04:30 01/01/17 05:00 01/01/17 05:35 Sodium Level 123 mEQ/L (135-145) L Potassium Level 4.6 mEQ/L (3.4-4.9) Chloride Level 96 mEQ/L (98-107) L Carbon Dioxide Level 8 mEQ/L (20-30) *L Anion Gap 19 (5-15) H Blood Urea Nitrogen 53 mg/dL (7-23) H Creatinine 4.7 mg/dL (0.7-1.2) H Estimat Glomerular Filtration Rate 13.3 mL/min (>60) Glucose Level 64 mg/dL (74-106) L Uric Acid 10.0 mg/dL (3.0-7.5) H Calcium Level 7.2 mg/dL (8.6-10.2) L Phosphorus Level 8.4 mg/dL (2.5-4.8) H Magnesium Level 1.8 mg/dL (1.7-2.5) Total Bilirubin 1.2 mg/dL (0.0-1.2) Direct Bilirubin 0.6 mg/dL (0.1-0.3) H Aspartate Amino Transf (AST/SGOT) 44 U/L (5-40) H Alanine Aminotransferase (ALT/SGPT) 10 U/L (3-41) Alkaline Phosphatase 117 U/L (40-129) Pro-B-Type Natriuretic Peptide 9464 pg/mL (0-125) H Total Protein 5.8 g/dL (6.6-8.7) L Albumin 1.3 g/dL (3.5-5.2) L Globulin 4.5 g/dL Albumin/Globulin Ratio 0.2 (1.0-2.7) L Urine Eosinophils None seen White Blood Count 18.4 K/UL (4.8-10.8) H Red Blood Count 2.58 M/UL (4.70-6.10) L Hemoglobin 8.1 G/DL (14.2-18.0) L Hematocrit 25.5 % (42.0-52.0) L Mean Corpuscular Volume 99 FL (80-99) Mean Corpuscular Hemoglobin 31.4 PG (27.0-31.0) H Mean Corpuscular Hemoglobin Concent 31.7 G/DL (32.0-36.0) L Red Cell Distribution Width 18.0 % (11.6-14.8) H Platelet Count 217 K/UL (150-450) Mean Platelet Volume 6.3 FL (6.5-10.1) L Neutrophils (%) (Auto) % (45.0-75.0) Lymphocytes (%) (Auto) % (20.0-45.0) Monocytes (%) (Auto) % (1.0-10.0) Eosinophils (%) (Auto) % (0.0-3.0) Basophils (%) (Auto) % (0.0-2.0) Differential Total Cells Counted 100 Neutrophils % (Manual) 74 % (45-75) Lymphocytes % (Manual) 15 % (20-45) L Monocytes % (Manual) 7 % (1-10) Eosinophils % (Manual) 1 % (0-3) Basophils % (Manual) 1 % (0-2) Band Neutrophils 2 % (0-8) Platelet Estimate Adequate Platelet Morphology Normal Hypochromasia 1+ Anisocytosis 1+ Macrocytosis 1+ Head: normocephalic Current Medications Current Medications Medications (Trade) Dose Ordered Sig/Romelia Route PRN Reason Start Time Stop Time Status Last Admin Dose Admin Albuterol/ Ipratropium (DuoNeb 0.5-3(2.5)mg/3ml) 3 ml Q4H PRN HHN Shortness of Breath 12/31/16 19:00 01/05/17 18:59 Aspirin 325 mg 325 mg Q6H PRN ORAL fever temp >100.5 01/01/17 10:00 01/31/17 09:59 Cefepime HCl/ Dextrose (Maxipime/D5W) 55 ml @ 110 mls/hr Q24H IVPB 01/01/17 20:00 01/08/17 19:59 Clotrimazole (Lotrimin) 1 applic EVERY 12 HOURS TOPIC 01/01/17 09:00 01/31/17 08:59 01/01/17 08:48 Dextrose (Dextrose 50%) STAT PRN IV Hypoglycemia 12/31/16 17:00 01/30/17 16:59 Heparin Sodium (Porcine) (Heparin 5000 units/ml) 5,000 units EVERY 12 HOURS SUBQ 12/31/16 21:00 01/30/17 20:59 01/01/17 08:49 Lorazepam (Ativan 2mg/ml 1ml) 2 mg Q2H PRN IV For Anxiety 12/31/16 17:00 01/07/17 16:59 Morphine Sulfate (Morphine Sulfate) 4 mg Q1H PRN IVP For Pain 01/01/17 14:30 01/08/17 14:29 01/01/17 15:48 Naloxone HCl (Narcan) 0.4 mg Q1MIN PRN IVP RR<10 OR LABORED BREATHING 12/31/16 19:15 01/30/17 19:14 Ondansetron HCl (Zofran) 4 mg Q6H PRN IVP Nausea & Vomiting 12/31/16 17:00 01/30/17 16:59 Polyethylene Glycol (Miralax) 17 gm DAILYPRN PRN ORAL Constipation 12/31/16 17:00 01/30/17 16:59 GI: Plan Problems: (1) Severe malnutrition (2) Hepatitis C (3) Amphetamine abuse (4) Abdominal pain (5) Diarrhea (6) Anemia Plan patient now on comfort care. defer all labs and GI workup. Discussed with Dr. Leonardo. Thank you for allowing us to provide care for this patient. Bernadette Iverson N.P. Jan 01, 2017 16:46
[2017-01-01] MEDS ORDERED: Miralax 17gm pkt ORAL PRN (17:00)
--- NOTE | 2017-01-01 19:51 | Infectious Diseases Prog Note ---
Assessment/Plan Assessment/Plan ASSESSMENT: 50 y/o male with: Leukocytosis - persistent, afebrile, Cx NGTD ( CA contributing ) Sp hypoTN ( opioid over dose ) Multiple decubitus ( not infected grossly ) Hx of Hep C SP Rx in 1999 - recurrent, elevated LFTs, HCV PCR >6million Negative HIV Pancreatic CA ESLD coagulopathy Oliguric ARF SP right IJ marin, initiation of HD 12/31 Mod left hydronephrosis DM Diabetic neuropathy Legally blind SP transmetatarsal amputation R foot smoker amphetamine use MRSA, VRE colonized No ABX allergies DNR PLAN : palliative care ( 01/01 SP IV Vanco and Cefepime d # 3 ) condolences Subjective Allergies: Coded Allergies: ACETAMINOPHEN (Unverified Allergy, Unknown, 07/14/16) HYDROCODONE (Unverified Allergy, Unknown, 07/14/16) PHENELZINE (Unverified Allergy, Unknown, 12/18/16) Subjective pt now comfort care Objective Vital Signs Last 24 Hour Vital Signs Date Time Temp Pulse Resp B/P Pulse Ox O2 Delivery O2 Flow Rate FiO2 01/01/17 19:49 70 20 Room Air 21 01/01/17 19:00 72 10 66/38 99 Room Air 01/01/17 18:00 71 10 63/37 98 Room Air 01/01/17 17:00 72 10 64/37 98 Room Air 01/01/17 16:00 98.2 75 9 66/37 98 Room Air 01/01/17 16:00 73 01/01/17 15:00 77 10 63/37 98 Room Air 01/01/17 14:00 80 9 68/40 98 Room Air 01/01/17 13:00 81 13 100/52 99 Room Air 01/01/17 12:30 81 13 110/59 100 Room Air 01/01/17 12:00 98.5 81 11 106/64 100 Room Air 01/01/17 12:00 80 01/01/17 11:30 74 13 111/66 100 Room Air 01/01/17 11:00 78 12 108/58 100 Room Air 01/01/17 10:30 77 11 101/59 100 Room Air 01/01/17 10:00 77 12 101/56 100 Room Air 01/01/17 09:45 77 12 99/57 100 Room Air 01/01/17 09:30 76 10 99/55 100 Room Air 01/01/17 09:15 76 10 103/57 100 Room Air 01/01/17 09:00 77 12 95/56 100 Room Air 01/01/17 08:45 80 11 85/48 100 Room Air 01/01/17 08:30 80 11 84/46 100 Room Air 01/01/17 08:15 83 11 99/57 100 Room Air 01/01/17 08:00 73 01/01/17 08:00 98.7 83 11 113/72 100 Room Air 01/01/17 07:45 83 11 104/65 100 Room Air 01/01/17 07:30 79 11 108/66 100 Room Air 01/01/17 07:15 79 11 121/67 100 Room Air 01/01/17 07:12 79 12 Room Air 21 01/01/17 07:00 79 11 118/67 100 Room Air 01/01/17 06:45 78 11 120/69 100 Room Air 01/01/17 06:30 78 11 107/68 100 Room Air 01/01/17 06:15 77 11 109/70 100 Room Air 01/01/17 06:00 77 11 81/51 100 Room Air 01/01/17 05:45 76 11 89/52 100 Room Air 01/01/17 05:30 80 11 94/61 100 Room Air 01/01/17 05:00 81 12 93/54 100 Room Air 01/01/17 04:30 76 12 91/49 100 Room Air 01/01/17 04:00 98.6 78 11 92/59 100 Room Air 01/01/17 04:00 78 01/01/17 03:30 77 12 89/53 100 Room Air 01/01/17 03:15 76 12 98/52 100 Room Air 01/01/17 03:00 77 12 92/55 100 Room Air 01/01/17 02:45 76 11 102/60 100 Room Air 01/01/17 02:30 76 10 103/55 100 Room Air 01/01/17 02:15 76 10 96/54 100 Room Air 01/01/17 02:00 77 10 96/52 100 Room Air 01/01/17 01:30 77 10 101/56 100 Room Air 01/01/17 01:15 77 10 88/52 99 Room Air 01/01/17 01:00 78 11 85/53 99 Room Air 01/01/17 00:45 79 11 95/54 100 Room Air 01/01/17 00:30 80 12 96/53 100 Room Air 01/01/17 00:00 78 01/01/17 00:00 98.4 78 12 113/67 100 Room Air 12/31/16 23:45 78 12 112/66 100 Room Air 12/31/16 23:30 76 12 117/70 100 Room Air 12/31/16 23:15 77 12 101/63 100 Room Air 12/31/16 23:00 77 12 107/58 100 Room Air 12/31/16 23:00 102/58 12/31/16 22:30 77 12 105/58 100 Room Air 12/31/16 22:15 76 11 110/71 100 Room Air 12/31/16 22:00 77 12 115/65 100 Room Air 12/31/16 22:00 115/65 12/31/16 21:45 76 12 131/71 100 Room Air 12/31/16 21:30 73 12 139/85 100 Room Air 12/31/16 21:15 73 12 134/84 100 Room Air 12/31/16 21:00 75 12 111/67 100 Room Air 12/31/16 21:00 139/85 12/31/16 20:45 76 12 111/67 100 Room Air 12/31/16 20:30 77 12 90/51 100 Room Air 12/31/16 20:15 78 10 92/50 100 Room Air 12/31/16 20:00 78 12/31/16 20:00 97.9 78 14 97/52 100 Room Air 12/31/16 20:00 97/52 Height (Feet): 5 Height (Inches): 11.00 Weight (Pounds): 192 General Appearance: no acute distress, cachetic Respiratory/Chest: no respiratory distress Cardiovascular: normal rate, regular rhythm Abdomen: normal bowel sounds, soft, non tender, non distended Laboratory Tests Test 01/01/17 04:30 01/01/17 05:00 01/01/17 05:35 Sodium Level 123 mEQ/L (135-145) L Potassium Level 4.6 mEQ/L (3.4-4.9) Chloride Level 96 mEQ/L (98-107) L Carbon Dioxide Level 8 mEQ/L (20-30) *L Anion Gap 19 (5-15) H Blood Urea Nitrogen 53 mg/dL (7-23) H Creatinine 4.7 mg/dL (0.7-1.2) H Estimat Glomerular Filtration Rate 13.3 mL/min (>60) Glucose Level 64 mg/dL (74-106) L Uric Acid 10.0 mg/dL (3.0-7.5) H Calcium Level 7.2 mg/dL (8.6-10.2) L Phosphorus Level 8.4 mg/dL (2.5-4.8) H Magnesium Level 1.8 mg/dL (1.7-2.5) Total Bilirubin 1.2 mg/dL (0.0-1.2) Direct Bilirubin 0.6 mg/dL (0.1-0.3) H Aspartate Amino Transf (AST/SGOT) 44 U/L (5-40) H Alanine Aminotransferase (ALT/SGPT) 10 U/L (3-41) Alkaline Phosphatase 117 U/L (40-129) Pro-B-Type Natriuretic Peptide 9464 pg/mL (0-125) H Total Protein 5.8 g/dL (6.6-8.7) L Albumin 1.3 g/dL (3.5-5.2) L Globulin 4.5 g/dL Albumin/Globulin Ratio 0.2 (1.0-2.7) L Urine Eosinophils None seen White Blood Count 18.4 K/UL (4.8-10.8) H Red Blood Count 2.58 M/UL (4.70-6.10) L Hemoglobin 8.1 G/DL (14.2-18.0) L Hematocrit 25.5 % (42.0-52.0) L Mean Corpuscular Volume 99 FL (80-99) Mean Corpuscular Hemoglobin 31.4 PG (27.0-31.0) H Mean Corpuscular Hemoglobin Concent 31.7 G/DL (32.0-36.0) L Red Cell Distribution Width 18.0 % (11.6-14.8) H Platelet Count 217 K/UL (150-450) Mean Platelet Volume 6.3 FL (6.5-10.1) L Neutrophils (%) (Auto) % (45.0-75.0) Lymphocytes (%) (Auto) % (20.0-45.0) Monocytes (%) (Auto) % (1.0-10.0) Eosinophils (%) (Auto) % (0.0-3.0) Basophils (%) (Auto) % (0.0-2.0) Differential Total Cells Counted 100 Neutrophils % (Manual) 74 % (45-75) Lymphocytes % (Manual) 15 % (20-45) L Monocytes % (Manual) 7 % (1-10) Eosinophils % (Manual) 1 % (0-3) Basophils % (Manual) 1 % (0-2) Band Neutrophils 2 % (0-8) Platelet Estimate Adequate Platelet Morphology Normal Hypochromasia 1+ Anisocytosis 1+ Macrocytosis 1+ Current Medications Medications (Trade) Dose Ordered Sig/Romelia Route PRN Reason Start Time Stop Time Status Last Admin Dose Admin Albuterol/ Ipratropium (DuoNeb 0.5-3(2.5)mg/3ml) 3 ml Q4H PRN HHN Shortness of Breath 12/31/16 19:00 01/05/17 18:59 Dextrose (Dextrose 50%) STAT PRN IV Hypoglycemia 12/31/16 17:00 01/30/17 16:59 Lorazepam (Ativan 2mg/ml 1ml) 2 mg Q2H PRN IV For Anxiety 12/31/16 17:00 01/07/17 16:59 Morphine Sulfate (Morphine Sulfate) 4 mg Q1H PRN IVP For Pain 01/01/17 14:30 01/08/17 14:29 01/01/17 18:56 Naloxone HCl (Narcan) 0.4 mg Q1MIN PRN IVP RR<10 OR LABORED BREATHING 12/31/16 19:15 01/30/17 19:14 Ondansetron HCl (Zofran) 4 mg Q6H PRN IVP Nausea & Vomiting 12/31/16 17:00 01/30/17 16:59 Polyethylene Glycol (Miralax) 17 gm DAILYPRN PRN ORAL Constipation 12/31/16 17:00 01/30/17 16:59 ADA TURNER Jan 01, 2017 19:51
[2017-01-01] MEDS ORDERED: Cefepime HCl 0.5 GM in D5W 55 ML IVPB SCH (20:00)
[2017-01-01] MEDS ORDERED: Naloxone 0.4mg/ml Inj IVP PRN ×2 (20:45→21:15)
[2017-01-01] MEDS ORDERED: LORazepam Inj 2mg/ml 1ml IV PRN ×2 (21:00)
[2017-01-01] MEDS ORDERED: DuoNeb 0.5-3(2.5)mg/3ml neb HHN PRN ×2 (21:00)
[2017-01-01] MEDS ORDERED: Morphine Sulfate 4mg/ml Inj IVP PRN (21:30)
[2017-01-02] MEDS: Morphine Sulfate 4mg/ml Inj IVP PRN (00:34)
[2017-01-02] MEDS ORDERED: Tubing IV Secondary IV ONE (00:49)
[2017-01-02] MEDS ORDERED: Miralax 17gm pkt ORAL PRN (17:00)
--- NOTE | 2017-01-03 15:21 | Discharge Summary ---
Discharge Summary Hospital Course Date of Admission Dec 28, 2016 at 16:57 Date of Discharge Jan 02, 2017 at 00:50 Admitting Diagnosis sepsis HPI Archie Johansen is a 51 year old male who was admitted on Dec 28, 2016 at 16: 57 for Sepsis, Overdose Hospital Course [id number] Discharge Discharge Disposition Patient Discharge Diagnoses: Nicole Dawkins NP Jan 03, 2017 15:21
--- NOTE | 2017-01-03 23:31 | Discharge Summary 2 SIG ---
DATE OF ADMISSION: 12/28/2016 DATE OF DISCHARGE: 01/02/2017 CONSULTANTS: 1. Saman Muir M.D. 2. Abdulaziz Kilgore M.D. 3. Kobe Barakat M.D. 4. Shun Leonardo M.D. BRIEF SUMMARY: The patient is a 51-year-old male with history of end-stage liver disease, pancreatic CA, under hospice at the snf, was brought in by paramedics with altered mental status and hypotension. Blood pressure was 70s in the field. Mother stated that he has been receiving high doses of morphine and has not been eating or responding for two days. On evaluation at ED, the family wants Full Code. He was given Narcan and respiratory rate improved. Potassium was elevated to 6.2. He again went back to lethargy and given a second bolus of Narcan. He was then admitted to intensive care unit. Chest x-ray done showed no consolidation, no effusion, and no pneumothorax. EKG was in normal sinus rhythm. He was started on IV vancomycin and cefepime. The patient had opiate overdose, which was reversed with Narcan, however, presented with residual of condition, which is most likely related to the significant metabolic derangement and overdose of morphine. CT of the brain was negative with no evidence of brain mets or brain abscess noted. He was given IV hydration. Renal function continued to worsen. Renal ultrasound showed development of moderate left hydronephrosis and a sonographically unremarkable right kidney. Echocardiogram showed ejection fraction of 55% to 60%. He continued with persistent leukocytosis, however, was afebrile. Blood culture did not isolate any growth. He had multiple pressure ulcers. Wound culture showing growth of Enterococcus. He had worsened renal function and a right internal jugular vein Jared catheter was inserted on 12/31/2016. The patient continued to have poor prognosis. The patient was placed on comfort care per family wishes. The patient eventually . FINAL DIAGNOSES: 1. Pancreatic carcinoma. 2. Septic shock. 3. Acute tubular necrosis. 4. Acute toxic encephalopathy. 5. Severe malnutrition. 6. Hepatitis C. 7. Chronic obstructive pulmonary disease. 8. Multiple decubitus pressure ulcer, present on admission. 9. End-stage liver disease. 10. Acute renal failure. 11. Hyperkalemia. 12. Metabolic acidosis. 13. Severe anemia. 14. Comfort care/palliative care. Naila Ramirez M.D. I have been assigned to dictate discharge summary on this account and I was not involved in the patient's management. Nicole Dawkins N.P. DR: CESAR JOB#: [id number] CC:
== END 2017-01-02 00:50 | disposition expired | DRG 720 ==
LOC: EDBD 15:48 → EMR 16:11 → EDBEDREQ 16:20 → 2W 16:57 → EDBEDREQ 17:01 → 2W 21:44 → ICU 23:27 → 2W 12-30 19:23 → ICU 12-31 16:11 → 4E 01-01 19:50
PROC: 05HM33Z Insertion of Infusion Device into Right Internal Jugular Vein, Percutaneous Approach (ICD-10-PCS; principal; 2016-12-31)
DX: A41.9 Sepsis, unspecified organism (principal); N17.0 Acute kidney failure with tubular necrosis; R65.21 Severe sepsis with septic shock; E43 Unspecified severe protein-calorie malnutrition; G92 Toxic encephalopathy; Z51.5 Encounter for palliative care; N13.30 Unspecified hydronephrosis; L89.893 Pressure ulcer of other site, stage 3; C25.9 Malignant neoplasm of pancreas, unspecified; D64.9 Anemia, unspecified; K74.60 Unspecified cirrhosis of liver; E87.5 Hyperkalemia; Z68.26 Body mass index [BMI] 26.0-26.9, adult; Z88.6 Allergy status to analgesic agent; Z88.8 Allergy status to other drugs, medicaments and biological substances; Z79.4 Long term (current) use of insulin; B19.20 Unspecified viral hepatitis C without hepatic coma; J44.9 Chronic obstructive pulmonary disease, unspecified; Z91.19 Patient's noncompliance with other medical treatment and regimen; F15.10 Other stimulant abuse, uncomplicated; K52.89 Other specified noninfective gastroenteritis and colitis; Z91.81 History of falling; E11.40 Type 2 diabetes mellitus with diabetic neuropathy, unspecified; E87.1 Hypo-osmolality and hyponatremia; E11.319 Type 2 diabetes mellitus with unspecified diabetic retinopathy without macular edema; T40.2X1A Poisoning by other opioids, accidental (unintentional), initial encounter; H54.8 Legal blindness, as defined in USA; Z87.891 Personal history of nicotine dependence; L89.620 Pressure ulcer of left heel, unstageable; L89.610 Pressure ulcer of right heel, unstageable; L89.150 Pressure ulcer of sacral region, unstageable; Z66 Do not resuscitate
CPT/HCPCS: 36415; 36569; 36600; 70450; 71010; 76775; 76937; 80053; 80061; 80069; 80202; 80300; 81003; 82140; 82248; 82378; 82533; 82550; 82607; 82746; 82803; 82977; 83036; 83540; 83550; 83605; 83615; 83690; 83735; 83880; 83915; 83930; 84100; 84300; 84443; 84484; 84550; 85007; 85025; 85044; 85060; 85610; 85651; 85730; 86140; 86850; 86900; 86901; 86920; 87040; 87070; 87181; 87205; 89050; 93005; 93306; 93970; 94640; 94664; J2310